=== PATIENT | female | born 1945 | race Caucasian/White ===

== ENCOUNTER 2024-09-25 16:25 | Inpatient (IN) | payer MEDICARE, SELFPAY ==
[2024-09-25] VITALS (10 sets, daily range): BP systolic 87–112; BP diastolic 36–65; PULSE 82–97; RESP 16–18; TEMP 37.3–37.5; O2SAT 83–95; BMI 38.9
--- NOTE | 2024-09-25 | ECG_ITS ---
Test Reason : FALL Blood Pressure : */* mmHG Vent. Rate : 83 BPM Atrial Rate : 83 BPM P-R Int : 126 ms QRS Dur : 78 ms QT Int : 390 ms P-R-T Axes : 40 -11 23 degrees QTcB Int : 458 ms Normal sinus rhythm Normal ECG No previous ECGs available Referred By: Generic ED Physician Electronically Signed By: WILLEM RICARDO MD
--- NOTE | ~2024-09-25 | XR_ITS ---
CLINICAL HISTORY: hypotension 1 view chest x-ray. Comparison: None Findings: Nonspecific density lateral aspect right mid lung. Question pleural or parenchymal in origin. Follow-up chest CT may be of value. Left lung clear. Heart size enlarged. No acute bony abnormalities. Impression: Nonspecific lateral right density as above Chest CT may be of value This document has been electronically signed by: Rigo Burnett MD on 09/25/2024 20:34:10
--- NOTE | ~2024-09-25 | CT_ITS ---
CLINICAL HISTORY: Fall CT head without contrast Comparison: None Findings: No intracranial mass, midline shift, hydrocephalus, or acute hemorrhage. Mild chronic ischemic white matter disease without volume loss. Nonspecific dural calcifications left lateral temporal lobe. No acute process in sinuses or mastoids. No acute bony abnormality. Impression: No acute intracranial process This document has been electronically signed by: Rigo Burnett MD on 09/25/2024 22:11:23
--- NOTE | ~2024-09-25 | XR_ITS ---
EXAMINATION: XR CHEST CLINICAL INFORMATION: SOB COMPARISON: CTPA 09/26/2024. X-ray chest 09/25/2024. TECHNIQUE: AP portable view of the chest was obtained. FINDINGS: There is cardiac enlargement. Mediastinal and hilar contours appear normal. The aorta is calcified but normal in contour. There is retrocardiac opacity suspicious for pneumonia. There is linear opacity in the right base, likely atelectasis. Lungs otherwise clear. Grossly no significant effusion or pneumothorax. A pleural-based opacity in the right lateral thorax is consistent with a pleural lipoma as seen on CT. Arthritic changes present in the spine and shoulder joints. Old rib fractures are noted particularly on the left. No discrete soft tissue abnormalities. XR/XR chest 1V IMPRESSION: 1. Left base pneumonia suspected. 2. Linear atelectasis right base. 3. Cardiomegaly. 4. Pleural opacity in the lateral right thorax consistent with pleural lipoma as seen on recent CT. Electronically signed by: Jimmy Márquez MD 09/28/2024 08:48 AM MEGHNA
--- NOTE | ~2024-09-25 | CT_ITS ---
CLINICAL HISTORY: sob ?PE CT angiography chest with contrast. With MIP MPR Postprocessing. Comparison: Chest x-ray from 09/25/2024 Findings: No central pulmonary embolism. Moderate cardiomegaly with multi chamber enlargement of the heart. Calcified and noncalcified plaque including the tortuous aorta and its branches. Small mediastinal lymph nodes are nonspecific and may be reactive. 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 Trace small bilateral pleural effusions. No pneumothorax. Mild scarring and emphysematous changes. Combination of atelectasis and consolidation are nonspecific and may be infectious/inflammatory with index consolidation measuring 2.5 cm in the left lower lobe. Small left diaphragm defect appears old/chronic with adipose. Also mild eventration of the right hemidiaphragm suggested. Likely mild steatotic change of the imaged liver. Mild distention of the partially imaged gallbladder. Subcutaneous edema is noted. Bilateral rib deformities appear old chronic with remodeling callus formation including comminuted left lateral rib fractures. 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 Mild vertebral height losses appear old chronic including T12. Multiple Schmorl's nodes and bridging osteophytes noted. IMPRESSION: 1. No central pulmonary embolism. 2. Pulmonary opacities including consolidation in the left lower lobe. Differential considerations include pneumonitis/pneumonia. Recommend attention on follow-up to ensure resolution. This document has been electronically signed by: Yazan Caballero MD on 09/26/2024 01:14:08
[2024-09-25 17:30] LABS: MANUAL DIFF FLAG NO
--- NOTE | 2024-09-25 17:30 | PC.NURSE ---
pt biba from home s/p unwitnessed fall from her walker. pt reports she was ambulating to get a cup of coffee when she suddenly felt dizzy and lightheaded prior to fall. +loc. ?headstrike. -thinners. pt found to be laying on the ground for approximately 1 hr prior to arrival. during EMS transport, pt noted to be hypotensive. no interventions completed during transport. upon ED arrival - a&ox4. vss and up to date aside from slightly hypotensive. BP seems to have improved. pt on 3L via NC (baseline). pt currently c/o left sided rib discomfort d/t previous fall from multiple weeks ago. 20gIV in the left AC via EMS. labs obtained/sent to lab. ekg performed. orthostatic vs performed and negative. no sob/wob noted. respirations even/unlabored. plan of care ongoing. call horton placed within reach.
[2024-09-25 17:42] LABS: Basophils Percent Auto 0.3 % (0-2); Eosinophils Percent Auto 0.3 % (0-4); Hemoglobin 14.9 g/dl (12.0-16.0); Imm Gran Abs Auto 0.09 X10*3/uL (0.00-0.03); Imm Gran Pct Auto 0.8 % (0.0-0.4); Lymphocytes Absolute Auto 1.1 X10*3/uL (1.2-4.9); Mean Corpuscular HGB Conc 29.8 g/dl (31.0-35.0); Mean Corpuscular Volume 90.7 fL (80.0-98.0); Mean Platelet Volume 9.8 fL (9.4-12.3); Monocytes Percent Auto 8.5 % (2-11); Neutrophils Absolute Auto 9.5 x10*3/uL (2.0-8.3); Neutrophils Percent Auto 81.1 % (45-73); Platelet Count 252 X10*3/uL (160-400); Red Blood Count 5.51 X10*6/uL (4.20-5.50); Red Cell Distribution Width 13.6 % (11.0-16.0); White Blood Count 11.7 X10*3/uL (4.8-10.8)
--- NOTE | 2024-09-25 17:52 | ED.GENADULT ---
HPI - General Adult General Chief complaint: Fall Stated complaint: FALL, BP 70/40, - THINNERS Time Seen by Provider: 09/25/24 17:49 Source: patient Mode of arrival: EMS Limitations: no limitations History of Present Illness ED Provider: HPI narrative: Patient's history of hypertension and depression comes here as fell lightheaded and very weak and slumped down without hitting her head just prior to arrival. On arrival patient's blood pressure was 70/40. Patient's for last 2 days not eat much as she does not feel hungry no fever no chills no vomiting no diarrhea Related Data Allergies Allergy/AdvReac Type Severity Reaction Status Date / Time No Known Allergies Allergy Verified 09/25/24 17:05 Review of Systems Review of Systems: Yes all other systems are reviewed and are negative [facility] Social History Social History Smoked in Last 30 Days: No Use of substances other than those prescribed or required for medical reasons: No Advance Directives: No Advance Directives Information Provided: Yes Do you have a plan to hurt others: No Plan Physical Exam ED Vital Signs: Vital Signs - 24 hr 09/25/24 17:04 09/25/24 17:33 09/25/24 17:34 Temperature 99.5 F Pulse Rate 90 84 97 Respiratory Rate 18 Blood Pressure 97/36 L 89/41 L 87/51 L Pulse Oximetry 93 Oxygen Delivery Method Nasal Cannula Oxygen Flow Rate 09/25/24 17:36 09/25/24 18:16 09/25/24 18:25 Temperature 99.2 F Pulse Rate 96 82 83 Respiratory Rate 16 16 Blood Pressure 87/47 L 98/49 L 106/43 L Pulse Oximetry 93 93 Oxygen Delivery Method Nasal Cannula Nasal Cannula Oxygen Flow Rate 3 09/25/24 19:19 09/25/24 23:25 09/25/24 23:35 Temperature Pulse Rate 89 Respiratory Rate 16 Blood Pressure 97/49 L Pulse Oximetry 95 83 L 95 Oxygen Delivery Method Nasal Cannula Room Air Nasal Cannula Oxygen Flow Rate 3 4 09/26/24 00:45 Temperature 97.7 F Pulse Rate 102 H Respiratory Rate 19 Blood Pressure 145/67 H Pulse Oximetry 95 Oxygen Delivery Method Nasal Cannula Oxygen Flow Rate 4 BMI result Body Mass Index 38.9 Appearance: Alert. Oriented X3. No acute distress. Eyes: PERRLA, No Nystagmus ENT: Pharynx normal. Oral Mucosa moist Neck: Normal inspection. Neck supple. CVS: Normal heart rate and rhythm. Pulses normal. Respiratory: No respiratory distress. Equal air entry bilateral, no wheezing/rales/rhonchi Abdomen: Soft and nontender. Bowel sounds are present, no mass palpable, no CVA tenderness Skin: Skin warm and dry. Normal skin color. Normal skin turgor. Extremities: No lower extremity edema. No calf tenderness Neuro: Oriented X 3. No motor deficit. No sensory deficit.No cerebellar signs , cranial nerves II-XII intact Medications Administered Discontinued Medications Generic Name Dose Route Start Last Admin Trade Name Freq PRN Reason Stop Dose Admin Sodium Chloride 1,000 mls @ 999 mls/hr 09/25/24 17:52 09/25/24 20:31 Ns IV 09/25/24 18:52 Infused .Q1H1M ONE Infusion Sodium Chloride 1,000 mls @ 999 mls/hr 09/25/24 19:39 09/25/24 21:55 Ns IV 09/25/24 20:39 Infused .Q1H1M ONE Infusion Iohexol 65 ml 09/26/24 00:46 09/26/24 00:47 Iohexol 350 Mg/Ml 100 Ml Infus..Btl IV 09/26/24 00:47 65 ml ONCE ONE Administration Medical Decision Making Medical Decision Making [facility] Narrative: Patient has increased lethargy and weakness with poor oral intake etiology not very clear workup so far is negative awaiting for the urine test received IV fluids chest CT order for opacity in the chest Xray patient's head CT is negative Chest CT showed left lower lobe infiltrate no PE, patient's pulse ox dropped to 83% at room air while patient's sleep patient does have history of smoking but never been diagnose with COPD never used any inhaler in the past does have cough for few days but mostly mucoid phlegm no fever no chills will admit patient for pneumonia likely atypical with hypoxia Differential Diagnosis Differential Diagnoses: The differential diagnosis associated with the presentation includes Metabolic encephalopathy/infectious process/pneumonia/pulmonary embolism/chronic lung disease Admission/Observation Consideration of admission/observation: Escalation of care including admission/observation considered Consult Healthcare Provider Management of the patient was discussed with: Hospitalist Lab Data [facility] Lab Attestation statement: I reviewed the patient's lab results. 09/25/24 17:22 09/25/24 17:24 Labs: Lab Results 09/25/24 09/25/24 09/25/24 Range/Units 17:22 17:24 20:30 WBC 11.7 H (4.8-10.8) X10*3/uL RBC 5.51 H (4.20-5.50) X10*6/uL Hgb 14.9 (12.0-16.0) g/dl Hct 50.0 H (37.0-47.0) % MCV 90.7 (80.0-98.0) fL MCH 27.0 (27.0-33.0) pg MCHC 29.8 L (31.0-35.0) g/dl RDW 13.6 (11.0-16.0) % Plt Count 252 (160-400) X10*3/uL MPV 9.8 (9.4-12.3) fL Immature Gran % (Auto) 0.8 H (0.0-0.4) % Neut % (Auto) 81.1 H (45-73) % Lymph % (Auto) 9.0 L (20-40) % [place] % (Auto) 8.5 (2-11) % Eos % (Auto) 0.3 (0-4) % Baso % (Auto) 0.3 (0-2) % Lymph # (Auto) 1.1 L (1.2-4.9) X10*3/uL [place] # (Auto) 1.0 (0.1-1.2) X10*3/uL Eos # (Auto) 0.0 (0.0-0.4) X10*3/uL Baso # (Auto) 0.0 (0.0-0.2) X10*3/uL Abs Immat Gran (auto) 0.09 H (0.00-0.03) X10*3/uL Absolute Neuts (auto) 9.5 H (2.0-8.3) x10*3/uL Absolute Nucleated RBC 0.000 (0.0-0.012) X10*3/uL Nucleated RBC % (auto) 0.0 (0.0-0.2) /100WBC VBG pH (7.32-7.43) VBG pCO2 mmHg VBG pO2 mmHg VBG HCO3 (22-26) mmol/L VBG O2 Saturation % VBG Base Excess mmol/L Sodium 142 (135-145) mmol/L Potassium 4.7 (3.3-5.1) mmol/L Chloride 99 (96-108) mmol/L Carbon Dioxide 30 H (22-29) mmol/L Anion Gap 18 (12-20) BUN 29 H (9-16) mg/dL Creatinine 1.30 (0.5-1.4) mg/dL Estim Creat Clear Calc 37.4 Estimated GFR 39 Random Glucose 125 H (60-115) mg/dL Lactic Acid 1.4 (0.5-2.0) mmol/L Calcium 8.7 (8.4-10.2) mg/dL Magnesium 2.2 (1.6-2.6) mg/dL Total Bilirubin 0.4 (0.0-1.0) mg/dL Direct Bilirubin 0.2 (0.0-0.5) mg/dL AST 31 (5-31) U/L ALT 21 (0-31) U/L Alkaline Phosphatase 150 H (39-117) U/L Troponin I High Sens 11.6 (<3.5-17.0) ng/L Total Protein 7.6 (6.5-8.0) g/dL Albumin 3.8 (3.5-5.0) g/dL TSH 2.61 (0.32-4.0) uIU/mL Influenza Type A (PCR) NEGATIVE (Negative) Influenza Type B (PCR) NEGATIVE (Negative) RSV RNA Qual (PCR) NEGATIVE (Negative) SARS-CoV-2 RNA (RT-PCR) NEGATIVE (Negative) 09/26/24 Range/Units 23:36 WBC (4.8-10.8) X10*3/uL RBC (4.20-5.50) X10*6/uL Hgb (12.0-16.0) g/dl Hct (37.0-47.0) % MCV (80.0-98.0) fL MCH (27.0-33.0) pg MCHC (31.0-35.0) g/dl RDW (11.0-16.0) % Plt Count (160-400) X10*3/uL MPV (9.4-12.3) fL Immature Gran % (Auto) (0.0-0.4) % Neut % (Auto) (45-73) % Lymph % (Auto) (20-40) % [place] % (Auto) (2-11) % Eos % (Auto) (0-4) % Baso % (Auto) (0-2) % Lymph # (Auto) (1.2-4.9) X10*3/uL [place] # (Auto) (0.1-1.2) X10*3/uL Eos # (Auto) (0.0-0.4) X10*3/uL Baso # (Auto) (0.0-0.2) X10*3/uL Abs Immat Gran (auto) (0.00-0.03) X10*3/uL Absolute Neuts (auto) (2.0-8.3) x10*3/uL Absolute Nucleated RBC (0.0-0.012) X10*3/uL Nucleated RBC % (auto) (0.0-0.2) /100WBC VBG pH 7.43 (7.32-7.43) VBG pCO2 33 mmHg VBG pO2 79 mmHg VBG HCO3 22 (22-26) mmol/L VBG O2 Saturation 96.0 % VBG Base Excess -1.0 mmol/L Sodium (135-145) mmol/L Potassium (3.3-5.1) mmol/L Chloride (96-108) mmol/L Carbon Dioxide (22-29) mmol/L Anion Gap (12-20) BUN (9-16) mg/dL Creatinine (0.5-1.4) mg/dL Estim Creat Clear Calc Estimated GFR Random Glucose (60-115) mg/dL Lactic Acid (0.5-2.0) mmol/L Calcium (8.4-10.2) mg/dL Magnesium (1.6-2.6) mg/dL Total Bilirubin (0.0-1.0) mg/dL Direct Bilirubin (0.0-0.5) mg/dL AST (5-31) U/L ALT (0-31) U/L Alkaline Phosphatase (39-117) U/L Troponin I High Sens (<3.5-17.0) ng/L Total Protein (6.5-8.0) g/dL Albumin (3.5-5.0) g/dL TSH (0.32-4.0) uIU/mL Influenza Type A (PCR) (Negative) Influenza Type B (PCR) (Negative) RSV RNA Qual (PCR) (Negative) SARS-CoV-2 RNA (RT-PCR) (Negative) Independent Interpretation I performed an independent interpretation of an: EKG Interpretation: Normal sinus rhythm heart rate 83 beats per minute normal interval normal axis no acute ST-T changes Radiology Impression Discussion of test interpretation with radiology: I have reviewed the radiologist's reading. Radiologist Impression: [address] [address] [address] Scan Report Signed Patient: Ping Lyman MR#: [id number] : 1945 Acct:[id number] Age/Sex: 79 / F ADM Date: 09/25/24 Loc: .ED Attending Dr: Ordering Physician: Antony Mckenzie MD Date of Service: 09/26/24 Procedure(s): CT angio chest PE protocol Accession Number(s): [id number] cc: Anurag Schmid MD; Antony Mckenzie MD~ Report Number: [id number]: Total DLP = 512.00 mGy-cm CLINICAL HISTORY: sob ?PE CT angiography chest with contrast. With MIP MPR Postprocessing. Comparison: Chest x-ray from 09/25/2024 Findings: No central pulmonary embolism. Moderate cardiomegaly with multi chamber enlargement of the heart. Calcified and noncalcified plaque including the tortuous aorta and its branches. Small mediastinal lymph nodes are nonspecific and may be reactive. 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 Trace small bilateral pleural effusions. No pneumothorax. Mild scarring and emphysematous changes. Combination of atelectasis and consolidation are nonspecific and may be infectious/inflammatory with index consolidation measuring 2.5 cm in the left lower lobe. Small left diaphragm defect appears old/chronic with adipose. Also mild eventration of the right hemidiaphragm suggested. Likely mild steatotic change of the imaged liver. Mild distention of the partially imaged gallbladder. Subcutaneous edema is noted. Bilateral rib deformities appear old chronic with remodeling callus formation including comminuted left lateral rib fractures. 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 Mild vertebral height losses appear old chronic including T12. Multiple Schmorl's nodes and bridging osteophytes noted. IMPRESSION: 1. No central pulmonary embolism. 2. Pulmonary opacities including consolidation in the left lower lobe. Differential considerations include pneumonitis/pneumonia. Recommend attention on follow-up to ensure resolution. This document has been electronically signed by: Yazan Caballero MD on 09/26/2024 01:14:08 Discharge Plan Discharge Clinical Impression: Acute hypoxemic respiratory failure, Weakness, Pneumonia Patient Disposition: Admitted As Inpatient Print Language: French
[2024-09-25 17:58] LABS: Alanine Aminotransferase 21 U/L (0-31); Albumin Level 3.8 g/dL (3.5-5.0); Alkaline Phosphatase 150 U/L (39-117); Anion Gap 18 (12-20); Aspartate Amino Transferase 31 U/L (5-31); Bilirubin Direct 0.2 mg/dL (0.0-0.5); Bilirubin Total 0.4 mg/dL (0.0-1.0); Blood Urea Nitrogen 29 mg/dL (9-16); Calcium 8.7 mg/dL (8.4-10.2); Carbon Dioxide 30 mmol/L (22-29); Chloride 99 mmol/L (96-108); Creatinine Clr Calc Pharmacy 37.4; Estimated Glomerular Filt Rate 39; Glucose Random 125 mg/dL (60-115); Magnesium 2.2 mg/dL (1.6-2.6); Potassium 4.7 mmol/L (3.3-5.1); Sodium 142 mmol/L (135-145); Total Protein 7.6 g/dL (6.5-8.0)
[2024-09-25 18:00] LABS: Troponin-I High Sensitivity 11.6 ng/L (<3.5-17.0)
[2024-09-25] MEDS: 0.9 % Sodium Chloride 1,000 ML 999 ML IV ×2 (18:01→20:32)
--- NOTE | 2024-09-25 18:03 | PC.NURSE ---
pt remains hypotensive. otherwise vss and up to date. nsr on the teletypesetter monitor. provider notified/aware. MD bedside to assess. IVF administered per provider order. pt remains on 3L via NC at this time. no sob/wob noted. respirations even/unlabored. plan of care ongoing. call horton placed within reach.
[2024-09-25 18:16] LABS: Influenza A PCR NEGATIVE (Negative); Influenza B PCR NEGATIVE (Negative); Resp Syncy Virus RNA Qual PCR NEGATIVE (Negative); SARS COV2 PCR INHOUSE NEGATIVE (Negative)
[2024-09-25 20:52] LABS: Lactic Acid 1.4 mmol/L (0.5-2.0)
[2024-09-25 23:48] LABS: Thyroid Stimulating Hormone 2.61 uIU/mL (0.32-4.0)
[2024-09-26] VITALS (8 sets, daily range): BP systolic 117–162; BP diastolic 41–67; PULSE 82–128; RESP 11–20; TEMP 36.5–37.2; O2SAT 92–95
[2024-09-26] MEDS: iohexoL 350 MG/ML 100 ML INFUS..BTL 65 ML IV (00:47)
[2024-09-26 01:01] LABS: VBG pCO2 33 mmHg; VBG pH 7.43 (7.32-7.43)
[2024-09-26 01:02] LABS: VBG pO2 79 mmHg
[2024-09-26 01:03] LABS: VBG HCO3 22 mmol/L (22-26)
[2024-09-26 01:06] LABS: Venous Blood Gas Refer to POC result
--- NOTE | 2024-09-26 01:34 | PC.NURSE ---
Patient is a difficult stick, multiple attempts made to draw blood for second set of blood cultures with no success, Dr. Tirado informed. Per Dr. Tirado, OK not to draw a second set of blood cultures.
[2024-09-26] MEDS: cefTRIAXone sodium 1 GM VIAL IVPUSH ×2 (01:44→21:54)
[2024-09-26] MEDS: Doxycycline Hyclate 100 MG in 0.9 % Sodium Chloride 250 ML 166.67 MG IV (01:48)
[2024-09-26] MEDS: Enoxaparin Sodium 40 MG/0.4 ML SYRINGE SUBCUT (05:29)
--- NOTE | 2024-09-26 05:51 | MHC.EDTECH ---
patient cleaned and repositioned into position of comfort. patient given warm blanket and head of bed lowered per patient request. all needs met at this time
--- NOTE | 2024-09-26 06:12 | P.HPHOSP_ITS ---
History of Present Illness Date of Service: 09/26/24 Attending physician on admission: Ivana Tirado Chief Complaint: weakness, fall Patient is an 79-year-old female with a past medical history significant for hypertension and depression, who presented to the ED due to lightheadedness and weakness hit followed by a fall. She reports that she slumped onto the ground, did not hit her head or lose consciousness. No seizure-like activity including urinary incontinence. She reports a productive cough recently with white sputum. No fever, chills, nausea or vomiting. No recent sick contacts. He denies headache, sore throat, runny nose, congestion, abdominal pain or urinary symptoms including frequency, urgency or dysuria. She has had poor p.o. intake over the past 2 days due to her weakness and lightheadedness. Review of Systems 2 Constitutional: Constitutional: Denies body ache(s), Denies chills, Reports fatigue, Denies fever(s) and Denies headache(s) Eyes: Eyes: Denies change in vision ENT: Denies headache(s), Denies nasal congestion, Denies nasal discharge and Denies sore throat Cardiovascular: Cardiovascular: Denies chest pain, Reports syncope, Denies rapid heart rate, Reports lightheadedness, Denies dyspnea and Denies dyspnea on exertion Respiratory: Respiratory: Reports cough, Denies dyspnea, Denies dyspnea on exertion and Denies wheezing Gastrointestinal: Gastrointestinal: Denies constipation, Denies diarrhea, Denies nausea and Denies vomiting Genitourinary: Genitourinary: Denies dysuria, Denies urinary incontinence and Denies urinary urgency Musculoskeletal: Musculoskeletal: Denies myalgias Integumentary/Breasts: Skin/Breast: Denies rash Neurologic: Denies confusion, Reports syncope, Denies headache(s) and Denies seizure-like activity Psychiatric: Psychiatric: Denies confusion Endocrine: Endocrine: Reports fatigue Hematologic/Lymphatic: Hematologic/Lymphatic: Denies easy bleeding and Denies easy bruising Allergic/Immunologic: Allergic/Immunologic: Denies wheezing [facility] Medical History (Updated 09/26/24 @ 06:22 by Blossom Arias PA-C) Obesity (BMI 35.0-39.9 without comorbidity) Depression HTN (hypertension) Functional capacity: independent ambulation Social History Patient Tobacco Use Status: Former Tobacco user Smoked in Last 30 Days: No Use of substances other than those prescribed or required for medical reasons: No Advance Directives: No Advance Directives Information Provided: Yes Do you have a plan to hurt others: No Plan Narrative: no smoking, etoh, or drug use Meds Allergies Allergy/AdvReac Type Severity Reaction Status Date / Time No Known Allergies Allergy Verified 09/25/24 17:05 Active Medications: Current Medications Acetaminophen (Acetaminophen 325 Mg Tablet) 650 mg PO Q6H PRN PRN Reason: Pain, Mild 1-3,fever,headache Calcium Carbonate (Calcium Carbonate 750 Mg Tab.Chew) 750 mg PO Q4H PRN PRN Reason: Heartburn Ceftriaxone Sodium (Ceftriaxone Sodium 1 Gm Vial) 1 gm IVPUSH Q24H MAYRA Enoxaparin Sodium (Enoxaparin Sodium 40 Mg/0.4 Ml Syringe) 40 mg SUBCUT Q24H [facility] Last Admin: 09/26/24 05:29 Dose: 40 mg Azithromycin 500 mg/ Sodium (Chloride) 250 mls @ 125 mls/hr IV Q24H MAYRA Magnesium Hydroxide (Milk Of Magnesia 30 Ml Oral.Susp) 30 ml PO DAILY PRN PRN Reason: Constipation Melatonin (Melatonin 3 Mg Tablet) 6 mg PO BEDTIME PRN PRN Reason: Insomnia Ondansetron HCl (Ondansetron Hcl 4 Mg/2 Ml Vial) 4 mg IVPUSH Q8H PRN PRN Reason: Nausea and Vomiting Sodium Chloride (0.9 % Sodium Chloride Flush 3 Ml Syringe) 3 ml IVFLUSH QSHIFT [facility] Physical Exam 2 Vital Signs and Narrative: Vital Signs: Last Vital Signs Temp 97.7 F 09/26/24 00:45 Pulse 82 09/26/24 03:28 Resp 11 L 09/26/24 03:28 BP 132/59 L 09/26/24 03:28 Pulse Ox 94 09/26/24 03:28 O2 Del Method Nasal Cannula 09/26/24 03:28 O2 Flow Rate 3 09/26/24 03:28 Oxygen Flow Rate 3 09/25/24 17:04 BMI result Body Mass Index 38.9 General: AOx3, no acute distress Resp: crackles LLL, no wheezing CVS: S1, S2, RRR GI: +BS, NT, no distention Skin: Warm, dry Neuro: Cranial nerves II-XII grossly intact bilaterally. Motor grossly intact bilaterally Extremities: No LE edema Psych: Appropriate affect Const: General: No confusion Orientation/consciousness: No confusion Neuro: General: No confusion Results Labs 09/25/24 17:22 09/26/24 05:12 Labs: Laboratory Results - last 24 hr 09/25/24 09/25/24 09/25/24 17:22 17:24 20:30 MCV 90.7 MCH 27.0 MCHC 29.8 L RDW 13.6 Plt Count 252 MPV 9.8 Immature Gran % (Auto) 0.8 H Neut % (Auto) 81.1 H Lymph % (Auto) 9.0 L [place] % (Auto) 8.5 Eos % (Auto) 0.3 Baso % (Auto) 0.3 Lymph # (Auto) 1.1 L [place] # (Auto) 1.0 Eos # (Auto) 0.0 Baso # (Auto) 0.0 Abs Immat Gran (auto) 0.09 H Absolute Neuts (auto) 9.5 H Absolute Nucleated RBC 0.000 Nucleated RBC % (auto) 0.0 VBG pH VBG pCO2 VBG pO2 VBG HCO3 VBG O2 Saturation VBG Base Excess Anion Gap 18 Estim Creat Clear Calc 37.4 Estimated GFR 39 Random Glucose 125 H Lactic Acid 1.4 Calcium 8.7 Magnesium 2.2 Total Bilirubin 0.4 Direct Bilirubin 0.2 AST 31 ALT 21 Alkaline Phosphatase 150 H Troponin I High Sens 11.6 Total Protein 7.6 Albumin 3.8 TSH 2.61 Influenza Type A (PCR) NEGATIVE Influenza Type B (PCR) NEGATIVE RSV RNA Qual (PCR) NEGATIVE SARS-CoV-2 RNA (RT-PCR) NEGATIVE 09/26/24 23:36 MCV MCH MCHC RDW Plt Count MPV Immature Gran % (Auto) Neut % (Auto) Lymph % (Auto) [place] % (Auto) Eos % (Auto) Baso % (Auto) Lymph # (Auto) [place] # (Auto) Eos # (Auto) Baso # (Auto) Abs Immat Gran (auto) Absolute Neuts (auto) Absolute Nucleated RBC Nucleated RBC % (auto) VBG pH 7.43 VBG pCO2 33 VBG pO2 79 VBG HCO3 22 VBG O2 Saturation 96.0 VBG Base Excess -1.0 Anion Gap Estim Creat Clear Calc Estimated GFR Random Glucose Lactic Acid Calcium Magnesium Total Bilirubin Direct Bilirubin AST ALT Alkaline Phosphatase Troponin I High Sens Total Protein Albumin TSH Influenza Type A (PCR) Influenza Type B (PCR) RSV RNA Qual (PCR) SARS-CoV-2 RNA (RT-PCR) Assessment and Plan (1) Acute hypoxemic respiratory failure: Status: Acute (2) Pneumonia: Status: Acute (3) Orthostatic syncope: Status: Acute (4) Obesity (BMI 35.0-39.9 without comorbidity): Status: Chronic Plan Patient is an 79-year-old female with a past medical history significant for hypertension and depression, who presented to the ED due to lightheadedness and weakness hit followed by a fall. Patient found to be hypoxic with pneumonia. Head CT negative, no seizure-like activity, no loss of consciousness or head strike. Likely orthostatic syncope secondary to poor p.o. intake. Acute hypoxic respiratory failure secondary to pneumonia - WBC 11.7, lactic acid normal, blood cultures x2 pending, no sepsis - chest CT with left lower lobe pneumonia - flu/RSV/COVID negative - IV fluids: 2L in ED - started on doxycycline and ceftriaxone - monitor CBC and BMP Orthostatic syncope secondary to poor p.o. intake - EKG with NSR - head CT negative - BP normalized with IV fluids - continue to monitor CBC and BMP obesity - BMI 39.0 - weight loss encouraged Full code VTE prophy: lovenox Patient with acute hypoxic respiratory failure secondary to pneumonia treated by an episode orthostatic, requiring admission for at least 2 midnights stay for IV antibiotics and monitoring. Quality Stroke Does the patient have a stroke diagnosis?: No VTE Prior VTE?: No VTE Risk Level:: Medical - moderate - high VTE Device Contraindication: Treatment Not Indicated VTE Drug Contraindication: N/A - Med Ordered
[2024-09-26 06:13] LABS: Anion Gap 16 (12-20); Blood Urea Nitrogen 32 mg/dL (9-16); Calcium 8.5 mg/dL (8.4-10.2); Carbon Dioxide 25 mmol/L (22-29); Chloride 105 mmol/L (96-108); Creatinine Clr Calc Pharmacy 43.4; Estimated Glomerular Filt Rate 47; Glucose Random 90 mg/dL (60-115); Potassium 4.5 mmol/L (3.3-5.1); Sodium 141 mmol/L (135-145)
--- NOTE | 2024-09-26 07:41 | PM.EVENT ---
Event Note Date of Service: 09/26/24 Event Note: 79-year-old female with a past medical history significant for hypertension and depression, who presented to the ED due to lightheadedness and weakness followed by a fall. Patient found to be hypoxic with pneumonia. Head CT negative, no seizure-like activity, no loss of consciousness or head strike. Likely orthostatic syncope secondary to poor p.o. intake. Resting comfortably no acute issues since admission Acute hypoxic respiratory failure secondary to pneumonia - WBC 11.7, lactic acid normal, blood cultures x2 pending, no sepsis - chest CT with left lower lobe pneumonia - flu/RSV/COVID negative - status post 2 L of IV fluid in ED - continue IV doxycycline and ceftriaxone - monitor CBC and BMP Orthostatic hypotension near syncope secondary to poor p.o. intake - EKG with NSR, hematocrit 50, BUN 32 - head CT negative - BP normalized with IV fluids, - continue to monitor CBC and BMP -hold antihypertensives losartan, and clonidine 0.2 mg t.i.d. monitor BP and gradually resume home medications as tolerated obesity - BMI 39.0, recommend low-calorie diet Hyperlipidemia hold CTA and Zocor Mood disorder resume Zoloft 100 mg daily. Full code VTE prophy: lovenox Patient with acute hypoxic respiratory failure secondary to pneumonia treated by an episode orthostatic, requiring admission for at least 2 midnights stay for IV antibiotics and monitoring. Time Spent With Patient Time: Total time managing care of this patient today ____ minutes.
--- NOTE | 2024-09-26 10:42 | PHA.MEDREC ---
Pharmacy Consult ? Medication Reconciliation Pharmacy has completed the medication reconciliation, spoke to patient at bedside who confirmed medications. Pt stated she is not taking trazodone 100mg at bedtime, also used list form [employer] [facility] to double check with claims.
[2024-09-26] MEDS: 0.9 % Sodium Chloride Flush 3 ML SYRINGE IVFLUSH ×3 (11:05→22:00)
--- NOTE | 2024-09-26 15:56 | MHC.EDTECH ---
had the patient stand to do orthos. pt was very unsteady on her feet and sat back down immediately. pt also peed as soon as she stood up. pt also changed and pad changed underneath as well.
[2024-09-26] MEDS: Gabapentin 300 MG CAPSULE PO (16:20)
[2024-09-26] MEDS: Acetaminophen 325 MG TABLET 650 MG PO ×2 (16:23→22:17)
[2024-09-26] MEDS: Azithromycin 500 MG in 0.9 % Sodium Chloride 250 ML 125 MG IV (21:54)
[2024-09-26] MEDS: Melatonin 3 MG TABLET 6 MG PO (22:15)
[2024-09-26] MEDS: ondansetron HCL 4 MG/2 ML VIAL IVPUSH (23:25)
[2024-09-27 03:15] VITALS: BP 152/68; PULSE 100; RESP 16; TEMP 36.9; O2SAT 94
[2024-09-27] MEDS: Enoxaparin Sodium 40 MG/0.4 ML SYRINGE SUBCUT (06:27)
[2024-09-27 07:02] LABS: Hematocrit 46.5 % (37.0-47.0); Hemoglobin 13.8 g/dl (12.0-16.0); Mean Corpuscular HGB Conc 29.7 g/dl (31.0-35.0); Mean Corpuscular Hemoglobin 27.3 pg (27.0-33.0); Mean Corpuscular Volume 91.9 fL (80.0-98.0); Mean Platelet Volume 10.1 fL (9.4-12.3); Platelet Count 229 X10*3/uL (160-400); Red Blood Count 5.06 X10*6/uL (4.20-5.50); Red Cell Distribution Width 13.8 % (11.0-16.0); White Blood Count 6.9 X10*3/uL (4.8-10.8)
[2024-09-27 08:00] VITALS: BP 157/81; PULSE 101; RESP 17; TEMP 36.7; O2SAT 94
[2024-09-27] MEDS: Gabapentin 300 MG CAPSULE PO ×2 (08:18→16:19)
[2024-09-27] MEDS: Flu Vacc TS2024-25(6mos up)/PF 0.5 ML SYRINGE IM (08:18)
[2024-09-27] MEDS: Sertraline HCL 100 MG TABLET PO (08:18)
[2024-09-27] MEDS: 0.9 % Sodium Chloride Flush 3 ML SYRINGE IVFLUSH (08:20)
[2024-09-27 08:31] LABS: MANUAL DIFF FLAG NO
[2024-09-27 08:39] LABS: Basophils Percent Auto 0.6 % (0-2); Eosinophils Absolute Auto 0.2 X10*3/uL (0.0-0.4); Eosinophils Percent Auto 3.2 % (0-4); Hematocrit 45.1 % (37.0-47.0); Hemoglobin 13.4 g/dl (12.0-16.0); Imm Gran Abs Auto 0.03 X10*3/uL (0.00-0.03); Imm Gran Pct Auto 0.4 % (0.0-0.4); Lymphocytes Absolute Auto 1.7 X10*3/uL (1.2-4.9); Lymphocytes Percent Auto 23.9 % (20-40); Mean Corpuscular HGB Conc 29.7 g/dl (31.0-35.0); Mean Corpuscular Hemoglobin 27.1 pg (27.0-33.0); Mean Corpuscular Volume 91.1 fL (80.0-98.0); Mean Platelet Volume 9.4 fL (9.4-12.3); Monocytes Absolute Auto 0.7 X10*3/uL (0.1-1.2); Monocytes Percent Auto 10.1 % (2-11); Neutrophils Absolute Auto 4.4 x10*3/uL (2.0-8.3); Neutrophils Percent Auto 61.8 % (45-73); Platelet Count 219 X10*3/uL (160-400); Red Blood Count 4.95 X10*6/uL (4.20-5.50); Red Cell Distribution Width 13.7 % (11.0-16.0); White Blood Count 7.2 X10*3/uL (4.8-10.8)
[2024-09-27 09:06] LABS: Alanine Aminotransferase 24 U/L (0-31); Albumin Level 3.4 g/dL (3.5-5.0); Alkaline Phosphatase 136 U/L (39-117); Anion Gap 7 (12-20); Aspartate Amino Transferase 28 U/L (5-31); Bilirubin Total 0.2 mg/dL (0.0-1.0); Blood Urea Nitrogen 26 mg/dL (9-16); Carbon Dioxide 34 mmol/L (22-29); Chloride 105 mmol/L (96-108); Creatinine Clr Calc Pharmacy 64.9; Estimated Glomerular Filt Rate > 60; Glucose Random 104 mg/dL (60-115); Potassium 4.1 mmol/L (3.3-5.1); Sodium 142 mmol/L (135-145); Total Protein 6.8 g/dL (6.5-8.0)
[2024-09-27 11:46] LABS: Appearance Urine Turbid; Color Urine Yellow; Glucose Urine UA Negative (Negative); Leukocyte Esterase Urine Negative (Negative); Nitrite Urine Negative (Negative); PH 5.5 (5.0-9.0); Urine Blood Negative (Negative); Urine Ketones Negative (Negative); Urine Protein Trace mg/dL (Neg-Trace)
[2024-09-27 12:14] LABS: Bacteria Urine None Seen (None Seen); Hyaline Casts Urine 0-2 /LPF (0-2); RBC Urine 0-2 /HPF (0-2); Squamous Epithelial Cell Urine 0-2 /HPF (0-2); WBC Urine 0-5 /HPF (0-5)
[2024-09-27] MEDS: Acetaminophen 325 MG TABLET 650 MG PO ×3 (14:06→21:46)
[2024-09-27] MEDS: Lactated Ringers 1,000 ML 100 ML IVCONT (14:07)
--- NOTE | 2024-09-27 14:14 | HO.PM.IMPN ---
Subjective Subjective Date of Service: 09/27/24 Interval History: No acute issues overnight as discussed with nursing staff. Sats acceptable at 2 liters/minute Review of Systems Denies chest pain Admits to shortness of breath with movement Denies nausea vomiting diarrhea Denies fever chills Physical Exam Vital Signs: Vital Signs: Last Vital Signs Temp 98.0 F 09/27/24 08:00 Pulse 101 H 09/27/24 08:00 Resp 17 09/27/24 08:00 BP 157/81 H 09/27/24 08:00 Pulse Ox 94 09/27/24 08:00 O2 Del Method Nasal Cannula 09/27/24 08:00 O2 Flow Rate 2 09/27/24 08:00 Oxygen Flow Rate 3 09/25/24 17:04 BMI result Body Mass Index 38.9 Const: Other: Awake alert no acute distress Resp: Other: Clear to auscultation bilaterally no rales rhonchi or wheezes Cardio: Other: No S4; positive S1-S2; no S3 murmurs rubs or gallops GI: Other: Soft nontender nondistended normoactive bowel sounds Extrem: Other: No edema bilaterally Objective Data Active Medications Acetaminophen (Acetaminophen 325 Mg Tablet) 650 mg PO Q6H PRN PRN Reason: Pain, Mild 1-3,fever,headache Last Admin: 09/27/24 14:06 Dose: 650 mg Documented By: JESUS Calcium Carbonate (Calcium Carbonate 750 Mg Tab.Chew) 750 mg PO Q4H PRN PRN Reason: Heartburn Ceftriaxone Sodium (Ceftriaxone Sodium 1 Gm Vial) 1 gm IVPUSH Q24H [facility] Last Admin: 09/26/24 21:54 Dose: 1 gm Documented By: BETH Enoxaparin Sodium (Enoxaparin Sodium 40 Mg/0.4 Ml Syringe) 40 mg SUBCUT Q24H [facility] Last Admin: 09/27/24 06:27 Dose: 40 mg Documented By: BETH Gabapentin (Gabapentin 300 Mg Capsule) 300 mg PO BID@0900,1700 [facility] Last Admin: 09/27/24 08:18 Dose: 300 mg Documented By: JESUS Azithromycin 500 mg/ Sodium (Chloride) 250 mls @ 125 mls/hr IV Q24H [facility] Last Infusion: 09/27/24 00:14 Dose: Infused Documented By: BETH Lactated Ringer's (Lr) 1,000 mls @ 100 mls/hr IVCONT .Q10H [facility] Last Admin: 09/27/24 14:07 Dose: 100 mls/hr Documented By: JESUS Magnesium Hydroxide (Milk Of Magnesia 30 Ml Oral.Susp) 30 ml PO DAILY PRN PRN Reason: Constipation Melatonin (Melatonin 3 Mg Tablet) 6 mg PO BEDTIME PRN PRN Reason: Insomnia Last Admin: 09/26/24 22:15 Dose: 6 mg Documented By: BETH Ondansetron HCl (Ondansetron Hcl 4 Mg/2 Ml Vial) 4 mg IVPUSH Q8H PRN PRN Reason: Nausea and Vomiting Last Admin: 09/26/24 23:25 Dose: 4 mg Documented By: BETH Sertraline HCl (Sertraline Hcl 100 Mg Tablet) 100 mg PO DAILY [facility] Last Admin: 09/27/24 08:18 Dose: 100 mg Documented By: JESUS Sodium Chloride (0.9 % Sodium Chloride Flush 3 Ml Syringe) 3 ml IVFLUSH QSHIFT [facility] Last Admin: 09/27/24 08:20 Dose: 3 ml Documented By: JESUS Labs 09/27/24 08:10 09/27/24 08:10 Labs: Laboratory Results - last 24 hr 09/27/24 09/27/24 09/27/24 05:52 08:10 11:24 MCV 91.9 91.1 MCH 27.3 27.1 MCHC 29.7 L 29.7 L RDW 13.8 13.7 Plt Count 229 219 MPV 10.1 9.4 Immature Gran % (Auto) 0.4 Neut % (Auto) 61.8 Lymph % (Auto) 23.9 [place] % (Auto) 10.1 Eos % (Auto) 3.2 Baso % (Auto) 0.6 Lymph # (Auto) 1.7 [place] # (Auto) 0.7 Eos # (Auto) 0.2 Baso # (Auto) 0.0 Abs Immat Gran (auto) 0.03 Absolute Neuts (auto) 4.4 Absolute Nucleated RBC 0.000 0.000 Nucleated RBC % (auto) 0.0 0.0 Anion Gap 7 L Estim Creat Clear Calc 64.9 Estimated GFR > 60 Random Glucose 104 Calcium 9.0 Total Bilirubin 0.2 AST 28 ALT 24 Alkaline Phosphatase 136 H Total Protein 6.8 Albumin 3.4 L Urine Color Yellow Urine Appearance Turbid Urine pH 5.5 Ur Specific [place] 1.020 Urine Protein Trace Urine Glucose (UA) Negative Urine Ketones Negative Urine Blood Negative Urine Nitrite Negative Ur Leukocyte Esterase Negative Urine RBC 0-2 Urine WBC 0-5 Ur Squamous Epith Cells 0-2 Urine Bacteria None Seen Hyaline Casts 0-2 Microbiology Microbiology Results: Microbiology 09/25/24 20:10 Blood Culture - Final Blood - Venous 09/25/24 20:30 Blood Culture - Preliminary Blood - Venous No growth after 24 hours. Assessment and Plan (1) Pneumonia: Status: Acute (2) Acute hypoxemic respiratory failure: Status: Acute Plan Patient is an 79-year-old female with a past medical history significant for hypertension and depression, who presented to the ED due to lightheadedness and weakness hit followed by a fall. Patient found to be hypoxic with pneumonia. Head CT negative, no seizure-like activity, no loss of consciousness or head strike. Likely orthostatic syncope secondary to poor p.o. intake. 1.Acute hypoxic respiratory failure secondary to pneumonia - flu/RSV/COVID negative - IV fluids: 2L in ED - doxycycline/ceftriaxone (2) 2.Orthostatic syncope secondary to poor p.o. intake - responded well to volume repletion -follow clinically Full code lovenox Patient with acute hypoxic respiratory failure secondary to pneumonia treated by an episode orthostatic, requiring ongoing hospitalization for volume repletion IV antibiotics to treat pneumonia Quality Stroke Does the patient have a stroke diagnosis?: No VTE Prior VTE?: No VTE Risk Level:: Medical - moderate - high VTE Device Contraindication: Treatment Not Indicated VTE Drug Contraindication: N/A - Med Ordered
[2024-09-27] MEDS: ondansetron HCL 4 MG/2 ML VIAL IVPUSH (14:26)
[2024-09-27 15:16] VITALS: BP 138/61; PULSE 103; RESP 18; TEMP 36.7; O2SAT 94
--- NOTE | 2024-09-27 15:33 | MHC.CM.PN ---
IMM 09/27/24 S/P fall PNA. She lives with her S.O. . She requires assistance with all functional mobility. He assists with ADLs homemaking and cooking. Her dtr rashida is her HCP. A copy has been requested. The patient's dtr provided most of the information obtained for CM assessment. Patient was recently discharged from [facility] and transferred to [facility]. She did not gain strength @ [facility]. She was sent out of the STR in a WC. She discharged to home with home care services ordered. Roselia HUNTER scheduled an appointment for SOC. The patient fell prior to [facility] SOC. She was sent to [facility] via [place]. Patient is admitted with DX PNA. DME 3LO2 via [facility]. Tub bench grab bars in BR. STR preferences obtained and referrals have been sent. Roselia has been sent a referral to resume services after STR. DP STR via BLS. After STR Roseila will provide home services.
[2024-09-27] MEDS: Benzonatate 100 MG CAPSULE 200 MG PO ×2 (16:25→21:46)
[2024-09-27 19:28] VITALS: BP 165/74; PULSE 106; RESP 18; TEMP 36.4; O2SAT 94
[2024-09-27] MEDS: cefTRIAXone sodium 1 GM VIAL IVPUSH (20:31)
[2024-09-27] MEDS: Azithromycin 500 MG in 0.9 % Sodium Chloride 250 ML 125 MG IV (21:05)
[2024-09-28] VITALS (9 sets, daily range): BP systolic 149–183; BP diastolic 69–83; PULSE 80–112; RESP 16–20; TEMP 36.1–37.5; O2SAT 88–94
--- NOTE | 2024-09-28 | ECG_ITS ---
Test Reason : SOB Blood Pressure : */* mmHG Vent. Rate : 103 BPM Atrial Rate : 103 BPM P-R Int : 120 ms QRS Dur : 78 ms QT Int : 344 ms P-R-T Axes : 52 -16 49 degrees QTcB Int : 450 ms Sinus tachycardia Otherwise normal ECG When compared with ECG of 25-Sep-2024 17:29, No significant change was found Referred By: Cirilo Dumont Electronically Signed By: WILLEM RICARDO MD
[2024-09-28] MEDS: Lactated Ringers 1,000 ML 100 ML IVCONT (03:52)
[2024-09-28] MEDS: Enoxaparin Sodium 40 MG/0.4 ML SYRINGE SUBCUT (05:10)
--- NOTE | 2024-09-28 07:00 | CA_ITS ---
Transthoracic Echocardiogram Patient (Last, First, Middle): Ping Lyman, Gender: Female Date of : 1945 Age: 79 Procedure Date: 09/28/2024 Procedure Type: Transthoracic Echocardiogram Location: S3E Height: 157.48 cm Weight: 96.16 kg BSA: 1.96 m2 Heart Rate: bpm BP: 167 / 71 mmHg Juvenile Justice Officer: JORGE Referring MD: Cirilo Dumont DO Awning Maker: Shawn Rangel MD Symptoms: SOB Study Quality: Technically Difficult, contrast ECG Rhythm: Sinus tachycardia Conclusions: - 1. Technically limited study despite use of contrast agent 2. LV ejection fraction appears to be preserved with LVEF of 55 60% with impaired relaxation filling pattern 3. Limited evaluation of cardiac valves with normal cardiac valvular Dopplers Findings Procedure Information Contrast agent, definity, is being given per protocol without apparent complications. The study quality is limited by the patients inability to tolerate the test and an uncooperative patient. Left Ventricle The left ventricle was not well visualized. Normal left ventricular cavity size. The left ventricular systolic function is normal. The visually estimated ejection fraction is between 55-60%. Spectral Doppler is indicative of an impaired relaxation filling pattern. Right Ventricle The right ventricle was not well visualized. Atria The left atrium was not well visualized. Interatrial shunt cannot be excluded. The right atrium was not well visualized. Aortic Valve The aortic valve was not well visualized. There is no aortic valve stenosis. There is no aortic valve regurgitation. Mitral Valve The mitral valve was not well visualized. There is no mitral valve regurgitation. There is no mitral valve stenosis. Pulmonic Valve The pulmonic valve was not well visualized. Tricuspid Valve The tricuspid valve was not well visualized. Tricuspid regurgitation envelope is inadequate for calculation of right ventricular systolic pressure. Normal right atrial pressure. Great Vessels The aorta was not well visualized. The pulmonary artery was not well visualized. Venous The inferior vena cava was not well visualized. Pericardium/Pleural The pericardium was not well visualized. Prior Study Comparison No prior study available for comparison. Measurements 2D Linear Measurements IVSd: 1.07 0.6-0.9/0.6-1.0 cm LVIDd: 4.02 3.9-5.3/4.2-5.9 cm LVIDd Index: 2.05 2.4-3.2/2.2-3.1 cm/m2 LVIDs: 2.80 2.0-3.6 cm LVPWd: 1.10 0.7-1.1 cm LA Diam: 3.00 2.7-3.8/3.0-4.0 cm LAIDs Index: 1.53 1.5-2.3 cm/m2 LV Mass: 179.10 67-162/88-224 g LV Mass Index: 91.38 43-95/49-115 g/m2 LVOT Diam: 2.00 3.0+(-)1.3 cm Mitral Valve MV Pk E: 0.73 MV PK A: 0.99 MV Decel Time: 226.00 E/A: 0.70 E'Lateral: 8.49 E'Medial: 5.87 E/E' Med: 12.50 E/E' Lat: 8.60 PHT: 66.00 MVA PHT: 3.33 Decel [place]: 3.23 Aortic Valve AoV Pk Ck: 1.68 AoV Mn Ck: 1.18 AoV VTI: 0.32 AoV Pk Grad: 11.00 Aov Mn Grad: 6.00 DIPAK Cont.VTI: 2.83 LVOT LVOT Pk Ck: 1.49 LVOT Mn Ck: 1.00 LVOT VTI: 0.29 LVOT Pk Grad: 9.00 LVOT Mn Grad: 5.00 LVOT Diam: 2.00 LVOT Area: 3.14 Diastolic Function MV Pk E: 0.73 MV Pk A: 0.99 E/A: 0.70 E'Medial: 5.87 E/E' Med: 12.50 E' Laterial: 8.49 E/E' Lat: 8.60 Right Ventricle TAPSE (mm): 25.70 TVS' Ck: 18.30 Tricuspid Valve RA Press: 8.00 Great Vessels Aorta Sinus of Valsalva: 3.33 2.0-3.5 cm Ao Asc: 3.60 2.1-3.4 cm Updated in Other Vendor System with Status of Final Shawn Rangel MD electronically signed on 09/28/2024 12:33:44 PM with status of Final
[2024-09-28] MEDS: Sertraline HCL 100 MG TABLET PO (07:22)
[2024-09-28] MEDS: 0.9 % Sodium Chloride Flush 3 ML SYRINGE IVFLUSH ×3 (07:22→20:14)
[2024-09-28] MEDS: Gabapentin 300 MG CAPSULE PO ×2 (07:22→17:45)
--- NOTE | 2024-09-28 07:46 | PC.NURSE ---
Addendum entered by Kandace Cristina RN 09/28/24 07:51: Dr. Dumont aware assesing patient Original Note: HIGH RIGGER reported sat 74% on 2 l,updraft was administerd by respiratory therapist ,pt placed on 10 l via oxi mask,sat 92 % at present,patient denies SOB
--- NOTE | 2024-09-28 09:33 | PC.NURSE ---
Patient complaining of not getting enough air,repositioned,oxygen on at 10 L via oxi mask,sat 94%,Dr. quiroga notified ,awaiting new orders
[2024-09-28] MEDS: methylPREDNISolone Sod Succ 125 MG/2 ML VIAL IVPUSH (10:24)
--- NOTE | 2024-09-28 11:21 | MHC.CM.PN ---
A Bed offer from [facility] has been accepted. Request to initiate the insurance authorization process has been made. A new HCP has been documented and scanned into the EMR. Charissa was unable to locate the old HCP.
[2024-09-28] MEDS: Albuterol/Iprat 2.5/0.5MG 3 ML AMPUL.NEB INHALE (11:25)
--- NOTE | 2024-09-28 13:02 | P.PNIM_ITS ---
Subjective Subjective Date of Service: 09/28/24 Interval History: Feels more short of breath today with an increased O2 requirement. Portable chest x-ray done which demonstrates initial finding of left lower lobe infiltrate without signs of failure. Review of Systems Denies chest pain Admits to shortness of breath with movement Denies nausea vomiting diarrhea Denies fever chills Physical Exam 2 Vital Signs: Vital Signs: Last Vital Signs Temp 99.5 F 09/28/24 08:00 Pulse 80 09/28/24 11:29 Resp 18 09/28/24 11:29 BP 153/80 H 09/28/24 08:00 Pulse Ox 93 09/28/24 12:51 O2 Del Method Oxymask 09/28/24 12:51 O2 Flow Rate 10 09/28/24 12:51 Oxygen Flow Rate 3 09/25/24 17:04 BMI result Body Mass Index 38.9 Const: Other: Awake alert no acute distress Resp: Other: Crackles left lower lobe with minor rhonchis bilaterally lobes Cardio: Other: No S4; positive S1-S2; no S3 murmurs rubs or gallops GI: Other: Soft nontender nondistended normoactive bowel sounds Extrem: Other: No edema bilaterally Objective Data Active Medications Acetaminophen (Acetaminophen 325 Mg Tablet) 650 mg PO Q6H PRN PRN Reason: Pain, Mild 1-3,fever,headache Last Admin: 09/27/24 21:46 Dose: 650 mg Documented By: RIVAS Albuterol/Ipratropium (Albuterol/Iprat 2.5/0.5mg 3 Ml Ampul.Neb) 3 ml INHALE RQ4H WHILE AWAKE PRN PRN Reason: Wheezing Last Admin: 09/28/24 11:25 Dose: 3 ml Documented By: DASH Benzonatate (Benzonatate 100 Mg Capsule) 200 mg PO TID PRN PRN Reason: Cough Last Admin: 09/27/24 21:46 Dose: 200 mg Documented By: RIVAS Calcium Carbonate (Calcium Carbonate 750 Mg Tab.Chew) 750 mg PO Q4H PRN PRN Reason: Heartburn Ceftriaxone Sodium (Ceftriaxone Sodium 1 Gm Vial) 1 gm IVPUSH Q24H [facility] Last Admin: 09/27/24 20:31 Dose: 1 gm Documented By: RIVAS Enoxaparin Sodium (Enoxaparin Sodium 40 Mg/0.4 Ml Syringe) 40 mg SUBCUT Q24H [facility] Last Admin: 09/28/24 05:10 Dose: 40 mg Documented By: RIVAS Gabapentin (Gabapentin 300 Mg Capsule) 300 mg PO BID@0900,1700 [facility] Last Admin: 09/28/24 07:22 Dose: 300 mg Documented By: MARLON Azithromycin 500 mg/ Sodium (Chloride) 250 mls @ 125 mls/hr IV Q24H [facility] Last Infusion: 09/27/24 23:05 Dose: Infused Documented By: RIVAS Magnesium Hydroxide (Milk Of Magnesia 30 Ml Oral.Susp) 30 ml PO DAILY PRN PRN Reason: Constipation Melatonin (Melatonin 3 Mg Tablet) 6 mg PO BEDTIME PRN PRN Reason: Insomnia Last Admin: 09/26/24 22:15 Dose: 6 mg Documented By: BETH Methylprednisolone Sodium Succinate (Methylprednisolone Sod Succ 125 Mg/2 Ml Vial) 60 mg IVPUSH Q6H [facility] Ondansetron HCl (Ondansetron Hcl 4 Mg/2 Ml Vial) 4 mg IVPUSH Q8H PRN PRN Reason: Nausea and Vomiting Last Admin: 09/27/24 14:26 Dose: 4 mg Documented By: JESUS Sertraline HCl (Sertraline Hcl 100 Mg Tablet) 100 mg PO DAILY [facility] Last Admin: 09/28/24 07:22 Dose: 100 mg Documented By: MARLON Sodium Chloride (0.9 % Sodium Chloride Flush 3 Ml Syringe) 3 ml IVFLUSH QSHIFT [facility] Last Admin: 09/28/24 07:22 Dose: 3 ml Documented By: MARLON Labs 09/27/24 08:10 09/27/24 08:10 Microbiology Microbiology Results: Microbiology 09/25/24 20:30 Blood Culture - Preliminary Blood - Venous No growth after 48 hours. 09/25/24 20:10 Blood Culture - Final Blood - Venous Assessment and Plan (1) Acute hypoxemic respiratory failure: Status: Acute (2) Pneumonia: Status: Acute Plan Patient is an 79-year-old female with a past medical history significant for hypertension and depression, who presented to the ED due to lightheadedness and weakness hit followed by a fall. Patient found to be hypoxic with pneumonia. Head CT negative, no seizure-like activity, no loss of consciousness or head strike. Likely orthostatic syncope secondary to poor p.o. intake. 1.Acute hypoxic respiratory failure secondary to pneumonia -IV fluids DC. Adequate oral intake -doxycycline/ceftriaxone (3) -at pulse dose methylprednisolone 2.Orthostatic syncope secondary to poor p.o. intake - responded well to volume repletion -follow clinically Full code ogx Patient with acute hypoxic respiratory failure secondary to pneumonia treated by an episode orthostatic, requiring ongoing hospitalization for volume repletion IV antibiotics to treat pneumonia Quality Stroke Does the patient have a stroke diagnosis?: No VTE Prior VTE?: No VTE Risk Level:: Medical - moderate - high VTE Device Contraindication: Treatment Not Indicated VTE Drug Contraindication: N/A - Med Ordered
--- NOTE | 2024-09-28 16:11 | PC.NURSE ---
elevated BP 177/81 pulse 99,Dr. Dumont notified
[2024-09-28] MEDS: methylPREDNISolone Sod Succ 125 MG/2 ML VIAL 60 MG IVPUSH ×2 (17:45→23:16)
[2024-09-28] MEDS: cefTRIAXone sodium 1 GM VIAL IVPUSH (20:09)
[2024-09-28] MEDS: Azithromycin 500 MG in 0.9 % Sodium Chloride 250 ML 125 MG IV (20:41)
[2024-09-28] MEDS: Melatonin 3 MG TABLET 6 MG PO (23:27)
[2024-09-29 01:55] VITALS: BP 159/96; PULSE 104; RESP 18; TEMP 36.8; O2SAT 95
[2024-09-29] MEDS: methylPREDNISolone Sod Succ 125 MG/2 ML VIAL 60 MG IVPUSH ×3 (05:10→17:12)
[2024-09-29] MEDS: Enoxaparin Sodium 40 MG/0.4 ML SYRINGE SUBCUT (05:10)
[2024-09-29 06:03] LABS: MANUAL DIFF FLAG NO
[2024-09-29 06:11] LABS: Basophils Percent Auto 0.3 % (0-2); Hematocrit 44.5 % (37.0-47.0); Hemoglobin 13.1 g/dl (12.0-16.0); Imm Gran Abs Auto 0.05 X10*3/uL (0.00-0.03); Imm Gran Pct Auto 0.8 % (0.0-0.4); Lymphocytes Absolute Auto 0.6 X10*3/uL (1.2-4.9); Lymphocytes Percent Auto 10.2 % (20-40); Mean Corpuscular HGB Conc 29.4 g/dl (31.0-35.0); Mean Corpuscular Hemoglobin 26.8 pg (27.0-33.0); Mean Platelet Volume 9.9 fL (9.4-12.3); Monocytes Absolute Auto 0.2 X10*3/uL (0.1-1.2); Neutrophils Percent Auto 84.7 % (45-73); Platelet Count 225 X10*3/uL (160-400); Red Blood Count 4.89 X10*6/uL (4.20-5.50)
[2024-09-29 06:23] LABS: Alanine Aminotransferase 17 U/L (0-31); Albumin Level 3.5 g/dL (3.5-5.0); Alkaline Phosphatase 132 U/L (39-117); Anion Gap 10 (12-20); Aspartate Amino Transferase 19 U/L (5-31); Bilirubin Total 0.3 mg/dL (0.0-1.0); Blood Urea Nitrogen 15 mg/dL (9-16); Calcium 8.6 mg/dL (8.4-10.2); Carbon Dioxide 35 mmol/L (22-29); Chloride 103 mmol/L (96-108); Creatinine Clr Calc Pharmacy 78.5; Estimated Glomerular Filt Rate > 60; Glucose Fasting 144 mg/dL (60-99); Potassium 4.4 mmol/L (3.3-5.1); Sodium 144 mmol/L (135-145); Total Protein 7.1 g/dL (6.5-8.0)
[2024-09-29 08:25] VITALS: BP 147/82; PULSE 103; RESP 19; TEMP 36.7; O2SAT 90
[2024-09-29] MEDS: Gabapentin 300 MG CAPSULE PO ×2 (08:53→17:12)
[2024-09-29] MEDS: amLODIPine Besylate 10 MG TABLET PO (08:53)
[2024-09-29] MEDS: Sertraline HCL 100 MG TABLET PO (08:53)
[2024-09-29] MEDS: 0.9 % Sodium Chloride Flush 3 ML SYRINGE IVFLUSH ×2 (08:55→17:18)
[2024-09-29] MEDS: ondansetron HCL 4 MG/2 ML VIAL IVPUSH (09:05)
[2024-09-29 11:15] VITALS: O2SAT 91
[2024-09-29] MEDS: Benzonatate 100 MG CAPSULE 200 MG PO ×2 (12:24→21:12)
--- NOTE | 2024-09-29 14:15 | P.PNIM_ITS ---
Subjective Subjective Date of Service: 09/29/24 Interval History: No acute issues overnight. Improvement noted with steroids Review of Systems Denies chest pain Admits to shortness of breath with movement Denies nausea vomiting diarrhea Denies fever chills Physical Exam 2 Vital Signs: Vital Signs: Last Vital Signs Temp 98.1 F 09/29/24 08:25 Pulse 103 H 09/29/24 08:25 Resp 19 09/29/24 08:25 BP 147/82 H 09/29/24 08:25 Pulse Ox 90 L 09/29/24 08:25 O2 Del Method Nasal Cannula 09/29/24 08:25 O2 Flow Rate 4 09/29/24 08:25 Oxygen Flow Rate 3 09/25/24 17:04 BMI result Body Mass Index 38.9 Const: Other: Awake alert no acute distress Resp: Other: Crackles left lower lobe with minor rhonchis bilaterally lobes Cardio: Other: No S4; positive S1-S2; no S3 murmurs rubs or gallops GI: Other: Soft nontender nondistended normoactive bowel sounds Extrem: Other: No edema bilaterally Objective Data Active Medications Acetaminophen (Acetaminophen 325 Mg Tablet) 650 mg PO Q6H PRN PRN Reason: Pain, Mild 1-3,fever,headache Last Admin: 09/27/24 21:46 Dose: 650 mg Documented By: RIVAS Albuterol/Ipratropium (Albuterol/Iprat 2.5/0.5mg 3 Ml Ampul.Neb) 3 ml INHALE RQ4H WHILE AWAKE PRN PRN Reason: Wheezing Last Admin: 09/28/24 11:25 Dose: 3 ml Documented By: DASH Amlodipine Besylate (Amlodipine Besylate 10 Mg Tablet) 10 mg PO DAILY [facility]; Protocol Last Admin: 09/29/24 08:53 Dose: 10 mg Documented By: JESUS Benzonatate (Benzonatate 100 Mg Capsule) 200 mg PO TID PRN PRN Reason: Cough Last Admin: 09/29/24 12:24 Dose: 200 mg Documented By: JESUS Calcium Carbonate (Calcium Carbonate 750 Mg Tab.Chew) 750 mg PO Q4H PRN PRN Reason: Heartburn Ceftriaxone Sodium (Ceftriaxone Sodium 1 Gm Vial) 1 gm IVPUSH Q24H [facility] Last Admin: 09/28/24 20:09 Dose: 1 gm Documented By: RIVAS Enoxaparin Sodium (Enoxaparin Sodium 40 Mg/0.4 Ml Syringe) 40 mg SUBCUT Q24H [facility] Last Admin: 09/29/24 05:10 Dose: 40 mg Documented By: RIVAS Gabapentin (Gabapentin 300 Mg Capsule) 300 mg PO BID@0900,1700 [facility] Last Admin: 09/29/24 08:53 Dose: 300 mg Documented By: JESUS Azithromycin 500 mg/ Sodium (Chloride) 250 mls @ 125 mls/hr IV Q24H [facility] Last Infusion: 09/28/24 22:41 Dose: Infused Documented By: RIVAS Magnesium Hydroxide (Milk Of Magnesia 30 Ml Oral.Susp) 30 ml PO DAILY PRN PRN Reason: Constipation Melatonin (Melatonin 3 Mg Tablet) 6 mg PO BEDTIME PRN PRN Reason: Insomnia Last Admin: 09/28/24 23:27 Dose: 6 mg Documented By: RIVAS Methylprednisolone Sodium Succinate (Methylprednisolone Sod Succ 125 Mg/2 Ml Vial) 60 mg IVPUSH Q6H [facility] Last Admin: 09/29/24 11:33 Dose: 60 mg Documented By: JESUS Ondansetron HCl (Ondansetron Hcl 4 Mg/2 Ml Vial) 4 mg IVPUSH Q8H PRN PRN Reason: Nausea and Vomiting Last Admin: 09/29/24 09:05 Dose: 4 mg Documented By: JESUS Sertraline HCl (Sertraline Hcl 100 Mg Tablet) 100 mg PO DAILY [facility] Last Admin: 09/29/24 08:53 Dose: 100 mg Documented By: JESUS Sodium Chloride (0.9 % Sodium Chloride Flush 3 Ml Syringe) 3 ml IVFLUSH QSHIFT [facility] Last Admin: 09/29/24 08:55 Dose: 3 ml Documented By: JESUS Labs 09/29/24 05:09 09/29/24 05:09 Labs: Laboratory Results - last 24 hr 09/29/24 05:09 MCV 91.0 MCH 26.8 L MCHC 29.4 L RDW 13.0 Plt Count 225 MPV 9.9 Immature Gran % (Auto) 0.8 H Neut % (Auto) 84.7 H Lymph % (Auto) 10.2 L [place] % (Auto) 4.0 Eos % (Auto) 0.0 Baso % (Auto) 0.3 Lymph # (Auto) 0.6 L [place] # (Auto) 0.2 Eos # (Auto) 0.0 Baso # (Auto) 0.0 Abs Immat Gran (auto) 0.05 H Absolute Neuts (auto) 5.0 Absolute Nucleated RBC 0.000 Nucleated RBC % (auto) 0.0 Anion Gap 10 L Estim Creat Clear Calc 78.5 Estimated GFR > 60 Fasting Glucose 144 H Calcium 8.6 Total Bilirubin 0.3 AST 19 ALT 17 Alkaline Phosphatase 132 H Total Protein 7.1 Albumin 3.5 Assessment and Plan (1) Pneumonia: Status: Acute (2) HTN (hypertension): Status: Acute Plan Patient is an 79-year-old female with a past medical history significant for hypertension and depression, who presented to the ED due to lightheadedness and weakness hit followed by a fall. Patient found to be hypoxic with pneumonia. Head CT negative, no seizure-like activity, no loss of consciousness or head strike. Likely orthostatic syncope secondary to poor p.o. intake. 1.Acute hypoxic respiratory failure secondary to pneumonia -doxycycline/ceftriaxone (4) -pulse dose methylprednisolone -titrate O2 as tolerated 2.Orthostatic syncope secondary to poor p.o. intake - responded well to volume repletion -follow clinically Full code lovenox Patient with acute hypoxic respiratory failure secondary to pneumonia treated by an episode orthostatic, requiring ongoing hospitalization for volume repletion IV antibiotics to treat pneumonia Quality Stroke Does the patient have a stroke diagnosis?: No VTE Prior VTE?: No VTE Risk Level:: Medical - moderate - high VTE Device Contraindication: Treatment Not Indicated VTE Drug Contraindication: N/A - Med Ordered
--- NOTE | 2024-09-29 14:42 | MHC.CM.PN ---
Patient DX PNA 3L home O2 baseline. She has been weaned from 10L to 4 L. SHe is OOB to chair today with 2 max assist. She will need a PT eval to qualify for STR. 1st choice is [facility]. DP to [facility] via BLS.
[2024-09-29 15:06] VITALS: BP 127/60; PULSE 107; RESP 17; TEMP 36.6; O2SAT 90
[2024-09-29] MEDS: Albuterol/Iprat 2.5/0.5MG 3 ML AMPUL.NEB INHALE (16:22)
[2024-09-29] MEDS: Acetaminophen 325 MG TABLET 650 MG PO (17:12)
[2024-09-29 19:44] VITALS: BP 157/70; PULSE 102; RESP 18; TEMP 36.8; O2SAT 92
[2024-09-29] MEDS: Melatonin 3 MG TABLET 6 MG PO (21:12)
[2024-09-29] MEDS: cefTRIAXone sodium 1 GM VIAL IVPUSH (21:12)
[2024-09-29] MEDS: Azithromycin 500 MG in 0.9 % Sodium Chloride 250 ML 125 MG IV (21:18)
[2024-09-30] MEDS: methylPREDNISolone Sod Succ 125 MG/2 ML VIAL 60 MG IVPUSH ×5 (00:27→23:37)
[2024-09-30] MEDS: Acetaminophen 325 MG TABLET 650 MG PO ×2 (00:27→15:15)
[2024-09-30] MEDS: 0.9 % Sodium Chloride Flush 3 ML SYRINGE IVFLUSH ×4 (00:27→23:41)
[2024-09-30 03:08] VITALS: BP 142/82; PULSE 94; RESP 18; TEMP 36.6; O2SAT 93
[2024-09-30] MEDS: Enoxaparin Sodium 40 MG/0.4 ML SYRINGE SUBCUT (05:53)
[2024-09-30 08:00] VITALS: BP 150/85; PULSE 102; RESP 20; TEMP 36.5; O2SAT 92
[2024-09-30] MEDS: amLODIPine Besylate 10 MG TABLET PO (08:10)
[2024-09-30] MEDS: Gabapentin 300 MG CAPSULE PO ×2 (08:10→17:37)
[2024-09-30] MEDS: Sertraline HCL 100 MG TABLET PO (08:11)
[2024-09-30] MEDS: Benzonatate 100 MG CAPSULE 200 MG PO ×2 (08:11→21:25)
--- NOTE | 2024-09-30 11:10 | PC.NURSE ---
Pt reporting itchiness, flushes, no pain with flushing, pain with ABX, DR. Duffy made aware, Meds given per MAR
--- NOTE | 2024-09-30 11:50 | P.PNIM_ITS ---
Subjective Subjective Date of Service: 09/30/24 Interval History: Slowly improving. Continuing to attempt to wean O2 Review of Systems Denies chest pain Admits to shortness of breath with movement Denies nausea vomiting diarrhea Denies fever chills Physical Exam 2 Vital Signs: Vital Signs: Last Vital Signs Temp 97.7 F 09/30/24 08:00 Pulse 102 H 09/30/24 08:00 Resp 20 09/30/24 08:00 BP 150/85 H 09/30/24 08:00 Pulse Ox 92 09/30/24 08:00 O2 Del Method Nasal Cannula 09/30/24 08:00 O2 Flow Rate 5 09/30/24 08:00 Oxygen Flow Rate 3 09/25/24 17:04 BMI result Body Mass Index 38.9 Const: Other: Awake alert no acute distress Resp: Other: Crackles left lower lobe with minor rhonchis bilaterally lobes Cardio: Other: No S4; positive S1-S2; no S3 murmurs rubs or gallops GI: Other: Soft nontender nondistended normoactive bowel sounds Extrem: Other: No edema bilaterally Objective Data Active Medications Acetaminophen (Acetaminophen 325 Mg Tablet) 650 mg PO Q6H PRN PRN Reason: Pain, Mild 1-3,fever,headache Last Admin: 09/30/24 00:27 Dose: 650 mg Documented By: AHMET Albuterol/Ipratropium (Albuterol/Iprat 2.5/0.5mg 3 Ml Ampul.Neb) 3 ml INHALE RQ4H WHILE AWAKE PRN PRN Reason: Wheezing Last Admin: 09/29/24 16:22 Dose: 3 ml Documented By: ISHA Amlodipine Besylate (Amlodipine Besylate 10 Mg Tablet) 10 mg PO DAILY [facility]; Protocol Last Admin: 09/30/24 08:10 Dose: 10 mg Documented By: TONIE Benzonatate (Benzonatate 100 Mg Capsule) 200 mg PO TID PRN PRN Reason: Cough Last Admin: 09/30/24 08:11 Dose: 200 mg Documented By: TONIE Calcium Carbonate (Calcium Carbonate 750 Mg Tab.Chew) 750 mg PO Q4H PRN PRN Reason: Heartburn Ceftriaxone Sodium (Ceftriaxone Sodium 1 Gm Vial) 1 gm IVPUSH Q24H [facility] Last Admin: 09/29/24 21:12 Dose: 1 gm Documented By: AHMET Enoxaparin Sodium (Enoxaparin Sodium 40 Mg/0.4 Ml Syringe) 40 mg SUBCUT Q24H [facility] Last Admin: 09/30/24 05:53 Dose: 40 mg Documented By: AHMET Gabapentin (Gabapentin 300 Mg Capsule) 300 mg PO BID@0900,1700 [facility] Last Admin: 09/30/24 08:10 Dose: 300 mg Documented By: TONIE Azithromycin 500 mg/ Sodium (Chloride) 250 mls @ 125 mls/hr IV Q24H [facility] Last Infusion: 09/29/24 23:18 Dose: Infused Documented By: AHMET Magnesium Hydroxide (Milk Of Magnesia 30 Ml Oral.Susp) 30 ml PO DAILY PRN PRN Reason: Constipation Melatonin (Melatonin 3 Mg Tablet) 6 mg PO BEDTIME PRN PRN Reason: Insomnia Last Admin: 09/29/24 21:12 Dose: 6 mg Documented By: AHMET Methylprednisolone Sodium Succinate (Methylprednisolone Sod Succ 125 Mg/2 Ml Vial) 60 mg IVPUSH Q6H [facility] Last Admin: 09/30/24 05:55 Dose: 60 mg Documented By: AHMET Ondansetron HCl (Ondansetron Hcl 4 Mg/2 Ml Vial) 4 mg IVPUSH Q8H PRN PRN Reason: Nausea and Vomiting Last Admin: 09/29/24 09:05 Dose: 4 mg Documented By: JESUS Sertraline HCl (Sertraline Hcl 100 Mg Tablet) 100 mg PO DAILY [facility] Last Admin: 09/30/24 08:11 Dose: 100 mg Documented By: TONIE Sodium Chloride (0.9 % Sodium Chloride Flush 3 Ml Syringe) 3 ml IVFLUSH QSHIFT [facility] Last Admin: 09/30/24 08:13 Dose: 3 ml Documented By: TONIE Trazodone HCl (Trazodone Hcl 25 Mg Halftab) 12.5 mg PO BEDTIME PRN PRN Reason: Insomnia Labs 09/29/24 05:09 09/29/24 05:09 Assessment and Plan (1) Acute hypoxemic respiratory failure: Status: Acute (2) Pneumonia: Status: Acute Plan Patient is an 79-year-old female with a past medical history significant for hypertension and depression, who presented to the ED due to lightheadedness and weakness hit followed by a fall. Patient found to be hypoxic with pneumonia. Head CT negative, no seizure-like activity, no loss of consciousness or head strike. Likely orthostatic syncope secondary to poor p.o. intake. 1.Acute hypoxic respiratory failure secondary to pneumonia -doxycycline/ceftriaxone (5) -pulse dose methylprednisolone -titrate O2 as tolerated 2.Orthostatic syncope secondary to poor p.o. intake - responded well to volume repletion -follow clinically Full code lovenox PT consult Patient with acute hypoxic respiratory failure secondary to pneumonia treated by an episode orthostatic, requiring ongoing hospitalization for volume repletion IV antibiotics to treat pneumonia Quality Stroke Does the patient have a stroke diagnosis?: No VTE Prior VTE?: No VTE Risk Level:: Medical - moderate - high VTE Device Contraindication: Treatment Not Indicated VTE Drug Contraindication: N/A - Med Ordered
[2024-09-30] MEDS: guaiFEN/Codeine SF 200/20/10ML 10 ML LIQUID PO ×2 (14:05→21:25)
[2024-09-30 15:10] VITALS: BP 147/67; PULSE 92; RESP 18; TEMP 36.7; O2SAT 93
[2024-09-30 17:43] VITALS: O2SAT 92
[2024-09-30 19:12] VITALS: BP 147/80; PULSE 97; RESP 16; TEMP 36.6; O2SAT 95
[2024-09-30] MEDS: cefTRIAXone sodium 1 GM VIAL IVPUSH (21:26)
[2024-09-30] MEDS: Azithromycin 500 MG in 0.9 % Sodium Chloride 250 ML 125 MG IV (21:36)
[2024-09-30] MEDS: Melatonin 3 MG TABLET 6 MG PO (22:39)
[2024-09-30] MEDS: diphenhydrAMINE HCL 25 MG CAPSULE PO (23:37)
[2024-10-01 03:31] VITALS: BP 133/86; PULSE 91; RESP 16; TEMP 36.7; O2SAT 93
[2024-10-01] MEDS: Enoxaparin Sodium 40 MG/0.4 ML SYRINGE SUBCUT (05:46)
[2024-10-01] MEDS: methylPREDNISolone Sod Succ 125 MG/2 ML VIAL 60 MG IVPUSH ×3 (05:46→17:02)
[2024-10-01 07:28] VITALS: BP 174/79; PULSE 96; RESP 20; TEMP 36.2; O2SAT 95
[2024-10-01] MEDS: Gabapentin 300 MG CAPSULE PO ×2 (08:04→17:02)
[2024-10-01] MEDS: 0.9 % Sodium Chloride Flush 3 ML SYRINGE IVFLUSH ×3 (08:04→21:25)
[2024-10-01] MEDS: Sertraline HCL 100 MG TABLET PO (08:04)
[2024-10-01] MEDS: amLODIPine Besylate 10 MG TABLET PO (08:04)
[2024-10-01] MEDS: Benzonatate 100 MG CAPSULE 200 MG PO ×2 (11:18→21:24)
[2024-10-01 11:28] VITALS: O2SAT 93; O2SAT 95
--- NOTE | 2024-10-01 13:12 | P.PNIM_ITS ---
Subjective Subjective Date of Service: 10/01/24 Interval History: Slowly improving. Tolerant of therapies. No acute issues overnight Review of Systems Denies chest pain Admits to shortness of breath with movement Denies nausea vomiting diarrhea Denies fever chills Physical Exam 2 Vital Signs: Vital Signs: Last Vital Signs Temp 97.2 F 10/01/24 07:28 Pulse 96 10/01/24 07:28 Resp 20 10/01/24 07:28 BP 174/79 H 10/01/24 07:28 Pulse Ox 93 10/01/24 11:28 O2 Del Method Nasal Cannula 10/01/24 11:28 O2 Flow Rate 2 10/01/24 11:28 Oxygen Flow Rate 3 09/25/24 17:04 BMI result Body Mass Index 38.9 Const: Other: Awake alert no acute distress Resp: Other: Crackles left lower lobe with minor rhonchis bilaterally lobes Cardio: Other: No S4; positive S1-S2; no S3 murmurs rubs or gallops GI: Other: Soft nontender nondistended normoactive bowel sounds Extrem: Other: No edema bilaterally Objective Data Active Medications Acetaminophen (Acetaminophen 325 Mg Tablet) 650 mg PO Q6H PRN PRN Reason: Pain, Mild 1-3,fever,headache Last Admin: 09/30/24 15:15 Dose: 650 mg Documented By: TONIE Albuterol/Ipratropium (Albuterol/Iprat 2.5/0.5mg 3 Ml Ampul.Neb) 3 ml INHALE RQ4H WHILE AWAKE PRN PRN Reason: Wheezing Last Admin: 09/29/24 16:22 Dose: 3 ml Documented By: ISHA Amlodipine Besylate (Amlodipine Besylate 10 Mg Tablet) 10 mg PO DAILY [facility]; Protocol Last Admin: 10/01/24 08:04 Dose: 10 mg Documented By: TONIE Benzonatate (Benzonatate 100 Mg Capsule) 200 mg PO TID PRN PRN Reason: Cough Last Admin: 10/01/24 11:18 Dose: 200 mg Documented By: TONIE Calcium Carbonate (Calcium Carbonate 750 Mg Tab.Chew) 750 mg PO Q4H PRN PRN Reason: Heartburn Ceftriaxone Sodium (Ceftriaxone Sodium 1 Gm Vial) 1 gm IVPUSH Q24H [facility] Last Admin: 09/30/24 21:26 Dose: 1 gm Documented By: VINCENT Enoxaparin Sodium (Enoxaparin Sodium 40 Mg/0.4 Ml Syringe) 40 mg SUBCUT Q24H [facility] Last Admin: 10/01/24 05:46 Dose: 40 mg Documented By: VINCENT Gabapentin (Gabapentin 300 Mg Capsule) 300 mg PO BID@0900,1700 [facility] Last Admin: 10/01/24 08:04 Dose: 300 mg Documented By: TONIE Guaifenesin/Codeine Phosphate (Guaifen/Codeine Sf 200/20/10ml 10 Ml Liquid) 10 ml PO Q4H PRN PRN Reason: Cough Last Admin: 09/30/24 21:25 Dose: 10 ml Documented By: VINCENT Azithromycin 500 mg/ Sodium (Chloride) 250 mls @ 125 mls/hr IV Q24H [facility] Last Infusion: 10/01/24 00:00 Dose: Infused Documented By: VINCENT Magnesium Hydroxide (Milk Of Magnesia 30 Ml Oral.Susp) 30 ml PO DAILY PRN PRN Reason: Constipation Melatonin (Melatonin 3 Mg Tablet) 6 mg PO BEDTIME PRN PRN Reason: Insomnia Last Admin: 09/30/24 22:39 Dose: 6 mg Documented By: VINCENT Methylprednisolone Sodium Succinate (Methylprednisolone Sod Succ 125 Mg/2 Ml Vial) 60 mg IVPUSH Q6H [facility] Last Admin: 10/01/24 11:17 Dose: 60 mg Documented By: TONIE Ondansetron HCl (Ondansetron Hcl 4 Mg/2 Ml Vial) 4 mg IVPUSH Q8H PRN PRN Reason: Nausea and Vomiting Last Admin: 09/29/24 09:05 Dose: 4 mg Documented By: JESUS Sertraline HCl (Sertraline Hcl 100 Mg Tablet) 100 mg PO DAILY [facility] Last Admin: 10/01/24 08:04 Dose: 100 mg Documented By: TONIE Sodium Chloride (0.9 % Sodium Chloride Flush 3 Ml Syringe) 3 ml IVFLUSH QSHIFT [facility] Last Admin: 10/01/24 08:04 Dose: 3 ml Documented By: TONIE Trazodone HCl (Trazodone Hcl 25 Mg Halftab) 12.5 mg PO BEDTIME PRN PRN Reason: Insomnia Labs 09/29/24 05:09 09/29/24 05:09 Microbiology Microbiology Results: Microbiology 09/25/24 20:30 Blood Culture - Final Blood - Venous No growth after 5 days. Assessment and Plan (1) Acute hypoxemic respiratory failure: Status: Acute (2) Pneumonia: Status: Acute Plan Patient is an 79-year-old female with a past medical history significant for hypertension and depression, who presented to the ED due to lightheadedness and weakness hit followed by a fall. Patient found to be hypoxic with pneumonia. Head CT negative, no seizure-like activity, no loss of consciousness or head strike. Likely orthostatic syncope secondary to poor p.o. intake. 1.Acute hypoxic respiratory failure secondary to pneumonia -doxycycline/ceftriaxone (5) -pulse dose methylprednisolone -titrate O2 as tolerated 2.Orthostatic syncope secondary to poor p.o. intake - responded well to volume repletion -follow clinically Full code lovenox PT consult Patient with acute hypoxic respiratory failure secondary to pneumonia treated by an episode orthostatic, requiring ongoing hospitalization for volume repletion IV antibiotics to treat pneumonia Quality Stroke Does the patient have a stroke diagnosis?: No VTE Prior VTE?: No VTE Risk Level:: Medical - moderate - high VTE Device Contraindication: Treatment Not Indicated VTE Drug Contraindication: N/A - Med Ordered
[2024-10-01 15:19] VITALS: BP 172/79; PULSE 98; RESP 20; TEMP 36.9; O2SAT 91
[2024-10-01] MEDS: guaiFEN/Codeine SF 200/20/10ML 10 ML LIQUID PO (17:18)
[2024-10-01 17:20] VITALS: BP 148/74; O2SAT 92
[2024-10-01 20:00] VITALS: BP 179/73; PULSE 101; RESP 20; TEMP 36.6; O2SAT 90
[2024-10-01] MEDS: Azithromycin 500 MG in 0.9 % Sodium Chloride 250 ML 125 MG IV (21:25)
[2024-10-01] MEDS: cefTRIAXone sodium 1 GM VIAL IVPUSH (21:25)
[2024-10-01] MEDS: Melatonin 3 MG TABLET 6 MG PO (21:25)
[2024-10-01] MEDS: Acetaminophen 325 MG TABLET 650 MG PO (22:46)
[2024-10-02] VITALS (8 sets, daily range): BP systolic 150–187; BP diastolic 72–88; PULSE 88–101; RESP 16–22; TEMP 36.3–36.9; O2SAT 91–94
[2024-10-02] MEDS: methylPREDNISolone Sod Succ 125 MG/2 ML VIAL 60 MG IVPUSH ×2 (00:33→06:08)
[2024-10-02] MEDS: Enoxaparin Sodium 40 MG/0.4 ML SYRINGE SUBCUT (06:08)
[2024-10-02] MEDS: amLODIPine Besylate 10 MG TABLET PO (08:40)
[2024-10-02] MEDS: Gabapentin 300 MG CAPSULE PO ×2 (08:40→16:38)
[2024-10-02] MEDS: Sertraline HCL 100 MG TABLET PO (08:40)
[2024-10-02] MEDS: 0.9 % Sodium Chloride Flush 3 ML SYRINGE IVFLUSH ×3 (08:41→23:04)
[2024-10-02] MEDS: predniSONE 10 MG TABLET 50 MG PO (10:49)
[2024-10-02] MEDS: cefuroxime axetiL 500 MG TABLET PO ×2 (10:49→21:52)
--- NOTE | 2024-10-02 13:11 | HO.PM.IMPN ---
Subjective Subjective Date of Service: 10/02/24 Interval History: Continues to improve... No acute issues overnight Review of Systems Denies chest pain Admits to shortness of breath with movement Denies nausea vomiting diarrhea Denies fever chills Physical Exam Vital Signs: Vital Signs: Last Vital Signs Temp 98.3 F 10/02/24 11:30 Pulse 94 10/02/24 11:30 Resp 22 H 10/02/24 11:30 BP 160/80 H 10/02/24 11:43 Pulse Ox 93 10/02/24 11:30 O2 Del Method Nasal Cannula 10/02/24 11:30 O2 Flow Rate 2 10/02/24 11:30 Oxygen Flow Rate 3 09/25/24 17:04 BMI result Body Mass Index 38.9 Const: Other: Awake alert no acute distress Resp: Other: Crackles left lower lobe with minor rhonchis bilaterally lobes Cardio: Other: No S4; positive S1-S2; no S3 murmurs rubs or gallops GI: Other: Soft nontender nondistended normoactive bowel sounds Extrem: Other: No edema bilaterally Objective Data Active Medications Acetaminophen (Acetaminophen 325 Mg Tablet) 650 mg PO Q6H PRN PRN Reason: Pain, Mild 1-3,fever,headache Last Admin: 10/01/24 22:46 Dose: 650 mg Documented By: BETH Albuterol/Ipratropium (Albuterol/Iprat 2.5/0.5mg 3 Ml Ampul.Neb) 3 ml INHALE RQ4H WHILE AWAKE PRN PRN Reason: Wheezing Last Admin: 09/29/24 16:22 Dose: 3 ml Documented By: ISHA Amlodipine Besylate (Amlodipine Besylate 10 Mg Tablet) 10 mg PO DAILY [facility]; Protocol Last Admin: 10/02/24 08:40 Dose: 10 mg Documented By: TATIANNA Benzonatate (Benzonatate 100 Mg Capsule) 200 mg PO TID PRN PRN Reason: Cough Last Admin: 10/01/24 21:24 Dose: 200 mg Documented By: BETH Calcium Carbonate (Calcium Carbonate 750 Mg Tab.Chew) 750 mg PO Q4H PRN PRN Reason: Heartburn Cefuroxime Axetil (Cefuroxime Axetil 500 Mg Tablet) 500 mg PO Q12H [facility] Last Admin: 10/02/24 10:49 Dose: 500 mg Documented By: TATIANNA Enoxaparin Sodium (Enoxaparin Sodium 40 Mg/0.4 Ml Syringe) 40 mg SUBCUT Q24H [facility] Last Admin: 10/02/24 06:08 Dose: 40 mg Documented By: BETH Gabapentin (Gabapentin 300 Mg Capsule) 300 mg PO BID@0900,1700 [facility] Last Admin: 10/02/24 08:40 Dose: 300 mg Documented By: TATIANNA Guaifenesin/Codeine Phosphate (Guaifen/Codeine Sf 200/20/10ml 10 Ml Liquid) 10 ml PO Q4H PRN PRN Reason: Cough Last Admin: 10/01/24 17:18 Dose: 10 ml Documented By: TONIE Magnesium Hydroxide (Milk Of Magnesia 30 Ml Oral.Susp) 30 ml PO DAILY PRN PRN Reason: Constipation Melatonin (Melatonin 3 Mg Tablet) 6 mg PO BEDTIME PRN PRN Reason: Insomnia Last Admin: 10/01/24 21:25 Dose: 6 mg Documented By: BETH Ondansetron HCl (Ondansetron Hcl 4 Mg/2 Ml Vial) 4 mg IVPUSH Q8H PRN PRN Reason: Nausea and Vomiting Last Admin: 09/29/24 09:05 Dose: 4 mg Documented By: JESUS Prednisone (Prednisone 10 Mg Tablet) 50 mg PO DAILY [facility] Last Admin: 10/02/24 10:49 Dose: 50 mg Documented By: TATIANNA Sertraline HCl (Sertraline Hcl 100 Mg Tablet) 100 mg PO DAILY [facility] Last Admin: 10/02/24 08:40 Dose: 100 mg Documented By: TATIANNA Sodium Chloride (0.9 % Sodium Chloride Flush 3 Ml Syringe) 3 ml IVFLUSH QSHIFT [facility] Last Admin: 10/02/24 08:41 Dose: 3 ml Documented By: TATIANNA Trazodone HCl (Trazodone Hcl 25 Mg Halftab) 12.5 mg PO BEDTIME PRN PRN Reason: Insomnia Labs 09/29/24 05:09 09/29/24 05:09 Assessment and Plan (1) Pneumonia: Status: Acute Plan Patient is an 79-year-old female with a past medical history significant for hypertension and depression, who presented to the ED due to lightheadedness and weakness hit followed by a fall. Patient found to be hypoxic with pneumonia. Head CT negative, no seizure-like activity, no loss of consciousness or head strike. Likely orthostatic syncope secondary to poor p.o. intake. 1.Acute hypoxic respiratory failure secondary to pneumonia -doxycycline/ceftriaxone (6) -pulse dose methylprednisolone.... Switch to oral taper upon discharge -titrate O2 as tolerated 2.Orthostatic syncope secondary to poor p.o. intake - responded well to volume repletion -follow clinically Full code lovenox PT consult Patient with acute hypoxic respiratory failure secondary to pneumonia treated by an episode orthostatic, requiring ongoing hospitalization for volume repletion IV antibiotics to treat pneumonia Quality Stroke Does the patient have a stroke diagnosis?: No VTE Prior VTE?: No VTE Risk Level:: Medical - moderate - high VTE Device Contraindication: Treatment Not Indicated VTE Drug Contraindication: N/A - Med Ordered
--- NOTE | 2024-10-02 13:18 | MHC.CM.PN ---
Per MD rounds patient is ready for discharge. A clinical update and PT eval have been sent via [facility]. [facility]. Patient will DC to [facility] via BLS once insurance authorization has been received by the SNF.
--- NOTE | 2024-10-02 16:55 | HO.WOUND ---
Wound Consult: Initial 79yr old?female admitted to [facility] on 09/26/24 - See progress notes and H&P for detailed history.? Wound consult placed for Buttock and bilateral heels.? Patient agreeable to assessment and photo documentation.? Patient denies pain or tenderness to the buttock area. Sacrum and buttock Etiology: ??Intact tissue noted - ecchymosis pigmentaiton changes noted but remains intact and blanchable no concner for Pressuer injury at this time. Goals of Treatment: ? REcommend barreir cream and off load pressure q2 hr turns Bilateral heels - redness noted - remains intact and blanchable - off load on pillows. Recommend preventative foams to be applied patient refused - applied skin prep to protect from friction. Right Hip - appears to be excoriation mcpherson - patient reports she was scratching previously but itching has since resolved. Tissue is intact red and blanchable - recommend keeping covered with foam dressing at this time but no further topical interventions are needed at this time. Recommendations: 1. Turn and Reposition every 2 hours and as needed for patient comfort.? Use pillows or wedges to support off loading positions. 2. Off Load all bony prominences with use of pillows and heel boots if needed.? Apply Preventative foams where needed. ? 3. Monitor for incontinence and moisture control, use barrier creams when needed for prevention and treatment. 4. Provide adequate and supplemental nutrition.? 5. Order low air loss mattress. 6. When applicable maintain blood glucose levels per Providers order. 7. Bilateral Heels - Off Load Pressure with pillows. Apply skin prep to protect from friction. 8. Buttock - Off load pressure with Q2hr turns and use of pillows. Apply barrier cream twice daily and PRN. Re-consult wound care Nurse for wound deterioration or wound changes.
[2024-10-02] MEDS: Acetaminophen 325 MG TABLET 650 MG PO (23:03)
[2024-10-02] MEDS: guaiFEN/Codeine SF 200/20/10ML 10 ML LIQUID PO (23:03)
[2024-10-03 04:00] VITALS: BP 145/68; PULSE 87; RESP 20; TEMP 36.4; O2SAT 92
[2024-10-03] MEDS: Enoxaparin Sodium 40 MG/0.4 ML SYRINGE SUBCUT (05:30)
--- NOTE | 2024-10-03 07:16 | PC.NURSE ---
BP elevated overnight SBP 170's. Pt denied pain and was asymptomatic. Per vitals trend review, consistent with recent BPs. Covering Dr. Paz was notified. No new orders advised. SBP since 140's this morning. No acute complaints offered by patient. Handoff report given to oncoming RN.
[2024-10-03 07:23] VITALS: BP 157/74; PULSE 90; RESP 12; TEMP 36.3; O2SAT 93
[2024-10-03 07:58] LABS: MANUAL DIFF FLAG NO
[2024-10-03 08:13] LABS: Basophils Percent Auto 0.3 % (0-2); Eosinophils Absolute Auto 0.1 X10*3/uL (0.0-0.4); Eosinophils Percent Auto 0.6 % (0-4); Hemoglobin 14.3 g/dl (12.0-16.0); Imm Gran Abs Auto 0.11 X10*3/uL (0.00-0.03); Imm Gran Pct Auto 1.3 % (0.0-0.4); Lymphocytes Percent Auto 23.2 % (20-40); Mean Corpuscular HGB Conc 29.8 g/dl (31.0-35.0); Mean Corpuscular Hemoglobin 26.8 pg (27.0-33.0); Mean Corpuscular Volume 90.1 fL (80.0-98.0); Mean Platelet Volume 9.3 fL (9.4-12.3); Monocytes Percent Auto 11.3 % (2-11); Neutrophils Absolute Auto 5.5 x10*3/uL (2.0-8.3); Neutrophils Percent Auto 63.3 % (45-73); Platelet Count 271 X10*3/uL (160-400); Red Blood Count 5.33 X10*6/uL (4.20-5.50); Red Cell Distribution Width 13.2 % (11.0-16.0); White Blood Count 8.7 X10*3/uL (4.8-10.8)
[2024-10-03 08:34] LABS: Alanine Aminotransferase 27 U/L (0-31); Albumin Level 3.4 g/dL (3.5-5.0); Alkaline Phosphatase 116 U/L (39-117); Anion Gap 9 (12-20); Aspartate Amino Transferase 25 U/L (5-31); Bilirubin Total 0.2 mg/dL (0.0-1.0); Blood Urea Nitrogen 26 mg/dL (9-16); Calcium 8.2 mg/dL (8.4-10.2); Carbon Dioxide 37 mmol/L (22-29); Chloride 99 mmol/L (96-108); Creatinine Clr Calc Pharmacy 82.5; Estimated Glomerular Filt Rate > 60; Glucose Fasting 80 mg/dL (60-99); Sodium 141 mmol/L (135-145); Total Protein 6.5 g/dL (6.5-8.0)
[2024-10-03] MEDS: cefuroxime axetiL 500 MG TABLET PO (09:25)
[2024-10-03] MEDS: predniSONE 10 MG TABLET 50 MG PO (09:25)
[2024-10-03] MEDS: Gabapentin 300 MG CAPSULE PO (09:26)
[2024-10-03] MEDS: Sertraline HCL 100 MG TABLET PO (09:26)
[2024-10-03] MEDS: amLODIPine Besylate 10 MG TABLET PO (09:26)
[2024-10-03] MEDS: 0.9 % Sodium Chloride Flush 3 ML SYRINGE IVFLUSH (09:27)
--- NOTE | 2024-10-03 10:39 | P.DS_ITS ---
DS: Providers Provider Date of Service: 10/03/24 Date of admission: 09/26/24 04:51 Date of discharge: 10/03/24 Primary care physician: Anurag Schmid MD Consults: 10/01/24 02:09 Consult to Wound Care Routine Reason for consultation: redness to coccyx & Heels DS: Diagnosis Discharge Diagnosis (1) Pneumonia: Status: Acute DS: Summary Hospital Course Hospital Course: 79-year-old female with a past medical history significant for hypertension and depression, who presented to the ED due to lightheadedness and weakness hit followed by a fall. She reports that she slumped onto the ground, did not hit her head or lose consciousness. No seizure-like activity including urinary incontinence. She reports a productive cough recently with white sputum. No fever, chills, nausea or vomiting. No recent sick contacts. He denies headache, sore throat, runny nose, congestion, abdominal pain or urinary symptoms including frequency, urgency or dysuria. She has had poor p.o. intake over the past 2 days due to her weakness and lightheadedness. Hospital Course Patient admitted to general medical floor and started on ceftriaxone and azithromycin. Chest x-ray ultimately demonstrates a left lower lobe infiltrate. Patient was slow to progress however completed a course of antibiotic therapy without issue. She was seen by Physical therapy and thought to be a good candidate for rehab. She will be discharged on a prednisone taper and her oxygen can be tapered at the facility as clinically indicated. At this point she is medically acceptable for discharge Time Attestation Discharge Coordination Time (in mins): 35 Quality: Safe Use of Opioids Does Pt have an Active Cancer Diagnosis on the Problem List?: No Quality: Stroke Does the patient have a stroke diagnosis?: No Physical Exam Vital Signs: Vital Signs: Last Vital Signs Temp 97.4 F 10/03/24 07:23 Pulse 90 10/03/24 07:23 Resp 12 10/03/24 07:23 BP 157/74 H 10/03/24 07:23 Pulse Ox 93 10/03/24 07:23 O2 Del Method Nasal Cannula 10/03/24 07:23 O2 Flow Rate 2 10/03/24 07:23 Oxygen Flow Rate 3 09/25/24 17:04 BMI result Body Mass Index 38.9 Const: Other: Awake alert no acute distress Resp: Other: Crackles left lower lobe with minor rhonchis bilaterally lobes Cardio: Other: No S4; positive S1-S2; no S3 murmurs rubs or gallops GI: Other: Soft nontender nondistended normoactive bowel sounds Extrem: Other: No edema bilaterally DS: Data Data Completed and Pending Labs on day of discharge: Laboratory Results - last 24 hr 10/03/24 06:16 WBC 8.7 RBC 5.33 Hgb 14.3 Hct 48.0 H MCV 90.1 MCH 26.8 L MCHC 29.8 L RDW 13.2 Plt Count 271 MPV 9.3 L Immature Gran % (Auto) 1.3 H Neut % (Auto) 63.3 Lymph % (Auto) 23.2 [place] % (Auto) 11.3 H Eos % (Auto) 0.6 Baso % (Auto) 0.3 Lymph # (Auto) 2.0 [place] # (Auto) 1.0 Eos # (Auto) 0.1 Baso # (Auto) 0.0 Abs Immat Gran (auto) 0.11 H Absolute Neuts (auto) 5.5 Absolute Nucleated RBC 0.000 Nucleated RBC % (auto) 0.0 Sodium 141 Potassium 4.0 Chloride 99 Carbon Dioxide 37 H Anion Gap 9 L BUN 26 H Creatinine 0.59 Estim Creat Clear Calc 82.5 Estimated GFR > 60 Fasting Glucose 80 Calcium 8.2 L Total Bilirubin 0.2 AST 25 ALT 27 Alkaline Phosphatase 116 Total Protein 6.5 Albumin 3.4 L Discharge Plan Discharge Anticipated Discharge Date/Time: 10/03/24 15:41 Patient Disposition: Xfer SNF Discharge Diagnosis: Left lower lobe pneumonia Referrals: [facility] [Outside] - 1 Week Anurag Schmid MD [Primary Care Provider] - 1 Week Discharge Medications: New ipratropium-albuterol 0.5 mg-3 mg(2.5 mg base)/3 mL Solution For Nebulization 3 ml inhalation RQ4H WHILE AWAKE PRN (Reason: Wheezing) Qty: 270 0RF amlodipine 10 mg Tablet 10 mg PO DAILY Qty: 30 0RF Protocol: Hold for SBP< HOLD for SBP < : 90 prednisone 10 mg tablet See Rx Instructions .Route .COMPLEX Qty: 45 0RF Rx Instructions: 10 mg orally; 5 tabs p.o. daily x3 days; 4 tabs p.o. daily x3 days; 3 tabs daily x3 days; 2 tabs daily x3 days; 1 tab daily x3 days Continued losartan 25 mg tablet 25 mg PO DAILY naproxen 500 mg tablet 500 mg PO BIDWM PRN (Reason: Pain) ezetimibe 10 mg tablet 10 mg PO DAILY alendronate 70 mg tablet 70 mg PO MO sertraline 100 mg tablet 100 mg PO DAILY simvastatin 10 mg tablet 10 mg PO BEDTIME clonidine HCl 0.2 mg tablet 0.2 mg PO TID gabapentin 300 mg capsule 300 mg PO BID@0900,1700 mirabegron [Myrbetriq] 25 mg tablet extended release 24 hr 25 mg PO DAILY multivitamin Tablet 1 tab PO DAILY Discharge Orders: Discharge Order (Routine); Ordered 10/03/24 Ordered By: Kelly Luz Diet: Advance to usual diet Activity on Discharge: As tolerated Stand Alone Forms: Patient Portal Discharge page Print Language: Slovenian Care Plan Goals: Medicines as outlined on transfer sheet. Health Concerns: Complete prednisone taper as ordered Plan of Treatment: As per receiving facility Assessment: See discharge summary Discharge Date/Time: 10/03/24 17:49
--- NOTE | 2024-10-03 10:50 | P.PNIM_ITS ---
Subjective Subjective Date of Service: 10/03/24 Interval History: No acute issues overnight. Awaiting rehab placement Review of Systems Denies chest pain Admits to shortness of breath with movement Denies nausea vomiting diarrhea Denies fever chills Physical Exam 2 Vital Signs: Vital Signs: Last Vital Signs Temp 97.4 F 10/03/24 07:23 Pulse 90 10/03/24 07:23 Resp 12 10/03/24 07:23 BP 157/74 H 10/03/24 07:23 Pulse Ox 93 10/03/24 07:23 O2 Del Method Nasal Cannula 10/03/24 07:23 O2 Flow Rate 2 10/03/24 07:23 Oxygen Flow Rate 3 09/25/24 17:04 BMI result Body Mass Index 38.9 Const: Other: Awake alert no acute distress Resp: Other: Crackles left lower lobe with minor rhonchis bilaterally lobes Cardio: Other: No S4; positive S1-S2; no S3 murmurs rubs or gallops GI: Other: Soft nontender nondistended normoactive bowel sounds Extrem: Other: No edema bilaterally Objective Data Active Medications Acetaminophen (Acetaminophen 325 Mg Tablet) 650 mg PO Q6H PRN PRN Reason: Pain, Mild 1-3,fever,headache Last Admin: 10/02/24 23:03 Dose: 650 mg Documented By: MARIO Albuterol/Ipratropium (Albuterol/Iprat 2.5/0.5mg 3 Ml Ampul.Neb) 3 ml INHALE RQ4H WHILE AWAKE PRN PRN Reason: Wheezing Last Admin: 09/29/24 16:22 Dose: 3 ml Documented By: ISHA Amlodipine Besylate (Amlodipine Besylate 10 Mg Tablet) 10 mg PO DAILY [facility]; Protocol Last Admin: 10/03/24 09:26 Dose: 10 mg Documented By: BRENDA Benzonatate (Benzonatate 100 Mg Capsule) 200 mg PO TID PRN PRN Reason: Cough Last Admin: 10/01/24 21:24 Dose: 200 mg Documented By: BETH Calcium Carbonate (Calcium Carbonate 750 Mg Tab.Chew) 750 mg PO Q4H PRN PRN Reason: Heartburn Cefuroxime Axetil (Cefuroxime Axetil 500 Mg Tablet) 500 mg PO Q12H [facility] Last Admin: 10/03/24 09:25 Dose: 500 mg Documented By: BRENDA Enoxaparin Sodium (Enoxaparin Sodium 40 Mg/0.4 Ml Syringe) 40 mg SUBCUT Q24H [facility] Last Admin: 10/03/24 05:30 Dose: 40 mg Documented By: MARIO Gabapentin (Gabapentin 300 Mg Capsule) 300 mg PO BID@0900,1700 [facility] Last Admin: 10/03/24 09:26 Dose: 300 mg Documented By: BRENDA Guaifenesin/Codeine Phosphate (Guaifen/Codeine Sf 200/20/10ml 10 Ml Liquid) 10 ml PO Q4H PRN PRN Reason: Cough Last Admin: 10/02/24 23:03 Dose: 10 ml Documented By: MARIO Magnesium Hydroxide (Milk Of Magnesia 30 Ml Oral.Susp) 30 ml PO DAILY PRN PRN Reason: Constipation Melatonin (Melatonin 3 Mg Tablet) 6 mg PO BEDTIME PRN PRN Reason: Insomnia Last Admin: 10/01/24 21:25 Dose: 6 mg Documented By: BETH Ondansetron HCl (Ondansetron Hcl 4 Mg/2 Ml Vial) 4 mg IVPUSH Q8H PRN PRN Reason: Nausea and Vomiting Last Admin: 09/29/24 09:05 Dose: 4 mg Documented By: JESUS Prednisone (Prednisone 10 Mg Tablet) 50 mg PO DAILY [facility] Last Admin: 10/03/24 09:25 Dose: 50 mg Documented By: BRENDA Sertraline HCl (Sertraline Hcl 100 Mg Tablet) 100 mg PO DAILY [facility] Last Admin: 10/03/24 09:26 Dose: 100 mg Documented By: BRENDA Sodium Chloride (0.9 % Sodium Chloride Flush 3 Ml Syringe) 3 ml IVFLUSH QSHIFT [facility] Last Admin: 10/03/24 09:27 Dose: 3 ml Documented By: BRENDA Trazodone HCl (Trazodone Hcl 25 Mg Halftab) 12.5 mg PO BEDTIME PRN PRN Reason: Insomnia Labs 10/03/24 06:16 10/03/24 06:16 Labs: Laboratory Results - last 24 hr 10/03/24 06:16 MCV 90.1 MCH 26.8 L MCHC 29.8 L RDW 13.2 Plt Count 271 MPV 9.3 L Immature Gran % (Auto) 1.3 H Neut % (Auto) 63.3 Lymph % (Auto) 23.2 Barren % (Auto) 11.3 H Eos % (Auto) 0.6 Baso % (Auto) 0.3 Lymph # (Auto) 2.0 [place] # (Auto) 1.0 Eos # (Auto) 0.1 Baso # (Auto) 0.0 Abs Immat Gran (auto) 0.11 H Absolute Neuts (auto) 5.5 Absolute Nucleated RBC 0.000 Nucleated RBC % (auto) 0.0 Anion Gap 9 L Estim Creat Clear Calc 82.5 Estimated GFR > 60 Fasting Glucose 80 Calcium 8.2 L Total Bilirubin 0.2 AST 25 ALT 27 Alkaline Phosphatase 116 Total Protein 6.5 Albumin 3.4 L Assessment and Plan (1) Pneumonia: Status: Acute Plan Patient is an 79-year-old female with a past medical history significant for hypertension and depression, who presented to the ED due to lightheadedness and weakness hit followed by a fall. Patient found to be hypoxic with pneumonia. Head CT negative, no seizure-like activity, no loss of consciousness or head strike. Likely orthostatic syncope secondary to poor p.o. intake. 1.Acute hypoxic respiratory failure secondary to pneumonia -doxycycline/ceftriaxone (7) -pulse dose methylprednisolone.... Switch to oral taper upon discharge -titrate O2 as tolerated 2.Orthostatic syncope secondary to poor p.o. intake - responded well to volume repletion -follow clinically Full code lovenox PT consult Patient with acute hypoxic respiratory failure secondary to pneumonia treated by an episode orthostatic, requiring ongoing hospitalization for volume repletion IV antibiotics to treat pneumonia Quality Stroke Does the patient have a stroke diagnosis?: No VTE Prior VTE?: No VTE Risk Level:: Medical - moderate - high VTE Device Contraindication: Treatment Not Indicated VTE Drug Contraindication: N/A - Med Ordered
[2024-10-03 12:00] VITALS: BP 156/70; PULSE 87; RESP 18; TEMP 36.9; O2SAT 90
[2024-10-03 15:49] VITALS: BP 170/79; PULSE 93; RESP 18; TEMP 36.2; O2SAT 92
--- NOTE | 2024-10-03 16:14 | MHC.CM.PN ---
IMM 10/03/24 [facility] has received insurance authorization for STR. 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 Patient and her dtr have been notified that transfer to [facility] is today @ 5pm.
== END 2024-10-03 17:49 | disposition skilled nursing facility (03) | DRG 193 ==
LOC: HO.ED 09-26 01:31 → HO.EDOVER 09-26 04:56 → HO.S3 09-26 15:48
PROVIDERS: Admitting Provider Student in an Organized Health Care Education/Training Program; Emergency Provider Internal Medicine; PCP Internal Medicine; Visit Provider Hospitalist
DX: J18.9 Pneumonia, unspecified organism (principal); J96.01 Acute respiratory failure with hypoxia; I95.1 Orthostatic hypotension; E66.9 Obesity, unspecified; E78.5 Hyperlipidemia, unspecified; Z68.39 Body mass index [BMI] 39.0-39.9, adult; Z71.3 Dietary counseling and surveillance; Z20.822 Contact with and (suspected) exposure to COVID-19; Z87.891 Personal history of nicotine dependence; Z79.899 Other long term (current) drug therapy
CPT/HCPCS: 0241U; 36415; 70450; 71045; 71275; 80048; 80053; 81001; 82248; 82803; 83605; 83735; 84443; 84484; 85025; 85027; 87040; 90656; 93005; 93306; 97162; 99285; J0456; J0696; J1650; J2405; J2919; J7120; Q9957; Q9967

== ENCOUNTER → 2024-09-25 17:29 | Outpatient (BNV) | payer OTHER, SELFPAY | PROVIDERS: Admitting Provider Student in an Organized Health Care Education/Training Program; Emergency Provider Internal Medicine; PCP Internal Medicine; Visit Provider Internal Medicine Cardiovascular Disease | DX: R42 Dizziness and giddiness (principal) | CPT/HCPCS: 93010 ==

== ENCOUNTER → 2024-09-25 19:40 | Outpatient (BNV) | payer OTHER, SELFPAY | PROVIDERS: Emergency Provider Internal Medicine; PCP Internal Medicine; Visit Provider Radiology Diagnostic Radiology | DX: R42 Dizziness and giddiness (principal) | CPT/HCPCS: 70450; 71045 ==

== ENCOUNTER 2024-09-26 04:51 | Outpatient (BNV) | payer MEDICARE, SELFPAY | END 2024-09-28 08:09 | PROVIDERS: Admitting Provider Student in an Organized Health Care Education/Training Program; Emergency Provider Internal Medicine; PCP Internal Medicine; Visit Provider Internal Medicine Cardiovascular Disease | DX: I51.89 Other ill-defined heart diseases (principal); R06.02 Shortness of breath; R00.0 Tachycardia, unspecified | CPT/HCPCS: 93010; 93306 ==

== ENCOUNTER → 2024-09-26 04:51 | Outpatient (BNV) | payer OTHER, SELFPAY | PROVIDERS: Admitting Provider Student in an Organized Health Care Education/Training Program; Emergency Provider Internal Medicine; PCP Internal Medicine; Visit Provider Physician Assistant | DX: J18.9 Pneumonia, unspecified organism (principal) | CPT/HCPCS: 99223; 99233; 99499 ==

== ENCOUNTER → 2024-09-26 | Outpatient (BNV) | payer OTHER, SELFPAY | PROVIDERS: Emergency Provider Internal Medicine; PCP Internal Medicine; Visit Provider Radiology Neuroradiology | DX: R06.02 Shortness of breath (principal) | CPT/HCPCS: 71275 ==

== ENCOUNTER 2024-10-15 11:18 | Inpatient (IN) | payer MEDICARE, SELFPAY ==
[2024-10-15] VITALS (46 sets, daily range): BP systolic 52–216; BP diastolic 13–114; PULSE 62–110; RESP 18–26; TEMP 34.7–38.3; O2SAT 80–100; BMI 37.5
--- NOTE | ~2024-10-15 | XR_ITS ---
EXAMINATION: XR CHEST CLINICAL INFORMATION: worsening hypoxia COMPARISON: October 24, 2024. TECHNIQUE: Frontal view of the chest was obtained. FINDINGS: Masslike opacity in the periphery of the right hemithorax. Pulmonary reticular pattern. Blunting of the left costophrenic angle. Cardiomediastinal silhouette margins are indistinct. Calcified plaque aortic arch. Multilevel thoracic spondylosis. Osteopenia versus osteoporosis. Degenerative changes in the shoulders.. XR/XR chest 1V IMPRESSION: Consider mild interstitial lung edema and left-sided pleural effusion, small to moderate volume. Masslike opacity peripheral right hemithorax which correlates to a fat density and the CT chest dated October 29, 2024. Electronically signed by: Ar Wilhelm MD 11/08/2024 02:40 PM [facility]
--- NOTE | ~2024-10-15 | XR_ITS ---
CLINICAL HISTORY: central line placement Chest Radiograph Comparison: CR - XR CHEST 1V - 10/15/24 13:32 EST CR - XR CHEST 1V - 10/15/24 13:24 EST CR - XR CHEST 1V - 10/15/24 12:02 EST Findings: Endotracheal tube terminates in the right mainstem bronchus. Enteric tube terminates just beyond the gastroesophageal junction. Right central venous catheter with the tip terminating at the cavoatrial junction No cardiomegaly. Normal mediastinal contours. No pneumothorax. Peripheral right mid lung zone pleural based opacity. Linear opacity in the left mid lung zone. No pleural effusion. Normal upper abdomen. No acute fracture. Impression: Properly positioned right central venous catheter. Endotracheal tube terminating in the right mainstem bronchus, unchanged. Pull back by 2.0 cm. This finding has already been communicated. Enteric tube terminating just beyond the gastroesophageal junction, unchanged. Distal repositioning 8.0 cm is recommended. This finding has already been communicated. This document has been electronically signed by: Kim Mcmillan MD on 10/15/2024 15:15:04
--- NOTE | ~2024-10-15 | XR_ITS ---
CLINICAL HISTORY: NG tube position Chest Radiograph Comparison: CR - XR CHEST 1V - 10/15/24 14:06 EST CR - XR CHEST 1V - 10/15/24 13:24 EST CR - XR CHEST 1V - 10/15/24 12:02 EST Findings: The endotracheal tube terminates at the right mainstem bronchus. The enteric tube terminates just beyond the gastroesophageal junction. No cardiomegaly. Normal mediastinal contours. No pneumothorax. Right mid lung zone pleural-based opacity. Linear opacity in the left mid lung zone could be atelectasis or pneumonia. Retrocardiac opacity could be pneumonia or a Bochdalek hernia. No pleural effusion. Normal upper abdomen. No acute fracture. Impression: Endotracheal tube terminating at the right mainstem bronchus. Pull back by 2.0 cm. Enteric tube terminating just beyond the gastroesophageal junction. Distal repositioning by 8.0 cm is recommended. This document has been electronically signed by: Kim Mcmillan MD on 10/15/2024 14:32:04
--- NOTE | ~2024-10-15 | CT_ITS ---
CLINICAL HISTORY: nodular PNA L lung CT chest without contrast Comparison: CT/SR - CT ANGIO CHEST PE PROTOCOL - 09/26/24 00:32 EST Findings: Cardiomegaly without significant pericardial effusion. Coronary artery calcifications. 9 mm right thyroid nodule. Prominent mediastinal nodes. Dense left lower lobe consolidation. New mucoid impaction in the left lower lobe bronchi. Ill-defined diffuse bilateral tree-in-bud nodular consolidations. Tree-in-bud nodularity appears new from prior. Bilateral atelectasis. No significant pleural effusion or pneumothorax. Similar right lateral extrapleural fatty herniation. Colonic diverticulosis. Thoracic diffuse idiopathic skeletal hyperostosis. Redemonstrated multilevel thoracic compression deformities. Chronic appearing left-sided rib fractures. IMPRESSION: Persistent probable left lower lobe pneumonia with mucoid impaction and new superimposed presumed aspiration. This document has been electronically signed by: Finesse Cheema MD on 10/19/2024 20:34:02
--- NOTE | ~2024-10-15 | CT_ITS ---
EXAMINATION: CT ANGIOGRAM CHEST CLINICAL INFORMATION: Hypoxia, high flow O2. COMPARISON: CT chest 10/19/2024. TECHNIQUE: Multiple axial images were obtained through the chest after the administration of 65 mL of Omnipaque 350 intravenous contrast. Extensive vascular post-processing including two-dimensional and three-dimensional reformatted images were created and reviewed on an independent workstation. This CT examination was performed using dose optimization techniques as appropriate, variously including the following: *Automated exposure control *Adjustment of mA and/or kV according to patient size (this includes techniques or standardized protocols for targeted exams where dose is matched to indication/reason for exam; i.e. extremities or head) *Use of iterative reconstruction technique FINDINGS: LUNGS: Evaluation of the lower lungs is limited from respiratory motion artifact. Stable right diaphragmatic elevation. Mild discoid atelectasis in the right base and right middle lobe. Diffuse small airway thickening again noted with mild associated bronchiectasis. Foci of endobronchial mucous plugging are improved in the left lower lobe lower lobe persists. There is persistent mental linear opacity in the left base, with associated mild groundglass attenuation, suggesting persistent pneumonia. This appears significantly improved from the prior chest CT. No persistent foci of tree-in-bud nodularity. Right base pneumonic abnormalities appear significantly improved as well. PLEURA: There is no pleural effusion. 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 There is no pneumothorax. MEDIASTINUM: No lymphadenopathy or mass. Mildly enlarged right thyroid lobe again noted, with 9 mm nodule. Central airways are patent. The esophagus is normal. Normal GE junction. VASCULAR: There is no evidence of pulmonary embolism. The main pulmonary artery is normal in size. There is no evidence of acute aortic syndrome. There is mild aortic tortuosity and mild to moderate atheromatous calcification. There is no aneurysm. Heart size is mildly enlarged. No pericardial effusion. AXILLA/CHEST WALL: No lymphadenopathy. UPPER ABDOMEN: Unremarkable. OSSEOUS STRUCTURES: Numerous chronic appearing left lateral rib fractures again noted. No suspicious lytic or blastic bone lesion. Mild wedging of T2, T3, T4, and T12, unchanged. Degenerative changes throughout the spine, stable. Findings suggesting DISH. CT/CT angio chest PE protocol IMPRESSION: 1. No evidence of or embolism or acute aortic syndrome. Normal caliber main pulmonary artery. 2. Mild cardiac enlargement. 3. Improving but persistent segmental opacities in the left base, reflecting improving pneumonia. 4. There is resolved right base pneumonic abnormality. 5. Similar diffuse small airway thickening and bronchiectasis. Foci of endobronchial mucous plugging have significantly improved in the left lower lobe. 6. There are no pleural effusions or pneumothoraces. 7. Additional stable ancillary findings as discussed. Electronically signed by: Jimmy Márquez MD 10/25/2024 12:31 PM [facility]
--- NOTE | ~2024-10-15 | CT_ITS ---
CLINICAL HISTORY: hypoxia CTA chest with 3-D postprocessing Comparison: CT/HI/SR - CT ANGIO CHEST PE PROTOCOL - 10/25/24 12:01 EST CR - XR CHEST 1V - 10/24/24 11:[address]/SR - CT CHEST WO IV CON - 10/19/24 19:12 EST Findings: Study quality is adequate for the diagnosis of pulmonary embolism. No pulmonary embolism. Heart size within normal limits. RV/LV ratio is normal. Moderate calcified coronary artery disease. No aortic dissection or aneurysm. Mild calcified atherosclerotic disease in the chest. Moderate calcified atherosclerotic disease in the upper abdomen. Mediastinal and hilar lymph nodes measure up to 9 mm in short axis. Increase in consolidation in the left lower lobe. New mild amount of bilateral ground-glass opacity and patchy consolidation in each lobe, most prominent in the left upper lobe, likely infectious/ inflammatory, favored developing multifocal pneumonia. Subsegmental atelectasis versus linear scarring in the left lower lobe. Mild bronchial wall thickening with a mild amount of secretions in the airways. No pneumothorax or pleural effusion. Right pleural base lipoma, stable No acute osseous or soft tissue abnormality. Left sided rib fractures, also seen on the prior studies, subacute to chronic. No acute pathology in the imaged portion of the upper abdomen. Impression: No pulmonary embolism. Increase in consolidation in the left lower lobe likely indicates worsening pneumonia. New mild amount of bilateral ground-glass opacity and patchy consolidation in the other lobes likely infectious/inflammatory, favor multifocal pneumonia. Follow up to resolution. This document has been electronically signed by: Kim Mcmillan MD on 10/29/2024 20:07:29
--- NOTE | ~2024-10-15 | XR_ITS ---
CLINICAL HISTORY: hypoxia 1 view chest x-ray Comparison: CR/SR - XR CHEST 1V - 11/08/24 14:17 EST Findings: Increasing left-sided pleural-parenchymal opacities. Improved aeration in the right lower lobe. Stable pleural-based masslike opacity in the lateral right hemithorax, known pleural-based lipoma. No pneumothorax. Cardiomediastinal silhouette is accentuated by portable technique and suboptimal inspiratory effort. Thoracolumbar spondylosis. IMPRESSION: 1. Hypoventilation. 2. [id number] left pleural effusion is increased since prior. 3. Multifocal pulmonary opacities in the left lung are increased. This document has been electronically signed by: Meli Llanes DO on 11/11/2024 13:51:51
--- NOTE | ~2024-10-15 | XR_ITS ---
CLINICAL HISTORY: cough Chest Radiographs, 2 views Comparison: CR/SR - XR CHEST 1V - 09/28/24 08:[address]/SR - CT ANGIO CHEST PE PROTOCOL - 09/26/24 00:32 EST Findings: No cardiomegaly. Normal mediastinal contours. No pneumothorax. Unchanged opacity in the right mid lung zone corresponding to focal pleural fat seen on the CT. Small peripheral opacity in the left mid zone with a nodular appearance, new. Retrocardiac opacity. No pleural effusion. Normal upper abdomen. No acute fracture. Impression: Left-sided pneumonia could be considered. This document has been electronically signed by: Kim Mcmillan MD on 10/15/2024 13:02:42
--- NOTE | ~2024-10-15 | XR_ITS ---
CLINICAL HISTORY: et tube placement Chest Radiograph Comparison: CR - XR CHEST 1V - 10/15/24 14:06 EST CR - XR CHEST 1V - 10/15/24 13:32 EST CR - XR CHEST 1V - 10/15/24 12:02 EST Findings: The endotracheal tube terminates of the right mainstem bronchus. No cardiomegaly. Normal mediastinal contours. No pneumothorax. Unchanged pleural-based right mid lung zone opacity. Opacity in the left mid lung zone seen on the prior study is not as well seen on this exam. Question left Bochdalek hernia. No pleural effusion. Normal upper abdomen. No acute fracture. Impression: Endotracheal tube terminating at the right mainstem bronchus. Later images are available at time of interpretation and the position of the endotracheal tube is similar. Pull back by 2.0 cm. This document has been electronically signed by: Kim Mcmillan MD on 10/15/2024 14:29:43
--- NOTE | ~2024-10-15 | XR_ITS ---
CLINICAL HISTORY: Hypoxia Chest Radiograph Comparison: CT/SR - CT CHEST WO IV CON - 10/19/24 19:12 EST CR - XR CHEST 1V - 10/15/24 14:06 EST CR - XR CHEST 1V - 10/15/24 13:32 EST CR - XR CHEST 1V - 10/15/24 13:24 EST CR - XR CHEST 1V - 10/15/24 12:02 EST CR/SR - XR CHEST 1V - 09/28/24 08:19 EST Findings: No cardiomegaly. Normal mediastinal contours. No pneumothorax. Unchanged right mid lung zone pleural-based opacity corresponding to subpleural fat seen on CT. Left lower lung zone opacity seen on the recent CT and new since 10/15/24. There also linear opacities in the left mid to lower lung zones which are likely atelectasis. No pleural effusion. Normal upper abdomen. No acute fracture. Impression: Left lower lung zone opacity is likely pneumonia. This document has been electronically signed by: Kim Mcmillan MD on 10/24/2024 13:04:32
--- NOTE | 2024-10-15 11:27 | ECG_ITS ---
Test Reason : DIFFBREATHING Blood Pressure : */* mmHG Vent. Rate : 102 BPM Atrial Rate : 102 BPM P-R Int : 114 ms QRS Dur : 76 ms QT Int : 346 ms P-R-T Axes : 49 -7 51 degrees QTcB Int : 450 ms Sinus tachycardia Nonspecific ST abnormality Abnormal ECG When compared with ECG of 28-Sep-2024 08:09, No significant change was found Referred By: Tank Mauro Electronically Signed By: WILLEM RICARDO MD
--- NOTE | 2024-10-15 11:31 | ED.SOB ---
HPI - SOB/Dyspnea General Chief Complaint: Dyspnea Stated Complaint: DIFF BREATHING Time Seen by Provider: 10/15/24 11:22 Source: EMS Mode of arrival: EMS Limitations: no limitations History of Present Illness HPI Narrative: This is 79 years old female with a history of COPD O2 dependent on 2 L at baseline she was sent by the rehab because respiratory distress she was found to be hypoxic she was placed by the specialist icu on high-flow oxygen she was given IV Solu-Medrol 125 and 2 nebulizer treatment on route. MD elicited complaint: shortness of breath and cough Pertinent past history: COPD Onset (ago): hour(s) (6) Timing: constant Severity: moderate Exacerbating factors: nothing Relieving factors: oxygen Known history of: COPD Associated symptoms: denies other symptoms Related Data Home oxygen amount: 2 liters Home Medications ?Medication ?Instructions ?Recorded ?Confirmed alendronate 70 mg tablet 70 mg PO MO@0900 09/26/24 10/15/24 clonidine HCl 0.2 mg tablet 0.2 mg PO TID 09/26/24 10/15/24 ezetimibe 10 mg tablet 10 mg PO DAILY 09/26/24 10/15/24 gabapentin 300 mg capsule 300 mg PO BID@0900,1700 09/26/24 10/15/24 losartan 25 mg tablet 25 mg PO DAILY 09/26/24 10/15/24 mirabegron 25 mg tablet,extended 25 mg PO DAILY 09/26/24 10/15/24 release 24 hr (Myrbetriq) multivitamin 1 tab PO DAILY 09/26/24 10/15/24 naproxen 500 mg tablet 500 mg PO BIDWM PRN Pain 09/26/24 10/15/24 sertraline 100 mg tablet 100 mg PO DAILY 09/26/24 10/15/24 simvastatin 10 mg tablet 10 mg PO BEDTIME 09/26/24 10/15/24 Previous Rx's ?Medication ?Instructions ?Recorded amlodipine 10 mg tablet 10 mg PO DAILY #30 tabs 10/03/24 ipratropium 0.5 mg-albuterol 3 mg 3 ml inhalation RQ4H WHILE AWAKE 10/03/24 (2.5 mg base)/3 mL nebulization PRN Wheezing #270 mL soln prednisone 10 mg tablet See Rx Instructions .Route 10/03/24 .COMPLEX #45 tabs Allergies Allergy/AdvReac Type Severity Reaction Status Date / Time No Known Allergies Allergy Verified 10/15/24 11:38 Review of Systems Constitutional: Constitutional: Reports no additional constitutional complaints Cardiovascular: Cardiovascular: Reports no additional cardiovascular complaints Gastrointestinal: Gastrointestinal: Reports no additional gastrointestinal complaints [facility] Past Medical History [facility] Narrative: COPD O2 dependent Medical History Obesity (BMI 35.0-39.9 without comorbidity) Depression HTN (hypertension) Social History Social History Household Members: Significant Other Housing: Apartment Do you presently have visiting nurse or other home services: No Patient Tobacco Use Status: Former Tobacco user service: No Physical Exam Vital Signs: Vital Signs: Last Vital Signs Temp 98.8 F 10/15/24 15:00 Pulse 80 10/15/24 15:12 Resp 26 H 10/15/24 15:00 BP 144/60 H 10/15/24 15:12 Pulse Ox 90 L 10/15/24 15:00 O2 Del Method Mechanical Ventil ation 10/15/24 15:00 O2 Flow Rate 40 10/15/24 14:06 FiO2 40 10/15/24 15:15 Oxygen Flow Rate 4 10/15/24 11:33 BMI result Body Mass Index 37.5 On examination she is in respiratory distress hypoxic Const: General: alert Nutritional Appearance: average body habitus Orientation/consciousness: patient oriented x3 HEENT: Head: Yes normal to inspection and Yes No palpable skull fracture present Face and sinus: Yes normal facial exam Mouth: Normal oral and palatal mucosa present Neck: Neck: Yes normal visual inspection Resp: Effort & Inspection: Actively coughing and respiratory distress Auscultation: rhonchi and wheezes Cardio: Jugular venous distension: no JVD Rate: regular rate Rhythm: regular rhythm GI: Inspection: Yes normal to inspection Palpation (GI): Soft to palpation, not firm and nontender Skin: General skin exam: no rashes or lesions noted, elasticity normal and turgor normal Neuro: General: patient oriented x3 Course Reevaluation(s) Reevaluation #1: Patient deteriorate we tried to do BiPAP but she became more lethargic repeated gas showed worsening of hypercapnic respiratory failure decision to intubate patient was successfully intubated with a 7.5 ET tube Time: 13:34 Reevaluation #2: Central line inserted,got IV AB/ IV fluids 30CC KG /ideal body weight became hypotensive after intubation,required iv levophed.on reexam RRR lungs decrease breath sounds,capillary refill decreased. Time: 14:31 Reevaluation #3: Radiology called did the ET tube needs to be pulled back 2 cm and feeding tube and is to be pushed forward, this finding were communicated by MAGICIAN HELPER to the [employer] Time: 15:33 Medications Administered Generic Name Dose Route Start Last Admin Trade Name Freq PRN Reason Stop Dose Admin Chlorhexidine Gluconate 15 ml 10/15/24 13:45 10/15/24 15:24 Chlorhexidine Gluc Oral Rinse 15 Ml Mouthwash BUCCAL 15 ml Q8H MAYRA Administration Heparin Sodium (Porcine) 5,000 unit 10/15/24 13:45 10/15/24 15:24 Heparin Sodium,Porcine 5,000 Unit/Ml Vial SUBCUT 5,000 unit Q8H MAYRA Administration Fentanyl 1,000 mcg in 100 mls @ 0 mls/hr 10/15/24 13:30 10/15/24 15:09 Sublimaze/Ns IVCONT 200 mcg/hr .Q0M MAYRA 20 mls/hr Titration Protocol Per Protocol Propofol 1,000 mg in 100 mls @ 0 mls/hr 10/15/24 13:45 10/15/24 15:12 Diprivan IVCONT 30 mcg/kg/min .Q0M MAYRA 16.72 mls/hr Administration Protocol Per Protocol Norepinephrine Bitartrate 8 mg in 250 mls @ 0 mls/hr 10/15/24 13:45 10/15/24 14:21 Levophed IVCONT 0 mcg/kg/min .Q0M MAYRA 0 mls/hr Titration Protocol Per Protocol Discontinued Medications Generic Name Dose Route Start Last Admin Trade Name Freq PRN Reason Stop Dose Admin Albuterol Sulfate 5 mg/ 0 mg 10/15/24 11:33 10/15/24 11:40 Albuterol/Ipratropium 3 ml INHALE 10/15/24 11:34 1 each ONCE ONE Administration Fentanyl 200 mcg 10/15/24 13:21 10/15/24 13:30 Fentanyl Citrate/Pf 100 Mcg/2 Ml Vial IVPUSH 10/15/24 13:22 200 mcg ONCE ONE Administration Protocol Piperacillin Sod/Tazobactam 100 mls @ 200 mls/hr 10/15/24 11:39 10/15/24 12:30 Sod 4.5 gm/ Sodium Chloride IV 10/15/24 12:08 Infused ONCE ONE Infusion Acetaminophen 1,000 mg in 100 mls @ 400 mls/hr 10/15/24 11:40 10/15/24 12:15 Ofirmev IV 10/15/24 11:54 Infused ONCE ONE Infusion Sodium Chloride 1,503 mls @ 1,503 mls/hr 10/15/24 12:25 10/15/24 13:55 Ns IV 10/15/24 13:24 Infused .Q1H STA Infusion Vancomycin HCl 2,000 mg in 500 mls @ 250 mls/hr 10/15/24 13:15 10/15/24 13:16 Vancomycin/Ns IV 10/15/24 15:14 250 mls/hr ONCE ONE Administration Rocuronium [place] 50 mg 10/15/24 14:38 10/15/24 13:47 Rocuronium [place] 50 Mg/5 Ml Vial IVPUSH 10/15/24 14:39 50 mg ONCE ONE Administration Medical Decision Making Medical Decision Making [facility] Narrative: Patient presented in respiratory distress upon the [place] [facility] we will continue neb treatment we will do a chest x-ray labs 14:30 after intubation the patient became a hypotensive she was started on Levophed central line was inserted, IV fluid administer IV antibiotic administer clinical picture is consistent with COPD exacerbation with possible pneumonia Differential Diagnosis Differential Diagnoses: The differential diagnosis associated with the presentation includes COPD exacerbation/viral bronchitis/pneumothorax/CHF Admission/Observation Consideration of admission/observation: Escalation of care including admission/observation considered Consult Healthcare Provider Management of the patient was discussed with: 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 10/15/24 11:57 10/15/24 11:57 Labs: Lab Results 10/15/24 10/15/24 10/15/24 Range/Units 11:50 11:57 12:03 WBC 7.8 (4.8-10.8) X10*3/uL RBC 5.45 (4.20-5.50) X10*6/uL Hgb 14.6 (12.0-16.0) g/dl Hct 51.1 H (37.0-47.0) % MCV 93.8 (80.0-98.0) fL MCH 26.8 L (27.0-33.0) pg MCHC 28.6 L (31.0-35.0) g/dl RDW 13.8 (11.0-16.0) % Plt Count 185 D (160-400) X10*3/uL MPV 9.4 (9.4-12.3) fL Immature Gran % (Auto) 0.5 H (0.0-0.4) % Neut % (Auto) 79.4 H (45-73) % Lymph % (Auto) 13.4 L (20-40) % [place] % (Auto) 6.3 (2-11) % Eos % (Auto) 0.1 (0-4) % Baso % (Auto) 0.3 (0-2) % Lymph # (Auto) 1.1 L (1.2-4.9) X10*3/uL [place] # (Auto) 0.5 (0.1-1.2) X10*3/uL Eos # (Auto) 0.0 (0.0-0.4) X10*3/uL Baso # (Auto) 0.0 (0.0-0.2) X10*3/uL Abs Immat Gran (auto) 0.04 H (0.00-0.03) X10*3/uL Absolute Neuts (auto) 6.2 (2.0-8.3) x10*3/uL Absolute Nucleated RBC 0.000 (0.0-0.012) X10*3/uL Nucleated RBC % (auto) 0.0 (0.0-0.2) /100WBC PT 13.6 H (10.9-12.4) SEC INR 1.2 H (0.9-1.1) O2 Saturation % ABG pH at Pt Temp (7.35-7.45) ABG pCO2 at Pt Temp (32-45) mmHg ABG pO2 at Pt Temp (83-108) mmHg ABG HCO3 (22-26) mmol/L ABG Base Excess (Actual) mmol/L VBG pH 7.32 (7.32-7.43) VBG pCO2 77 mmHg VBG pO2 53 mmHg VBG HCO3 40 H (22-26) mmol/L VBG O2 Saturation 79.0 % VBG Base Excess 10.2 mmol/L Sodium 143 (135-145) mmol/L Potassium 4.8 (3.3-5.1) mmol/L Chloride 100 (96-108) mmol/L Carbon Dioxide 31 H (22-29) mmol/L Anion Gap 17 (12-20) BUN 24 H (9-16) mg/dL Creatinine 0.77 (0.5-1.4) mg/dL Estim Creat Clear Calc 61.8 Estimated GFR > 60 POC Glucose 168 H (60-115) mg/dL Random Glucose 160 H (60-115) mg/dL Lactic Acid 1.1 (0.5-2.0) mmol/L Calcium 8.7 D (8.4-10.2) mg/dL Total Bilirubin 0.2 (0.0-1.0) mg/dL AST 31 (5-31) U/L ALT 25 (0-31) U/L Alkaline Phosphatase 116 (39-117) U/L Troponin I High Sens 24.4 H D (<3.5-17.0) ng/L B-Natriuretic Peptide 133 H (<100) pg/mL Total Protein 7.0 (6.5-8.0) g/dL Albumin 3.6 (3.5-5.0) g/dL Influenza Type A (PCR) (Negative) Influenza Type B (PCR) (Negative) RSV RNA Qual (PCR) (Negative) SARS-CoV-2 RNA (RT-PCR) (Negative) 10/15/24 10/15/24 Range/Units 12:33 13:04 WBC (4.8-10.8) X10*3/uL RBC (4.20-5.50) X10*6/uL Hgb (12.0-16.0) g/dl Hct (37.0-47.0) % MCV (80.0-98.0) fL MCH (27.0-33.0) pg MCHC (31.0-35.0) g/dl RDW (11.0-16.0) % Plt Count (160-400) X10*3/uL MPV (9.4-12.3) fL Immature Gran % (Auto) (0.0-0.4) % Neut % (Auto) (45-73) % Lymph % (Auto) (20-40) % [place] % (Auto) (2-11) % Eos % (Auto) (0-4) % Baso % (Auto) (0-2) % Lymph # (Auto) (1.2-4.9) X10*3/uL [place] # (Auto) (0.1-1.2) X10*3/uL Eos # (Auto) (0.0-0.4) X10*3/uL Baso # (Auto) (0.0-0.2) X10*3/uL Abs Immat Gran (auto) (0.00-0.03) X10*3/uL Absolute Neuts (auto) (2.0-8.3) x10*3/uL Absolute Nucleated RBC (0.0-0.012) X10*3/uL Nucleated RBC % (auto) (0.0-0.2) /100WBC PT (10.9-12.4) SEC INR (0.9-1.1) O2 Saturation 88.0 % ABG pH at Pt Temp 7.18 L* (7.35-7.45) ABG pCO2 at Pt Temp 96 H* (32-45) mmHg ABG pO2 at Pt Temp 67 L (83-108) mmHg ABG HCO3 36 H (22-26) mmol/L ABG Base Excess (Actual) 4.0 mmol/L VBG pH (7.32-7.43) VBG pCO2 mmHg VBG pO2 mmHg VBG HCO3 (22-26) mmol/L VBG O2 Saturation % VBG Base Excess mmol/L Sodium (135-145) mmol/L Potassium (3.3-5.1) mmol/L Chloride (96-108) mmol/L Carbon Dioxide (22-29) mmol/L Anion Gap (12-20) BUN (9-16) mg/dL Creatinine (0.5-1.4) mg/dL Estim Creat Clear Calc Estimated GFR POC Glucose (60-115) mg/dL Random Glucose (60-115) mg/dL Lactic Acid (0.5-2.0) mmol/L Calcium (8.4-10.2) mg/dL Total Bilirubin (0.0-1.0) mg/dL AST (5-31) U/L ALT (0-31) U/L Alkaline Phosphatase (39-117) U/L Troponin I High Sens (<3.5-17.0) ng/L B-Natriuretic Peptide (<100) pg/mL Total Protein (6.5-8.0) g/dL Albumin (3.5-5.0) g/dL Influenza Type A (PCR) NEGATIVE (Negative) Influenza Type B (PCR) NEGATIVE (Negative) RSV RNA Qual (PCR) NEGATIVE (Negative) SARS-CoV-2 RNA (RT-PCR) NEGATIVE (Negative) Independent Interpretation I performed an independent interpretation of an: EKG and Plain X-Ray Interpretation: Normal sinus rhythm rate [address]-T changes EKG was reviewed interpreted by me no acute ischemic Radiology Impression Discussion of test interpretation with radiology: I have reviewed the radiologist's reading. Independent Historian Clinical information obtained from an independent historian. History obtained from or confirmed by: EMS and Other ([place] [facility] paper) External Record Review External record reviewed: Inpatient record Chronic Conditions Patient?s care impacted by: Other (COPD) Procedures Central Line Placement Right IJ: Time Out Performed: Yes Patient Placed on Monitor/Pulse Ox: Yes MD Prep: mask, gown and gloves Central Line Prep: Chlorhexidine scrub Ultrasound Used for Placement: Yes Central Line Lumen Inserted: triple Post Procedure: sutured in place Post Procedure X-Ray: tip of catheter in good position Patient Tolerated Procedure: well Complications: none Intubation Intubation Type:: Emergency Endotracheal Intubation Intubation Date:: 10/15/24 Intubation Time:: 13:34 Time out performed: Yes sedative: Ketamine Mg Given: 100 paralytic: Succinylcholine Mg Given: 100 Assist Device Used: fiber optic device ET Tube Size: 7.5 ET Tube Uncuffed: No Tube Placement Confirmation: visualized tube passing through cords, equal breath sounds bilaterally, no breath sounds over epigastrium and confirmation by capnometry Patient Tolerated Procedure: no complications Intubation Complications: none Critical Care Time Critical Care Time Critical Care Time: Yes Total Critical Care Time: 90 Attestation: Taking care of the patient, multiple re-examined, speaking with the ICU attending Discharge Plan Discharge Clinical Impression: Respiratory failure with hypoxia and hypercapnia Qualifiers: Chronicity: acute Qualified Code(s): J96.01 - Acute respiratory failure with hypoxia Patient Disposition: Admitted As Inpatient Discharge Date/Time: 10/15/24 14:47
[2024-10-15] MEDS: Albuterol Sulfate 5 MG, Albuterol/Iprat 2.5/0.5MG 3 ML 3 ML INHALE (11:40)
--- NOTE | 2024-10-15 11:45 | PC.NURSE ---
pt is very sleepy, will wake up to multiple times to name being called, respirations slightly labored, ls wheezing in the bases and diminished, sating poorly in the 6l via nasal cannual, pt will be put on bipap setting are 15/5epap/40%
[2024-10-15] MEDS: Piperacillin Sodium/Tazobactam 4.5 GM in 0.9 % Sodium Chloride 100 ML IV (11:58)
[2024-10-15] MEDS: Acetaminophen 1,000 MG/100 ML PIGGYBACK 400 MG IV (11:58)
[2024-10-15 12:04] LABS: MANUAL DIFF FLAG NO
[2024-10-15 12:06] LABS: Glucose, Whole Blood 168 mg/dL (60-115)
[2024-10-15 12:07] LABS: Venous Blood Gas Refer to POC result
[2024-10-15 12:08] LABS: Basophils Percent Auto 0.3 % (0-2); Eosinophils Percent Auto 0.1 % (0-4); Hematocrit 51.1 % (37.0-47.0); Hemoglobin 14.6 g/dl (12.0-16.0); Imm Gran Abs Auto 0.04 X10*3/uL (0.00-0.03); Imm Gran Pct Auto 0.5 % (0.0-0.4); Lymphocytes Absolute Auto 1.1 X10*3/uL (1.2-4.9); Lymphocytes Percent Auto 13.4 % (20-40); Mean Corpuscular HGB Conc 28.6 g/dl (31.0-35.0); Mean Corpuscular Hemoglobin 26.8 pg (27.0-33.0); Mean Corpuscular Volume 93.8 fL (80.0-98.0); Mean Platelet Volume 9.4 fL (9.4-12.3); Monocytes Absolute Auto 0.5 X10*3/uL (0.1-1.2); Monocytes Percent Auto 6.3 % (2-11); Neutrophils Absolute Auto 6.2 x10*3/uL (2.0-8.3); Neutrophils Percent Auto 79.4 % (45-73); Platelet Count 185 X10*3/uL (160-400); Red Blood Count 5.45 X10*6/uL (4.20-5.50); Red Cell Distribution Width 13.8 % (11.0-16.0); White Blood Count 7.8 X10*3/uL (4.8-10.8)
[2024-10-15 12:08] LABS: VBG Base Excess 10.2 mmol/L; VBG HCO3 40 mmol/L (22-26); VBG pCO2 77 mmHg; VBG pH 7.32 (7.32-7.43); VBG pO2 53 mmHg
[2024-10-15 12:14] LABS: INTERNATIONAL NORM RATIO 1.2 (0.9-1.1); Prothrombin Time 13.6 SEC (10.9-12.4)
[2024-10-15 12:19] LABS: Lactic Acid 1.1 mmol/L (0.5-2.0)
[2024-10-15 12:24] LABS: B Type Natriuretic Peptide 133 pg/mL (<100)
[2024-10-15 12:26] LABS: Troponin-I High Sensitivity 24.4 ng/L (<3.5-17.0)
[2024-10-15 12:29] LABS: Alanine Aminotransferase 25 U/L (0-31); Albumin Level 3.6 g/dL (3.5-5.0); Alkaline Phosphatase 116 U/L (39-117); Anion Gap 17 (12-20); Aspartate Amino Transferase 31 U/L (5-31); Bilirubin Total 0.2 mg/dL (0.0-1.0); Blood Urea Nitrogen 24 mg/dL (9-16); Calcium 8.7 mg/dL (8.4-10.2); Carbon Dioxide 31 mmol/L (22-29); Chloride 100 mmol/L (96-108); Creatinine Clr Calc Pharmacy 61.8; Estimated Glomerular Filt Rate > 60; Glucose Random 160 mg/dL (60-115); Potassium 4.8 mmol/L (3.3-5.1); Sodium 143 mmol/L (135-145)
--- NOTE | 2024-10-15 12:57 | PC.NURSE ---
pt is saturating well on the bipap, currently at 60% of oxygen and vbgs are good, plan to put on high flow
[2024-10-15 13:08] LABS: ABG HCO3 36 mmol/L (22-26); ABG pCO2 96 mmHg (32-45); ABG pH 7.18 (7.35-7.45); ABG pO2 67 mmHg (83-108)
[2024-10-15] MEDS: vancomycin/NS 2,000 MG/500 ML PLAST..BAG 250 MG IV (13:16)
--- NOTE | 2024-10-15 13:17 | PC.NURSE ---
blood gasses came back, and terrible, plan to intubate
--- NOTE | 2024-10-15 13:17 | PC.NURSE ---
100 mg of ketamine and 100 of succinlycholine given hr 87, 119/45 bp and 95% after bagged 7.5 et tube and 24 at the teeth, positive color change
[2024-10-15 13:27] LABS: Influenza A PCR NEGATIVE (Negative); Influenza B PCR NEGATIVE (Negative); Resp Syncy Virus RNA Qual PCR NEGATIVE (Negative); SARS COV2 PCR INHOUSE NEGATIVE (Negative)
[2024-10-15] MEDS: fentaNYL citrate/PF 100 MCG/2 ML VIAL 200 MCG IVPUSH (13:30)
[2024-10-15] MEDS: fentaNYL citrate/NS 1,000 MCG/100 ML PLAST..BAG 2.5 MCG IVCONT (13:34)
[2024-10-15] MEDS: Norepinephrine Bitartrate/D5W 8 MG/250 ML PLAST..BAG 8.71 MG IVCONT (13:45)
[2024-10-15] MEDS: Rocuronium Bromide 50 MG/5 ML VIAL IVPUSH (13:47)
--- NOTE | 2024-10-15 13:47 | P.HPCC_ITS ---
History of Present Illness Date of Service: 10/15/24 Chief Complaint: Dyspnea, hypercapnia 79-year-old lady with underlying history of COPD supplemental oxygen 2 L dependent, hypotension, hyperlipidemia, obesity sent from rehab secondary to acute hypoxia, on ER evaluation patient with acute hypoxic hypercapnic respiratory failure refractory to BiPAP support requiring intubation and ventilatory support. Admitted to the intensive care unit. Review of Systems 2 Review of Systems: No unobtainable due to endotracheal tube or Unobtainable due to mental condition PMFSH Past Medical History Medical History Obesity (BMI 35.0-39.9 without comorbidity) Depression HTN (hypertension) Social History Social History Household Members: Significant Other Housing: Apartment Do you presently have visiting nurse or other home services: No Patient Tobacco Use Status: Former Tobacco user Smoked in Last 30 Days: No Use of substances other than those prescribed or required for medical reasons: No Advance Directives: No Advance Directives Information Provided: Yes Do you have a plan to hurt others: No Plan service: No Meds Allergies Allergy/AdvReac Type Severity Reaction Status Date / Time No Known Allergies Allergy Verified 10/15/24 11:38 Active Medications: Current Medications Chlorhexidine Gluconate (Chlorhexidine Gluc Oral Rinse 15 Ml Mouthwash) 15 ml BUCCAL Q8H [facility] Famotidine (Famotidine/Pf 20 Mg/2 Ml Vial) 20 mg IVPUSH DAILY [facility] Heparin Sodium (Porcine) (Heparin Sodium,Porcine 5,000 Unit/Ml Vial) 5,000 unit SUBCUT Q8H [facility] Vancomycin HCl (Vancomycin/Ns) 2,000 mg in 500 mls @ 250 mls/hr IV ONCE ONE Stop: 10/15/24 15:14 Last Admin: 10/15/24 13:16 Dose: 250 mls/hr Fentanyl (Sublimaze/Ns) 1,000 mcg in 100 mls @ 0 mls/hr IVCONT .Q0M [facility]; Protocol Last Admin: 10/15/24 13:34 Dose: 25 mcg/hr, 2.5 mls/hr Propofol (Diprivan) 1,000 mg in 100 mls @ 0 mls/hr IVCONT .Q0M [facility]; Protocol Norepinephrine Bitartrate (Levophed) 8 mg in 250 mls @ 0 mls/hr IVCONT .Q0M [facility]; Protocol Naloxone HCl (Naloxone Hcl 0.4 Mg/Ml Vial) 0.2 mg IVPUSH Q2M PRN PRN Reason: Excessive sedation or RR < 8 Home Medications ?Medication ?Instructions ?Recorded ?Confirmed ?Last Taken ?Type alendronate 70 mg tablet 70 mg PO MO 09/26/24 09/26/24 09/25/24 History clonidine HCl 0.2 mg tablet 0.2 mg PO TID 09/26/24 09/26/24 09/25/24 History ezetimibe 10 mg tablet 10 mg PO DAILY 09/26/24 09/26/24 09/25/24 History gabapentin 300 mg capsule 300 mg PO BID@0900,1700 09/26/24 09/26/24 09/25/24 History losartan 25 mg tablet 25 mg PO DAILY 09/26/24 09/26/24 09/25/24 History mirabegron 25 mg tablet,extended 25 mg PO DAILY 09/26/24 09/26/24 09/25/24 History release 24 hr (Myrbetriq) multivitamin 1 tab PO DAILY 09/26/24 09/26/24 09/25/24 History naproxen 500 mg tablet 500 mg PO BIDWM PRN Pain 09/26/24 09/26/24 09/25/24 History sertraline 100 mg tablet 100 mg PO DAILY 09/26/24 09/26/24 09/25/24 History simvastatin 10 mg tablet 10 mg PO BEDTIME 09/26/24 09/26/24 09/25/24 History Physical Exam 2 Vital Signs: Vital Signs: Last Vital Signs Temp 100.1 F 10/15/24 12:49 Pulse 84 10/15/24 13:34 Resp 20 10/15/24 13:17 BP 56/13 L 10/15/24 13:34 Pulse Ox 100 10/15/24 13:17 O2 Del Method Mechanical Ventil ation 10/15/24 13:17 O2 Flow Rate 60 10/15/24 13:17 FiO2 90 10/15/24 13:04 Oxygen Flow Rate 4 10/15/24 11:33 BMI result Body Mass Index 37.5 Const: General: no acute distress and other (Sedated on ventilatory support) Nutritional Appearance: obese Eyes: Sclerae: sclerae normal EOM: EOMs intact bilaterally Neck: Neck: Yes no lymphadenopathy, Yes trachea midline and Yes supple Resp: Auscultation: clear to auscultation bilaterally Cardio: Rate: regular rate Rhythm: regular rhythm Heart sounds: no gallops, no murmurs and no rubs GI: Palpation (GI): Soft to palpation and Other GI palpation findings present ( Nontender) Auscultation: normal bowel sounds Extrem: General: No clubbing, No cyanosis and Yes edema (Trace bilateral) Results Labs 10/15/24 11:57 10/15/24 11:57 Labs: Laboratory Results - last 24 hr 10/15/24 10/15/24 10/15/24 11:50 11:57 12:03 MCV 93.8 MCH 26.8 L MCHC 28.6 L RDW 13.8 Plt Count 185 D MPV 9.4 Immature Gran % (Auto) 0.5 H Neut % (Auto) 79.4 H Lymph % (Auto) 13.4 L [place] % (Auto) 6.3 Eos % (Auto) 0.1 Baso % (Auto) 0.3 Lymph # (Auto) 1.1 L [place] # (Auto) 0.5 Eos # (Auto) 0.0 Baso # (Auto) 0.0 Abs Immat Gran (auto) 0.04 H Absolute Neuts (auto) 6.2 Absolute Nucleated RBC 0.000 Nucleated RBC % (auto) 0.0 PT 13.6 H INR 1.2 H O2 Saturation ABG pH at Pt Temp ABG pCO2 at Pt Temp ABG pO2 at Pt Temp ABG HCO3 ABG Base Excess (Actual) VBG pH 7.32 VBG pCO2 77 VBG pO2 53 VBG HCO3 40 H VBG O2 Saturation 79.0 VBG Base Excess 10.2 Anion Gap 17 Estim Creat Clear Calc 61.8 Estimated GFR > 60 POC Glucose 168 H Random Glucose 160 H Lactic Acid 1.1 Calcium 8.7 D Total Bilirubin 0.2 AST 31 ALT 25 Alkaline Phosphatase 116 Troponin I High Sens 24.4 H D B-Natriuretic Peptide 133 H Total Protein 7.0 Albumin 3.6 Influenza Type A (PCR) Influenza Type B (PCR) RSV RNA Qual (PCR) SARS-CoV-2 RNA (RT-PCR) 10/15/24 10/15/24 12:33 13:04 MCV MCH MCHC RDW Plt Count MPV Immature Gran % (Auto) Neut % (Auto) Lymph % (Auto) [place] % (Auto) Eos % (Auto) Baso % (Auto) Lymph # (Auto) [place] # (Auto) Eos # (Auto) Baso # (Auto) Abs Immat Gran (auto) Absolute Neuts (auto) Absolute Nucleated RBC Nucleated RBC % (auto) PT INR O2 Saturation 88.0 ABG pH at Pt Temp 7.18 L* ABG pCO2 at Pt Temp 96 H* ABG pO2 at Pt Temp 67 L ABG HCO3 36 H ABG Base Excess (Actual) 4.0 VBG pH VBG pCO2 VBG pO2 VBG HCO3 VBG O2 Saturation VBG Base Excess Anion Gap Estim Creat Clear Calc Estimated GFR POC Glucose Random Glucose Lactic Acid Calcium Total Bilirubin AST ALT Alkaline Phosphatase Troponin I High Sens B-Natriuretic Peptide Total Protein Albumin Influenza Type A (PCR) NEGATIVE Influenza Type B (PCR) NEGATIVE RSV RNA Qual (PCR) NEGATIVE SARS-CoV-2 RNA (RT-PCR) NEGATIVE Assessment and Plan (1) Respiratory failure with hypoxia and hypercapnia: Qualifiers: Chronicity: acute Qualified Code(s): J96.01 - Acute respiratory failure with hypoxia; J96.02 - Acute respiratory failure with hypercapnia Status: Acute (2) COPD (chronic obstructive pulmonary disease): Status: Acute Plan Assessment: 79-year-old lady admitted with acute hypoxic and hypercapnic respiratory failure refractory to BiPAP support requiring intubation and ventilatory support. Plan: Neuro: No acute issues. Cardiac: No acute issues. Underlying history of hypertension. 2D echo is pending. Pulmonary: Acute hypoxic and hypercapnic respiratory failure requiring ventilatory support, continue to titrate off as tolerated. Underlying COPD supplemental oxygen 2 L dependent. Renal: No acute issues. Endo: No acute issues. GI: No acute issues. ID: Cultures are pending, empiric antibiotic coverage. Heme/Onc: No acute issues. Psych: No acute issues. Miscellaneous: No acute issues. Prophylaxis: Heparin, famotidine Diet: NPO Critical care time spent: 60 minutes
--- NOTE | 2024-10-15 13:47 | PC.NURSE ---
50mg or rocurrpnium given pt fighting the vent, dropped her saturations to 35%, had to bag the pateint, levo 0.05 started at 1345
--- NOTE | 2024-10-15 14:03 | PC.NURSE ---
verbal order by dr giordano to jump on the levo and not follow to protocol because of the sever low bp levo currently runing at 0.2mcg/kg/min
--- NOTE | 2024-10-15 14:19 | PHA.PROG ---
Admission Date/Time: October 15, 2024 13:38 Indication: OTHER Weight in k.9 kg Adjusted body weight in Kg: [place] body weight in Kg: Obesity Dosing Indication % IBW: Serum Creatinine - Last 168 Hours 10/15/24 11:57 Creatinine 0.77 Estimated CrCl and GFR - Last 168 Hours 10/15/24 11:57 Estim Creat Clear Calc 61.8 Estimated GFR > 60 Vancomycin Loading Dose: 2000 MG Current Vancomycin Dosing Regimen: 1000 MG Q12H Vancomycin Monitoring using AUC goal of 400 - 600 range with trough as surrogate marker: GRU=639 TROUGH=19.2 Date and Time for next Vancomycin Level to be drawn: 10/16/24 @2100 Pharmacist Comments on Vancomycin Plan: Even though indication is other , patient is in ICU so wants to be aggressive with dosing at the beginning, shooting for the higher end of the therapeutic range. May adjust/decrease dose after 3 doses. Vancomycin dosing will take advantage of [employer] as a clinical decision support tool that uses Bayesian modeling to calculate individual patient's pharmacokinetic parameters and forecast the patient's drug concentration time course with the target goal AUC 24 range of 400 - 600 mg/L/hr.
--- NOTE | 2024-10-15 14:26 | PC.NURSE ---
bedside report given to lavern upton from icu
--- NOTE | 2024-10-15 14:41 | PHA.MEDREC ---
Pharmacy Consult ? Medication Reconciliation Pharmacy has completed the medication reconciliation. Pt intubated. Called daughter and left message. Utilized discharge packet from 10/03/24 to confirm meds.
[2024-10-15] MEDS: propofoL 1,000 MG/100 ML VIAL 16.72 MG IVCONT (15:12)
[2024-10-15] MEDS: Heparin Sodium,Porcine 5,000 UNIT/ML VIAL 5000 UNIT SUBCUT ×2 (15:24→21:23)
[2024-10-15] MEDS: Chlorhexidine Gluc Oral Rinse 15 ML MOUTHWASH BUCCAL ×2 (15:24→21:22)
[2024-10-15 20:04] LABS: VBG Base Excess 7.5 mmol/L; VBG HCO3 28 mmol/L (22-26); VBG pCO2 30 mmHg; VBG pH 7.58 (7.32-7.43); VBG pO2 148 mmHg
[2024-10-15 20:04] LABS: Venous Blood Gas Refer to POC result
[2024-10-15] MEDS: cefEPime HCl 1 GM in 0.9 % Sodium Chloride 50 ML IV (21:19)
[2024-10-15] MEDS: propofoL 1,000 MG/100 ML VIAL 11.15 MG IVCONT (21:26)
[2024-10-15] MEDS: Albuterol/Iprat 2.5/0.5MG 3 ML AMPUL.NEB INHALE (22:42)
[2024-10-15] MEDS: fentaNYL citrate/NS 1,000 MCG/100 ML PLAST..BAG 7.5 MCG IVCONT (23:41)
[2024-10-15] MEDS: vancomycin HCL 1,000 MG in 0.9 % Sodium Chloride 250 ML 270 MG IV (23:47)
[2024-10-16] VITALS (31 sets, daily range): BP systolic 91–174; BP diastolic 43–90; PULSE 54–113; RESP 14–22; TEMP 34.7–37.7; O2SAT 88–94; BMI 37.5
[2024-10-16 00:14] LABS: Venous Blood Gas Refer to POC result
[2024-10-16 00:19] LABS: VBG HCO3 28 mmol/L (22-26); VBG pCO2 39 mmHg; VBG pH 7.47 (7.32-7.43); VBG pO2 50 mmHg
[2024-10-16] MEDS: propofoL 1,000 MG/100 ML VIAL 16.72 MG IVCONT (05:22)
[2024-10-16] MEDS: Heparin Sodium,Porcine 5,000 UNIT/ML VIAL 5000 UNIT SUBCUT (05:34)
[2024-10-16] MEDS: Chlorhexidine Gluc Oral Rinse 15 ML MOUTHWASH BUCCAL (05:34)
[2024-10-16 05:45] LABS: VBG Base Excess 10.3 mmol/L; VBG HCO3 32 mmol/L (22-26); VBG pCO2 36 mmHg; VBG pH 7.56 (7.32-7.43); VBG pO2 47 mmHg
[2024-10-16 05:47] LABS: MANUAL DIFF FLAG NO
[2024-10-16 05:48] LABS: Basophils Percent Auto 0.1 % (0-2); Hematocrit 39.8 % (37.0-47.0); Hemoglobin 12.1 g/dl (12.0-16.0); Imm Gran Abs Auto 0.04 X10*3/uL (0.00-0.03); Imm Gran Pct Auto 0.5 % (0.0-0.4); Lymphocytes Absolute Auto 0.8 X10*3/uL (1.2-4.9); Lymphocytes Percent Auto 10.9 % (20-40); Mean Corpuscular HGB Conc 30.4 g/dl (31.0-35.0); Mean Corpuscular Hemoglobin 26.8 pg (27.0-33.0); Mean Corpuscular Volume 88.2 fL (80.0-98.0); Mean Platelet Volume 9.3 fL (9.4-12.3); Monocytes Absolute Auto 0.8 X10*3/uL (0.1-1.2); Monocytes Percent Auto 10.8 % (2-11); Neutrophils Absolute Auto 5.8 x10*3/uL (2.0-8.3); Neutrophils Percent Auto 77.7 % (45-73); Platelet Count 171 X10*3/uL (160-400); Red Blood Count 4.51 X10*6/uL (4.20-5.50); Red Cell Distribution Width 14.1 % (11.0-16.0); White Blood Count 7.5 X10*3/uL (4.8-10.8)
[2024-10-16 06:18] LABS: Albumin Level 2.8 g/dL (3.5-5.0); Anion Gap 14 (12-20); Blood Urea Nitrogen 25 mg/dL (9-16); Calcium 7.7 mg/dL (8.4-10.2); Carbon Dioxide 27 mmol/L (22-29); Chloride 106 mmol/L (96-108); Estimated Glomerular Filt Rate > 60; Glucose Random 122 mg/dL (60-115); Magnesium 1.7 mg/dL (1.6-2.6); Phosphorus 2.1 mg/dL (2.7-4.5); Potassium 3.9 mmol/L (3.3-5.1); Sodium 143 mmol/L (135-145)
[2024-10-16 06:45] LABS: Venous Blood Gas Refer to POC result
[2024-10-16] MEDS: Potassium Phosphate/NS 15 MMOL/250 ML PLAST..BAG 62.5 MMOL IV (08:31)
[2024-10-16] MEDS: 0.9 % Sodium Chloride Flush 3 ML SYRINGE IVFLUSH ×2 (08:31→16:25)
[2024-10-16] MEDS: Albumin Human 25 % 50 ML 100 ML IV ×2 (08:31→09:30)
[2024-10-16] MEDS: Famotidine/PF 20 MG/2 ML VIAL IVPUSH (08:31)
[2024-10-16] MEDS: cefEPime HCl 1 GM in 0.9 % Sodium Chloride 50 ML IV ×2 (08:31→21:42)
--- NOTE | 2024-10-16 09:57 | PC.RT ---
Weaning parameters taken on PS/CPAP. NIF -26, VC 470.
--- NOTE | 2024-10-16 10:20 | PC.RT ---
Pt control extubated by RT at 1015. Pt tolerated PS/CPAP well prior to extubation and weaning parameters were assessed. MD order verified pre extubation. Pt had positive cuff leak and was following commands. No stridor or respiratory distress noted post extubation. Pt on 6L NC, will titrate as tolerated.
--- NOTE | 2024-10-16 11:32 | MHC.CLN ---
PT MAY REQUIRE TF FOR NUTRITION SUPPORT R/T PROLONGED NPO STATUS PT IS INTUBATED AND SEDATED CURRENTLY NPO DISCUSSED AT ROUNDS WITH MD IF TF NEEDED; RECOMMEND PROMOTE AT MAX GOAL RATE 45ML/HR WITH 240ML FREE WATER FLUSHES Q 6 HRS TO PROVIDE 1080KCALS (1521KCALS WITH SEDATION; 24KCALS/KG), 68G PROTEIN (1.0G/KG), 1866ML TOTAL WATER FROM FORMULA AND FLUSHES (29ML/KG) MONITOR TOLERANCE AND LYTES SEE ALSO FULL CLINICAL NUTRITION ASSESSMENT
[2024-10-16] MEDS: vancomycin HCL 1,000 MG in 0.9 % Sodium Chloride 250 ML 270 MG IV (12:59)
--- NOTE | 2024-10-16 13:49 | PC.NURSE ---
Assumed care of patient 0700 0900 PSV trial started per MD. Patient eyes open, lifting head, CARDOSO, following commands on Propofol @30 09:30 PSV adjusted to 8/5 40% for SaO2 86-66% Patient maintaining volumes, Per MD ready for extubation. Tracks voices, answers yes/no questions, lifts head, follows commands. Propofol and Fentanyl gtt off 10:15 patient extubated to 6L [place] 13:45 lazaro catheter removed, no criteria met for catheter need. Purewick in place. Pt due to void 19:45 14:00 TLC central line removed to right IJ. 2 PIVs to right arm in place. Pt requires 10L [place] while sleeping and low fowlers after TLC removal
--- NOTE | 2024-10-16 14:00 | MHC.CM.PN ---
Information obtained from EMR, pt's dtr/HCP Charissa and discussion w/RN: [facility] admission: prior to STR, pt was at home w/intermittent VNA and family support. Pt is likely to be weak and deconditioned from this hospitalization and will need continued STR. Re-referred to [place] : FLAQUITA to follow: IMM in chart, HCP on file and verified.
[2024-10-16 14:22] LABS: MRSA Nasal PCR NEGATIVE (Negative); SA Nasal PCR NEGATIVE (Negative)
--- NOTE | 2024-10-16 14:47 | PM.CCPN ---
Subjective Subjective Date of Service: 10/16/24 Critical Care Time (minutes): 35 Comment: On ventilator support this morning, placed on pressor support trials which she did well so the patient is extubated. Physical Exam Vital Signs: Vital Signs: Last Vital Signs Temp 99.9 F 10/16/24 13:00 Pulse 97 10/16/24 14:00 Resp 20 10/16/24 14:00 BP 161/59 H 10/16/24 14:00 Pulse Ox 91 L 10/16/24 14:00 O2 Del Method Nasal Cannula 10/16/24 14:00 O2 Flow Rate 6 10/16/24 14:00 FiO2 40 10/16/24 13:00 Oxygen Flow Rate 4 10/15/24 11:33 BMI result Body Mass Index 37.5 General: Not in acute distress, ill appearing and tired appearing Nutritional Appearance: well nourished and overweight Eyes: appearance normal, both eyes and all related structures; Alignment and Position: alignment normal and position normal Neck: No lymphadenopathy, no thyromegaly Resp: bilateral air entry equal, occasional wheezes heard bilaterally Cardio: Regular rate, regular rhythm; Heart sounds: S1 normal heart sound present and S2 normal heart sound present GI: soft, nontender, no guarding, no hepatosplenomegaly : bladder normal to inspection, bladder normal to palpation, no renal angle tenderness Skin: no rashes or lesions noted and elasticity normal Neuro: oriented to person, oriented to place, oriented to time and moves all extremities Objective Data Labs 10/16/24 05:32 10/16/24 05:32 Labs: Laboratory Results - last 24 hr 10/15/24 10/16/24 10/16/24 19:58 00:12 05:32 WBC 7.5 RBC 4.51 Hgb 12.1 Hct 39.8 D MCV 88.2 D MCH 26.8 L MCHC 30.4 L RDW 14.1 Plt Count 171 MPV 9.3 L Immature Gran % (Auto) 0.5 H Neut % (Auto) 77.7 H Lymph % (Auto) 10.9 L [place] % (Auto) 10.8 Eos % (Auto) 0.0 Baso % (Auto) 0.1 Lymph # (Auto) 0.8 L [place] # (Auto) 0.8 Eos # (Auto) 0.0 Baso # (Auto) 0.0 Abs Immat Gran (auto) 0.04 H Absolute Neuts (auto) 5.8 Absolute Nucleated RBC 0.000 Nucleated RBC % (auto) 0.0 VBG pH 7.58 H 7.47 H VBG pCO2 30 39 VBG pO2 148 50 VBG HCO3 28 H 28 H VBG O2 Saturation 99.0 83.0 VBG Base Excess 7.5 5.0 Sodium 143 Potassium 3.9 Chloride 106 Carbon Dioxide 27 Anion Gap 14 BUN 25 H Creatinine 0.70 Estim Creat Clear Calc 68.0 Estimated GFR > 60 Random Glucose 122 H Calcium 7.7 L D Phosphorus 2.1 L Magnesium 1.7 Albumin 2.8 L Nasal Screen MRSA (PCR) Nasal S. aureus Screen Nasal MRSA/S.aureus Interp 10/16/24 10/16/24 05:40 12:40 WBC RBC Hgb Hct MCV MCH MCHC RDW Plt Count MPV Immature Gran % (Auto) Neut % (Auto) Lymph % (Auto) [place] % (Auto) Eos % (Auto) Baso % (Auto) Lymph # (Auto) [place] # (Auto) Eos # (Auto) Baso # (Auto) Abs Immat Gran (auto) Absolute Neuts (auto) Absolute Nucleated RBC Nucleated RBC % (auto) VBG pH 7.56 H VBG pCO2 36 VBG pO2 47 VBG HCO3 32 H VBG O2 Saturation 80.0 VBG Base Excess 10.3 Sodium Potassium Chloride Carbon Dioxide Anion Gap BUN Creatinine Estim Creat Clear Calc Estimated GFR Random Glucose Calcium Phosphorus Magnesium Albumin Nasal Screen MRSA (PCR) NEGATIVE Nasal S. aureus Screen NEGATIVE Nasal MRSA/S.aureus Interp SEE NOTE Microbiology Microbiology Results: Microbiology 10/15/24 11:57 Blood - Venous Blood Culture - Preliminary No growth after 24 hours. 10/15/24 11:54 Blood - Venous Blood Culture - Preliminary No growth after 24 hours. Progress Note: A&P Assessment and plan (1) Respiratory failure with hypoxia and hypercapnia: Status: Acute (2) COPD (chronic obstructive pulmonary disease): Status: Acute (3) Depression: Status: Acute (4) Weakness: Status: Acute Plan Neuro: Acute encephalopathy possibly due to metabolic encephalopathy On propofol for sedation, and fentanyl for analgesia, both has been tapered off this morning for weaning from ventilator. Cardiac: Shock: Possibly secondary to positive pressure ventilation She was on Levophed to support this morning, tapered off after extubation Respiratory: Acute on chronic hypercapnic respiratory failure due to COPD exacerbation Place the patient on pressor support trials this morning which she did well, weaning to her parameters looked okay. Patient is extubated to nasal cannula oxygen which she is tolerating okay. We will closely monitor her respiratory status. Continue duo nebs, oral prednisone 40 mg started today for total of 5 days GI: Oral feeds after bedside swallow Renal: We will closely monitor I's and O's Avoid nephrotoxic medications Heme: Chronic anemia, closely monitor H&H, transfuse for hemoglobin less than 7 grams/deciliter Endocrine: Blood sugars under control Sliding scale insulin as needed Infectious disease: Pancultures negative On cefepime and vancomycin for antibiotic coverage We will get MRSA nares if negative we will discontinue vancomycin Musculoskeletal: Decubitus ulcer prevention protocol Lines: Right IJ TLC we will take it off today Prophylaxis: Lovenox, pantoprazole Critical care time spent is about 40 minutes on ventilator management, changing ventilator settings, weaning from ventilator, postextubation care, vasopressor management, close hemodynamic monitoring, titrating patient's sedative drips for weaning from ventilator Quality Stroke Does the patient have a stroke diagnosis?: No VTE Prior VTE?: No VTE Risk Level:: Medical - moderate - high VTE Device Contraindication: Treatment Not Indicated VTE Drug Contraindication: N/A - Med Ordered
[2024-10-16] MEDS: predniSONE 20 MG TABLET 40 MG PO (15:06)
[2024-10-16] MEDS: Gabapentin 300 MG CAPSULE PO (16:24)
[2024-10-16] MEDS: Sertraline HCL 100 MG TABLET PO (16:25)
[2024-10-16] MEDS: Losartan Potassium 25 MG TABLET PO (16:25)
[2024-10-16] MEDS: amLODIPine Besylate 10 MG TABLET PO (16:25)
[2024-10-16] MEDS: Enoxaparin Sodium 40 MG/0.4 ML SYRINGE SUBCUT (16:25)
[2024-10-16] MEDS: Atorvastatin Calcium 10 MG TABLET PO (21:44)
[2024-10-16 21:45] LABS: Vancomycin Random 20.2 mcg/mL (15-20)
[2024-10-17] VITALS (10 sets, daily range): BP systolic 118–158; BP diastolic 63–72; PULSE 75–107; RESP 16–22; TEMP 35.8–36.7; O2SAT 88–94
[2024-10-17] MEDS: 0.9 % Sodium Chloride Flush 3 ML SYRINGE IVFLUSH ×4 (00:48→20:21)
[2024-10-17 06:57] LABS: Creatinine Clr Calc Pharmacy 80.7; Estimated Glomerular Filt Rate > 60
[2024-10-17] MEDS: Famotidine/PF 20 MG/2 ML VIAL IVPUSH (08:51)
[2024-10-17] MEDS: Losartan Potassium 25 MG TABLET PO (08:52)
[2024-10-17] MEDS: Sertraline HCL 100 MG TABLET PO (08:52)
[2024-10-17] MEDS: predniSONE 20 MG TABLET 40 MG PO (08:52)
[2024-10-17] MEDS: amLODIPine Besylate 10 MG TABLET PO (08:52)
[2024-10-17] MEDS: Gabapentin 300 MG CAPSULE PO ×2 (08:52→16:46)
[2024-10-17] MEDS: cefEPime HCl 1 GM in 0.9 % Sodium Chloride 50 ML IV ×2 (08:56→20:14)
[2024-10-17] MEDS: Albuterol/Iprat 2.5/0.5MG 3 ML AMPUL.NEB INHALE ×3 (11:16→18:55)
[2024-10-17] MEDS: guaiFENesin LA 600 MG TAB.ER.12H PO ×2 (11:33→20:14)
[2024-10-17] MEDS: methylPREDNISolone Sod Succ 40 MG/ML VIAL IVPUSH ×2 (11:33→19:04)
--- NOTE | 2024-10-17 14:32 | MHC.CLN ---
F/U PT EXTUBATED YESTERDAY AND TRANSFERRED TO MEDIAL FLOOR DIET ADVANCED TO REGULAR 75% X 1 MEAL NOTED REDNESS TO BUTTOCKS RD TO FOLLOW WEEKLY CONTINUE TO MONITOR PO INTAKE
[2024-10-17] MEDS: Enoxaparin Sodium 40 MG/0.4 ML SYRINGE SUBCUT (15:45)
--- NOTE | 2024-10-17 16:12 | P.PNIM_ITS ---
Subjective Subjective Date of Service: 10/17/24 Interval History: Being followed for acute COPD exacerbation Complaining of persistent shortness of breath, cough, noted to have significant hypoxia this a.m. place on 12 L of oxygen. No fevers, no chills, tolerating diet. Review of Systems All other system reviewed and are negative Physical Exam 2 Vital Signs: Vital Signs: Last Vital Signs Temp 98.0 F 10/17/24 11:19 Pulse 102 H 10/17/24 15:24 Resp 20 10/17/24 15:24 BP 158/72 H 10/17/24 11:19 Pulse Ox 90 L 10/17/24 11:19 O2 Del Method Nasal Cannula 10/17/24 11:19 O2 Flow Rate 7 10/17/24 07:29 FiO2 40 10/16/24 13:00 Oxygen Flow Rate 4 10/15/24 11:33 BMI result Body Mass Index 37.5 Const: Other: General awake alert x3 Neck supple no JVD. CVS regular rate rhythm, Respiratory lungs diminished breath, diminished, sounds bilateral expiratory wheeze ,no respiratory distress. Gastrointestinal abdomen soft, non tender, bowel sounds audible, no guarding , no rigidity. Extremities no edema. Neuro non focal Skin no rash Psych appropriate affect Objective Data Active Medications Albuterol/Ipratropium (Albuterol/Iprat 2.5/0.5mg 3 Ml Ampul.Neb) 3 ml INHALE RQ4H WHILE AWAKE PRN PRN Reason: Shortness of Breath/Wheezing Last Admin: 10/15/24 22:42 Dose: 3 ml Documented By: RIRI Albuterol/Ipratropium (Albuterol/Iprat 2.5/0.5mg 3 Ml Ampul.Neb) 3 ml INHALE RQ4H WHILE AWAKE [facility] Last Admin: 10/17/24 15:16 Dose: 3 ml Documented By: KIMMY Amlodipine Besylate (Amlodipine Besylate 10 Mg Tablet) 10 mg PO DAILY [facility]; Protocol Last Admin: 10/17/24 08:52 Dose: 10 mg Documented By: RADHA Atorvastatin Calcium (Atorvastatin Calcium 10 Mg Tablet) 10 mg PO BEDTIME [facility] Last Admin: 10/16/24 21:44 Dose: 10 mg Documented By: IRA Enoxaparin Sodium (Enoxaparin Sodium 40 Mg/0.4 Ml Syringe) 40 mg SUBCUT Q24H [facility] Last Admin: 10/17/24 15:45 Dose: 40 mg Documented By: BRAEDEN Famotidine (Famotidine/Pf 20 Mg/2 Ml Vial) 20 mg IVPUSH DAILY [facility] Last Admin: 10/17/24 08:51 Dose: 20 mg Documented By: RADHA Gabapentin (Gabapentin 300 Mg Capsule) 300 mg PO BID@0900,1700 [facility] Last Admin: 10/17/24 08:52 Dose: 300 mg Documented By: RADHA Guaifenesin (Guaifenesin La 600 Mg Tab.Er.12h) 600 mg PO BID [facility] Last Admin: 10/17/24 11:33 Dose: 600 mg Documented By: RADHA Cefepime HCl 1 gm/ Sodium (Chloride) 50 mls @ 100 mls/hr IV Q12H [facility] Last Infusion: 10/17/24 10:13 Dose: Infused Documented By: RADHA Losartan Potassium (Losartan Potassium 25 Mg Tablet) 25 mg PO DAILY [facility]; Protocol Last Admin: 10/17/24 08:52 Dose: 25 mg Documented By: RADHA Methylprednisolone Sodium Succinate (Methylprednisolone Sod Succ 40 Mg/Ml Vial) 40 mg IVPUSH Q8H [facility] Last Admin: 10/17/24 11:33 Dose: 40 mg Documented By: RADHA Sertraline HCl (Sertraline Hcl 100 Mg Tablet) 100 mg PO DAILY [facility] Last Admin: 10/17/24 08:52 Dose: 100 mg Documented By: RADHA Sodium Chloride (0.9 % Sodium Chloride Flush 3 Ml Syringe) 3 ml IVFLUSH QSHIFT [facility] Last Admin: 10/17/24 15:46 Dose: 3 ml Documented By: BRAEDEN Labs 10/16/24 05:32 10/17/24 06:07 Labs: Laboratory Results - last 24 hr 10/16/24 10/17/24 21:00 06:07 Hold Purple Top SEE NOTE Estim Creat Clear Calc 80.7 Estimated GFR > 60 Random Vancomycin 20.2 H Microbiology Microbiology Results: Microbiology 10/15/24 11:57 Blood Culture - Preliminary Blood - Venous No growth after 48 hours. 10/15/24 11:54 Blood Culture - Preliminary Blood - Venous No growth after 48 hours. Assessment and Plan (1) COPD (chronic obstructive pulmonary disease): Status: Acute (2) Respiratory failure with hypoxia and hypercapnia: Status: Acute Plan 79-year-old female patient with past medical history of COPD on 2 L of supplemental oxygen, history of hyperlipidemia, obesity admitted to ICU for acute hypoxia and hypercapnic respiratory failure refractory to BiPAP support therefore required intubation subsequently extubated and transferred to medical floor on 10/16 Acute hypoxic and hypercarbic respiratory failure secondary to COPD exacerbation Continued to have hypoxia and expiratory wheeze - flu/RSV/COVID negative - will place on IV steroids 40 mg q.8 hours add IV azithromycin, continue IV cefepime - place on scheduled DuoNeb q.4 hours and as needed monitor CBC and BMP obesity class 2 - BMI 37.0, recommend low-calorie diet Hyperlipidemia continue statin Mood disorder continue Zoloft 100 mg daily. Full code VTE prophy: lovenox Patient with acute hypoxic and hypercarbic respiratory failure require continue oxygen support and antibiotics that can not be provided in less acute setting. Quality Stroke Does the patient have a stroke diagnosis?: No VTE Prior VTE?: No VTE Risk Level:: Medical - moderate - high VTE Device Contraindication: Treatment Not Indicated VTE Drug Contraindication: N/A - Med Ordered
[2024-10-17] MEDS: Azithromycin 500 MG in 0.9 % Sodium Chloride 250 ML 125 MG IV (16:46)
[2024-10-17] MEDS: Atorvastatin Calcium 10 MG TABLET PO (20:14)
[2024-10-18] VITALS (13 sets, daily range): BP systolic 129–165; BP diastolic 65–96; PULSE 83–97; RESP 18–24; TEMP 36.2–36.9; O2SAT 88–97
[2024-10-18] MEDS: methylPREDNISolone Sod Succ 40 MG/ML VIAL IVPUSH ×3 (04:13→18:09)
[2024-10-18 06:55] LABS: Estimated Glomerular Filt Rate > 60
[2024-10-18] MEDS: amLODIPine Besylate 10 MG TABLET PO (07:27)
[2024-10-18] MEDS: Famotidine/PF 20 MG/2 ML VIAL IVPUSH (07:28)
[2024-10-18] MEDS: guaiFENesin LA 600 MG TAB.ER.12H PO ×2 (07:28→20:30)
[2024-10-18] MEDS: Gabapentin 300 MG CAPSULE PO ×2 (07:28→16:24)
[2024-10-18] MEDS: cefEPime HCl 1 GM in 0.9 % Sodium Chloride 50 ML IV ×2 (07:28→20:31)
[2024-10-18] MEDS: Sertraline HCL 100 MG TABLET PO (07:28)
[2024-10-18] MEDS: Losartan Potassium 25 MG TABLET PO (07:28)
[2024-10-18] MEDS: 0.9 % Sodium Chloride Flush 3 ML SYRINGE IVFLUSH ×3 (07:30→20:31)
[2024-10-18] MEDS: Albuterol/Iprat 2.5/0.5MG 3 ML AMPUL.NEB INHALE ×4 (07:39→19:47)
--- NOTE | 2024-10-18 10:29 | MHC.CM.PN ---
Per ROUNDS discussion, Patient is not yet medically cleared for dc (2 IV ABT & IV Solu Medrol); Patient may benefit from a PT Eval to assist with disposition. CM will follow.
--- NOTE | 2024-10-18 12:31 | P.CDIM_ITS ---
PROVIDER RESPONSE TEXT: To clarify, the appropriate diagnosis supported by the clinical indicators: Shock: cardiogenic QUERY TEXT: PHYSICIAN'S DOCUMENTATION REQUEST Date of Query: 10/18/2024 08:48 AM EST Patient Name: Ping Lyman Admit Date: 10/15/2024 Dear Satinder Jane MD, A review of the medical record indicates additional documentation may be needed. Please review below and update the documentation accordingly. Clinical Indicators: ICU progress note dated 10/16 within the written Plan: Cardiac: Shock: possibly secondary to positive pressure ventilation. She as on Levophed to support this morning, tapered off after extubation. Acute on chronic hypercapnic respiratory failure due to COPD exacerbation. Place the patient on pressor support trials this morning. BP 144/60 O2 dependent Based on the above, possible specifics to the documented Shock within the medical record: if known Shock cardiogenic, distributive, hypovolemic etc. Other (explain) Clinically unable to determine (explain) Thank you, Pennie May, CCS, CDIS Use of terms such as suspected, likely, concern for, or probable (associated with a specific diagnosi s that is being evaluated, monitored, or treated as if it exists) are acceptable and can be coded in the inpatient se tting, when documented at the time of discharge. Please use your independent medical judgment in providing your response. THIS QUERY IS PART OF THE PERMANENT MEDICAL RECORD
--- NOTE | 2024-10-18 13:46 | MHC.SLORD ---
Speech Language Pathology Order Status: RN consulted, pt on regular diet with thin liquids, RD following pt as well. No concerns with pt PO tolerance. Pt sleeping when [employer] SUPER[employer]OR arrived, too tired to wake for evaluation. [employer] to assess swallow when pt more awake.
--- NOTE | 2024-10-18 15:17 | HO.PM.IMPN ---
Subjective Subjective Date of Service: 10/18/24 Interval History: Being followed for acute hypoxic/hypercarbic respiratory failure not on home oxygen Tolerating BiPAP unable to sleep due to interruptions Complaining of persistent cough and shortness of breath, no fevers no chills On 4-6 L of oxygen Review of Systems All other system reviewed and negative Physical Exam Vital Signs: Vital Signs: Last Vital Signs Temp 98.5 F 10/18/24 15:12 Pulse 91 10/18/24 15:12 Resp 19 10/18/24 15:12 BP 129/83 10/18/24 15:12 Pulse Ox 91 L 10/18/24 15:12 O2 Del Method Nasal Cannula 10/18/24 15:12 O2 Flow Rate 5 10/18/24 15:12 FiO2 40 10/16/24 13:00 Oxygen Flow Rate 4 10/15/24 11:33 BMI result Body Mass Index 37.5 Const: Other: General awake alert x3 Neck supple no JVD. CVS regular rate rhythm, Respiratory lungs diminished , bilateral expiratory wheeze ,rhonchi ,no respiratory distress. Gastrointestinal abdomen soft, non tender, bowel sounds audible, no guarding , no rigidity. Extremities no edema. Neuro non focal Skin no rash Psych appropriate affect Objective Data Active Medications Albuterol/Ipratropium (Albuterol/Iprat 2.5/0.5mg 3 Ml Ampul.Neb) 3 ml INHALE RQ4H WHILE AWAKE PRN PRN Reason: Shortness of Breath/Wheezing Last Admin: 10/15/24 22:42 Dose: 3 ml Documented By: RIRI Albuterol/Ipratropium (Albuterol/Iprat 2.5/0.5mg 3 Ml Ampul.Neb) 3 ml INHALE RQ4H WHILE AWAKE [facility] Last Admin: 10/18/24 11:25 Dose: 3 ml Documented By: DON Amlodipine Besylate (Amlodipine Besylate 10 Mg Tablet) 10 mg PO DAILY [facility]; Protocol Last Admin: 10/18/24 07:27 Dose: 10 mg Documented By: ZENAIDA Atorvastatin Calcium (Atorvastatin Calcium 10 Mg Tablet) 10 mg PO BEDTIME [facility] Last Admin: 10/17/24 20:14 Dose: 10 mg Documented By: NATY Enoxaparin Sodium (Enoxaparin Sodium 40 Mg/0.4 Ml Syringe) 40 mg SUBCUT Q24H [facility] Last Admin: 10/17/24 15:45 Dose: 40 mg Documented By: BRAEDEN Gabapentin (Gabapentin 300 Mg Capsule) 300 mg PO BID@0900,1700 [facility] Last Admin: 10/18/24 07:28 Dose: 300 mg Documented By: ZENAIDA Guaifenesin (Guaifenesin [place] 600 Mg Tab.Er.12h) 600 mg PO BID [facility] Last Admin: 10/18/24 07:28 Dose: 600 mg Documented By: ZENAIDA Cefepime HCl 1 gm/ Sodium (Chloride) 50 mls @ 100 mls/hr IV Q12H [facility] Last Infusion: 10/18/24 08:14 Dose: Infused Documented By: ZENAIDA Azithromycin 500 mg/ Sodium (Chloride) 250 mls @ 125 mls/hr IV Q24H [facility] Last Infusion: 10/17/24 18:47 Dose: Infused Documented By: BRAEDEN Losartan Potassium (Losartan Potassium 25 Mg Tablet) 25 mg PO DAILY [facility]; Protocol Last Admin: 10/18/24 07:28 Dose: 25 mg Documented By: ZENAIDA Methylprednisolone Sodium Succinate (Methylprednisolone Sod Succ 40 Mg/Ml Vial) 40 mg IVPUSH Q8H [facility] Last Admin: 10/18/24 10:32 Dose: 40 mg Documented By: ZENAIDA Omeprazole (Omeprazole 20 Mg Capsule.Dr) 20 mg PO DAILY@0630 [facility] Sertraline HCl (Sertraline Hcl 100 Mg Tablet) 100 mg PO DAILY [facility] Last Admin: 10/18/24 07:28 Dose: 100 mg Documented By: ZENAIDA Sodium Chloride (0.9 % Sodium Chloride Flush 3 Ml Syringe) 3 ml IVFLUSH QSHIFT [facility] Last Admin: 10/18/24 07:30 Dose: 3 ml Documented By: ZENAIDA Labs 10/16/24 05:32 10/18/24 06:28 Labs: Laboratory Results - last 24 hr 10/18/24 06:28 Hold Purple Top SEE NOTE Estim Creat Clear Calc 82.0 Estimated GFR > 60 Microbiology Microbiology Results: Microbiology 10/15/24 11:57 Blood Culture - Preliminary Blood - Venous No growth after 48 hours. 10/15/24 11:54 Blood Culture - Preliminary Blood - Venous No growth after 48 hours. Assessment and Plan (1) COPD (chronic obstructive pulmonary disease): Status: Acute (2) Respiratory failure with hypoxia and hypercapnia: Status: Acute Plan 79-year-old female patient with past medical history of COPD on 2 L of supplemental oxygen, history of hyperlipidemia, obesity admitted to ICU for acute hypoxia and hypercapnic respiratory failure refractory to BiPAP support therefore required intubation subsequently extubated and transferred to medical floor on 10/16 Acute hypoxic and hypercarbic respiratory failure secondary to COPD exacerbation/left lower lobe pneumonia -slowly improving - persistent hypoxia and expiratory wheeze, not on home oxygen - flu/RSV/COVID negative - chest x-ray retrocardiac opacity small peripheral opacity in left mid zone with nodular appearance, left-sided pneumonia could be considered. - IV steroids 40 mg q.8 hours started 10/17, IV azithromycin started on 10/17, IV cefepime started 10/15 - on scheduled DuoNeb q.4 hours and as needed - BiPAP at night and daytime with naps obesity class 2 - BMI 37.0, recommend low-calorie diet. Hyperlipidemia continue statin Mood disorder continue Zoloft 100 mg daily. Full code VTE prophy: lovenox Patient with acute hypoxic and hypercarbic respiratory failure, continue oxygen support and antibiotics that can not be provided in less acute setting. Quality Stroke Does the patient have a stroke diagnosis?: No VTE Prior VTE?: No VTE Risk Level:: Medical - moderate - high VTE Device Contraindication: Treatment Not Indicated VTE Drug Contraindication: N/A - Med Ordered
[2024-10-18] MEDS: Enoxaparin Sodium 40 MG/0.4 ML SYRINGE SUBCUT (16:24)
[2024-10-18] MEDS: Azithromycin 500 MG in 0.9 % Sodium Chloride 250 ML 125 MG IV (16:25)
[2024-10-18 17:49] LABS: Anion Gap 13 (12-20); Blood Urea Nitrogen 18 mg/dL (9-16); Calcium 9.1 mg/dL (8.4-10.2); Carbon Dioxide 37 mmol/L (22-29); Chloride 98 mmol/L (96-108); Estimated Glomerular Filt Rate > 60; Glucose Random 145 mg/dL (60-115); Potassium 4.4 mmol/L (3.3-5.1); Sodium 144 mmol/L (135-145)
[2024-10-18] MEDS: Acetaminophen 325 MG TABLET 650 MG PO (18:10)
[2024-10-18] MEDS: cloNIDine HCL 0.2 MG TABLET PO (20:30)
[2024-10-18] MEDS: Atorvastatin Calcium 10 MG TABLET PO (20:30)
[2024-10-19] VITALS (10 sets, daily range): BP systolic 88–172; BP diastolic 52–80; PULSE 68–92; RESP 16–20; TEMP 36.1–37; O2SAT 89–94
[2024-10-19] MEDS: methylPREDNISolone Sod Succ 40 MG/ML VIAL IVPUSH ×3 (02:13→17:36)
[2024-10-19] MEDS: Omeprazole 20 MG CAPSULE.DR PO (06:19)
[2024-10-19] MEDS: ondansetron HCL 4 MG/2 ML VIAL IVPUSH (06:39)
[2024-10-19 08:37] LABS: Venous Blood Gas Refer to POC result
[2024-10-19 08:39] LABS: VBG Base Excess 18.7 mmol/L; VBG HCO3 49 mmol/L (22-26); VBG pCO2 84 mmHg; VBG pH 7.37 (7.32-7.43); VBG pO2 71 mmHg
[2024-10-19 08:44] LABS: Hemoglobin 13.1 g/dl (12.0-16.0); Mean Corpuscular HGB Conc 30.5 g/dl (31.0-35.0); Mean Corpuscular Hemoglobin 27.1 pg (27.0-33.0); Mean Corpuscular Volume 88.8 fL (80.0-98.0); Mean Platelet Volume 9.2 fL (9.4-12.3); Platelet Count 143 X10*3/uL (160-400); Red Blood Count 4.84 X10*6/uL (4.20-5.50); Red Cell Distribution Width 13.4 % (11.0-16.0); White Blood Count 8.2 X10*3/uL (4.8-10.8)
[2024-10-19 08:55] LABS: Anion Gap 12 (12-20); Blood Urea Nitrogen 24 mg/dL (9-16); Calcium 8.8 mg/dL (8.4-10.2); Carbon Dioxide 38 mmol/L (22-29); Chloride 98 mmol/L (96-108); Creatinine Clr Calc Pharmacy 74.4; Estimated Glomerular Filt Rate > 60; Glucose Random 142 mg/dL (60-115); Potassium 4.3 mmol/L (3.3-5.1); Sodium 144 mmol/L (135-145)
[2024-10-19 09:11] LABS: Procalcitonin 0.04 ng/mL
[2024-10-19] MEDS: amLODIPine Besylate 10 MG TABLET PO (09:46)
[2024-10-19] MEDS: Losartan Potassium 25 MG TABLET PO (09:46)
[2024-10-19] MEDS: Sertraline HCL 100 MG TABLET PO (09:46)
[2024-10-19] MEDS: Gabapentin 300 MG CAPSULE PO ×2 (09:46→16:42)
[2024-10-19] MEDS: cloNIDine HCL 0.2 MG TABLET PO ×3 (09:46→22:43)
[2024-10-19] MEDS: cefEPime HCl 1 GM in 0.9 % Sodium Chloride 50 ML IV ×2 (09:47→22:43)
[2024-10-19] MEDS: 0.9 % Sodium Chloride Flush 3 ML SYRINGE IVFLUSH ×3 (09:47→22:50)
[2024-10-19] MEDS: guaiFENesin LA 600 MG TAB.ER.12H PO ×2 (09:47→22:43)
--- NOTE | 2024-10-19 12:32 | MHC.SL.SWA ---
Speech Pathologist Impression: Risk of Aspiration Due to: Medically Fragile Hx of Recent Extubation Dysphasia Diet Status: Liquid Consistency and Strategies for Safe Swallow: Liquid Intake Recommendation: Thin Liquid Intake Strategies: Small Sips Solid Food Consistency: Dietary Recommendations: Grnd/Mech Altered (NDD2) Additional Modifications to Solid Foods: Due to O2 status, patient will require frequent breaks during meal if de-satting. Close management of 02/respiration will be needed. Diet texture recommended due to current absence of dentures, poor management of chopped consistency, respiratory fatigue. SAUSAGE STRINGER will re-assess if dentures are recovered. Oral Medication Intake: Whole with Liquid Please contact the pharmacy regarding appropriate crushable or liquid drug formulations that are available whenever modified delivery is recommended. Compensatory Strategies and Precautions to be Taken for Safe Swallow: Sitting Upright (90 deg) Liquids from Cup Liquids from Straw Small Bites and Sips Alternate Liquids/Solids Supervision While Eating and Drinking for Safe Swallow: Total Supervision (1:1) Foods to Avoid: Tough, difficulty to chew solids, dry, crunchy textures. Swallowing Recommended Treatments: Compens. Strategy Educat. Recommendation for Speech: Inpatient Speech Therapy Speech Therapy through Rehab Facility Comment: Patient presents with an oral phase dysphagia secondary to absent dentition/dentures, generalized weakness and difficulty sustaining adequate 02 during exertion of meal. Recommend DOWNGRADE diet to Ground/Mechanical (NDD2) continue with thin liquids, pills whole with liquid. Patient will need to take frequent respiratory breaks during meal, and requires close supervision due to respiratory status. Patient may be able to have upgraded diet if dentures are present, however they are currently misplaced according to patient. SAUSAGE STRINGER will continue to follow, re-assess for upgrade if needed. MD/RD notified by secure text, RN in person. Frequency/Duration: Date Range for Service Req: Timeline to reassess: Smoke Eater Clinican/Clinical Fellow: No Supervisory Statement: I have reviewed and agree with the student/clinical fellow's documentation: N/A Speech Language Pathologist: Elinor Cunningham M.A., CCC-[employer]US[employer]ER
[2024-10-19] MEDS: Albuterol/Iprat 2.5/0.5MG 3 ML AMPUL.NEB INHALE (15:25)
[2024-10-19] MEDS: Enoxaparin Sodium 40 MG/0.4 ML SYRINGE SUBCUT (16:26)
[2024-10-19] MEDS: Azithromycin 500 MG in 0.9 % Sodium Chloride 250 ML 125 MG IV (16:27)
--- NOTE | 2024-10-19 17:12 | P.PNIM_ITS ---
Subjective Subjective Date of Service: 10/19/24 Interval History: cough/dyspnea improved; no chest pain Physical Exam 2 Vital Signs: Vital Signs: Last Vital Signs Temp 98.5 F 10/19/24 15:40 Pulse 92 10/19/24 15:40 Resp 20 10/19/24 15:40 BP 126/58 L 10/19/24 16:26 Pulse Ox 92 10/19/24 15:40 O2 Del Method Oxymask 10/19/24 15:40 O2 Flow Rate 9 10/19/24 15:40 FiO2 40 10/16/24 13:00 Oxygen Flow Rate 4 10/15/24 11:33 BMI result Body Mass Index 37.5 Gen: in no acute distress HEENT: sclera anicteric, moist mucus membranes Neck: supple Lungs: diminished Heart: regular rate and rhythm, no murmurs Abd: soft, non-tender, non-distended Ext: no edema Skin: warm/well-perfused Neuro: alert and oriented x3, no focal findings Psych: appropriate affect Objective Data Active Medications Acetaminophen (Acetaminophen 325 Mg Tablet) 650 mg PO Q6H PRN PRN Reason: Pain, Mild (Pain Scale 1-3) Last Admin: 10/18/24 18:10 Dose: 650 mg Documented By: ZENAIDA Albuterol/Ipratropium (Albuterol/Iprat 2.5/0.5mg 3 Ml Ampul.Neb) 3 ml INHALE RQ4H WHILE AWAKE PRN PRN Reason: Shortness of Breath/Wheezing Last Admin: 10/15/24 22:42 Dose: 3 ml Documented By: RIRI Albuterol/Ipratropium (Albuterol/Iprat 2.5/0.5mg 3 Ml Ampul.Neb) 3 ml INHALE RQ4H WHILE AWAKE [facility] Last Admin: 10/19/24 15:25 Dose: 3 ml Documented By: LENNIE Amlodipine Besylate (Amlodipine Besylate 10 Mg Tablet) 10 mg PO DAILY [facility]; Protocol Last Admin: 10/19/24 09:46 Dose: 10 mg Documented By: ZENAIDA Atorvastatin Calcium (Atorvastatin Calcium 10 Mg Tablet) 10 mg PO BEDTIME [facility] Last Admin: 10/18/24 20:30 Dose: 10 mg Documented By: DAVID Clonidine HCl (Clonidine Hcl 0.2 Mg Tablet) 0.2 mg PO TID [facility]; Protocol Last Admin: 10/19/24 16:26 Dose: 0.2 mg Documented By: ZENAIDA Enoxaparin Sodium (Enoxaparin Sodium 40 Mg/0.4 Ml Syringe) 40 mg SUBCUT Q24H [facility] Last Admin: 10/19/24 16:26 Dose: 40 mg Documented By: ZENAIDA Gabapentin (Gabapentin 300 Mg Capsule) 300 mg PO BID@0900,1700 [facility] Last Admin: 10/19/24 16:42 Dose: 300 mg Documented By: ZENAIDA Guaifenesin (Guaifenesin La 600 Mg Tab.Er.12h) 600 mg PO BID [facility] Last Admin: 10/19/24 09:47 Dose: 600 mg Documented By: ZENAIDA Cefepime HCl 1 gm/ Sodium (Chloride) 50 mls @ 100 mls/hr IV Q12H [facility] Last Infusion: 10/19/24 10:41 Dose: Infused Documented By: ZENAIDA Azithromycin 500 mg/ Sodium (Chloride) 250 mls @ 125 mls/hr IV Q24H [facility] Last Admin: 10/19/24 16:27 Dose: 125 mls/hr Documented By: ZENAIDA Losartan Potassium (Losartan Potassium 25 Mg Tablet) 25 mg PO DAILY [facility]; Protocol Last Admin: 10/19/24 09:46 Dose: 25 mg Documented By: ZENAIDA Methylprednisolone Sodium Succinate (Methylprednisolone Sod Succ 40 Mg/Ml Vial) 40 mg IVPUSH Q8H [facility] Last Admin: 10/19/24 09:46 Dose: 40 mg Documented By: ZENAIDA Omeprazole (Omeprazole 20 Mg Capsule.) 20 mg PO DAILY@0630 [facility] Last Admin: 10/19/24 06:19 Dose: 20 mg Documented By: DAVID Ondansetron HCl (Ondansetron Hcl 4 Mg/2 Ml Vial) 4 mg IVPUSH Q6H PRN PRN Reason: Nausea and Vomiting Last Admin: 10/19/24 06:39 Dose: 4 mg Documented By: DAVID Sertraline HCl (Sertraline Hcl 100 Mg Tablet) 100 mg PO DAILY [facility] Last Admin: 10/19/24 09:46 Dose: 100 mg Documented By: ZENAIDA Sodium Chloride (0.9 % Sodium Chloride Flush 3 Ml Syringe) 3 ml IVFLUSH QSHIFT [facility] Last Admin: 10/19/24 16:42 Dose: 3 ml Documented By: ZENAIDA Labs 10/19/24 08:23 10/19/24 08:23 Labs: Laboratory Results - last 24 hr 10/18/24 10/19/24 10/19/24 17:11 08:23 08:28 MCV 88.8 MCH 27.1 MCHC 30.5 L RDW 13.4 Plt Count 143 L MPV 9.2 L Absolute Nucleated RBC 0.000 Nucleated RBC % (auto) 0.0 VBG pH 7.37 VBG pCO2 84 VBG pO2 71 VBG HCO3 49 H VBG O2 Saturation 94.0 VBG Base Excess 18.7 Anion Gap 13 12 Estim Creat Clear Calc 78.0 74.4 Estimated GFR > 60 > 60 Random Glucose 145 H 142 H Calcium 9.1 D 8.8 Magnesium 2.0 Procalcitonin 0.04 Assessment and Plan (1) COPD (chronic obstructive pulmonary disease): Status: Acute (2) Respiratory failure with hypoxia and hypercapnia: Status: Acute Plan d5 for 79yo F with COPD on 2L O2, HLD, obesity who was at STR at [facility] and was admitted to the ICU for acute hypoxia/hypercapnea refractory to BiPAP support, intubated then extubated the next day and stepped [facility] 10[facility]16 acute/chronic hypoxic/hypercarbic resp failure due to COPD exac/LLL PNA - slowly improving - flu/RSV/COVID-negative - on cefepime 10/15- plus azithro 10/17- for retrocardiac pneumonia; will obtain CT give nodular appearance - decrease methylprednisolone from 40 mg q8h to 40 mg q12h - BiPAP at night and with naps HLD - statin HTN - losartan, amlodipine, clonidine mood disorder - sertraline dispo - eventual STR In my clinical judgment, the patient requires continued inpatient hospitalization for the following reasons: hypoxia/hypercarbia, IV ABX Total time managing care of this patient today: 45 minutes. Quality Stroke Does the patient have a stroke diagnosis?: No VTE Prior VTE?: No VTE Risk Level:: Medical - moderate - high VTE Device Contraindication: Treatment Not Indicated VTE Drug Contraindication: N/A - Med Ordered
[2024-10-19] MEDS: Atorvastatin Calcium 10 MG TABLET PO (22:43)
--- NOTE | 2024-10-19 23:54 | PM.EVENT ---
Event Note Date of Service: 10/19/24 Event Note: Nurse reported hypotension with blood pressure 88/52. Noted CT with persistent left lower lobe pneumonia with presumed superimposed aspiration. Will order IV crystalloid bolus. Patient is on cefepime. Obtaining lactic acid and blood cultures. Discontinue antihypertensives Time Spent With Patient Time: Total time managing care of this patient today ____ minutes.
[2024-10-20] VITALS (12 sets, daily range): BP systolic 129–157; BP diastolic 58–72; PULSE 61–86; RESP 16–20; TEMP 36.2–37.3; O2SAT 89–98
[2024-10-20] MEDS: LACTATED RINGERS 2787 ML IV (00:49)
[2024-10-20 01:21] LABS: Lactic Acid 1.2 mmol/L (0.5-2.0)
[2024-10-20] MEDS: methylPREDNISolone Sod Succ 40 MG/ML VIAL IVPUSH ×2 (05:02→16:10)
[2024-10-20] MEDS: Omeprazole 20 MG CAPSULE.DR PO (05:02)
[2024-10-20] MEDS: Albuterol/Iprat 2.5/0.5MG 3 ML AMPUL.NEB INHALE ×3 (07:34→18:49)
[2024-10-20] MEDS: Gabapentin 300 MG CAPSULE PO ×2 (08:21→16:10)
[2024-10-20] MEDS: cefEPime HCl 1 GM in 0.9 % Sodium Chloride 50 ML IV ×2 (08:21→20:40)
[2024-10-20] MEDS: cloNIDine HCL 0.1 MG TABLET PO ×3 (08:21→20:40)
[2024-10-20] MEDS: guaiFENesin LA 600 MG TAB.ER.12H PO ×2 (08:21→20:40)
[2024-10-20] MEDS: Sertraline HCL 100 MG TABLET PO (08:21)
[2024-10-20] MEDS: 0.9 % Sodium Chloride Flush 3 ML SYRINGE IVFLUSH ×2 (08:22→16:10)
[2024-10-20 08:31] LABS: MANUAL DIFF FLAG NO
[2024-10-20 08:33] LABS: Basophils Percent Auto 0.4 % (0-2); Hematocrit 43.5 % (37.0-47.0); Hemoglobin 12.9 g/dl (12.0-16.0); Imm Gran Abs Auto 0.09 X10*3/uL (0.00-0.03); Imm Gran Pct Auto 1.2 % (0.0-0.4); Lymphocytes Percent Auto 13.4 % (20-40); Mean Corpuscular HGB Conc 29.7 g/dl (31.0-35.0); Mean Corpuscular Hemoglobin 27.1 pg (27.0-33.0); Mean Corpuscular Volume 91.4 fL (80.0-98.0); Mean Platelet Volume 9.8 fL (9.4-12.3); Monocytes Absolute Auto 0.4 X10*3/uL (0.1-1.2); Monocytes Percent Auto 4.9 % (2-11); Neutrophils Absolute Auto 5.9 x10*3/uL (2.0-8.3); Neutrophils Percent Auto 80.1 % (45-73); Platelet Count 128 X10*3/uL (160-400); Red Blood Count 4.76 X10*6/uL (4.20-5.50); Red Cell Distribution Width 13.5 % (11.0-16.0); White Blood Count 7.4 X10*3/uL (4.8-10.8)
[2024-10-20 08:33] LABS: Venous Blood Gas Refer to POC result
[2024-10-20 08:34] LABS: VBG Base Excess 14.8 mmol/L; VBG HCO3 43 mmol/L (22-26); VBG pCO2 75 mmHg; VBG pH 7.37 (7.32-7.43); VBG pO2 51 mmHg
[2024-10-20 08:44] LABS: Anion Gap 12 (12-20); Blood Urea Nitrogen 29 mg/dL (9-16); Calcium 8.6 mg/dL (8.4-10.2); Carbon Dioxide 34 mmol/L (22-29); Chloride 100 mmol/L (96-108); Creatinine Clr Calc Pharmacy 73.2; Estimated Glomerular Filt Rate > 60; Glucose Random 117 mg/dL (60-115); Potassium 5.1 mmol/L (3.3-5.1); Sodium 141 mmol/L (135-145)
--- NOTE | 2024-10-20 09:45 | MHC.SL.SWA ---
Speech Pathologist Impression: Risk of Aspiration Due to: Medically Fragile Hx of Recent Extubation Dysphasia Diet Status: Recommend continue on Ground Mechanical (NDD2) with Thin Liquids, pills whole with liquid. Patient will continue to need supervision at meals, assure that patient has nasal cannula, give rest breaks on 02 mask as well to maintain adequate oxidation. Liquid Consistency and Strategies for Safe Swallow: Liquid Intake Recommendation: Thin Liquid Intake Strategies: Small Sips Solid Food Consistency: Dietary Recommendations: Grnd/Mech Altered (NDD2) Additional Modifications to Solid Foods: Due to O2 status, patient will require frequent breaks during meal if de-satting. Close management of 02/respiration will be needed. Diet texture recommended due to current absence of dentures, poor management of chopped consistency, respiratory fatigue. EMERGENCY VETERINARY TECHNICIAN will re-assess if dentures are recovered. Oral Medication Intake: Whole with Liquid Please contact the pharmacy regarding appropriate crushable or liquid drug formulations that are available whenever modified delivery is recommended. Compensatory Strategies and Precautions to be Taken for Safe Swallow: Sitting Upright (90 deg) Liquids from Cup Liquids from Straw Small Bites and Sips Alternate Liquids/Solids Supervision While Eating and Drinking for Safe Swallow: Total Supervision (1:1) Foods to Avoid: Hard, difficult to chew solids, dry, crunchy textures. Swallowing Recommended Treatments: Compens. Strategy Educat. Recommendation for Speech: Inpatient Speech Therapy Speech Therapy through Rehab Facility Comment:Patient seen this morning at breakfast, in a pleasant mood and seated well in her bed. Patient had started meal, eaten a few bites of eggs, but was not pleased with them. RN entered room concerned about 02 levels as patient had de-satted to 60s. Recommended patient have cannula during meals always, and take O2 breaks with mask, which was all arranged by RN. Patient then took bites of prepared oatmeal, alternating with sips of coffee, and took breaks with 02 mask X 4 during meal. Patient noted to manage texture of mixed oatmeal and bananas well, expressed enjoyment of cereal prepared this way. Patient also noted to produce timely swallow on sips of coffee from cup and sips of milk from straw. Patient did have dentures this morning, however they were being cleaned (and appeared in poor condition) and c/o needing adhesive, so they were not present in her mouth. At end of meal, EMERGENCY VETERINARY TECHNICIAN checked in with nurse on 02 sats, which with strategies she was maintaining in low 90s. Recommend continue on Ground Mechanical (NDD2) with Thin Liquids, pills whole with liquid. Patient will continue to need supervision at meals, assure that patient has nasal cannula, give rest breaks on 02 mask as well to maintain adequate oxidation. Frequency/Duration: Date Range for Service Req: Timeline to reassess: Aerial Erector Clinican/Clinical Fellow: No Supervisory Statement: I have reviewed and agree with the student/clinical fellow's documentation: N/A Speech Language Pathologist: Elinor Cunningham M.A., CCC-EMERGENCY VETERINARY TECHNICIAN
--- NOTE | 2024-10-20 10:27 | MHC.CM.PN ---
Per ROUNDS discussion, Patient is not yet medically cleared for dc (monitoring BP); PT is recommending STR [facility] [employer] [facility] for anticipated dc over the weekend). CM will follow.
--- NOTE | 2024-10-20 11:42 | HO.PM.IMPN ---
Subjective Subjective Date of Service: 10/20/24 Interval History: overnight was briefly hypotensive to 88/52 but now 147/68 after fluids given and amlodipine/losartan held breathing improving; no wheezing or dyspnea Review of Systems Review of Systems: Yes all other systems are reviewed and are negative Physical Exam Vital Signs: Vital Signs: Last Vital Signs Temp 97.4 F 10/20/24 07:59 Pulse 84 10/20/24 07:59 Resp 18 10/20/24 07:59 BP 147/68 H 10/20/24 07:59 Pulse Ox 92 10/20/24 07:59 O2 Del Method Oxymask 10/20/24 07:59 O2 Flow Rate 5 10/20/24 07:59 FiO2 40 10/16/24 13:00 Oxygen Flow Rate 4 10/15/24 11:33 BMI result Body Mass Index 37.5 Gen: in no acute distress HEENT: sclera anicteric, moist mucus membranes Neck: supple Lungs: diminished Heart: regular rate and rhythm, no murmurs Abd: soft, non-tender, non-distended Ext: no edema Skin: warm/well-perfused Neuro: alert and oriented x3, no focal findings Psych: appropriate affect Objective Data Active Medications Acetaminophen (Acetaminophen 325 Mg Tablet) 650 mg PO Q6H PRN PRN Reason: Pain, Mild (Pain Scale 1-3) Last Admin: 10/18/24 18:10 Dose: 650 mg Documented By: ZENAIDA Albuterol/Ipratropium (Albuterol/Iprat 2.5/0.5mg 3 Ml Ampul.Neb) 3 ml INHALE RQ4H WHILE AWAKE PRN PRN Reason: Shortness of Breath/Wheezing Last Admin: 10/15/24 22:42 Dose: 3 ml Documented By: RIRI Albuterol/Ipratropium (Albuterol/Iprat 2.5/0.5mg 3 Ml Ampul.Neb) 3 ml INHALE RQ4H WHILE AWAKE [facility] Last Admin: 10/20/24 07:34 Dose: 3 ml Documented By: KIMMY Atorvastatin Calcium (Atorvastatin Calcium 10 Mg Tablet) 10 mg PO BEDTIME [facility] Last Admin: 10/19/24 22:43 Dose: 10 mg Documented By: DAVID Clonidine HCl (Clonidine Hcl 0.1 Mg Tablet) 0.1 mg PO TID [facility]; Protocol Last Admin: 10/20/24 08:21 Dose: 0.1 mg Documented By: MICAH Enoxaparin Sodium (Enoxaparin Sodium 40 Mg/0.4 Ml Syringe) 40 mg SUBCUT Q24H [facility] Last Admin: 10/19/24 16:26 Dose: 40 mg Documented By: ZENAIDA Gabapentin (Gabapentin 300 Mg Capsule) 300 mg PO BID@0900,1700 [facility] Last Admin: 10/20/24 08:21 Dose: 300 mg Documented By: MICAH Guaifenesin (Guaifenesin La 600 Mg Tab.Er.12h) 600 mg PO BID [facility] Last Admin: 10/20/24 08:21 Dose: 600 mg Documented By: MICAH Cefepime HCl 1 gm/ Sodium (Chloride) 50 mls @ 100 mls/hr IV Q12H [facility] Last Infusion: 10/20/24 08:57 Dose: Infused Documented By: MICAH Azithromycin 500 mg/ Sodium (Chloride) 250 mls @ 125 mls/hr IV Q24H [facility] Last Infusion: 10/19/24 19:04 Dose: Infused Documented By: ZENAIDA Methylprednisolone Sodium Succinate (Methylprednisolone Sod Succ 40 Mg/Ml Vial) 40 mg IVPUSH Q12H [facility] Stop: 10/20/24 20:00 Last Admin: 10/20/24 05:02 Dose: 40 mg Documented By: DAVID Omeprazole (Omeprazole 20 Mg Capsule.Dr) 20 mg PO DAILY@0630 [facility] Last Admin: 10/20/24 05:02 Dose: 20 mg Documented By: DAVID Ondansetron HCl (Ondansetron Hcl 4 Mg/2 Ml Vial) 4 mg IVPUSH Q6H PRN PRN Reason: Nausea and Vomiting Last Admin: 10/19/24 06:39 Dose: 4 mg Documented By: DAVID Prednisone (Prednisone 20 Mg Tablet) 40 mg PO DAILY [facility] Sertraline HCl (Sertraline Hcl 100 Mg Tablet) 100 mg PO DAILY [facility] Last Admin: 10/20/24 08:21 Dose: 100 mg Documented By: MICAH Sodium Chloride (0.9 % Sodium Chloride Flush 3 Ml Syringe) 3 ml IVFLUSH QSHIFT [facility] Last Admin: 10/20/24 08:22 Dose: 3 ml Documented By: MICAH Labs 10/20/24 08:25 10/20/24 08:25 Labs: Laboratory Results - last 24 hr 10/20/24 10/20/24 10/20/24 00:32 08:25 08:28 MCV 91.4 MCH 27.1 MCHC 29.7 L RDW 13.5 Plt Count 128 L MPV 9.8 Immature Gran % (Auto) 1.2 H Neut % (Auto) 80.1 H Lymph % (Auto) 13.4 L Chambers % (Auto) 4.9 Eos % (Auto) 0.0 Baso % (Auto) 0.4 Lymph # (Auto) 1.0 L Chambers # (Auto) 0.4 Eos # (Auto) 0.0 Baso # (Auto) 0.0 Abs Immat Gran (auto) 0.09 H Absolute Neuts (auto) 5.9 Absolute Nucleated RBC 0.000 Nucleated RBC % (auto) 0.0 VBG pH 7.37 VBG pCO2 75 VBG pO2 51 VBG HCO3 43 H VBG O2 Saturation 84.0 VBG Base Excess 14.8 Anion Gap 12 Estim Creat Clear Calc 73.2 Estimated GFR > 60 Random Glucose 117 H Lactic Acid 1.2 Calcium 8.6 Assessment and Plan (1) COPD (chronic obstructive pulmonary disease): Status: Acute (2) Respiratory failure with hypoxia and hypercapnia: Status: Acute Plan d6 for 79yo F with COPD on 2L O2, HLD, obesity who was at STR at [facility] and was admitted to the ICU for acute hypoxia/hypercapnea refractory to BiPAP support, intubated then extubated the next day and stepped down to [facility] 10/16 acute/chronic hypoxic/hypercarbic resp failure due to COPD exac/LLL PNA - slowly improving - flu/RSV/COVID-negative - on cefepime 10/15- plus azithro 10/17- for retrocardiac pneumonia; CT 10/19 showed: Persistent probable left lower lobe pneumonia with mucoid impaction and new superimposed presumed aspiration. - will obtain CNC MACHINIST 2ND SHIFT consultation - will request CPT + Aerobika - consult Pulmonology - change from methylprednisolone 40 mg q12h to prednisone taper 40 mg daily starting tomorrow - BiPAP at night and with naps HTN hx brief hypotension - BCx sent, lactate normal; fluid-responsive - hold losartan + amlodipine; give clonidine at half her home dose HLD - statin mood disorder - sertraline dispo - eventual STR In my clinical judgment, the patient requires continued inpatient hospitalization for the following reasons: hypoxia/hypercarbia, IV ABX Total time managing care of this patient today: 50 minutes. Quality Stroke Does the patient have a stroke diagnosis?: No VTE Prior VTE?: No VTE Risk Level:: Medical - moderate - high VTE Device Contraindication: Treatment Not Indicated VTE Drug Contraindication: N/A - Med Ordered
--- NOTE | 2024-10-20 11:55 | MHC.CM.PN ---
[facility] has [employer] auth for anticipated dc to STR/SNF on 10/22/2024.
[2024-10-20] MEDS: Enoxaparin Sodium 40 MG/0.4 ML SYRINGE SUBCUT (16:10)
[2024-10-20] MEDS: Azithromycin 500 MG in 0.9 % Sodium Chloride 250 ML 125 MG IV (16:10)
[2024-10-20] MEDS: Acetaminophen 325 MG TABLET 650 MG PO (20:39)
[2024-10-20] MEDS: Atorvastatin Calcium 10 MG TABLET PO (20:40)
--- NOTE | 2024-10-20 23:38 | PC.RT ---
Pt refused BIPAP
[2024-10-21] VITALS (10 sets, daily range): BP systolic 113–158; BP diastolic 52–75; PULSE 73–91; RESP 18–22; TEMP 36.2–36.8; O2SAT 89–93
[2024-10-21] MEDS: Omeprazole 20 MG CAPSULE.DR PO (06:21)
[2024-10-21 07:11] LABS: Venous Blood Gas Refer to POC result
[2024-10-21 07:12] LABS: VBG Base Excess 18.8 mmol/L; VBG HCO3 45 mmol/L (22-26); VBG pCO2 59 mmHg; VBG pH 7.49 (7.32-7.43); VBG pO2 110 mmHg
[2024-10-21] MEDS: Albuterol/Iprat 2.5/0.5MG 3 ML AMPUL.NEB INHALE ×3 (07:34→15:32)
[2024-10-21 07:47] LABS: Hematocrit 40.4 % (37.0-47.0); Hemoglobin 12.4 g/dl (12.0-16.0); Mean Corpuscular HGB Conc 30.7 g/dl (31.0-35.0); Mean Corpuscular Hemoglobin 27.7 pg (27.0-33.0); Mean Corpuscular Volume 90.2 fL (80.0-98.0); Mean Platelet Volume 9.7 fL (9.4-12.3); Platelet Count 143 X10*3/uL (160-400); Red Blood Count 4.48 X10*6/uL (4.20-5.50); Red Cell Distribution Width 13.2 % (11.0-16.0); White Blood Count 7.7 X10*3/uL (4.8-10.8)
[2024-10-21 08:10] LABS: Anion Gap 12 (12-20); Blood Urea Nitrogen 23 mg/dL (9-16); Calcium 8.5 mg/dL (8.4-10.2); Carbon Dioxide 37 mmol/L (22-29); Chloride 98 mmol/L (96-108); Creatinine Clr Calc Pharmacy 86.5; Estimated Glomerular Filt Rate > 60; Glucose Random 76 mg/dL (60-115); Sodium 143 mmol/L (135-145)
[2024-10-21 08:27] LABS: Procalcitonin 0.02 ng/mL
[2024-10-21] MEDS: guaiFENesin LA 600 MG TAB.ER.12H PO ×2 (08:41→21:28)
[2024-10-21] MEDS: Sertraline HCL 100 MG TABLET PO (08:41)
[2024-10-21] MEDS: predniSONE 20 MG TABLET 40 MG PO (08:41)
[2024-10-21] MEDS: Gabapentin 300 MG CAPSULE PO ×2 (08:41→16:24)
[2024-10-21] MEDS: cefEPime HCl 1 GM in 0.9 % Sodium Chloride 50 ML IV ×2 (08:41→21:32)
[2024-10-21] MEDS: cloNIDine HCL 0.1 MG TABLET PO ×3 (08:41→21:28)
[2024-10-21] MEDS: 0.9 % Sodium Chloride Flush 3 ML SYRINGE IVFLUSH ×2 (08:42→16:25)
--- NOTE | 2024-10-21 09:52 | HO.PM.IMPN ---
Subjective Subjective Date of Service: 10/21/24 Interval History: dyspnea improved no further hypotension Review of Systems Review of Systems: Yes all other systems are reviewed and are negative Physical Exam Vital Signs: Vital Signs: Last Vital Signs Temp 97.6 F 10/21/24 07:55 Pulse 74 10/21/24 07:55 Resp 22 H 10/21/24 07:55 BP 154/62 H 10/21/24 07:55 Pulse Ox 91 L 10/21/24 07:55 O2 Del Method Oxymask 10/21/24 07:55 O2 Flow Rate 5 10/21/24 07:55 FiO2 40 10/16/24 13:00 Oxygen Flow Rate 4 10/15/24 11:33 BMI result Body Mass Index 37.5 Gen: in no acute distress HEENT: sclera anicteric, moist mucus membranes Neck: supple Lungs: diminished Heart: regular rate and rhythm, no murmurs Abd: soft, non-tender, non-distended Ext: no edema Skin: warm/well-perfused Neuro: alert and oriented x3, no focal findings Psych: appropriate affect Objective Data Active Medications Acetaminophen (Acetaminophen 325 Mg Tablet) 650 mg PO Q6H PRN PRN Reason: Pain, Mild (Pain Scale 1-3) Last Admin: 10/20/24 20:39 Dose: 650 mg Documented By: BRIJESH Albuterol/Ipratropium (Albuterol/Iprat 2.5/0.5mg 3 Ml Ampul.Neb) 3 ml INHALE RQ4H WHILE AWAKE PRN PRN Reason: Shortness of Breath/Wheezing Last Admin: 10/15/24 22:42 Dose: 3 ml Documented By: RIRI Albuterol/Ipratropium (Albuterol/Iprat 2.5/0.5mg 3 Ml Ampul.Neb) 3 ml INHALE RQ4H WHILE AWAKE [facility] Last Admin: 10/21/24 07:34 Dose: 3 ml Documented By: ISHA Atorvastatin Calcium (Atorvastatin Calcium 10 Mg Tablet) 10 mg PO BEDTIME [facility] Last Admin: 10/20/24 20:40 Dose: 10 mg Documented By: BRIJESH Clonidine HCl (Clonidine Hcl 0.1 Mg Tablet) 0.1 mg PO TID [facility]; Protocol Last Admin: 10/21/24 08:41 Dose: 0.1 mg Documented By: JOSEPH Enoxaparin Sodium (Enoxaparin Sodium 40 Mg/0.4 Ml Syringe) 40 mg SUBCUT Q24H [facility] Last Admin: 10/20/24 16:10 Dose: 40 mg Documented By: JEANETH Gabapentin (Gabapentin 300 Mg Capsule) 300 mg PO BID@0900,1700 [facility] Last Admin: 10/21/24 08:41 Dose: 300 mg Documented By: JOSEPH Guaifenesin (Guaifenesin La 600 Mg Tab.Er.12h) 600 mg PO BID [facility] Last Admin: 10/21/24 08:41 Dose: 600 mg Documented By: JOSEPH Cefepime HCl 1 gm/ Sodium (Chloride) 50 mls @ 100 mls/hr IV Q12H [facility] Last Infusion: 10/21/24 09:20 Dose: Infused Documented By: JOSEPH Azithromycin 500 mg/ Sodium (Chloride) 250 mls @ 125 mls/hr IV Q24H [facility] Last Infusion: 10/20/24 19:32 Dose: Infused Documented By: JEANETH Omeprazole (Omeprazole 20 Mg Capsule.Dr) 20 mg PO DAILY@0630 [facility] Last Admin: 10/21/24 06:21 Dose: 20 mg Documented By: BRIJESH Ondansetron HCl (Ondansetron Hcl 4 Mg/2 Ml Vial) 4 mg IVPUSH Q6H PRN PRN Reason: Nausea and Vomiting Last Admin: 10/19/24 06:39 Dose: 4 mg Documented By: DAVID Prednisone (Prednisone 20 Mg Tablet) 40 mg PO DAILY [facility] Last Admin: 10/21/24 08:41 Dose: 40 mg Documented By: JOSEPH Sertraline HCl (Sertraline Hcl 100 Mg Tablet) 100 mg PO DAILY [facility] Last Admin: 10/21/24 08:41 Dose: 100 mg Documented By: JOSEPH Sodium Chloride (0.9 % Sodium Chloride Flush 3 Ml Syringe) 3 ml IVFLUSH QSHIFT [facility] Last Admin: 10/21/24 08:42 Dose: 3 ml Documented By: JOSEPH Labs 10/21/24 07:00 10/21/24 07:00 Labs: Laboratory Results - last 24 hr 10/21/24 10/21/24 07:00 07:03 MCV 90.2 MCH 27.7 MCHC 30.7 L RDW 13.2 Plt Count 143 L MPV 9.7 Absolute Nucleated RBC 0.000 Nucleated RBC % (auto) 0.0 VBG pH 7.49 H VBG pCO2 59 VBG pO2 110 VBG HCO3 45 H VBG O2 Saturation 99.0 VBG Base Excess 18.8 Anion Gap 12 Estim Creat Clear Calc 86.5 Estimated GFR > 60 Random Glucose 76 Calcium 8.5 Procalcitonin 0.02 Microbiology Microbiology Results: Microbiology 10/20/24 00:32 Blood Culture - Preliminary Blood - Venous No growth after 24 hours. 10/20/24 00:32 Blood Culture - Preliminary Blood - Venous No growth after 24 hours. 10/15/24 11:57 Blood Culture - Final Blood - Venous No growth after 5 days. 10/15/24 11:54 Blood Culture - Final Blood - Venous No growth after 5 days. Assessment and Plan (1) COPD (chronic obstructive pulmonary disease): Status: Acute (2) Respiratory failure with hypoxia and hypercapnia: Status: Acute Plan d7 for 79yo F with COPD on 2L O2, HLD, obesity who was at STR at [facility] and was admitted to the ICU for acute hypoxia/hypercapnea refractory to BiPAP support, intubated then extubated the next day and [facility]16 acute/chronic hypoxic/hypercarbic resp failure due to COPD exac/LLL PNA - slowly improving - flu/RSV/COVID negative - on cefepime 10/15- plus azithro 10/17- for retrocardiac pneumonia; CT 10/19 showed: Persistent probable left lower lobe pneumonia with mucoid impaction and new superimposed presumed aspiration. - PACKING CHECKER consulted, recommends NDD2 solids + thin liquids - ordered request CPT + Aerobika - Pulmonology consult pending - changed from methylprednisolone 40 mg q12h to prednisone taper 40 mg daily startinng today - BiPAP at night and with naps HTN hx brief hypotension overnight 10/19-10/20 - BCx sent, lactate normal; fluid-responsive - continue hold losartan + amlodipine; giving clonidine at half her home dose HLD - statin mood disorder - sertraline dispo - eventual STR In my clinical judgment, the patient requires continued inpatient hospitalization for the following reasons: hypoxia/hypercarbia, IV ABX Total time managing care of this patient today: 40 minutes. Quality Stroke Does the patient have a stroke diagnosis?: No VTE Prior VTE?: No VTE Risk Level:: Medical - moderate - high VTE Device Contraindication: Treatment Not Indicated VTE Drug Contraindication: N/A - Med Ordered
--- NOTE | 2024-10-21 10:00 | PM.DS ---
DS: Providers Provider Date of Service: 10/21/24 Date of admission: 10/15/24 13:38 Date of discharge: 10/21/24 Primary care physician: Unknown Physician Consults: 10/20/24 11:46 Consult to Pulmonology Routine Consulting Provider: [facility] Reason for consultation: mucoid impaction, PNA DS: Diagnosis Discharge Diagnosis (1) Acute on chronic respiratory failure with hypoxia and hypercapnia: Status: Acute (2) COPD exacerbation: Status: Acute (3) Pneumonia: Status: Resolved DS: Summary Hospital Course Hospital Course: From the history and physical by the admitting ampoule inspector, Watson Feliciano MD, 10/15/24: 79-year-old lady with underlying history of COPD supplemental oxygen 2 L dependent, hypotension, hyperlipidemia, obesity sent from rehab secondary to acute hypoxia, on ER evaluation patient with acute hypoxic hypercapnic respiratory failure refractory to BiPAP support requiring intubation and ventilatory support. Admitted to the intensive care unit. 79yo F with COPD on 2L O2, HLD, obesity who was at STR at [facility] and was admitted to the ICU for acute hypoxia/hypercapnea refractory to BiPAP support, intubated then extubated the next day and stepped down to IMC 10/16. Hospital course by problem: acute/chronic hypoxic/hypercarbic resp failure due to COPD exac/LLL PNA - slowly improving, currently on 5L via Oxymask - flu/RSV/COVID negative - on cefepime 10/15- plus azithro 10/17- for retrocardiac pneumonia; CT 10/19 showed: Persistent probable left lower lobe pneumonia with mucoid impaction and new superimposed presumed aspiration. 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, recommends NDD2 solids + thin liquids - ordered request CPT + Aerobika - Pulmonology consult pending - changed from methylprednisolone 40 mg q12h to prednisone taper 40 mg daily starting today - BiPAP at night and with naps HTN hx brief hypotension overnight 10/19-10/20 - BCx sent, lactate normal; fluid-responsive - continue hold losartan + amlodipine; giving clonidine at half her home dose Time Attestation Discharge Coordination Time (in mins): 45 Quality: Safe Use of Opioids Does Pt have an Active Cancer Diagnosis on the Problem List?: No Quality: Stroke Does the patient have a stroke diagnosis?: No Physical Exam Vital Signs: Vital Signs: Last Vital Signs Temp 97.6 F 10/21/24 07:55 Pulse 74 10/21/24 07:55 Resp 22 H 10/21/24 07:55 BP 154/62 H 10/21/24 07:55 Pulse Ox 91 L 10/21/24 07:55 O2 Del Method Oxymask 10/21/24 07:55 O2 Flow Rate 5 10/21/24 07:55 FiO2 40 10/16/24 13:00 Oxygen Flow Rate 4 10/15/24 11:33 BMI result Body Mass Index 37.5 Gen: in no acute distress HEENT: sclera anicteric, moist mucus membranes Neck: supple Lungs: diminished Heart: regular rate and rhythm, no murmurs Abd: soft, non-tender, non-distended Ext: no edema Skin: warm/well-perfused Neuro: alert and oriented x3, no focal findings Psych: appropriate affect DS: Data Data Completed and Pending Completed studies during hospitalization [Text1]: Laboratory Results WBC 7.7 X10*3/uL (4.8-10.8) 10/21/24 07:00 RBC 4.48 X10*6/uL (4.20-5.50) 10/21/24 07:00 Hgb 12.4 g/dl (12.0-16.0) 10/21/24 07:00 Hct 40.4 % (37.0-47.0) 10/21/24 07:00 MCV 90.2 fL (80.0-98.0) 10/21/24 07:00 MCH 27.7 pg (27.0-33.0) 10/21/24 07:00 MCHC 30.7 g/dl (31.0-35.0) L 10/21/24 07:00 RDW 13.2 % (11.0-16.0) 10/21/24 07:00 Plt Count 143 X10*3/uL (160-400) L 10/21/24 07:00 MPV 9.7 fL (9.4-12.3) 10/21/24 07:00 Immature Gran % (Auto) 1.2 % (0.0-0.4) H 10/20/24 08:25 Neut % (Auto) 80.1 % (45-73) H 10/20/24 08:25 Lymph % (Auto) 13.4 % (20-40) L 10/20/24 08:25 [place] % (Auto) 4.9 % (2-11) 10/20/24 08:25 Eos % (Auto) 0.0 % (0-4) 10/20/24 08:25 Baso % (Auto) 0.4 % (0-2) 10/20/24 08:25 Lymph # (Auto) 1.0 X10*3/uL (1.2-4.9) L 10/20/24 08:25 [place] # (Auto) 0.4 X10*3/uL (0.1-1.2) 10/20/24 08:25 Eos # (Auto) 0.0 X10*3/uL (0.0-0.4) 10/20/24 08:25 Baso # (Auto) 0.0 X10*3/uL (0.0-0.2) 10/20/24 08:25 Abs Immat Gran (auto) 0.09 X10*3/uL (0.00-0.03) H 10/20/24 08:25 Absolute Neuts (auto) 5.9 x10*3/uL (2.0-8.3) 10/20/24 08:25 Absolute Nucleated RBC 0.000 X10*3/uL (0.0-0.012) 10/21/24 07:00 Nucleated RBC % (auto) 0.0 /100WBC (0.0-0.2) 10/21/24 07:00 Hold Purple Top SEE NOTE 10/18/24 06:28 PT 13.6 SEC (10.9-12.4) H 10/15/24 11:57 INR 1.2 (0.9-1.1) H 10/15/24 11:57 O2 Saturation 88.0 % 10/15/24 13:04 ABG pH at Pt Temp 7.18 (7.35-7.45) L* 10/15/24 13:04 ABG pCO2 at Pt Temp 96 mmHg (32-45) H* 10/15/24 13:04 ABG pO2 at Pt Temp 67 mmHg (83-108) L 10/15/24 13:04 ABG HCO3 36 mmol/L (22-26) H 10/15/24 13:04 ABG Base Excess (Actual) 4.0 mmol/L 10/15/24 13:04 VBG pH 7.49 (7.32-7.43) H 10/21/24 07:03 VBG pCO2 59 mmHg 10/21/24 07:03 VBG pO2 110 mmHg 10/21/24 07:03 VBG HCO3 45 mmol/L (22-26) H 10/21/24 07:03 VBG O2 Saturation 99.0 % 10/21/24 07:03 VBG Base Excess 18.8 mmol/L 10/21/24 07:03 Sodium 143 mmol/L (135-145) 10/21/24 07:00 Potassium 4.0 mmol/L (3.3-5.1) D 10/21/24 07:00 Chloride 98 mmol/L (96-108) 10/21/24 07:00 Carbon Dioxide 37 mmol/L (22-29) H 10/21/24 07:00 Anion Gap 12 (12-20) 10/21/24 07:00 BUN 23 mg/dL (9-16) H 10/21/24 07:00 Creatinine 0.55 mg/dL (0.5-1.4) 10/21/24 07:00 Estim Creat Clear Calc 86.5 10/21/24 07:00 Estimated GFR > 60 10/21/24 07:00 POC Glucose 168 mg/dL (60-115) H 10/15/24 11:50 Random Glucose 76 mg/dL (60-115) 10/21/24 07:00 Lactic Acid 1.2 mmol/L (0.5-2.0) 10/20/24 00:32 Calcium 8.5 mg/dL (8.4-10.2) 10/21/24 07:00 Phosphorus 2.1 mg/dL (2.7-4.5) L 10/16/24 05:32 Magnesium 2.0 mg/dL (1.6-2.6) 10/18/24 17:11 Total Bilirubin 0.2 mg/dL (0.0-1.0) 10/15/24 11:57 AST 31 U/L (5-31) 10/15/24 11:57 ALT 25 U/L (0-31) 10/15/24 11:57 Alkaline Phosphatase 116 U/L (39-117) 10/15/24 11:57 Troponin I High Sens 24.4 ng/L (<3.5-17.0) H D 10/15/24 11:57 B-Natriuretic Peptide 133 pg/mL (<100) H 10/15/24 11:57 Total Protein 7.0 g/dL (6.5-8.0) 10/15/24 11:57 Albumin 2.8 g/dL (3.5-5.0) L 10/16/24 05:32 Procalcitonin 0.02 ng/mL 10/21/24 07:00 Nasal Screen MRSA (PCR) NEGATIVE (Negative) 10/16/24 12:40 Nasal S. aureus Screen NEGATIVE (Negative) 10/16/24 12:40 Nasal MRSA/S.aureus Interp SEE NOTE 10/16/24 12:40 Random Vancomycin 20.2 mcg/mL (15-20) H 10/16/24 21:00 Influenza Type A (PCR) NEGATIVE (Negative) 10/15/24 12:33 Influenza Type B (PCR) NEGATIVE (Negative) 10/15/24 12:33 RSV RNA Qual (PCR) NEGATIVE (Negative) 10/15/24 12:33 SARS-CoV-2 RNA (RT-PCR) NEGATIVE (Negative) 10/15/24 12:33 CT chest 10/19/24 Persistent probable left lower lobe pneumonia with mucoid impaction and new superimposed presumed aspiration. Discharge Plan Discharge Anticipated Discharge Date/Time: 10/21/24 09:59 Patient Disposition: [facility] Discharge Diagnosis: COPD exacerbation pneumonia acute/chronic hypoxia/hypercarbia Referrals: Aayush Bauman MD [Physician] - 2 Weeks Physician,Unknown J [Primary Care Provider] - 1 Week Discharge Medications: No Action losartan 25 mg tablet 25 mg PO DAILY naproxen 500 mg tablet 500 mg PO BIDWM PRN (Reason: Pain) ezetimibe 10 mg tablet 10 mg PO DAILY alendronate 70 mg tablet 70 mg PO MO@0900 sertraline 100 mg tablet 100 mg PO DAILY simvastatin 10 mg tablet 10 mg PO BEDTIME clonidine HCl 0.2 mg tablet 0.2 mg PO TID gabapentin 300 mg capsule 300 mg PO BID@0900,1700 mirabegron [Myrbetriq] 25 mg tablet extended release 24 hr 25 mg PO DAILY multivitamin Tablet 1 tab PO DAILY ipratropium-albuterol 0.5 mg-3 mg(2.5 mg base)/3 mL Solution For Nebulization 3 ml inhalation RQ4H WHILE AWAKE PRN (Reason: Wheezing) Qty: 270 0RF amlodipine 10 mg Tablet 10 mg PO DAILY Qty: 30 0RF Protocol: Hold for SBP< HOLD for SBP < : 90 prednisone 10 mg tablet See Rx Instructions .Route .COMPLEX Qty: 45 0RF Rx Instructions: 10 mg orally DAILY x3 days; END DATE: 10/18/24 Stand Alone Forms: Patient Portal Discharge page Print Language: Macedonian
--- NOTE | 2024-10-21 11:39 | P.CONPL_ITS ---
History of Present Illness History of Present Illness Consult date: 10/21/24 Chief complaint: Acute hypercapnic respiratory failure Narrative: This is an inpatient pulmonary consultation. The patient is a 79-year-old lady with underlying history of COPD supplemental oxygen 2 L dependent, hypotension, hyperlipidemia, obesity sent from rehab secondary to acute hypoxia. Apparently the patient the patient has been sick now for about a month. She had a visit in the ER back late September with falls weakness. She was hypotensive. She had a CTA at that point that demonstrated a left lower lobe pneumonia. Apparently she was admitted and discharged to rehab. The patient now returns back to the hospital with chest discomfort and worsening hypoxia. She is admitted to the ICU with acute hypoxic hypercapnic respiratory failure refractory to BiP support requiring intubation and ventilatory support. Admitted to the intensive care unit. The patient transferred back to the floor. Floor she had increased oxygen requirements. She had a repeat CT of the chest demonstrating interval worsening of the left lower lobe opacity with mucoid impaction. She is on an OxyMask. Having a hard time expectorating. I did provide her with an [place] and taught how to use it for her to be able to provide some chest physical therapy. Currently she is on broad-spectrum antibiotics. Review of Systems 2 Constitutional: Constitutional: Reports fatigue and Denies fever(s) ENT: Reports dysphagia Cardiovascular: Cardiovascular: Denies chest pain Respiratory: Respiratory: Reports chest congestion, Reports cough and Denies wheezing Gastrointestinal: Gastrointestinal: Reports dysphagia Musculoskeletal: Musculoskeletal: Reports abnormal gait and Reports muscle weakness Neurologic: Reports abnormal gait Endocrine: Endocrine: Reports fatigue Hematologic/Lymphatic: Hematologic/Lymphatic: Denies lymphadenopathy Allergic/Immunologic: Allergic/Immunologic: Denies wheezing [facility] Past Medical History Medical History Obesity (BMI 35.0-39.9 without comorbidity) Depression HTN (hypertension) Social History Social History Household Members: Unknown / Unable to assess Housing: Unknown / Unable to assess Do you presently have visiting nurse or other home services: No Patient Tobacco Use Status: Former Tobacco user service: No Meds Allergies Allergy/AdvReac Type Severity Reaction Status Date / Time No Known Allergies Allergy Verified 10/15/24 11:38 Active Medications: Current Medications Acetaminophen (Acetaminophen 325 Mg Tablet) 650 mg PO Q6H PRN PRN Reason: Pain, Mild (Pain Scale 1-3) Last Admin: 10/20/24 20:39 Dose: 650 mg Albuterol/Ipratropium (Albuterol/Iprat 2.5/0.5mg 3 Ml Ampul.Neb) 3 ml INHALE RQ4H WHILE AWAKE PRN PRN Reason: Shortness of Breath/Wheezing Last Admin: 10/15/24 22:42 Dose: 3 ml Albuterol/Ipratropium (Albuterol/Iprat 2.5/0.5mg 3 Ml Ampul.Neb) 3 ml INHALE RQ4H WHILE AWAKE [facility] Last Admin: 10/21/24 11:33 Dose: 3 ml Atorvastatin Calcium (Atorvastatin Calcium 10 Mg Tablet) 10 mg PO BEDTIME [facility] Last Admin: 10/20/24 20:40 Dose: 10 mg Clonidine HCl (Clonidine Hcl 0.1 Mg Tablet) 0.1 mg PO TID [facility]; Protocol Last Admin: 10/21/24 08:41 Dose: 0.1 mg Enoxaparin Sodium (Enoxaparin Sodium 40 Mg/0.4 Ml Syringe) 40 mg SUBCUT Q24H [facility] Last Admin: 10/20/24 16:10 Dose: 40 mg Gabapentin (Gabapentin 300 Mg Capsule) 300 mg PO BID@0900,1700 [facility] Last Admin: 10/21/24 08:41 Dose: 300 mg Guaifenesin (Guaifenesin La 600 Mg Tab.Er.12h) 600 mg PO BID [facility] Last Admin: 10/21/24 08:41 Dose: 600 mg Cefepime HCl 1 gm/ Sodium (Chloride) 50 mls @ 100 mls/hr IV Q12H [facility] Last Infusion: 10/21/24 09:20 Dose: Infused Azithromycin 500 mg/ Sodium (Chloride) 250 mls @ 125 mls/hr IV Q24H [facility] Last Infusion: 10/20/24 19:32 Dose: Infused Omeprazole (Omeprazole 20 Mg Capsule.Dr) 20 mg PO DAILY@0630 [facility] Last Admin: 10/21/24 06:21 Dose: 20 mg Ondansetron HCl (Ondansetron Hcl 4 Mg/2 Ml Vial) 4 mg IVPUSH Q6H PRN PRN Reason: Nausea and Vomiting Last Admin: 10/19/24 06:39 Dose: 4 mg Prednisone (Prednisone 20 Mg Tablet) 40 mg PO DAILY [facility] Last Admin: 10/21/24 08:41 Dose: 40 mg Sertraline HCl (Sertraline Hcl 100 Mg Tablet) 100 mg PO DAILY [facility] Last Admin: 10/21/24 08:41 Dose: 100 mg Sodium Chloride (0.9 % Sodium Chloride Flush 3 Ml Syringe) 3 ml IVFLUSH QSHIFT [facility] Last Admin: 10/21/24 08:42 Dose: 3 ml Home Medications ?Medication ?Instructions ?Recorded ?Confirmed ?Last Taken ?Type alendronate 70 mg tablet 70 mg PO MO@0900 09/26/24 10/15/24 09/25/24 History clonidine HCl 0.2 mg tablet 0.2 mg PO TID 09/26/24 10/15/24 09/25/24 History ezetimibe 10 mg tablet 10 mg PO DAILY 09/26/24 10/15/24 09/25/24 History gabapentin 300 mg capsule 300 mg PO BID@0900,1700 09/26/24 10/15/24 09/25/24 History losartan 25 mg tablet 25 mg PO DAILY 09/26/24 10/15/24 09/25/24 History mirabegron 25 mg tablet,extended 25 mg PO DAILY 09/26/24 10/15/24 09/25/24 History release 24 hr (Myrbetriq) multivitamin 1 tab PO DAILY 09/26/24 10/15/24 09/25/24 History naproxen 500 mg tablet 500 mg PO BIDWM PRN Pain 09/26/24 10/15/24 09/25/24 History sertraline 100 mg tablet 100 mg PO DAILY 09/26/24 10/15/24 09/25/24 History simvastatin 10 mg tablet 10 mg PO BEDTIME 09/26/24 10/15/24 09/25/24 History Physical Exam 2 Vital Signs: Vital Signs: Last Vital Signs Temp 97.7 F 10/21/24 11:32 Pulse 74 10/21/24 11:33 Resp 22 H 10/21/24 11:33 BP 158/75 H 10/21/24 11:32 Pulse Ox 89 L 10/21/24 11:32 O2 Del Method Oxymask 10/21/24 07:55 O2 Flow Rate 5 10/21/24 07:55 FiO2 40 10/16/24 13:00 Oxygen Flow Rate 4 10/15/24 11:33 BMI result Body Mass Index 37.5 Const: General: comfortable and tired appearing Neck: Neck: Yes supple Chest: Chest palpation & inspection: normal inspection of the chest Resp: Effort & Inspection: normal respiratory effort Auscultation: d iminished lung sounds Cardio: Heart sounds: S1 normal heart sound present and S2 normal heart sound present GI: Palpation (GI): Soft to palpation Skin: General skin exam: no rashes or lesions noted Extrem: General: No cyanosis Results Laboratory Findings 10/21/24 07:00 10/21/24 07:00 ABG, PT/INR, D-dimer: PT/INR, D-dimer PT 13.6 SEC (10.9-12.4) H 10/15/24 11:57 INR 1.2 (0.9-1.1) H 10/15/24 11:57 Abnormal lab findings: Abnormal Labs 10/15/24 10/15/24 10/15/24 11:50 11:57 12:03 Hct 51.1 H MCH 26.8 L MCHC 28.6 L Plt Count MPV Immature Gran % (Auto) 0.5 H Neut % (Auto) 79.4 H Lymph % (Auto) 13.4 L Lymph # (Auto) 1.1 L Abs Immat Gran (auto) 0.04 H PT 13.6 H INR 1.2 H ABG pH at Pt Temp ABG pCO2 at Pt Temp ABG pO2 at Pt Temp ABG HCO3 VBG pH VBG HCO3 40 H Carbon Dioxide 31 H BUN 24 H POC Glucose 168 H Random Glucose 160 H Calcium Phosphorus Troponin I High Sens 24.4 H D B-Natriuretic Peptide 133 H Albumin Random Vancomycin 10/15/24 10/15/24 10/16/24 13:04 19:58 00:12 Hct MCH MCHC Plt Count MPV Immature Gran % (Auto) Neut % (Auto) Lymph % (Auto) Lymph # (Auto) Abs Immat Gran (auto) PT INR ABG pH at Pt Temp 7.18 L* ABG pCO2 at Pt Temp 96 H* ABG pO2 at Pt Temp 67 L ABG HCO3 36 H VBG pH 7.58 H 7.47 H VBG HCO3 28 H 28 H Carbon Dioxide BUN POC Glucose Random Glucose Calcium Phosphorus Troponin I High Sens B-Natriuretic Peptide Albumin Random Vancomycin 10/16/24 10/16/24 10/16/24 05:32 05:40 21:00 Hct MCH 26.8 L MCHC 30.4 L Plt Count MPV 9.3 L Immature Gran % (Auto) 0.5 H Neut % (Auto) 77.7 H Lymph % (Auto) 10.9 L Lymph # (Auto) 0.8 L Abs Immat Gran (auto) 0.04 H PT INR ABG pH at Pt Temp ABG pCO2 at Pt Temp ABG pO2 at Pt Temp ABG HCO3 VBG pH 7.56 H VBG HCO3 32 H Carbon Dioxide BUN 25 H POC Glucose Random Glucose 122 H Calcium 7.7 L D Phosphorus 2.1 L Troponin I High Sens B-Natriuretic Peptide Albumin 2.8 L Random Vancomycin 20.2 H 10/18/24 10/19/24 10/19/24 17:11 08:23 08:28 Hct MCH MCHC 30.5 L Plt Count 143 L MPV 9.2 L Immature Gran % (Auto) Neut % (Auto) Lymph % (Auto) Lymph # (Auto) Abs Immat Gran (auto) PT INR ABG pH at Pt Temp ABG pCO2 at Pt Temp ABG pO2 at Pt Temp ABG HCO3 VBG pH VBG HCO3 49 H Carbon Dioxide 37 H 38 H BUN 18 H 24 H POC Glucose Random Glucose 145 H 142 H Calcium Phosphorus Troponin I High Sens B-Natriuretic Peptide Albumin Random Vancomycin 10/20/24 10/20/24 10/21/24 08:25 08:28 07:00 Hct MCH MCHC 29.7 L 30.7 L Plt Count 128 L 143 L MPV Immature Gran % (Auto) 1.2 H Neut % (Auto) 80.1 H Lymph % (Auto) 13.4 L Lymph # (Auto) 1.0 L Abs Immat Gran (auto) 0.09 H PT INR ABG pH at Pt Temp ABG pCO2 at Pt Temp ABG pO2 at Pt Temp ABG HCO3 VBG pH VBG HCO3 43 H Carbon Dioxide 34 H 37 H BUN 29 H 23 H POC Glucose Random Glucose 117 H Calcium Phosphorus Troponin I High Sens B-Natriuretic Peptide Albumin Random Vancomycin 10/21/24 07:03 Hct MCH MCHC Plt Count MPV Immature Gran % (Auto) Neut % (Auto) Lymph % (Auto) Lymph # (Auto) Abs Immat Gran (auto) PT INR ABG pH at Pt Temp ABG pCO2 at Pt Temp ABG pO2 at Pt Temp ABG HCO3 VBG pH 7.49 H VBG HCO3 45 H Carbon Dioxide BUN POC Glucose Random Glucose Calcium Phosphorus Troponin I High Sens B-Natriuretic Peptide Albumin Random Vancomycin Microbiology: Microbiology 10/20/24 00:32 Blood - Venous Blood Culture - Preliminary No growth after 24 hours. 10/20/24 00:32 Blood - Venous Blood Culture - Preliminary No growth after 24 hours. 10/15/24 11:57 Blood - Venous Blood Culture - Final No growth after 5 days. 10/15/24 11:54 Blood - Venous Blood Culture - Final No growth after 5 days. Assessment and Plan (1) COPD exacerbation: Status: Acute (2) Acute on chronic respiratory failure with hypoxia and hypercapnia: Status: Acute (3) Pneumonia: Qualifiers: Pneumonia type: due to unspecified organism Laterality: left Lung location: lower lobe of lung Qualified Code(s): J18.9 - Pneumonia, unspecified organism Status: Resolved Plan Continue broad-spectrum antibiotics Continue respiratory therapy continue oxygen to keep pox 90-94% Noctural BIPAP for chronic hypercarbic respiratory failure CPT with percussion valve. One was provided Sputum culture if able MRSA screen. If positive would treat for MRSA pneumonia If LLL process is persistent then would consider a bronchosocpy. However, with her respiratory failure she is high risk for any procedure OOB as tolerated with assistance Procedures Date of Service Date of Service: 10/21/24
[2024-10-21 14:00] LABS: MRSA Nasal PCR NEGATIVE (Negative); SA Nasal PCR NEGATIVE (Negative)
[2024-10-21] MEDS: Enoxaparin Sodium 40 MG/0.4 ML SYRINGE SUBCUT (16:24)
[2024-10-21] MEDS: Azithromycin 500 MG in 0.9 % Sodium Chloride 250 ML 125 MG IV (16:24)
[2024-10-21] MEDS: Acetaminophen 325 MG TABLET 650 MG PO (21:28)
[2024-10-21] MEDS: Atorvastatin Calcium 10 MG TABLET PO (21:28)
[2024-10-22] VITALS (20 sets, daily range): BP systolic 123–184; BP diastolic 58–71; PULSE 73–96; RESP 18–28; TEMP 36.3–37.4; O2SAT 80–96
[2024-10-22] MEDS: Omeprazole 20 MG CAPSULE.DR PO (05:10)
[2024-10-22 06:14] LABS: Venous Blood Gas Refer to POC result
[2024-10-22 06:15] LABS: VBG Base Excess 19.9 mmol/L; VBG HCO3 47 mmol/L (22-26); VBG pCO2 64 mmHg; VBG pH 7.47 (7.32-7.43); VBG pO2 75 mmHg
[2024-10-22 06:27] LABS: Anion Gap 9 (12-20); Blood Urea Nitrogen 18 mg/dL (9-16); Calcium 8.4 mg/dL (8.4-10.2); Carbon Dioxide 39 mmol/L (22-29); Chloride 99 mmol/L (96-108); Creatinine Clr Calc Pharmacy 91.5; Estimated Glomerular Filt Rate > 60; Glucose Random 87 mg/dL (60-115); Potassium 3.4 mmol/L (3.3-5.1); Sodium 144 mmol/L (135-145)
[2024-10-22] MEDS: amLODIPine Besylate 10 MG TABLET PO (08:18)
[2024-10-22] MEDS: cefEPime HCl 1 GM in 0.9 % Sodium Chloride 50 ML IV (08:18)
[2024-10-22] MEDS: guaiFENesin LA 600 MG TAB.ER.12H PO (08:18)
[2024-10-22] MEDS: Sertraline HCL 100 MG TABLET PO (08:18)
[2024-10-22] MEDS: Gabapentin 300 MG CAPSULE PO ×2 (08:19→16:07)
[2024-10-22] MEDS: predniSONE 20 MG TABLET 40 MG PO (08:19)
[2024-10-22] MEDS: cloNIDine HCL 0.1 MG TABLET PO ×3 (08:19→20:15)
[2024-10-22] MEDS: 0.9 % Sodium Chloride Flush 3 ML SYRINGE IVFLUSH ×3 (08:19→20:17)
--- NOTE | 2024-10-22 09:24 | PC.RT ---
RT called to bedside appox 0845 am for low SATs. RN increased pt O2 to 15L [place]. RT attempted pt on bipap however pt took it off after a few minutes and refused another attempt. RT placed pt on HFNC per MD verbal order. Approx 0920 am, at bedside w/ RT. Pt on HFNC. states she wants pt back on bipap. Pt last VBG shows a metabolic alkalosis. MD states her suspicion for aspiration. Pt is already receiving duonebs as tolerated and instructed through flutter valve w/ treatments. Pt has a dry non-productive cough. Pt on bipap currently per MD request.
[2024-10-22] MEDS: Albuterol/Iprat 2.5/0.5MG 3 ML AMPUL.NEB INHALE ×3 (11:17→19:52)
--- NOTE | 2024-10-22 11:46 | PC.RT ---
Pt emre bipap for less than an hour, placed back on HFNC. Titrating settings per O2 requirements to keep 88-92%. aware.
[2024-10-22] MEDS: methylPREDNISolone Sod Succ 40 MG/ML VIAL IVPUSH ×2 (12:04→20:15)
[2024-10-22] MEDS: Acetaminophen 325 MG TABLET 650 MG PO (12:04)
[2024-10-22] MEDS: Piperacillin Sodium/Tazobactam 4.5 GM in 0.9 % Sodium Chloride 100 ML IV ×2 (12:05→20:16)
[2024-10-22] MEDS: Enoxaparin Sodium 40 MG/0.4 ML SYRINGE SUBCUT (16:07)
[2024-10-22] MEDS: Azithromycin 500 MG in 0.9 % Sodium Chloride 250 ML 125 MG IV (16:07)
--- NOTE | 2024-10-22 16:08 | HO.PM.IMPN ---
Subjective Subjective Date of Service: 10/23/24 Interval History: Being followed for acute hypoxic and hypercarbic respiratory failure, was on 5 L of oxygen yesterday, today noted to be hypoxic with finger oximetry low 80s, therefore placed on high-flow oxygen, patient unable to tolerate BiPAP for last several nights . Denies fever, no chills, coughing but unable to bring up phlegm, Review of Systems All other system reviewed and negative Physical Exam Vital Signs: Vital Signs: Last Vital Signs Temp 98.7 F 10/22/24 15:59 Pulse 94 10/22/24 15:59 Resp 20 10/22/24 15:59 BP 149/71 H 10/22/24 15:59 Pulse Ox 87 L 10/22/24 15:59 O2 Del Method High Flow Nasal C annula 10/22/24 15:59 O2 Flow Rate 50 10/22/24 15:59 FiO2 55 10/22/24 15:59 Oxygen Flow Rate 4 10/15/24 11:33 BMI result Body Mass Index 37.5 Const: Other: Gen: No acute distress. HEENT: sclera anicteric, moist mucus membranes Neck: supple Lungs: Tachypneic, Bilateral basilar rhonchi. Heart: regular rate and rhythm, no murmurs Abd: soft, non-tender, non-distended, bowel sounds audible Ext: no edema Skin: warm/well-perfused Neuro: alert and oriented x3, no focal findings Psych: appropriate affect Objective Data Active Medications Acetaminophen (Acetaminophen 325 Mg Tablet) 650 mg PO Q6H PRN PRN Reason: Pain, Mild (Pain Scale 1-3) Last Admin: 10/22/24 12:04 Dose: 650 mg Documented By: JOSEPH Albuterol/Ipratropium (Albuterol/Iprat 2.5/0.5mg 3 Ml Ampul.Neb) 3 ml INHALE RQ4H WHILE AWAKE PRN PRN Reason: Shortness of Breath/Wheezing Last Admin: 10/15/24 22:42 Dose: 3 ml Documented By: RIRI Albuterol/Ipratropium (Albuterol/Iprat 2.5/0.5mg 3 Ml Ampul.Neb) 3 ml INHALE RQ4H WHILE AWAKE [facility] Last Admin: 10/22/24 15:13 Dose: 3 ml Documented By: ISHA Amlodipine Besylate (Amlodipine Besylate 10 Mg Tablet) 10 mg PO DAILY [facility]; Protocol Last Admin: 10/22/24 08:18 Dose: 10 mg Documented By: JOSEPH Atorvastatin Calcium (Atorvastatin Calcium 10 Mg Tablet) 10 mg PO BEDTIME [facility] Last Admin: 10/21/24 21:28 Dose: 10 mg Documented By: RONALD Clonidine HCl (Clonidine Hcl 0.1 Mg Tablet) 0.1 mg PO TID [facility]; Protocol Last Admin: 10/22/24 08:19 Dose: 0.1 mg Documented By: JOSEPH Enoxaparin Sodium (Enoxaparin Sodium 40 Mg/0.4 Ml Syringe) 40 mg SUBCUT Q24H [facility] Last Admin: 10/21/24 16:24 Dose: 40 mg Documented By: JOSEPH Gabapentin (Gabapentin 300 Mg Capsule) 300 mg PO BID@0900,1700 [facility] Last Admin: 10/22/24 08:19 Dose: 300 mg Documented By: JOSEPH Guaifenesin (Guaifenesin La 600 Mg Tab.Er.12h) 1,200 mg PO BID [facility] Azithromycin 500 mg/ Sodium (Chloride) 250 mls @ 125 mls/hr IV Q24H [facility] Last Infusion: 10/21/24 18:45 Dose: Infused Documented By: RONALD Piperacillin Sod/Tazobactam (Sod 4.5 gm/ Sodium Chloride) 100 mls @ 200 mls/hr IV Q6H [facility] Last Infusion: 10/22/24 13:16 Dose: Infused Documented By: JOSEPH Methylprednisolone Sodium Succinate (Methylprednisolone Sod Succ 40 Mg/Ml Vial) 40 mg IVPUSH Q8H [facility] Last Admin: 10/22/24 12:04 Dose: 40 mg Documented By: JOSEPH Omeprazole (Omeprazole 20 Mg Capsule.Dr) 20 mg PO DAILY@0630 [facility] Last Admin: 10/22/24 05:10 Dose: 20 mg Documented By: RONALD Ondansetron HCl (Ondansetron Hcl 4 Mg/2 Ml Vial) 4 mg IVPUSH Q6H PRN PRN Reason: Nausea and Vomiting Last Admin: 10/19/24 06:39 Dose: 4 mg Documented By: DAVID Sertraline HCl (Sertraline Hcl 100 Mg Tablet) 100 mg PO DAILY [facility] Last Admin: 10/22/24 08:18 Dose: 100 mg Documented By: JOSEPH Sodium Chloride (0.9 % Sodium Chloride Flush 3 Ml Syringe) 3 ml IVFLUSH QSHIFT [facility] Last Admin: 10/22/24 08:19 Dose: 3 ml Documented By: JOSEPH Labs 10/21/24 07:00 10/22/24 06:08 Labs: Laboratory Results - last 24 hr 10/22/24 10/22/24 06:08 06:09 Hold Purple Top SEE NOTE VBG pH 7.47 H VBG pCO2 64 VBG pO2 75 VBG HCO3 47 H VBG O2 Saturation 97.0 VBG Base Excess 19.9 Anion Gap 9 L Estim Creat Clear Calc 91.5 Estimated GFR > 60 Random Glucose 87 Calcium 8.4 Microbiology Microbiology Results: Microbiology 10/20/24 00:32 Blood Culture - Preliminary Blood - Venous No growth after 48 hours. 10/20/24 00:32 Blood Culture - Preliminary Blood - Venous No growth after 48 hours. Assessment and Plan (1) COPD exacerbation: Status: Acute (2) Acute on chronic respiratory failure with hypoxia and hypercapnia: Status: Acute (3) Respiratory failure with hypoxia and hypercapnia: Status: Acute Plan 79yo F with COPD on 2L O2, HLD, obesity who was at STR at [facility] and was admitted to the ICU for acute hypoxia/hypercapnea refractory to BiPAP support, intubated then extubated the next day and stepped down to [facility] 10/16 acute/chronic hypoxic/hypercarbic resp failure due to COPD exac/LLL PNA - noted to have significant hypoxia this morning placed back on high-flow oxygen 50 L/55% oxygenating 89% - flu/RSV/COVID negative - on cefepime 10/15- plus azithro 10/17- for retrocardiac pneumonia; CT 10/19 showed: Persistent probable left lower lobe pneumonia with mucoid impaction and new superimposed presumed aspiration. - LEATHER PRODUCTS SUPERVISOR consulted, recommends NDD2 solids + thin liquids - continue CPT + Aerobika - seen by pulmonology they recommend broad-spectrum antibiotics, nocturnal BiPAP, CPT with percussion valve, he recommend bronchoscopy if LLL process persist but deemed high risk for any procedure with respiratory failure - will change back to IV steroids 40 mg q.8 hours, DC IV cefepime and place on IV Zosyn , patient noncompliant with BiPAP, repeat VBG stable - case discussed with corporate sales trainer they recommend to continue high-flow oxygen and they feel she does not seem like needing BiPAP at this time HTN hx brief hypotension overnight 10/19-10/20 - BCx negative, lactate normal; fluid-responsive -now noted to have elevated blood pressure, continue clonidine at half of her home dose, resume amlodipine, continue hold losartan and follow BP HLD - statin mood disorder continue sertraline dispo - eventual STR In my clinical judgment, the patient requires continued inpatient hospitalization for the following reasons: hypoxia/hypercarbia, IV ABX Quality Stroke Does the patient have a stroke diagnosis?: No VTE Prior VTE?: No VTE Risk Level:: Medical - moderate - high VTE Device Contraindication: Treatment Not Indicated VTE Drug Contraindication: N/A - Med Ordered
[2024-10-22] MEDS: guaiFENesin LA 600 MG TAB.ER.12H 1200 MG PO (20:14)
[2024-10-22] MEDS: Atorvastatin Calcium 10 MG TABLET PO (20:15)
[2024-10-23] VITALS (14 sets, daily range): BP systolic 114–166; BP diastolic 55–96; PULSE 70–88; RESP 18–22; TEMP 36–36.7; O2SAT 89–94
[2024-10-23] MEDS: Piperacillin Sodium/Tazobactam 4.5 GM in 0.9 % Sodium Chloride 100 ML IV ×5 (00:46→23:40)
[2024-10-23] MEDS: methylPREDNISolone Sod Succ 40 MG/ML VIAL IVPUSH ×3 (05:14→20:45)
[2024-10-23] MEDS: Omeprazole 20 MG CAPSULE.DR PO (05:21)
[2024-10-23] MEDS: Albuterol/Iprat 2.5/0.5MG 3 ML AMPUL.NEB INHALE ×4 (07:23→19:33)
[2024-10-23] MEDS: Sertraline HCL 100 MG TABLET PO (09:33)
[2024-10-23] MEDS: guaiFENesin LA 600 MG TAB.ER.12H 1200 MG PO ×2 (09:33→20:20)
[2024-10-23] MEDS: Gabapentin 300 MG CAPSULE PO ×2 (09:33→17:23)
[2024-10-23] MEDS: 0.9 % Sodium Chloride Flush 3 ML SYRINGE IVFLUSH ×3 (09:33→20:21)
[2024-10-23] MEDS: amLODIPine Besylate 10 MG TABLET PO (09:34)
[2024-10-23] MEDS: cloNIDine HCL 0.1 MG TABLET PO ×3 (09:34→20:20)
--- NOTE | 2024-10-23 13:26 | HO.PM.IMPN ---
Subjective Subjective Date of Service: 10/23/24 Interval History: Resting comfortably , denies shortness of breath complaining of congested cough unable to bring up phlegm, tolerating high-flow oxygen currently 50% finger oximetry 90 -91 % Review of Systems No other acute events overnight. Physical Exam Vital Signs: Vital Signs: Last Vital Signs Temp 98.0 F 10/23/24 11:33 Pulse 78 10/23/24 11:33 Resp 22 H 10/23/24 11:33 BP 120/60 10/23/24 11:33 Pulse Ox 89 L 10/23/24 11:33 O2 Del Method High Flow Nasal C annula 10/23/24 11:33 O2 Flow Rate 35 10/23/24 11:33 FiO2 40 10/23/24 11:33 Oxygen Flow Rate 4 10/15/24 11:33 BMI result Body Mass Index 37.5 Const: Other: Gen: No acute distress. HEENT: sclera anicteric, moist mucus membranes Neck: supple Lungs: Tachypneic, Bilateral basilar rhonchi. Heart: regular rate and rhythm, no murmurs Abd: soft, non-tender, non-distended, bowel sounds audible Ext: no edema Skin: warm/well-perfused Neuro: alert and oriented x3, no focal findings Psych: appropriate affect Objective Data Active Medications Acetaminophen (Acetaminophen 325 Mg Tablet) 650 mg PO Q6H PRN PRN Reason: Pain, Mild (Pain Scale 1-3) Last Admin: 10/22/24 12:04 Dose: 650 mg Documented By: JOSEPH Albuterol/Ipratropium (Albuterol/Iprat 2.5/0.5mg 3 Ml Ampul.Neb) 3 ml INHALE RQ4H WHILE AWAKE PRN PRN Reason: Shortness of Breath/Wheezing Last Admin: 10/15/24 22:42 Dose: 3 ml Documented By: RIRI Albuterol/Ipratropium (Albuterol/Iprat 2.5/0.5mg 3 Ml Ampul.Neb) 3 ml INHALE RQ4H WHILE AWAKE [facility] Last Admin: 10/23/24 11:12 Dose: 3 ml Documented By: ISHA Amlodipine Besylate (Amlodipine Besylate 10 Mg Tablet) 10 mg PO DAILY [facility]; Protocol Last Admin: 10/23/24 09:34 Dose: 10 mg Documented By: JEANETH Atorvastatin Calcium (Atorvastatin Calcium 10 Mg Tablet) 10 mg PO BEDTIME [facility] Last Admin: 10/22/24 20:15 Dose: 10 mg Documented By: RONALD Clonidine HCl (Clonidine Hcl 0.1 Mg Tablet) 0.1 mg PO TID [facility]; Protocol Last Admin: 10/23/24 09:34 Dose: 0.1 mg Documented By: JEANETH Enoxaparin Sodium (Enoxaparin Sodium 40 Mg/0.4 Ml Syringe) 40 mg SUBCUT Q24H [facility] Last Admin: 10/22/24 16:07 Dose: 40 mg Documented By: JOSEPH Gabapentin (Gabapentin 300 Mg Capsule) 300 mg PO BID@0900,1700 [facility] Last Admin: 10/23/24 09:33 Dose: 300 mg Documented By: JEANETH Guaifenesin (Guaifenesin La 600 Mg Tab.Er.12h) 1,200 mg PO BID [facility] Last Admin: 10/23/24 09:33 Dose: 1,200 mg Documented By: JEANETH Piperacillin Sod/Tazobactam (Sod 4.5 gm/ Sodium Chloride) 100 mls @ 200 mls/hr IV Q6H [facility] Last Admin: 10/23/24 13:03 Dose: 200 mls/hr Documented By: JEANETH Methylprednisolone Sodium Succinate (Methylprednisolone Sod Succ 40 Mg/Ml Vial) 40 mg IVPUSH Q8H [facility] Last Admin: 10/23/24 13:03 Dose: 40 mg Documented By: JEANETH Omeprazole (Omeprazole 20 Mg Capsule.) 20 mg PO DAILY@0630 [facility] Last Admin: 10/23/24 05:21 Dose: 20 mg Documented By: RONALD Ondansetron HCl (Ondansetron Hcl 4 Mg/2 Ml Vial) 4 mg IVPUSH Q6H PRN PRN Reason: Nausea and Vomiting Last Admin: 10/19/24 06:39 Dose: 4 mg Documented By: DAVID Sertraline HCl (Sertraline Hcl 100 Mg Tablet) 100 mg PO DAILY [facility] Last Admin: 10/23/24 09:33 Dose: 100 mg Documented By: JEANETH Sodium Chloride (0.9 % Sodium Chloride Flush 3 Ml Syringe) 3 ml IVFLUSH QSHIFT [facility] Last Admin: 10/23/24 09:33 Dose: 3 ml Documented By: JEANETH Labs 10/21/24 07:00 10/22/24 06:08 Assessment and Plan (1) COPD exacerbation: Status: Acute (2) Acute on chronic respiratory failure with hypoxia and hypercapnia: Status: Acute (3) Respiratory failure with hypoxia and hypercapnia: Status: Acute Plan 79yo F with COPD on 2L O2, HLD, obesity who was at STR at [facility] and was admitted to the ICU for acute hypoxia/hypercapnea refractory to BiPAP support, intubated then extubated the next day and [facility] 10[facility]16 acute/chronic hypoxic/hypercarbic resp failure due to COPD exac/LLL PNA - remains hypoxic requiring high-flow oxygen 50 L/55% oxygenating 89% - flu/RSV/COVID negative - on cefepime 10/15- plus azithro 10/17-now on IV Zosyn started 10/22 for retrocardiac pneumonia; CT 10/19 showed: Persistent probable left lower lobe pneumonia with mucoid impaction and new superimposed presumed aspiration. - ENVIRONMENTAL ANALYST consulted, recommends NDD2 solids + thin liquids - continue CPT + Aerobika - seen by pulmonology they recommend broad-spectrum antibiotics, nocturnal BiPAP, CPT with percussion valve, he recommend bronchoscopy if LLL process persist but deemed high risk for any procedure with respiratory failure - continue IV steroids 40 mg q.8 hours, IV Zosyn , unable to tolerate BiPAP - follow clinical course gradually wean oxygen as tolerated, follow-up with pulmonology HTN hx brief hypotension overnight 10/19-10/20, BCx negative, lactate normal; fluid-responsive BP now stable on clonidine at half of her home dose, and amlodipine, continue hold losartan and follow BP HLD - statin mood disorder continue sertraline Class 3 obesity recommend low-calorie diet. dispo - eventual STR In my clinical judgment, the patient requires continued inpatient hospitalization for the following reasons: hypoxia/hypercarbia, IV ABX Quality Stroke Does the patient have a stroke diagnosis?: No VTE Prior VTE?: No VTE Risk Level:: Medical - moderate - high VTE Device Contraindication: Treatment Not Indicated VTE Drug Contraindication: N/A - Med Ordered
[2024-10-23] MEDS: Acetaminophen 325 MG TABLET 650 MG PO (15:20)
[2024-10-23] MEDS: Enoxaparin Sodium 40 MG/0.4 ML SYRINGE SUBCUT (15:21)
[2024-10-23] MEDS: Atorvastatin Calcium 10 MG TABLET PO (20:20)
[2024-10-24] VITALS (13 sets, daily range): BP systolic 128–159; BP diastolic 57–74; PULSE 76–104; RESP 18–20; TEMP 36.3–36.9; O2SAT 89–97
[2024-10-24] MEDS: methylPREDNISolone Sod Succ 40 MG/ML VIAL IVPUSH ×3 (04:37→20:13)
[2024-10-24] MEDS: Piperacillin Sodium/Tazobactam 4.5 GM in 0.9 % Sodium Chloride 100 ML IV ×3 (05:34→17:11)
[2024-10-24] MEDS: Albuterol/Iprat 2.5/0.5MG 3 ML AMPUL.NEB INHALE ×4 (09:03→19:44)
[2024-10-24] MEDS: Gabapentin 300 MG CAPSULE PO ×2 (10:30→17:11)
[2024-10-24] MEDS: 0.9 % Sodium Chloride Flush 3 ML SYRINGE IVFLUSH ×3 (10:30→20:20)
[2024-10-24] MEDS: cloNIDine HCL 0.1 MG TABLET PO ×3 (10:30→20:18)
[2024-10-24] MEDS: amLODIPine Besylate 10 MG TABLET PO (10:31)
[2024-10-24] MEDS: Sertraline HCL 100 MG TABLET PO (10:31)
[2024-10-24] MEDS: guaiFENesin LA 600 MG TAB.ER.12H 1200 MG PO ×2 (10:31→20:17)
--- NOTE | 2024-10-24 13:31 | MHC.SL.SWA ---
Speech Pathologist Impression: Risk of Aspiration Risk of Aspiration Due to: Medically Fragile Hx of Recent Extubation Dysphasia Diet Status: Recommend continue on Ground Mechanical (NDD2) with Thin Liquids, pills whole with liquid. Patient will continue to need supervision at meals, assure that patient has nasal cannula, give rest breaks on 02 mask as well to maintain adequate oxidation. Liquid Consistency and Strategies for Safe Swallow: Liquid Intake Recommendation: Thin Liquid Intake Strategies: Small Sips Solid Food Consistency: Dietary Recommendations: Grnd/Mech Altered (NDD2) Additional Modifications to Solid Foods: Due to O2 status, patient will require frequent breaks during meal if de-satting. Close management of 02/respiration will be needed. Diet texture recommended due to current absence of dentures, poor management of chopped consistency, respiratory fatigue. DETAIL DRAFTER will re-assess if dentures are recovered. Oral Medication Intake: Whole with Liquid Please contact the pharmacy regarding appropriate crushable or liquid drug formulations that are available whenever modified delivery is recommended. Compensatory Strategies and Precautions to be Taken for Safe Swallow: Sitting Upright (90 deg) Liquids from Cup Liquids from Straw Small Bites and Sips Alternate Liquids/Solids Supervision While Eating and Drinking for Safe Swallow: Total Supervision (1:1) Foods to Avoid: Hard, difficult to chew solids, dry, crunchy textures. Swallowing Recommended Treatments: Compens. Strategy Educat. Recommendation for Speech: Inpatient Speech Therapy Speech Therapy through Rehab Facility Comment: Patient presents with an oral phase dysphagia secondary to absent dentition/dentures, generalized weakness and difficulty sustaining adequate 02 during exertion of meal. Recommend DOWNGRADE diet to Ground/Mechanical (NDD2) continue with thin liquids, pills whole with liquid. Patient will need to take frequent respiratory breaks during meal, and requires close supervision due to respiratory status. Patient may be able to have upgraded diet if dentures are present, however they are currently misplaced according to patient. Frequency/Duration: Date Range for Service Req: Timeline to reassess: Supply Chain Engineer Clinican/Clinical Fellow: No Supervisory Statement: I have reviewed and agree with the student/clinical fellow's documentation: N/A Speech Language Pathologist: Mehnaz Espinoza M.A., CCC-DETAIL DRAFTER
--- NOTE | 2024-10-24 14:16 | MHC.CM.PN ---
EMR reviewed and per MD rounds, pt is not medically cleared for discharge due to management of hypoxia, with pt remaining on hi-flow at this time.
[2024-10-24] MEDS: Enoxaparin Sodium 40 MG/0.4 ML SYRINGE SUBCUT (14:26)
--- NOTE | 2024-10-24 14:33 | HO.PM.IMPN ---
Subjective Subjective Date of Service: 10/24/24 Interval History: No change in clinical status Remained hypoxic on high-flow oxygen, complaining of congested cough unable to bring up phlegm Denies chest pain, no palpitations, no fevers, no chills, no acute events overnight. Tolerating diet. Review of Systems All other system reviewed and are negative. Physical Exam Vital Signs: Vital Signs: Last Vital Signs Temp 97.8 F 10/24/24 11:09 Pulse 90 10/24/24 12:36 Resp 18 10/24/24 12:36 BP 128/70 10/24/24 11:09 Pulse Ox 92 10/24/24 11:09 O2 Del Method High Flow Nasal C annula 10/24/24 11:09 O2 Flow Rate 30 10/24/24 11:09 FiO2 50 10/24/24 11:09 Oxygen Flow Rate 4 10/15/24 11:33 BMI result Body Mass Index 37.5 Const: Other: Gen: No acute distress. HEENT: sclera anicteric, moist mucus membranes Neck: supple Lungs: Bilateral basilar rhonchi, no use of accessory muscles. Heart: regular rate and rhythm, no murmurs Abd: soft, non-tender, non-distended, bowel sounds audible Ext: no edema Skin: warm/well-perfused Neuro: alert and oriented x3, no focal findings Psych: appropriate affect Objective Data Active Medications Acetaminophen (Acetaminophen 325 Mg Tablet) 650 mg PO Q6H PRN PRN Reason: Pain, Mild (Pain Scale 1-3) Last Admin: 10/23/24 15:20 Dose: 650 mg Documented By: JEANETH Albuterol/Ipratropium (Albuterol/Iprat 2.5/0.5mg 3 Ml Ampul.Neb) 3 ml INHALE RQ4H WHILE AWAKE PRN PRN Reason: Shortness of Breath/Wheezing Last Admin: 10/15/24 22:42 Dose: 3 ml Documented By: RIRI Albuterol/Ipratropium (Albuterol/Iprat 2.5/0.5mg 3 Ml Ampul.Neb) 3 ml INHALE RQ4H WHILE AWAKE [facility] Last Admin: 10/24/24 12:36 Dose: 3 ml Documented By: LENNIE Amlodipine Besylate (Amlodipine Besylate 10 Mg Tablet) 10 mg PO DAILY [facility]; Protocol Last Admin: 10/24/24 10:31 Dose: 10 mg Documented By: HANDY Atorvastatin Calcium (Atorvastatin Calcium 10 Mg Tablet) 10 mg PO BEDTIME [facility] Last Admin: 10/23/24 20:20 Dose: 10 mg Documented By: CHRISTY Clonidine HCl (Clonidine Hcl 0.1 Mg Tablet) 0.1 mg PO TID [facility]; Protocol Last Admin: 10/24/24 14:26 Dose: 0.1 mg Documented By: HANDY Enoxaparin Sodium (Enoxaparin Sodium 40 Mg/0.4 Ml Syringe) 40 mg SUBCUT Q24H [facility] Last Admin: 10/24/24 14:26 Dose: 40 mg Documented By: HANDY Gabapentin (Gabapentin 300 Mg Capsule) 300 mg PO BID@0900,1700 [facility] Last Admin: 10/24/24 10:30 Dose: 300 mg Documented By: HANDY Guaifenesin (Guaifenesin La 600 Mg Tab.Er.12h) 1,200 mg PO BID [facility] Last Admin: 10/24/24 10:31 Dose: 1,200 mg Documented By: HANDY Piperacillin Sod/Tazobactam (Sod 4.5 gm/ Sodium Chloride) 100 mls @ 200 mls/hr IV Q6H [facility] Last Admin: 10/24/24 12:10 Dose: 200 mls/hr Documented By: HANDY Methylprednisolone Sodium Succinate (Methylprednisolone Sod Succ 40 Mg/Ml Vial) 40 mg IVPUSH Q8H [facility] Last Admin: 10/24/24 10:30 Dose: 40 mg Documented By: HANDY Omeprazole (Omeprazole 20 Mg Capsule.Dr) 20 mg PO DAILY@0630 [facility] Last Admin: 10/24/24 05:37 Dose: Not Given Documented By: CHRISTY Non-Admin Reason: Patient Refused Ondansetron HCl (Ondansetron Hcl 4 Mg/2 Ml Vial) 4 mg IVPUSH Q6H PRN PRN Reason: Nausea and Vomiting Last Admin: 10/19/24 06:39 Dose: 4 mg Documented By: DAVID Sertraline HCl (Sertraline Hcl 100 Mg Tablet) 100 mg PO DAILY [facility] Last Admin: 10/24/24 10:31 Dose: 100 mg Documented By: HANDY Sodium Chloride (0.9 % Sodium Chloride Flush 3 Ml Syringe) 3 ml IVFLUSH QSHIFT [facility] Last Admin: 10/24/24 14:26 Dose: 3 ml Documented By: HANDY Labs 10/21/24 07:00 10/22/24 06:08 Assessment and Plan (1) COPD exacerbation: Status: Acute (2) Acute on chronic respiratory failure with hypoxia and hypercapnia: Status: Acute (3) COPD (chronic obstructive pulmonary disease): Status: Acute Plan 79yo F with COPD on 2L O2, HLD, obesity who was at STR at [facility] and was admitted to the ICU for acute hypoxia/hypercapnea refractory to BiPAP support, intubated then extubated the next day and [facility]16 acute/chronic hypoxic/hypercarbic resp failure due to COPD exac/LLL PNA - remains hypoxic requiring high-flow oxygen 50 L/55% oxygenating 92% - flu/RSV/COVID negative - on cefepime 10/15- plus azithro 10/17 thru 10/22 -now on IV Zosyn started 10/22 for retrocardiac pneumonia; CT 10/19 showed: Persistent probable left lower lobe pneumonia with mucoid impaction and new superimposed presumed aspiration. - MANAGER BATTERY consulted, recommends NDD2 solids + thin liquids, tolerating diet no episodes of choking or coughing - continue CPT + Aerobika - continue IV steroids 40 mg q.8 hours, IV Zosyn , unable to tolerate BiPAP - follow clinical course gradually wean oxygen as tolerated - case discussed with pulmonology they recommend chest PT with cough assist and recommend repeat CTA chest at a.m. if no improvement next 24 hours HTN hx brief hypotension overnight 10/19-10/20, BCx negative, lactate normal; fluid-responsive BP now stable on clonidine at half of her home dose, and amlodipine, continue hold losartan and follow BP HLD - statin mood disorder continue sertraline Class 3 obesity recommend low-calorie diet. dispo - eventual STR In my clinical judgment, the patient requires continued inpatient hospitalization for the following reasons: hypoxia/hypercarbia, IV ABX Quality Stroke Does the patient have a stroke diagnosis?: No VTE Prior VTE?: No VTE Risk Level:: Medical - moderate - high VTE Device Contraindication: Treatment Not Indicated VTE Drug Contraindication: N/A - Med Ordered
--- NOTE | 2024-10-24 18:58 | PC.RT ---
pt has been refusing bipa therefore otder to be dc's per policy
[2024-10-24] MEDS: Acetaminophen 325 MG TABLET 650 MG PO (20:14)
[2024-10-24] MEDS: Atorvastatin Calcium 10 MG TABLET PO (20:14)
[2024-10-25] VITALS (12 sets, daily range): BP systolic 117–160; BP diastolic 60–78; PULSE 70–97; RESP 18–20; TEMP 36.1–37.1; O2SAT 90–100
[2024-10-25] MEDS: Piperacillin Sodium/Tazobactam 4.5 GM in 0.9 % Sodium Chloride 100 ML IV ×4 (00:09→16:25)
[2024-10-25] MEDS: methylPREDNISolone Sod Succ 40 MG/ML VIAL IVPUSH ×3 (04:48→21:51)
[2024-10-25] MEDS: Omeprazole 20 MG CAPSULE.DR PO (05:27)
[2024-10-25 07:03] LABS: Anion Gap 12 (12-20); Blood Urea Nitrogen 26 mg/dL (9-16); Calcium 8.6 mg/dL (8.4-10.2); Carbon Dioxide 33 mmol/L (22-29); Chloride 104 mmol/L (96-108); Creatinine Clr Calc Pharmacy 76.8; Estimated Glomerular Filt Rate > 60; Glucose Random 140 mg/dL (60-115); Potassium 3.8 mmol/L (3.3-5.1); Sodium 145 mmol/L (135-145)
[2024-10-25] MEDS: Albuterol/Iprat 2.5/0.5MG 3 ML AMPUL.NEB INHALE ×4 (07:39→18:37)
[2024-10-25] MEDS: amLODIPine Besylate 10 MG TABLET PO (08:23)
[2024-10-25] MEDS: Sertraline HCL 100 MG TABLET PO (08:23)
[2024-10-25] MEDS: Gabapentin 300 MG CAPSULE PO ×2 (08:23→16:25)
[2024-10-25] MEDS: cloNIDine HCL 0.1 MG TABLET PO (08:23)
[2024-10-25] MEDS: 0.9 % Sodium Chloride Flush 3 ML SYRINGE IVFLUSH ×3 (08:24→21:51)
[2024-10-25] MEDS: guaiFENesin LA 600 MG TAB.ER.12H 1200 MG PO ×2 (08:24→21:50)
--- NOTE | 2024-10-25 12:01 | MHC.CM.PN ---
Per ROUNDS discussion, Patient is not yet medically cleared for dc (high flow O2); STR is the goal and CM will continue to follow.
[2024-10-25] MEDS: iohexoL 350 MG/ML 100 ML INFUS..BTL IV (12:17)
[2024-10-25] MEDS: Acetaminophen 325 MG TABLET 650 MG PO ×2 (12:22→21:50)
--- NOTE | 2024-10-25 12:31 | MHC.SLORD ---
Speech Language Pathology Order Status: Pt out of room when ST on floor, ST to followup when pt returns.
--- NOTE | 2024-10-25 12:53 | HO.PM.IMPN ---
Subjective Subjective Date of Service: 10/25/24 Interval History: Being followed for acute hypoxic respiratory failure Offers no acute complaints, noted to have congested cough unable to bring up phlegm No fevers, no chills, no nausea, no vomiting. Being followed by speech therapy for concern of aspiration. Review of Systems All other system reviewed and are negative. Physical Exam Vital Signs: Vital Signs: Last Vital Signs Temp 97.2 F 10/25/24 11:43 Pulse 78 10/25/24 11:43 Resp 20 10/25/24 11:43 BP 147/65 H 10/25/24 11:43 Pulse Ox 100 10/25/24 11:43 O2 Del Method Blow By, High Yony w Nasal Cannula 10/25/24 11:43 O2 Flow Rate 10 10/25/24 11:43 FiO2 55 10/25/24 11:43 Oxygen Flow Rate 4 10/15/24 11:33 BMI result Body Mass Index 37.5 Const: Other: Gen: No acute distress. HEENT: sclera anicteric, moist mucus membranes Neck: supple Lungs: Bilateral basilar rhonchi L>Rt , no use of accessory muscles. Heart: regular rate and rhythm, no murmurs Abd: soft, non-tender, non-distended, bowel sounds audible Ext: no edema Skin: warm/well-perfused Neuro: alert and oriented x3, no focal findings Psych: appropriate affect Objective Data Active Medications Acetaminophen (Acetaminophen 325 Mg Tablet) 650 mg PO Q6H PRN PRN Reason: Pain, Mild (Pain Scale 1-3) Last Admin: 10/25/24 12:22 Dose: 650 mg Documented By: HANDY Albuterol/Ipratropium (Albuterol/Iprat 2.5/0.5mg 3 Ml Ampul.Neb) 3 ml INHALE RQ4H WHILE AWAKE PRN PRN Reason: Shortness of Breath/Wheezing Last Admin: 10/15/24 22:42 Dose: 3 ml Documented By: RIRI Albuterol/Ipratropium (Albuterol/Iprat 2.5/0.5mg 3 Ml Ampul.Neb) 3 ml INHALE RQ4H WHILE AWAKE MAYRA Last Admin: 10/25/24 11:11 Dose: 3 ml Documented By: CARTER Amlodipine Besylate (Amlodipine Besylate 10 Mg Tablet) 10 mg PO DAILY [facility]; Protocol Last Admin: 10/25/24 08:23 Dose: 10 mg Documented By: HANDY Atorvastatin Calcium (Atorvastatin Calcium 10 Mg Tablet) 10 mg PO BEDTIME [facility] Last Admin: 10/24/24 20:14 Dose: 10 mg Documented By: CHRISTY Clonidine HCl (Clonidine Hcl 0.1 Mg Tablet) 0.1 mg PO TID [facility]; Protocol Last Admin: 10/25/24 08:23 Dose: 0.1 mg Documented By: HANDY Enoxaparin Sodium (Enoxaparin Sodium 40 Mg/0.4 Ml Syringe) 40 mg SUBCUT Q24H [facility] Last Admin: 10/24/24 14:26 Dose: 40 mg Documented By: HANDY Gabapentin (Gabapentin 300 Mg Capsule) 300 mg PO BID@0900,1700 [facility] Last Admin: 10/25/24 08:23 Dose: 300 mg Documented By: HANDY Guaifenesin (Guaifenesin La 600 Mg Tab.Er.12h) 1,200 mg PO BID [facility] Last Admin: 10/25/24 08:24 Dose: 1,200 mg Documented By: HANDY Piperacillin Sod/Tazobactam (Sod 4.5 gm/ Sodium Chloride) 100 mls @ 200 mls/hr IV Q6H [facility] Last Admin: 10/25/24 12:23 Dose: 200 mls/hr Documented By: HANDY Methylprednisolone Sodium Succinate (Methylprednisolone Sod Succ 40 Mg/Ml Vial) 40 mg IVPUSH Q8H [facility] Last Admin: 10/25/24 12:23 Dose: 40 mg Documented By: HANDY Omeprazole (Omeprazole 20 Mg Capsule.Dr) 20 mg PO DAILY@0630 [facility] Last Admin: 10/25/24 05:27 Dose: 20 mg Documented By: CHRISTY Ondansetron HCl (Ondansetron Hcl 4 Mg/2 Ml Vial) 4 mg IVPUSH Q6H PRN PRN Reason: Nausea and Vomiting Last Admin: 10/19/24 06:39 Dose: 4 mg Documented By: DAVID Sertraline HCl (Sertraline Hcl 100 Mg Tablet) 100 mg PO DAILY [facility] Last Admin: 10/25/24 08:23 Dose: 100 mg Documented By: HANDY Sodium Chloride (0.9 % Sodium Chloride Flush 3 Ml Syringe) 3 ml IVFLUSH QSHIFT [facility]RA Last Admin: 10/25/24 08:24 Dose: 3 ml Documented By: HANDY Labs 10/21/24 07:00 10/25/24 06:31 Labs: Laboratory Results - last 24 hr 10/25/24 06:31 Hold Purple Top SEE NOTE Anion Gap 12 Estim Creat Clear Calc 76.8 Estimated GFR > 60 Random Glucose 140 H Calcium 8.6 Microbiology Microbiology Results: Microbiology 10/20/24 00:32 Blood Culture - Final Blood - Venous No growth after 5 days. 10/20/24 00:32 Blood Culture - Final Blood - Venous No growth after 5 days. Assessment and Plan (1) COPD exacerbation: Status: Acute (2) Acute on chronic respiratory failure with hypoxia and hypercapnia: Status: Acute (3) COPD (chronic obstructive pulmonary disease): Status: Acute (4) Respiratory failure with hypoxia and hypercapnia: Status: Acute Plan 79yo F with COPD on 2L O2, HLD, obesity who was at STR at [facility] and was admitted to the ICU for acute hypoxia/hypercapnea refractory to BiPAP support, intubated then extubated the next day and stepped down to [facility] 10/16 acute/chronic hypoxic/hypercarbic resp failure due to COPD exac/LLL PNA - remains hypoxic requiring high-flow oxygen 50 L/55% oxygenating 92% - flu/RSV/COVID negative. PCT 0.02 - on cefepime 10/15- plus azithro 10/17 thru 10/22 -now on IV Zosyn started 10/22 for retrocardiac pneumonia; CT 10/19 showed: Persistent probable left lower lobe pneumonia with mucoid impaction and new superimposed presumed aspiration. - FIRE CHIEF consulted, recommends NDD2 solids + thin liquids, tolerating diet , being followed by speech therapy closely - continue CPT + Aerobika - continue IV steroids 40 mg q.8 hours, IV Zosyn , unable to tolerate BiPAP - CTA chest showed no PE, improving left lower lobe pneumonia ,, diffuse small AV thickening and bronchiectasis, foci of and oblique keel mucus plugging significantly improved in left lower lobe case discussed with pulmonology they recommend chest PT with cough assist - follow clinical course gradually wean oxygen as tolerated/out of bed to chair HTN hx brief hypotension overnight 10/19-10/20, BCx negative, lactate normal; fluid-responsive Continue clonidine 0.2 mg t.i.d., and amlodipine, monitor BP, losartan on hold HLD - statin mood disorder continue sertraline Class 3 obesity recommend low-calorie diet. dispo - eventual STR In my clinical judgment, the patient requires continued inpatient hospitalization for the following reasons: hypoxia/hypercarbia, IV ABX Quality Stroke Does the patient have a stroke diagnosis?: No VTE Prior VTE?: No VTE Risk Level:: Medical - moderate - high VTE Device Contraindication: Treatment Not Indicated VTE Drug Contraindication: N/A - Med Ordered
[2024-10-25] MEDS: Enoxaparin Sodium 40 MG/0.4 ML SYRINGE SUBCUT (14:24)
[2024-10-25] MEDS: cloNIDine HCL 0.2 MG TABLET PO ×2 (14:24→21:51)
--- NOTE | 2024-10-25 14:30 | MHC.SL.SWA ---
Speech Pathologist Impression: Slight risk for aspiration d/t respiratory status, pt verbalized understanding of recc safety precautions, diet modifications and strategies to reduce risk for aspiration, CLIENT ENGAGEMENT MANAGER tx to continue addressing dysphagia mx. Risk of Aspiration Due to: Medically Fragile Hx of Recent Extubation Dysphasia Diet Status: Recommend continue on Ground Mechanical (NDD2) with Thin Liquids, pills whole with liquid. Patient will continue to need supervision at meals, assure that patient has nasal cannula, give rest breaks on 02 mask as well to maintain adequate oxidation. Liquid Consistency and Strategies for Safe Swallow: Liquid Intake Recommendation: Thin Liquid Intake Strategies: Small Sips Solid Food Consistency: Dietary Recommendations: Grnd/Mech Altered (NDD2) Additional Modifications to Solid Foods: Due to O2 status, patient will require frequent breaks during meal if de-satting. Close management of 02/respiration will be needed. Diet texture recommended due to current absence of dentures, poor management of chopped consistency, respiratory fatigue. CLIENT ENGAGEMENT MANAGER will re-assess if dentures are recovered. Oral Medication Intake: Whole with Liquid Please contact the pharmacy regarding appropriate crushable or liquid drug formulations that are available whenever modified delivery is recommended. Compensatory Strategies and Precautions to be Taken for Safe Swallow: Sitting Upright (90 deg) Liquids from Cup Liquids from Straw Small Bites and Sips Alternate Liquids/Solids Supervision While Eating and Drinking for Safe Swallow: Total Supervision (1:1) Foods to Avoid: Hard, difficult to chew solids, dry, crunchy textures. Swallowing Recommended Treatments: Compens. Strategy Educat. Recommendation for Speech: Inpatient Speech Therapy Speech Therapy through Rehab Facility Comment: Pt seen for dysphagia treatment, education provided to improve pt understanding of reason for CLIENT ENGAGEMENT MANAGER consultation, diet and safety recommendations, and strategies to reduce risk for aspiration. Pt verbalized understanding and agreed with recommendations, nodding to confirm she understands importance of slow pacing as a primary strategy d/t respiratory status, and expressing that she does not want to be in the hospital longer for a PNA. RNs consulted. Pt has supervision and cueing during PO. Coughing intermittently observed with PO and in absence of PO. CLIENT ENGAGEMENT MANAGER continues to follow, consider CLIENT ENGAGEMENT MANAGER tx upon d/c to address dysphagia management and pharyngeal strengthening. Frequency/Duration: Date Range for Service Req: Timeline to reassess: Manager Desktop Clinican/Clinical Fellow: No Supervisory Statement: I have reviewed and agree with the student/clinical fellow's documentation: N/A Speech Language Pathologist: Andreina Dowling M.S., [facility]CLIENT ENGAGEMENT MANAGER
[2024-10-25] MEDS: Atorvastatin Calcium 10 MG TABLET PO (21:51)
[2024-10-26] VITALS (16 sets, daily range): BP systolic 102–159; BP diastolic 56–73; PULSE 58–85; RESP 16–20; TEMP 36.1–36.8; O2SAT 88–95
[2024-10-26] MEDS: Piperacillin Sodium/Tazobactam 4.5 GM in 0.9 % Sodium Chloride 100 ML IV ×4 (00:38→19:04)
[2024-10-26] MEDS: methylPREDNISolone Sod Succ 40 MG/ML VIAL IVPUSH ×3 (05:49→21:08)
[2024-10-26] MEDS: Omeprazole 20 MG CAPSULE.DR PO (05:49)
[2024-10-26] MEDS: Losartan Potassium 25 MG TABLET PO (08:26)
[2024-10-26] MEDS: Sertraline HCL 100 MG TABLET PO (08:26)
[2024-10-26] MEDS: Gabapentin 300 MG CAPSULE PO ×2 (08:26→18:21)
[2024-10-26] MEDS: cloNIDine HCL 0.2 MG TABLET PO ×3 (08:27→21:09)
[2024-10-26] MEDS: amLODIPine Besylate 10 MG TABLET PO (08:27)
[2024-10-26] MEDS: guaiFENesin LA 600 MG TAB.ER.12H 1200 MG PO ×2 (08:28→21:09)
[2024-10-26] MEDS: Albuterol/Iprat 2.5/0.5MG 3 ML AMPUL.NEB INHALE ×4 (08:31→20:21)
--- NOTE | 2024-10-26 10:39 | HO.PM.IMPN ---
Subjective Subjective Date of Service: 10/26/24 Interval History: Feeling better, coughing up phlegm small amount, denies fever, no chills, no worsening shortness of breath Seen by speech therapy they continue to recommend ground mechanical altered with thin liquids, with frequent breaks during meals if desaturating. Review of Systems All other system reviewed and are negative. Physical Exam Vital Signs: Vital Signs: Last Vital Signs Temp 97.0 F 10/26/24 07:12 Pulse 75 10/26/24 09:27 Resp 20 10/26/24 09:27 BP 157/73 H 10/26/24 08:27 Pulse Ox 94 10/26/24 07:12 O2 Del Method High Flow Nasal C annula 10/26/24 07:12 O2 Flow Rate 45 10/26/24 07:12 FiO2 50 10/26/24 07:12 Oxygen Flow Rate 4 10/15/24 11:33 BMI result Body Mass Index 37.5 Const: Other: Gen: No acute distress. HEENT: sclera anicteric, moist mucus membranes Neck: supple Lungs: bibasilar rhonchi L>Rt , no use of accessory muscles. Heart: regular rate and rhythm, no murmurs Abd: soft, non-tender, non-distended, bowel sounds audible Ext: no edema Skin: warm/well-perfused Neuro: alert and oriented x3, no focal findings Psych: appropriate affect Objective Data Active Medications Acetaminophen (Acetaminophen 325 Mg Tablet) 650 mg PO Q6H PRN PRN Reason: Pain, Mild (Pain Scale 1-3) Last Admin: 10/25/24 21:50 Dose: 650 mg Documented By: GOPI Albuterol/Ipratropium (Albuterol/Iprat 2.5/0.5mg 3 Ml Ampul.Neb) 3 ml INHALE RQ4H WHILE AWAKE PRN PRN Reason: Shortness of Breath/Wheezing Last Admin: 10/15/24 22:42 Dose: 3 ml Documented By: RIRI Albuterol/Ipratropium (Albuterol/Iprat 2.5/0.5mg 3 Ml Ampul.Neb) 3 ml INHALE RQ4H WHILE AWAKE [facility] Last Admin: 10/26/24 08:31 Dose: 3 ml Documented By: KIMMY Amlodipine Besylate (Amlodipine Besylate 10 Mg Tablet) 10 mg PO DAILY [facility]; Protocol Last Admin: 10/26/24 08:27 Dose: 10 mg Documented By: DAYANA Atorvastatin Calcium (Atorvastatin Calcium 10 Mg Tablet) 10 mg PO BEDTIME [facility] Last Admin: 10/25/24 21:51 Dose: 10 mg Documented By: GOPI Clonidine HCl (Clonidine Hcl 0.2 Mg Tablet) 0.2 mg PO TID [facility]; Protocol Last Admin: 10/26/24 08:27 Dose: 0.2 mg Documented By: DAYANA Enoxaparin Sodium (Enoxaparin Sodium 40 Mg/0.4 Ml Syringe) 40 mg SUBCUT Q24H [facility] Last Admin: 10/25/24 14:24 Dose: 40 mg Documented By: HANDY Gabapentin (Gabapentin 300 Mg Capsule) 300 mg PO BID@0900,1700 [facility] Last Admin: 10/26/24 08:26 Dose: 300 mg Documented By: DAYANA Guaifenesin (Guaifenesin La 600 Mg Tab.Er.12h) 1,200 mg PO BID [facility] Last Admin: 10/26/24 08:28 Dose: 1,200 mg Documented By: DAYANA Piperacillin Sod/Tazobactam (Sod 4.5 gm/ Sodium Chloride) 100 mls @ 200 mls/hr IV Q6H [facility] Last Infusion: 10/26/24 07:31 Dose: Infused Documented By: DAYANA Losartan Potassium (Losartan Potassium 25 Mg Tablet) 25 mg PO DAILY [facility]; Protocol Last Admin: 10/26/24 08:26 Dose: 25 mg Documented By: DAYANA Methylprednisolone Sodium Succinate (Methylprednisolone Sod Succ 40 Mg/Ml Vial) 40 mg IVPUSH Q8H [facility] Last Admin: 10/26/24 05:49 Dose: 40 mg Documented By: GOPI Omeprazole (Omeprazole 20 Mg Capsule.Dr) 20 mg PO DAILY@0630 [facility] Last Admin: 10/26/24 05:49 Dose: 20 mg Documented By: GOPI Ondansetron HCl (Ondansetron Hcl 4 Mg/2 Ml Vial) 4 mg IVPUSH Q6H PRN PRN Reason: Nausea and Vomiting Last Admin: 10/19/24 06:39 Dose: 4 mg Documented By: DAVID Sertraline HCl (Sertraline Hcl 100 Mg Tablet) 100 mg PO DAILY [facility] Last Admin: 10/26/24 08:26 Dose: 100 mg Documented By: DAYANA Sodium Chloride (0.9 % Sodium Chloride Flush 3 Ml Syringe) 3 ml IVFLUSH QSHIFT [facility] Last Admin: 10/26/24 08:40 Dose: Not Given Documented By: DAYANA Non-Admin Reason: kvo Labs 10/21/24 07:00 10/25/24 06:31 Assessment and Plan (1) COPD exacerbation: Status: Acute (2) Acute on chronic respiratory failure with hypoxia and hypercapnia: Status: Acute (3) COPD (chronic obstructive pulmonary disease): Status: Acute (4) Respiratory failure with hypoxia and hypercapnia: Status: Acute (5) Depression: Status: Acute Plan 79yo F with COPD on 2L O2, HLD, obesity who was at STR at [facility] and was admitted to the ICU for acute hypoxia/hypercapnea refractory to BiPAP support, intubated then extubated the next day and [place] [facility] [place] acute/chronic hypoxic/hypercarbic resp failure due to COPD exac/LLL PNA - remains hypoxic but decreased requirement of high-flow, will wean oxygen as tolerated - flu/RSV/COVID negative. PCT 0.02, blood cultures x2 negative - on cefepime 10/15- plus azithro 10/17 thru 10/22 -now on IV Zosyn started 10/22 for retrocardiac pneumonia; CT 10/19 showed: Persistent probable left lower lobe pneumonia with mucoid impaction and new superimposed presumed aspiration. - VOICE TEACHER consulted, recommends NDD2 solids + thin liquids, tolerating diet , being followed by speech therapy closely - continue CPT + Aerobika - on IV steroids 40 mg q.8 hours, IV Zosyn D4 , unable to tolerate BiPAP - CTA chest 10/25 showed no PE, improving left lower lobe pneumonia ,, diffuse small AV thickening and bronchiectasis, foci of endobronchial mucus plugging significantly improved in left lower lobe case discussed with pulmonology they recommend chest PT with cough assist - follow clinical course gradually wean oxygen as tolerated/out of bed to chair HTN hx brief hypotension overnight 10/19-10/20, BCx negative, lactate normal; fluid-responsive Subsequently noted to have elevated blood pressures therefore resumed home dose of clonidine 0.2 mg t.i.d., amlodipine, and losartan 25 mg daily. HLD - statin mood disorder continue sertraline Class 3 obesity recommend low-calorie diet. dispo - eventual STR, patient was scheduled to be discharged to rehab facility on 10/22 but developed hypoxia and placed on high-flow oxygen, once off high-flow oxygen will be discharged to rehab. In my clinical judgment, the patient requires continued inpatient hospitalization for the following reasons: hypoxia/hypercarbia, IV ABX Quality Stroke Does the patient have a stroke diagnosis?: No VTE Prior VTE?: No VTE Risk Level:: Medical - moderate - high VTE Device Contraindication: Treatment Not Indicated VTE Drug Contraindication: N/A - Med Ordered
--- NOTE | 2024-10-26 14:23 | MHC.SL.SWA ---
Speech Pathologist Impression: Risk of Aspiration Due to: Medically Fragile Hx of Recent Extubation Dysphasia Diet Status: Recommend continue on Ground Mechanical (NDD2) with Thin Liquids, pills whole with liquid. Patient will continue to need supervision at meals, assure that patient has nasal cannula, give rest breaks on 02 mask as well to maintain adequate oxidation. Liquid Consistency and Strategies for Safe Swallow: Liquid Intake Recommendation: Thin Liquid Intake Strategies: Small Sips Solid Food Consistency: Dietary Recommendations: Grnd/Mech Altered (NDD2) Additional Modifications to Solid Foods: Due to O2 status, patient will require frequent breaks during meal if de-satting. Close management of 02/respiration will be needed. Diet texture recommended due to current absence of dentures, poor management of chopped consistency, respiratory fatigue. AIRCRAFT CHARTER DISPATCHER will re-assess if dentures are recovered. Oral Medication Intake: Whole with Liquid Please contact the pharmacy regarding appropriate crushable or liquid drug formulations that are available whenever modified delivery is recommended. Compensatory Strategies and Precautions to be Taken for Safe Swallow: Sitting Upright (90 deg) Liquids from Cup Liquids from Straw Small Bites and Sips Alternate Liquids/Solids Supervision While Eating and Drinking for Safe Swallow: Total Supervision (1:1) Foods to Avoid: Hard, difficult to chew solids, dry, crunchy textures. Swallowing Recommended Treatments: Compens. Strategy Educat. Recommendation for Speech: Inpatient Speech Therapy Speech Therapy through Rehab Facility Comment: Patient seen at lunch. Patient today was on HFNC. Patient had already started meal and was being supervised by ROOF PANEL HANGER when AIRCRAFT CHARTER DISPATCHER arrived, with CNAs then departing with the presence of the AIRCRAFT CHARTER DISPATCHER to supervise patient. Patient was cheerful and pleasant, though quite dissatisfied with the taste of the turkey on the tray today. She fed herself scoops of mashed potato and soft ground carrots, producing mostly a tongue pumping and/or mashing pattern for bolus management and timely swallow. However during meal, she was noted to intermittently cough, though not specifically on or related to swallow (coughing at times with food in mouth). On liquids, patient noted to take small, reasonable sips. Patient continues to present with risk of aspiration, vulnerable respiratory status, and continues to benefit from supervision at meals. Discontinue if O2 saturation drops, patient evidences sigsn of clinical aspiration (coughing, wet voice, increased upper airway noise). Continue on current diet of Ground/Mechanical (NDD2) with Thin Liquids, pills whole with liquid. Frequency/Duration: Date Range for Service Req: Timeline to reassess: 3D Artist Clinican/Clinical Fellow: No Supervisory Statement: I have reviewed and agree with the student/clinical fellow's documentation: N/A Speech Language Pathologist: Elinor Cunningham M.A., CCC-AIRCRAFT CHARTER DISPATCHER
[2024-10-26] MEDS: Enoxaparin Sodium 40 MG/0.4 ML SYRINGE SUBCUT (16:16)
[2024-10-26] MEDS: Atorvastatin Calcium 10 MG TABLET PO (21:09)
[2024-10-26] MEDS: Acetaminophen 325 MG TABLET 650 MG PO (21:17)
[2024-10-27] VITALS (12 sets, daily range): BP systolic 121–152; BP diastolic 58–71; PULSE 63–83; RESP 18–20; TEMP 36.2–36.8; O2SAT 88–96
[2024-10-27] MEDS: Piperacillin Sodium/Tazobactam 4.5 GM in 0.9 % Sodium Chloride 100 ML IV ×3 (01:37→11:45)
[2024-10-27] MEDS: 0.9 % Sodium Chloride Flush 3 ML SYRINGE IVFLUSH ×4 (01:37→21:19)
[2024-10-27] MEDS: methylPREDNISolone Sod Succ 40 MG/ML VIAL IVPUSH ×2 (04:13→11:45)
[2024-10-27] MEDS: Omeprazole 20 MG CAPSULE.DR PO (06:59)
[2024-10-27] MEDS: Albuterol/Iprat 2.5/0.5MG 3 ML AMPUL.NEB INHALE ×4 (07:42→20:45)
[2024-10-27] MEDS: guaiFENesin LA 600 MG TAB.ER.12H 1200 MG PO ×2 (09:55→21:19)
[2024-10-27] MEDS: Gabapentin 300 MG CAPSULE PO ×2 (09:55→15:39)
[2024-10-27] MEDS: Sertraline HCL 100 MG TABLET PO (09:55)
[2024-10-27] MEDS: Losartan Potassium 25 MG TABLET PO (09:55)
[2024-10-27] MEDS: amLODIPine Besylate 10 MG TABLET PO (09:55)
[2024-10-27] MEDS: Acetaminophen 325 MG TABLET 650 MG PO ×2 (09:56→21:19)
[2024-10-27] MEDS: cloNIDine HCL 0.2 MG TABLET PO ×3 (09:56→21:19)
--- NOTE | 2024-10-27 10:12 | MHC.SL.SWA ---
Speech Pathologist Impression: Risk of Aspiration, Oropharyngeal Dysphagia Risk of Aspiration Due to: Medically Fragile Hx of Recent Extubation Dysphasia Diet Status: Recommend continue on Ground Mechanical (NDD2) with Thin Liquids, pills whole with liquid. Patient will continue to need supervision at meals, assure that patient has nasal cannula, give rest breaks on 02 mask as well to maintain adequate oxidation. Liquid Consistency and Strategies for Safe Swallow: Liquid Intake Recommendation: Thin Liquid Intake Strategies: Small Sips Solid Food Consistency: Dietary Recommendations: Grnd/Mech Altered (NDD2) Additional Modifications to Solid Foods: Due to O2 status, patient will require frequent breaks during meal if de-satting. Close management of 02/respiration will be needed. Diet texture recommended due to current absence of dentures, poor management of chopped consistency, respiratory fatigue. SCRIPT READER will re-assess if dentures are recovered. Oral Medication Intake: Whole with Liquid Please contact the pharmacy regarding appropriate crushable or liquid drug formulations that are available whenever modified delivery is recommended. Compensatory Strategies and Precautions to be Taken for Safe Swallow: Sitting Upright (90 deg) Liquids from Cup Liquids from Straw Small Bites and Sips Alternate Liquids/Solids Rate of Ingestion Change Avoid Specific Foods Supervision While Eating and Drinking for Safe Swallow: Total Supervision (1:1) Foods to Avoid: Hard, difficult to chew solids, dry, crunchy textures. Swallowing Recommended Treatments: Compens. Strategy Educat. Recommendation for Speech: Inpatient Speech Therapy Speech Therapy through Rehab Facility President Ceo & Founder Clinican/Clinical Fellow: No Supervisory Statement: I have reviewed and agree with the student/clinical fellow's documentation: N/A Speech Language Pathologist: Mehnaz Espinoza M.A., CCC-SCRIPT READER
--- NOTE | 2024-10-27 10:45 | HO.PM.IMPN ---
Subjective Subjective Date of Service: 10/27/24 Interval History: Being followed for acute hypoxic and hypercarbic respiratory failure. Feeling better, denies shortness of breath has congested cough Of high-flow on 3.5-4 L of oxygen, finger oximetry 91-94 No constipation, Requesting to be discharged home as opposed to rehab, lives at home with boyfriend Review of Systems All other system reviewed and negative Physical Exam Vital Signs: Vital Signs: Last Vital Signs Temp 97.3 F 10/27/24 08:00 Pulse 67 10/27/24 08:00 Resp 20 10/27/24 08:00 BP 152/71 H 10/27/24 08:00 Pulse Ox 94 10/27/24 08:00 O2 Del Method Nasal Cannula 10/27/24 08:00 O2 Flow Rate 5 10/27/24 08:00 FiO2 35 10/26/24 15:34 Oxygen Flow Rate 4 10/15/24 11:33 BMI result Body Mass Index 37.5 Const: Other: Gen: No acute distress. HEENT: sclera anicteric, moist mucus membranes Neck: supple Lungs: bibasilar rhonchi L>Rt , no use of accessory muscles. Heart: regular rate and rhythm, no murmurs Abd: soft, non-tender, non-distended, bowel sounds audible Ext: no edema Skin: warm/well-perfused Neuro: alert and oriented x3, no focal findings Psych: appropriate affect Objective Data Active Medications Acetaminophen (Acetaminophen 325 Mg Tablet) 650 mg PO Q6H PRN PRN Reason: Pain, Mild (Pain Scale 1-3) Last Admin: 10/27/24 09:56 Dose: 650 mg Documented By: ESTEBAN Albuterol/Ipratropium (Albuterol/Iprat 2.5/0.5mg 3 Ml Ampul.Neb) 3 ml INHALE RQ4H WHILE AWAKE PRN PRN Reason: Shortness of Breath/Wheezing Last Admin: 10/15/24 22:42 Dose: 3 ml Documented By: RIRI Albuterol/Ipratropium (Albuterol/Iprat 2.5/0.5mg 3 Ml Ampul.Neb) 3 ml INHALE RQ4H WHILE AWAKE MAYRA Last Admin: 10/27/24 07:42 Dose: 3 ml Documented By: ISHA Amlodipine Besylate (Amlodipine Besylate 10 Mg Tablet) 10 mg PO DAILY [facility]; Protocol Last Admin: 10/27/24 09:55 Dose: 10 mg Documented By: ESTEBAN Atorvastatin Calcium (Atorvastatin Calcium 10 Mg Tablet) 10 mg PO BEDTIME [facility] Last Admin: 10/26/24 21:09 Dose: 10 mg Documented By: AHMET Clonidine HCl (Clonidine Hcl 0.2 Mg Tablet) 0.2 mg PO TID [facility]; Protocol Last Admin: 10/27/24 09:56 Dose: 0.2 mg Documented By: ESTEBAN Enoxaparin Sodium (Enoxaparin Sodium 40 Mg/0.4 Ml Syringe) 40 mg SUBCUT Q24H [facility] Last Admin: 10/26/24 16:16 Dose: 40 mg Documented By: DAYANA Gabapentin (Gabapentin 300 Mg Capsule) 300 mg PO BID@0900,1700 [facility] Last Admin: 10/27/24 09:55 Dose: 300 mg Documented By: ESTEBAN Guaifenesin (Guaifenesin La 600 Mg Tab.Er.12h) 1,200 mg PO BID [facility] Last Admin: 10/27/24 09:55 Dose: 1,200 mg Documented By: ESTEBAN Piperacillin Sod/Tazobactam (Sod 4.5 gm/ Sodium Chloride) 100 mls @ 200 mls/hr IV Q6H [facility] Last Infusion: 10/27/24 06:07 Dose: Infused Documented By: MYLENE Losartan Potassium (Losartan Potassium 25 Mg Tablet) 25 mg PO DAILY [facility]; Protocol Last Admin: 10/27/24 09:55 Dose: 25 mg Documented By: ESTEBAN Methylprednisolone Sodium Succinate (Methylprednisolone Sod Succ 40 Mg/Ml Vial) 40 mg IVPUSH Q8H [facility] Last Admin: 10/27/24 04:13 Dose: 40 mg Documented By: HITESH Omeprazole (Omeprazole 20 Mg Capsule.) 20 mg PO DAILY@0630 [facility] Last Admin: 10/27/24 06:59 Dose: 20 mg Documented By: MYLENE Ondansetron HCl (Ondansetron Hcl 4 Mg/2 Ml Vial) 4 mg IVPUSH Q6H PRN PRN Reason: Nausea and Vomiting Last Admin: 10/19/24 06:39 Dose: 4 mg Documented By: DAVID Sertraline HCl (Sertraline Hcl 100 Mg Tablet) 100 mg PO DAILY [facility] Last Admin: 10/27/24 09:55 Dose: 100 mg Documented By: ESTEBAN Sodium Chloride (0.9 % Sodium Chloride Flush 3 Ml Syringe) 3 ml IVFLUSH QSHIFT [facility] Last Admin: 10/27/24 09:56 Dose: 3 ml Documented By: ESTEBAN Labs 10/21/24 07:00 10/25/24 06:31 Assessment and Plan (1) COPD exacerbation: Status: Acute (2) Acute on chronic respiratory failure with hypoxia and hypercapnia: Status: Acute (3) COPD (chronic obstructive pulmonary disease): Status: Acute Plan 79yo F with COPD on 2L O2, HLD, obesity who was at [facility] at [facility] and was admitted to the ICU for acute hypoxia/hypercapnea refractory to BiPAP support, intubated then extubated the next day and stepped [place] [facility] [place] acute/chronic hypoxic/hypercarbic resp failure due to COPD exac/LLL PNA - of high-flow now on 4 L of oxygen by nasal cannula do - flu/RSV/COVID negative. PCT 0.02, blood cultures x2 negative - on cefepime 10/15- plus azithro 10/17 thru 10/22 -now on IV Zosyn started 10/22 for retrocardiac pneumonia; CT 10/19 showed: Persistent probable left lower lobe pneumonia with mucoid impaction and new superimposed presumed aspiration. - [employer] consulted, recommends NDD2 solids + thin liquids, tolerating diet , being followed by speech therapy closely - continue CPT + Aerobika - on IV steroids 40 mg q.8 hours, IV Zosyn D5 , unable to tolerate BiPAP, will transition to by mouth antibiotic and wean steroids - CTA chest 10/25 showed no PE, improving left lower lobe pneumonia ,, diffuse small AV thickening and bronchiectasis, foci of endobronchial mucus plugging significantly improved in left lower lobe case discussed with pulmonology they recommend chest PT with cough assist - follow clinical course , if remained stable will discharge tomorrow HTN hx brief hypotension overnight 10/19-10/20, BCx negative, lactate normal; fluid-responsive Subsequently noted to have elevated blood pressures therefore resumed home dose of clonidine 0.2 mg t.i.d., amlodipine, and losartan 25 mg daily. BP stable HLD - statin mood disorder continue sertraline Class 3 obesity recommend low-calorie diet. dispo - eventual STR, patient was scheduled to be discharged to rehab facility on 10/22 but developed hypoxia and placed on high-flow oxygen, will be discharged to rehab if remained stable in next 24 hours. In my clinical judgment, the patient requires continued inpatient hospitalization for the following reasons: hypoxia/hypercarbia, IV ABX Quality Stroke Does the patient have a stroke diagnosis?: No VTE Prior VTE?: No VTE Risk Level:: Medical - moderate - high VTE Device Contraindication: Treatment Not Indicated VTE Drug Contraindication: N/A - Med Ordered
[2024-10-27] MEDS: Amoxicillin/Potassium Clav 875 MG TABLET PO (12:34)
--- NOTE | 2024-10-27 15:24 | MHC.CM.PN ---
EMR reviewed and per MD rounds, pt is not medically cleared for discharge today, but anticipate pt will be ready for discharge tomorrow. Insurance auth initiated for her to go to [facility].
[2024-10-27] MEDS: Enoxaparin Sodium 40 MG/0.4 ML SYRINGE SUBCUT (15:38)
[2024-10-27] MEDS: Atorvastatin Calcium 10 MG TABLET PO (21:18)
[2024-10-28] VITALS (11 sets, daily range): BP systolic 96–147; BP diastolic 55–71; PULSE 62–86; RESP 18–20; TEMP 36.1–37.1; O2SAT 89–96
[2024-10-28] MEDS: methylPREDNISolone Sod Succ 40 MG/ML VIAL IVPUSH ×2 (01:10→11:48)
[2024-10-28] MEDS: Amoxicillin/Potassium Clav 875 MG TABLET PO ×2 (01:11→11:48)
[2024-10-28] MEDS: guaiFENesin LA 600 MG TAB.ER.12H 1200 MG PO ×2 (08:42→20:32)
[2024-10-28] MEDS: amLODIPine Besylate 10 MG TABLET PO (08:43)
[2024-10-28] MEDS: Gabapentin 300 MG CAPSULE PO ×2 (08:43→16:36)
[2024-10-28] MEDS: cloNIDine HCL 0.2 MG TABLET PO ×3 (08:43→20:33)
[2024-10-28] MEDS: Sertraline HCL 100 MG TABLET PO (08:43)
[2024-10-28] MEDS: Losartan Potassium 25 MG TABLET PO (08:43)
[2024-10-28] MEDS: 0.9 % Sodium Chloride Flush 3 ML SYRINGE IVFLUSH ×3 (08:43→20:33)
--- NOTE | 2024-10-28 11:05 | P.PNIM_ITS ---
Subjective Subjective Date of Service: 10/28/24 Interval History: Feeling better, persistent cough less congested, no fevers, no chills tolerating current diet oxygenation stable on 4 L. No acute events overnight Review of Systems All other system reviewed and are negative Physical Exam 2 Vital Signs: Vital Signs: Last Vital Signs Temp 97.9 F 10/28/24 10:53 Pulse 69 10/28/24 10:53 Resp 18 10/28/24 10:53 BP 116/57 L 10/28/24 10:53 Pulse Ox 96 10/28/24 10:53 O2 Del Method Nasal Cannula 10/28/24 10:53 O2 Flow Rate 4 10/28/24 10:53 FiO2 35 10/26/24 15:34 Oxygen Flow Rate 4 10/15/24 11:33 BMI result Body Mass Index 37.5 Const: Other: Gen: No acute distress. HEENT: sclera anicteric, moist mucus membranes Neck: supple Lungs: bibasilar rhonchi improving , no use of accessory muscles. Heart: regular rate and rhythm, no murmurs Abd: soft, non-tender, non-distended, bowel sounds audible Ext: no edema Skin: warm/well-perfused Neuro: alert and oriented x3, no focal findings Psych: appropriate affect Objective Data Active Medications Acetaminophen (Acetaminophen 325 Mg Tablet) 650 mg PO Q6H PRN PRN Reason: Pain, Mild (Pain Scale 1-3) Last Admin: 10/27/24 21:19 Dose: 650 mg Documented By: RADHA Albuterol/Ipratropium (Albuterol/Iprat 2.5/0.5mg 3 Ml Ampul.Neb) 3 ml INHALE RQ4H WHILE AWAKE PRN PRN Reason: Shortness of Breath/Wheezing Last Admin: 10/15/24 22:42 Dose: 3 ml Documented By: RIRI Albuterol/Ipratropium (Albuterol/Iprat 2.5/0.5mg 3 Ml Ampul.Neb) 3 ml INHALE RQ4H WHILE AWAKE [facility] Last Admin: 10/28/24 07:42 Dose: Not Given Documented By: LENNIE Non-Admin Reason: Patient Refused Amlodipine Besylate (Amlodipine Besylate 10 Mg Tablet) 10 mg PO DAILY [facility]; Protocol Last Admin: 10/28/24 08:43 Dose: 10 mg Documented By: JEANETH Amoxicillin/Clavulanate Potassium (Amoxicillin/Potassium Clav 875 Mg Tablet) 875 mg PO Q12H [facility] Last Admin: 10/28/24 01:11 Dose: 875 mg Documented By: RADHA Atorvastatin Calcium (Atorvastatin Calcium 10 Mg Tablet) 10 mg PO BEDTIME [facility] Last Admin: 10/27/24 21:18 Dose: 10 mg Documented By: RADHA Clonidine HCl (Clonidine Hcl 0.2 Mg Tablet) 0.2 mg PO TID [facility]; Protocol Last Admin: 10/28/24 08:43 Dose: 0.2 mg Documented By: JEANETH Enoxaparin Sodium (Enoxaparin Sodium 40 Mg/0.4 Ml Syringe) 40 mg SUBCUT Q24H [facility] Last Admin: 10/27/24 15:38 Dose: 40 mg Documented By: ESTEBAN Gabapentin (Gabapentin 300 Mg Capsule) 300 mg PO BID@0900,1700 [facility] Last Admin: 10/28/24 08:43 Dose: 300 mg Documented By: JEANETH Guaifenesin (Guaifenesin La 600 Mg Tab.Er.12h) 1,200 mg PO BID [facility] Last Admin: 10/28/24 08:42 Dose: 1,200 mg Documented By: JEANETH Losartan Potassium (Losartan Potassium 25 Mg Tablet) 25 mg PO DAILY [facility]; Protocol Last Admin: 10/28/24 08:43 Dose: 25 mg Documented By: JEANETH Methylprednisolone Sodium Succinate (Methylprednisolone Sod Succ 40 Mg/Ml Vial) 40 mg IVPUSH Q12H [facility] Last Admin: 10/28/24 01:10 Dose: 40 mg Documented By: RADHA Omeprazole (Omeprazole 20 Mg Capsule.Dr) 20 mg PO DAILY@0630 [facility] Last Admin: 10/28/24 06:08 Dose: Not Given Documented By: RADHA Non-Admin Reason: Patient Refused Ondansetron HCl (Ondansetron Hcl 4 Mg/2 Ml Vial) 4 mg IVPUSH Q6H PRN PRN Reason: Nausea and Vomiting Last Admin: 10/19/24 06:39 Dose: 4 mg Documented By: DAVID Sertraline HCl (Sertraline Hcl 100 Mg Tablet) 100 mg PO DAILY [facility] Last Admin: 10/28/24 08:43 Dose: 100 mg Documented By: JEANETH Sodium Chloride (0.9 % Sodium Chloride Flush 3 Ml Syringe) 3 ml IVFLUSH QSHIFT [facility] Last Admin: 10/28/24 08:43 Dose: 3 ml Documented By: JEANETH Labs 10/21/24 07:00 10/25/24 06:31 Assessment and Plan (1) COPD exacerbation: Status: Acute (2) Acute on chronic respiratory failure with hypoxia and hypercapnia: Status: Acute (3) COPD (chronic obstructive pulmonary disease): Status: Acute (4) Respiratory failure with hypoxia and hypercapnia: Status: Acute Plan 79yo F with COPD on 2L O2, HLD, obesity who was at [facility] at [facility] and was admitted to the ICU for acute hypoxia/hypercapnea refractory to BiPAP support, intubated then extubated the next day and stepped down to [facility] 10/16 acute/chronic hypoxic/hypercarbic resp failure due to COPD exac/LLL PNA - off high-flow now on 4 L of oxygen by nasal cannula - flu/RSV/COVID negative. PCT 0.02, blood cultures x2 negative - s/p cefepime 10/15- plus azithro 10/17 thru 10/22 -status post IV Zosyn started 10/22 thru 10/27 for retrocardiac pneumonia; CT 10/19 showed: Persistent probable left lower lobe pneumonia with mucoid impaction and new superimposed presumed aspiration. - [employer] consulted, recommends NDD2 solids + thin liquids, tolerating diet , being followed by speech therapy closely - continue CPT + Aerobika - unable to tolerate BiPAP, Continue by mouth Augmentin 875 mg b.i.d. started on 10/27 and iv steroids 40 mg q.12 hours, transition to by mouth steroids upon discharge - CTA chest 10/25 showed no PE, improving left lower lobe pneumonia ,, diffuse small AV thickening and bronchiectasis, foci of endobronchial mucus plugging significantly improved in left lower lobe case discussed with pulmonology they recommend chest PT with cough assist - follow clinical course HTN hx brief hypotension overnight 10/19-10/20, BCx negative, lactate normal; fluid- responsive Subsequently noted to have elevated blood pressures therefore resumed home dose of clonidine 0.2 mg t.i.d., amlodipine, and losartan 25 mg daily. BP stable HLD - statin mood disorder continue sertraline Class 3 obesity recommend low-calorie diet. dispo - eventual STR, patient was scheduled to be discharged to rehab facility on 10/22 but developed hypoxia and placed on high-flow oxygen, will be discharged to rehab, waiting for off In my clinical judgment, the patient requires continued inpatient hospitalization for the following reasons: hypoxia/hypercarbia, Quality Stroke Does the patient have a stroke diagnosis?: No VTE Prior VTE?: No VTE Risk Level:: Medical - moderate - high VTE Device Contraindication: Treatment Not Indicated VTE Drug Contraindication: N/A - Med Ordered
[2024-10-28] MEDS: Albuterol/Iprat 2.5/0.5MG 3 ML AMPUL.NEB INHALE ×3 (11:18→19:53)
[2024-10-28] MEDS: Enoxaparin Sodium 40 MG/0.4 ML SYRINGE SUBCUT (16:35)
[2024-10-28] MEDS: Acetaminophen 325 MG TABLET 650 MG PO (20:33)
[2024-10-28] MEDS: Atorvastatin Calcium 10 MG TABLET PO (20:33)
[2024-10-29] VITALS (12 sets, daily range): BP systolic 122–148; BP diastolic 58–73; PULSE 66–112; RESP 18–26; TEMP 36.4–37.2; O2SAT 88–97
[2024-10-29] MEDS: methylPREDNISolone Sod Succ 40 MG/ML VIAL IVPUSH ×2 (01:07→11:38)
[2024-10-29] MEDS: Amoxicillin/Potassium Clav 875 MG TABLET PO ×2 (01:07→11:38)
[2024-10-29] MEDS: Omeprazole 20 MG CAPSULE.DR PO (05:54)
[2024-10-29] MEDS: Albuterol/Iprat 2.5/0.5MG 3 ML AMPUL.NEB INHALE ×3 (07:39→19:45)
[2024-10-29] MEDS: cloNIDine HCL 0.2 MG TABLET PO ×2 (08:06→19:58)
[2024-10-29] MEDS: guaiFENesin LA 600 MG TAB.ER.12H 1200 MG PO ×2 (08:06→19:58)
[2024-10-29] MEDS: Gabapentin 300 MG CAPSULE PO ×2 (08:06→19:16)
[2024-10-29] MEDS: Losartan Potassium 25 MG TABLET PO (08:07)
[2024-10-29] MEDS: amLODIPine Besylate 10 MG TABLET PO (08:07)
[2024-10-29] MEDS: 0.9 % Sodium Chloride Flush 3 ML SYRINGE IVFLUSH ×3 (08:07→20:00)
[2024-10-29] MEDS: Sertraline HCL 100 MG TABLET PO (08:07)
--- NOTE | 2024-10-29 16:11 | HO.PM.IMPN ---
Subjective Subjective Date of Service: 10/30/24 Interval History: This morning, felt good, stable oxygenation no fevers no chills was on 4 L of oxygen Later in the afternoon question aspirated on chocolate oxygenation dropped place on maximum high-flow oxygenation remains in low 80s Patient denies chest pain, no palpitations, no worsening shortness of breath, cough productive of clear to yellow phlegm Review of Systems All other system reviewed and are negative. Physical Exam Vital Signs: Vital Signs: Last Vital Signs Temp 98.0 F 10/29/24 15:09 Pulse 86 10/29/24 15:19 Resp 20 10/29/24 15:19 BP 138/67 10/29/24 15:09 Pulse Ox 97 10/29/24 15:09 O2 Del Method High Flow Nasal C annula 10/29/24 15:09 O2 Flow Rate 60 10/29/24 15:09 FiO2 100 10/29/24 15:09 Oxygen Flow Rate 4 10/15/24 11:33 BMI result Body Mass Index 37.5 Const: Other: Gen: No acute distress. HEENT: sclera anicteric, moist mucus membranes Neck: supple Lungs: bibasilar rhonchi L>R , no use of accessory muscles. Heart: regular rate and rhythm, no murmurs Abd: soft, non-tender, non-distended, bowel sounds audible Ext: no edema Skin: warm/well-perfused Neuro: alert and oriented x3, no focal findings Psych: appropriate affect Objective Data Active Medications Acetaminophen (Acetaminophen 325 Mg Tablet) 650 mg PO Q6H PRN PRN Reason: Pain, Mild (Pain Scale 1-3) Last Admin: 10/28/24 20:33 Dose: 650 mg Documented By: RADHA Albuterol/Ipratropium (Albuterol/Iprat 2.5/0.5mg 3 Ml Ampul.Neb) 3 ml INHALE RQ4H WHILE AWAKE PRN PRN Reason: Shortness of Breath/Wheezing Last Admin: 10/15/24 22:42 Dose: 3 ml Documented By: RIRI Albuterol/Ipratropium (Albuterol/Iprat 2.5/0.5mg 3 Ml Ampul.Neb) 3 ml INHALE RQ4H WHILE AWAKE MAYRA Last Admin: 10/29/24 15:11 Dose: 3 ml Documented By: LENNIE Amlodipine Besylate (Amlodipine Besylate 10 Mg Tablet) 10 mg PO DAILY [facility]; Protocol Last Admin: 10/29/24 08:07 Dose: 10 mg Documented By: JEANETH Amoxicillin/Clavulanate Potassium (Amoxicillin/Potassium Clav 875 Mg Tablet) 875 mg PO Q12H [facility] Last Admin: 10/29/24 11:38 Dose: 875 mg Documented By: JEANETH Atorvastatin Calcium (Atorvastatin Calcium 10 Mg Tablet) 10 mg PO BEDTIME [facility] Last Admin: 10/28/24 20:33 Dose: 10 mg Documented By: RADHA Clonidine HCl (Clonidine Hcl 0.2 Mg Tablet) 0.2 mg PO TID [facility]; Protocol Last Admin: 10/29/24 08:06 Dose: 0.2 mg Documented By: JEANETH Enoxaparin Sodium (Enoxaparin Sodium 40 Mg/0.4 Ml Syringe) 40 mg SUBCUT Q24H [facility] Last Admin: 10/28/24 16:35 Dose: 40 mg Documented By: JEANETH Gabapentin (Gabapentin 300 Mg Capsule) 300 mg PO BID@0900,1700 [facility] Last Admin: 10/29/24 08:06 Dose: 300 mg Documented By: JEANETH Guaifenesin (Guaifenesin La 600 Mg Tab.Er.12h) 1,200 mg PO BID [facility] Last Admin: 10/29/24 08:06 Dose: 1,200 mg Documented By: JEANETH Losartan Potassium (Losartan Potassium 25 Mg Tablet) 25 mg PO DAILY [facility]; Protocol Last Admin: 10/29/24 08:07 Dose: 25 mg Documented By: JEANETH Methylprednisolone Sodium Succinate (Methylprednisolone Sod Succ 40 Mg/Ml Vial) 40 mg IVPUSH Q12H [facility] Last Admin: 10/29/24 11:38 Dose: 40 mg Documented By: JEANETH Omeprazole (Omeprazole 20 Mg Capsule.) 20 mg PO DAILY@0630 [facility] Last Admin: 10/29/24 05:54 Dose: 20 mg Documented By: RADHA Ondansetron HCl (Ondansetron Hcl 4 Mg/2 Ml Vial) 4 mg IVPUSH Q6H PRN PRN Reason: Nausea and Vomiting Last Admin: 10/19/24 06:39 Dose: 4 mg Documented By: DAVID Sertraline HCl (Sertraline Hcl 100 Mg Tablet) 100 mg PO DAILY [facility] Last Admin: 10/29/24 08:07 Dose: 100 mg Documented By: JEANETH Sodium Chloride (0.9 % Sodium Chloride Flush 3 Ml Syringe) 3 ml IVFLUSH QSHIFT [facility] Last Admin: 10/29/24 08:07 Dose: 3 ml Documented By: JEANETH Labs 10/21/24 07:00 10/25/24 06:31 Assessment and Plan (1) COPD exacerbation: Status: Acute (2) Acute on chronic respiratory failure with hypoxia and hypercapnia: Status: Acute (3) COPD (chronic obstructive pulmonary disease): Status: Acute (4) Multifocal pneumonia: Status: Acute Plan 79yo F with COPD on 2L O2, HLD, obesity who was at [facility] and was admitted to the ICU for acute hypoxia/hypercapnea refractory to BiPAP support, intubated then extubated the next day and stepped down to [facility] 10/16 acute/chronic hypoxic/hypercarbic resp failure due to COPD exac/LLL PNA - flu/RSV/COVID negative. PCT 0.02, blood cultures x2 negative - s/p cefepime 10/15- plus azithro 10/17 thru 10/22 -status post IV Zosyn started 10/22 thru 10/27 for retrocardiac pneumonia; CT 10/19 showed: Persistent probable left lower lobe pneumonia with mucoid impaction and new superimposed presumed aspiration. - [employer] consulted, recommends NDD2 solids + thin liquids, tolerating diet , being followed by speech therapy closely - CTA chest 10/25 showed no PE, improving left lower lobe pneumonia ,, diffuse small AV thickening and bronchiectasis, foci of endobronchial mucus plugging significantly improved in left lower lobe -patient was improving, on 4 L of oxygen finger oximetry in greater than 92% Seems like patient aspirated again today oxygenation dropped to 70s placed on high-flow oxygenation remained low 87 88% Repeat CTA chest 10/29 obtained that showed no PE but again showed multifocal pneumonia, increased consolidation left lower lobe indicating worsening pneumonia, new mild amount of bilateral ground-glass opacity and patchy consolidation in other lobes likely infectious/inflammatory Likely recurrent aspiration will discuss with speech therapy Will DC mouth Augmentin 875 mg b.i.d. started on 10/27 and start IV Zosyn - continue CPT + Aerobika - unable to tolerate BiPAP, - follow clinical course HTN hx brief hypotension overnight 10/19-10/20, BCx negative, lactate normal; fluid-responsive Subsequently noted to have elevated blood pressures therefore resumed home dose of clonidine 0.2 mg t.i.d., amlodipine, and losartan 25 mg daily. BP stable HLD - statin mood disorder continue sertraline Class 3 obesity recommend low-calorie diet. dispo - eventual STR, patient was scheduled to be discharged to rehab facility on 10/22 but developed hypoxia and placed on high-flow oxygen, In my clinical judgment, the patient requires continued inpatient hospitalization for the following reasons: hypoxia/hypercarbia, Quality Stroke Does the patient have a stroke diagnosis?: No VTE Prior VTE?: No VTE Risk Level:: Medical - moderate - high VTE Device Contraindication: Treatment Not Indicated VTE Drug Contraindication: N/A - Med Ordered
[2024-10-29] MEDS: Enoxaparin Sodium 40 MG/0.4 ML SYRINGE SUBCUT (18:10)
[2024-10-29] MEDS: iohexoL 350 MG/ML 100 ML INFUS..BTL IV (19:04)
[2024-10-29] MEDS: Atorvastatin Calcium 10 MG TABLET PO (19:58)
[2024-10-29] MEDS: Acetaminophen 325 MG TABLET 650 MG PO (21:46)
[2024-10-30] VITALS (12 sets, daily range): BP systolic 105–148; BP diastolic 51–86; PULSE 61–99; RESP 18–22; TEMP 36.2–37.1; O2SAT 87–100
[2024-10-30] MEDS: methylPREDNISolone Sod Succ 40 MG/ML VIAL IVPUSH ×2 (00:32→13:05)
[2024-10-30] MEDS: Amoxicillin/Potassium Clav 875 MG TABLET PO (00:32)
[2024-10-30] MEDS: Doxycycline Hyclate 100 MG in 0.9 % Sodium Chloride 250 ML 166.67 MG IV ×2 (00:37→13:05)
[2024-10-30] MEDS: Omeprazole 20 MG CAPSULE.DR PO (06:14)
[2024-10-30] MEDS: Albuterol/Iprat 2.5/0.5MG 3 ML AMPUL.NEB INHALE ×2 (07:50→11:16)
[2024-10-30] MEDS: Gabapentin 300 MG CAPSULE PO ×2 (08:21→16:46)
[2024-10-30] MEDS: guaiFENesin LA 600 MG TAB.ER.12H 1200 MG PO ×2 (08:21→20:12)
[2024-10-30] MEDS: Losartan Potassium 25 MG TABLET PO (08:22)
[2024-10-30] MEDS: cloNIDine HCL 0.2 MG TABLET PO ×3 (08:22→20:14)
[2024-10-30] MEDS: Sertraline HCL 100 MG TABLET PO (08:22)
[2024-10-30] MEDS: Piperacillin Sodium/Tazobactam 4.5 GM in 0.9 % Sodium Chloride 100 ML IV ×3 (08:22→20:12)
[2024-10-30] MEDS: amLODIPine Besylate 10 MG TABLET PO (08:22)
[2024-10-30] MEDS: 0.9 % Sodium Chloride Flush 3 ML SYRINGE IVFLUSH ×3 (08:22→20:13)
--- NOTE | 2024-10-30 12:48 | MHC.CM.PN ---
EMR reviewed and per MD rounds, pt is not medically cleared for discharge due to management of hypoxia, pt remains on hi-flow.
--- NOTE | 2024-10-30 13:47 | P.PNIM_ITS ---
Subjective Subjective Date of Service: 10/30/24 Interval History: Resting comfortably tolerating high-flow, discouraged about recurrent bouts of pneumonia. Denies fever, no chills, no worsening shortness of breath or cough Tolerating diet. Review of Systems All other system reviewed and are negative. Physical Exam 2 Vital Signs: Vital Signs: Last Vital Signs Temp 98.5 F 10/30/24 10:57 Pulse 74 10/30/24 11:16 Resp 18 10/30/24 11:16 BP 105/51 L 10/30/24 10:57 Pulse Ox 96 10/30/24 10:57 O2 Del Method High Flow Nasal C annula 10/30/24 10:57 O2 Flow Rate 40 10/30/24 10:57 FiO2 50 10/30/24 10:57 Oxygen Flow Rate 4 10/15/24 11:33 BMI result Body Mass Index 37.5 Const: Other: Gen: No acute distress. HEENT: sclera anicteric, moist mucus membranes Neck: supple Lungs: bibasilar rhonchi L>R , no use of accessory muscles. Heart: regular rate and rhythm, no murmurs Abd: soft, non-tender, non-distended, bowel sounds audible Ext: no edema Skin: warm/well-perfused Neuro: alert and oriented x3, no focal findings Psych: appropriate affect Objective Data Active Medications Acetaminophen (Acetaminophen 325 Mg Tablet) 650 mg PO Q6H PRN PRN Reason: Pain, Mild (Pain Scale 1-3) Last Admin: 10/29/24 21:46 Dose: 650 mg Documented By: IRA Albuterol/Ipratropium (Albuterol/Iprat 2.5/0.5mg 3 Ml Ampul.Neb) 3 ml INHALE RQ4H WHILE AWAKE PRN PRN Reason: Shortness of Breath/Wheezing Last Admin: 10/15/24 22:42 Dose: 3 ml Documented By: RIRI Amlodipine Besylate (Amlodipine Besylate 10 Mg Tablet) 10 mg PO DAILY [facility]; Protocol Last Admin: 10/30/24 08:22 Dose: 10 mg Documented By: CARLA Atorvastatin Calcium (Atorvastatin Calcium 10 Mg Tablet) 10 mg PO BEDTIME [facility] Last Admin: 10/29/24 19:58 Dose: 10 mg Documented By: IRA Clonidine HCl (Clonidine Hcl 0.2 Mg Tablet) 0.2 mg PO TID [facility]; Protocol Last Admin: 10/30/24 08:22 Dose: 0.2 mg Documented By: CARLA Enoxaparin Sodium (Enoxaparin Sodium 40 Mg/0.4 Ml Syringe) 40 mg SUBCUT Q24H [facility] Last Admin: 10/29/24 18:10 Dose: 40 mg Documented By: JEANETH Gabapentin (Gabapentin 300 Mg Capsule) 300 mg PO BID@0900,1700 [facility] Last Admin: 10/30/24 08:21 Dose: 300 mg Documented By: CARLA Guaifenesin (Guaifenesin La 600 Mg Tab.Er.12h) 1,200 mg PO BID [facility] Last Admin: 10/30/24 08:21 Dose: 1,200 mg Documented By: CARLA Doxycycline Hyclate 100 mg/ (Sodium Chloride) 250 mls @ 166.67 mls/hr IV Q12H [facility] Last Admin: 10/30/24 13:05 Dose: 166.67 mls/hr Documented By: CARLA Piperacillin Sod/Tazobactam (Sod 4.5 gm/ Sodium Chloride) 100 mls @ 200 mls/hr IV Q6H [facility] Last Infusion: 10/30/24 09:22 Dose: Infused Documented By: CARLA Losartan Potassium (Losartan Potassium 25 Mg Tablet) 25 mg PO DAILY [facility]; Protocol Last Admin: 10/30/24 08:22 Dose: 25 mg Documented By: CARLA Methylprednisolone Sodium Succinate (Methylprednisolone Sod Succ 40 Mg/Ml Vial) 40 mg IVPUSH Q12H [facility] Last Admin: 10/30/24 13:05 Dose: 40 mg Documented By: CARLA Omeprazole (Omeprazole 20 Mg Capsule.Dr) 20 mg PO DAILY@0630 [facility] Last Admin: 10/30/24 06:14 Dose: 20 mg Documented By: IRA Ondansetron HCl (Ondansetron Hcl 4 Mg/2 Ml Vial) 4 mg IVPUSH Q6H PRN PRN Reason: Nausea and Vomiting Last Admin: 10/19/24 06:39 Dose: 4 mg Documented By: DAVID Sertraline HCl (Sertraline Hcl 100 Mg Tablet) 100 mg PO DAILY [facility] Last Admin: 10/30/24 08:22 Dose: 100 mg Documented By: CARLA Sodium Chloride (0.9 % Sodium Chloride Flush 3 Ml Syringe) 3 ml IVFLUSH QSHIFT [facility] Last Admin: 10/30/24 08:22 Dose: 3 ml Documented By: CARLA Labs 10/21/24 07:00 10/25/24 06:31 Assessment and Plan (1) Multifocal pneumonia: Status: Acute (2) COPD exacerbation: Status: Acute (3) Acute on chronic respiratory failure with hypoxia and hypercapnia: Status: Acute Plan 79yo F with COPD on 2L O2, HLD, obesity who was at STR at [facility] and was admitted to the ICU for acute hypoxia/hypercapnea refractory to BiPAP support, intubated then extubated the next day and stepped down to [facility] 10/16 acute/chronic hypoxic/hypercarbic resp failure due to COPD exac/LLL PNA - flu/RSV/COVID negative. PCT 0.02, blood cultures x2 negative - s/p cefepime 10/15- plus azithro 10/17 thru 10/22 -status post IV Zosyn started 10/22 thru 10/27 for retrocardiac pneumonia; CT 10/19 showed: Persistent probable left lower lobe pneumonia with mucoid impaction and new superimposed presumed aspiration. - BLUEPRINT PROCESSOR consulted, recommends NDD2 solids + thin liquids, tolerating diet , being followed by speech therapy closely - CTA chest 10/25 showed no PE, improving left lower lobe pneumonia ,, diffuse small AV thickening and bronchiectasis, foci of endobronchial mucus plugging significantly improved in left lower lobe -patient was improving, on 4 L of oxygen finger oximetry in greater than 92% Seems like patient aspirated again 12/27 oxygenation dropped to 70s placed on high-flow oxygenation remained low 87 88% Repeat CTA chest 10/29 obtained that showed no PE but again showed multifocal pneumonia, increased consolidation left lower lobe indicating worsening pneumonia, new mild amount of bilateral ground-glass opacity and patchy consolidation in other lobes likely infectious/inflammatory Likely recurrent aspiration /being followed closely by speech therapy/will require close supervision during feeds Restarted back on IV Zosyn 10/29, IV steroids 40 q.12 hours - continue CPT + Aerobika - unable to tolerate BiPAP, - follow clinical course HTN hx brief hypotension overnight 10/19-10/20, BCx negative, lactate normal; fluid- responsive Subsequently noted to have elevated blood pressures therefore resumed home dose of clonidine 0.2 mg t.i.d., amlodipine, and losartan 25 mg daily. BP stable HLD - statin mood disorder continue sertraline Class 3 obesity recommend low-calorie diet. dispo - eventual STR, patient was scheduled to be discharged to rehab facility on 10/22 but developed hypoxia and placed on high-flow oxygen, was again scheduled to discharge on 10/30 but developed hypoxia on 10/29 In my clinical judgment, the patient requires continued inpatient hospitalization for the following reasons: hypoxia/hypercarbia, Quality Stroke Does the patient have a stroke diagnosis?: No VTE Prior VTE?: No VTE Risk Level:: Medical - moderate - high VTE Device Contraindication: Treatment Not Indicated VTE Drug Contraindication: N/A - Med Ordered
[2024-10-30] MEDS: Enoxaparin Sodium 40 MG/0.4 ML SYRINGE SUBCUT (14:50)
--- NOTE | 2024-10-30 14:53 | MHC.SL.SWA ---
Speech Pathologist Impression: Moderate dysphagia Risk of Aspiration Due to: Medically Fragile Hx of Recent Extubation Respiratory Status Dysphasia Diet Status: Recommend continue on Ground Mechanical (NDD2) with Thin Liquids, pills whole with liquid. Patient will continue to need supervision at meals, assure that patient has nasal cannula, give rest breaks on 02 mask as well to maintain adequate oxidation. Liquid Consistency and Strategies for Safe Swallow: Liquid Intake Recommendation: Thin Liquid Intake Strategies: Small Sips Solid Food Consistency: Dietary Recommendations: Grnd/Mech Altered (NDD2) Additional Modifications to Solid Foods: Due to O2 status, patient will require frequent breaks during meal if de-satting. Close management of 02/respiration will be needed. Diet texture recommended due to current absence of dentures, poor management of chopped consistency, respiratory fatigue. CRA OFFICER will re-assess if dentures are recovered. Oral Medication Intake: Whole with Puree Please contact the pharmacy regarding appropriate crushable or liquid drug formulations that are available whenever modified delivery is recommended. Compensatory Strategies and Precautions to be Taken for Safe Swallow: Sitting Upright (90 deg) Liquids from Cup Liquids from Straw Small Bites and Sips Alternate Liquids/Solids Rate of Ingestion Change Avoid Specific Foods Supervision While Eating and Drinking for Safe Swallow: Total Supervision (1:1) Foods to Avoid: Hard, difficult to chew solids, dry, crunchy textures. Swallowing Recommended Treatments: Compens. Strategy Educat. Recommendation for Speech: Inpatient Speech Therapy Speech Therapy through Rehab Facility Comment: Pt on Ground/Mechanical (NDD2) with thin liquids, pills whole with liquid. Pt takes frequent respiratory breaks during meal, and requires close supervision. CRA OFFICER will continue to follow, re-assess for upgrade if needed. Education provided to pt and pt today, both verbalize understanding of diet and safety recommendations to reduce pt risk for aspiration. Frequency/Duration: Date Range for Service Req: Timeline to reassess: Standards Engineer Clinican/Clinical Fellow: No Supervisory Statement: I have reviewed and agree with the student/clinical fellow's documentation: N/A Speech Language Pathologist: Andreina Dowling M.S., CCC-CRA OFFICER
[2024-10-30] MEDS: Atorvastatin Calcium 10 MG TABLET PO (20:11)
[2024-10-31] VITALS (9 sets, daily range): BP systolic 123–150; BP diastolic 54–78; PULSE 70–96; RESP 16–20; TEMP 36.2–37; O2SAT 88–99
[2024-10-31] MEDS: methylPREDNISolone Sod Succ 40 MG/ML VIAL IVPUSH ×2 (00:32→11:26)
[2024-10-31] MEDS: Doxycycline Hyclate 100 MG in 0.9 % Sodium Chloride 250 ML 166.67 MG IV ×2 (00:32→11:26)
[2024-10-31] MEDS: Piperacillin Sodium/Tazobactam 4.5 GM in 0.9 % Sodium Chloride 100 ML IV ×4 (02:15→19:52)
[2024-10-31] MEDS: Omeprazole 20 MG CAPSULE.DR PO (06:13)
[2024-10-31 07:34] LABS: Hematocrit 39.2 % (37.0-47.0); Mean Corpuscular HGB Conc 30.6 g/dl (31.0-35.0); Mean Corpuscular Hemoglobin 27.4 pg (27.0-33.0); Mean Corpuscular Volume 89.5 fL (80.0-98.0); Mean Platelet Volume 9.1 fL (9.4-12.3); Platelet Count 197 X10*3/uL (160-400); Red Blood Count 4.38 X10*6/uL (4.20-5.50); Red Cell Distribution Width 13.9 % (11.0-16.0)
[2024-10-31 07:47] LABS: Anion Gap 9 (12-20); Blood Urea Nitrogen 23 mg/dL (9-16); Calcium 8.3 mg/dL (8.4-10.2); Carbon Dioxide 35 mmol/L (22-29); Chloride 105 mmol/L (96-108); Creatinine Clr Calc Pharmacy 93.3; Estimated Glomerular Filt Rate > 60; Glucose Random 150 mg/dL (60-115); Potassium 3.7 mmol/L (3.3-5.1); Sodium 145 mmol/L (135-145)
[2024-10-31] MEDS: guaiFENesin LA 600 MG TAB.ER.12H 1200 MG PO ×2 (08:15→19:45)
[2024-10-31] MEDS: amLODIPine Besylate 10 MG TABLET PO (08:15)
[2024-10-31] MEDS: Gabapentin 300 MG CAPSULE PO ×2 (08:15→16:41)
[2024-10-31] MEDS: cloNIDine HCL 0.2 MG TABLET PO ×3 (08:15→19:45)
[2024-10-31] MEDS: Losartan Potassium 25 MG TABLET PO (08:15)
[2024-10-31] MEDS: Sertraline HCL 100 MG TABLET PO (08:15)
[2024-10-31] MEDS: 0.9 % Sodium Chloride Flush 3 ML SYRINGE IVFLUSH ×3 (08:16→22:36)
--- NOTE | 2024-10-31 11:07 | P.PNPL_ITS ---
Subjective Subjective Date of Service: 10/31/24 Interval history: Patient with intermittent aspiration episodes resulting in hypoxia. Now respiratory status and FiO2 requirements improved, titrated down to high-flow 30 L 40%. Objective Data Labs 10/31/24 07:09 10/31/24 07:09 Labs: Laboratory Results - last 24 hr 10/31/24 07:09 WBC 9.0 RBC 4.38 Hgb 12.0 Hct 39.2 MCV 89.5 MCH 27.4 MCHC 30.6 L RDW 13.9 Plt Count 197 D MPV 9.1 L Absolute Nucleated RBC 0.000 Nucleated RBC % (auto) 0.0 Sodium 145 Potassium 3.7 Chloride 105 Carbon Dioxide 35 H Anion Gap 9 L BUN 23 H Creatinine 0.51 Estim Creat Clear Calc 93.3 Estimated GFR > 60 Random Glucose 150 H Calcium 8.3 L Microbiology Microbiology Results: Microbiology 10/20/24 00:32 Blood - Venous Blood Culture - Final No growth after 5 days. 10/20/24 00:32 Blood - Venous Blood Culture - Final No growth after 5 days. 10/15/24 11:57 Blood - Venous Blood Culture - Final No growth after 5 days. 10/15/24 11:54 Blood - Venous Blood Culture - Final No growth after 5 days. Physical Exam 2 Vital Signs: Vital Signs: Last Vital Signs Temp 97.9 F 10/31/24 07:34 Pulse 85 10/31/24 07:34 Resp 18 10/31/24 08:06 BP 139/66 10/31/24 07:34 Pulse Ox 99 10/31/24 07:34 O2 Del Method High Flow Nasal C annula 10/31/24 07:34 O2 Flow Rate 50 10/31/24 07:34 FiO2 86 10/31/24 07:34 Oxygen Flow Rate 4 10/15/24 11:33 BMI result Body Mass Index 37.5 Const: General: no acute distress, alert and awake Nutritional Appearance: obese Eyes: Sclerae: sclerae normal EOM: EOMs intact bilaterally Neck: Neck: Yes no lymphadenopathy, Yes trachea midline and Yes supple Resp: Effort & Inspection: normal respiratory effort and no respiratory distress Auscultation: clear to auscultation bilaterally Cardio: Rate: regular rate Rhythm: regular rhythm Heart sounds: no gallops, no murmurs and no rubs GI: Palpation (GI): Soft to palpation and Other GI palpation findings present ( Nontender) Auscultation: normal bowel sounds Extrem: General: No clubbing, No cyanosis and Yes edema (Trace bilateral) Procedures Date of Service Date of Service: 10/31/24 Assessment and Plan Assessment and plan (1) Acute on chronic respiratory failure with hypoxia and hypercapnia: Status: Acute (2) COPD (chronic obstructive pulmonary disease): Status: Acute Plan Impression: 79-year-old lady with underlying 2 L supplemental oxygen dependent COPD hospitalized with dyspnea and acute on chronic hypoxia, now with slow improvement, however also with recurrent pulmonary aspiration episodes. Now titrated down to high-flow 30 L 40%. Recommendation: Continue to titrate off supplemental oxygen, at this time should be able to tolerate nasal cannula, which also should decrease the chance of pulmonary aspiration. Empiric coverage for pulmonary aspiration. Time Spent With Patient Time: Total time managing care of this patient today ____ minutes. Progress Note: Quality Stroke Does the patient have a stroke diagnosis?: No
--- NOTE | 2024-10-31 11:40 | MHC.SL.SWA ---
Speech Pathologist Impression: Risk of Aspiration, Oropharyngeal Dysphagia Risk of Aspiration Due to: Medically Fragile Hx of Recent Extubation Dysphasia Diet Status: No Change Liquid Consistency and Strategies for Safe Swallow: Liquid Intake Recommendation: Thin Liquid Intake Strategies: Small Sips No Straws Double Swallow Solid Food Consistency: Dietary Recommendations: Grnd/Mech Altered (NDD2) Additional Modifications to Solid Foods: Patient to be supervised during PO intake. FLIGHT HOSTESS discussed recommended diet and strategies: liquid wash between bites to clear pocketed material, small sips, avoid the use of straws, maintain upright positioning. Oral Medication Intake: Whole with Puree Please contact the pharmacy regarding appropriate crushable or liquid drug formulations that are available whenever modified delivery is recommended. Compensatory Strategies and Precautions to be Taken for Safe Swallow: Sitting Upright (90 deg) Double Swallow No Straw Liquids from Cup Liquids from Spoon Small Bites and Sips Alternate Liquids/Solids Rate of Ingestion Change Avoid Specific Foods Supervision While Eating and Drinking for Safe Swallow: Total Assistance (1:1) Foods to Avoid: Hard, dry, or sticky foods. Mixed consistencies. Swallowing Recommended Treatments: Compens. Strategy Educat. Recommendation for Speech: Inpatient Speech Therapy Speech Therapy through Rehab Facility Comment: Patient presents with an oral phase dysphagia secondary to absent dentition/dentures, generalized weakness and difficulty sustaining adequate 02 during exertion of meal. Recommend Ground/Mechanical (NDD2) diet with thin liquids, pills whole with liquid. Patient will need to take frequent respiratory breaks during meal, and requires close supervision due to respiratory status. Human Resources Generalist Clinican/Clinical Fellow: No Supervisory Statement: I have reviewed and agree with the student/clinical fellow's documentation: N/A Speech Language Pathologist: Mehnaz Espinoza M.A., CCC-FLIGHT HOSTESS
[2024-10-31] MEDS: Enoxaparin Sodium 40 MG/0.4 ML SYRINGE SUBCUT (14:43)
--- NOTE | 2024-10-31 14:52 | P.PNIM_ITS ---
Subjective Subjective Date of Service: 10/31/24 Interval History: Tolerating high-flow oxygen, being followed by speech therapy, they recommend to continue current diet with close supervision during meals. Denies fever, no chills, no worsening shortness of breath, or cough. Review of Systems All other system reviewed and are negative Physical Exam 2 Vital Signs: Vital Signs: Last Vital Signs Temp 98.6 F 10/31/24 11:53 Pulse 70 10/31/24 11:53 Resp 18 10/31/24 11:53 BP 141/60 H 10/31/24 11:53 Pulse Ox 92 10/31/24 11:53 O2 Del Method High Flow Nasal C annula 10/31/24 11:53 O2 Flow Rate 25 10/31/24 11:53 FiO2 40 10/31/24 11:53 Oxygen Flow Rate 4 10/15/24 11:33 BMI result Body Mass Index 37.5 Const: Other: Gen: No acute distress. HEENT: sclera anicteric, moist mucus membranes Neck: supple Lungs: bibasilar rhonchi L>R , no use of accessory muscles. Heart: regular rate and rhythm, no murmurs Abd: soft, non-tender, non-distended, bowel sounds audible Ext: no edema Skin: warm/well-perfused Neuro: alert and oriented x3, no focal findings Psych: appropriate affect Objective Data Active Medications Acetaminophen (Acetaminophen 325 Mg Tablet) 650 mg PO Q6H PRN PRN Reason: Pain, Mild (Pain Scale 1-3) Last Admin: 10/29/24 21:46 Dose: 650 mg Documented By: IRA Albuterol/Ipratropium (Albuterol/Iprat 2.5/0.5mg 3 Ml Ampul.Neb) 3 ml INHALE RQ4H WHILE AWAKE PRN PRN Reason: Shortness of Breath/Wheezing Last Admin: 10/15/24 22:42 Dose: 3 ml Documented By: RIRI Amlodipine Besylate (Amlodipine Besylate 10 Mg Tablet) 10 mg PO DAILY [facility]; Protocol Last Admin: 10/31/24 08:15 Dose: 10 mg Documented By: ANASTASIYA Atorvastatin Calcium (Atorvastatin Calcium 10 Mg Tablet) 10 mg PO BEDTIME [facility] Last Admin: 10/30/24 20:11 Dose: 10 mg Documented By: IRA Clonidine HCl (Clonidine Hcl 0.2 Mg Tablet) 0.2 mg PO TID [facility]; Protocol Last Admin: 10/31/24 14:41 Dose: 0.2 mg Documented By: ANASTASIYA Enoxaparin Sodium (Enoxaparin Sodium 40 Mg/0.4 Ml Syringe) 40 mg SUBCUT Q24H [facility] Last Admin: 10/31/24 14:43 Dose: 40 mg Documented By: ANASTASIYA Gabapentin (Gabapentin 300 Mg Capsule) 300 mg PO BID@0900,1700 [facility] Last Admin: 10/31/24 08:15 Dose: 300 mg Documented By: ANASTASIYA Guaifenesin (Guaifenesin La 600 Mg Tab.Er.12h) 1,200 mg PO BID [facility] Last Admin: 10/31/24 08:15 Dose: 1,200 mg Documented By: ANASTASIYA Doxycycline Hyclate 100 mg/ (Sodium Chloride) 250 mls @ 166.67 mls/hr IV Q12H [facility] Last Infusion: 10/31/24 13:54 Dose: Infused Documented By: ANASTASIYA Piperacillin Sod/Tazobactam (Sod 4.5 gm/ Sodium Chloride) 100 mls @ 200 mls/hr IV Q6H [facility] Last Admin: 10/31/24 14:42 Dose: 200 mls/hr Documented By: ANASTASIYA Losartan Potassium (Losartan Potassium 25 Mg Tablet) 25 mg PO DAILY [facility]; Protocol Last Admin: 10/31/24 08:15 Dose: 25 mg Documented By: ANASTASIYA Methylprednisolone Sodium Succinate (Methylprednisolone Sod Succ 40 Mg/Ml Vial) 40 mg IVPUSH Q12H [facility] Last Admin: 10/31/24 11:26 Dose: 40 mg Documented By: ANASTASIYA Omeprazole (Omeprazole 20 Mg Capsule.Dr) 20 mg PO DAILY@0630 [facility] Last Admin: 10/31/24 06:13 Dose: 20 mg Documented By: IRA Ondansetron HCl (Ondansetron Hcl 4 Mg/2 Ml Vial) 4 mg IVPUSH Q6H PRN PRN Reason: Nausea and Vomiting Last Admin: 10/19/24 06:39 Dose: 4 mg Documented By: DAVID Sertraline HCl (Sertraline Hcl 100 Mg Tablet) 100 mg PO DAILY [facility] Last Admin: 10/31/24 08:15 Dose: 100 mg Documented By: ANASTASIYA Sodium Chloride (0.9 % Sodium Chloride Flush 3 Ml Syringe) 3 ml IVFLUSH QSHIFT [facility] Last Admin: 10/31/24 08:16 Dose: 3 ml Documented By: ANASTASIYA Labs 10/31/24 07:09 10/31/24 07:09 Labs: Laboratory Results - last 24 hr 10/31/24 07:09 MCV 89.5 MCH 27.4 MCHC 30.6 L RDW 13.9 Plt Count 197 D MPV 9.1 L Absolute Nucleated RBC 0.000 Nucleated RBC % (auto) 0.0 Anion Gap 9 L Estim Creat Clear Calc 93.3 Estimated GFR > 60 Random Glucose 150 H Calcium 8.3 L Assessment and Plan (1) Multifocal pneumonia: Status: Acute (2) COPD exacerbation: Status: Acute (3) Acute on chronic respiratory failure with hypoxia and hypercapnia: Status: Acute Plan 79yo F with COPD on 2L O2, HLD, obesity who was at STR at [facility] and was admitted to the ICU for acute hypoxia/hypercapnea refractory to BiPAP support, intubated then extubated the next day and stepped down to [facility] 10/16 acute/chronic hypoxic/hypercarbic resp failure due to COPD exac/LLL PNA/recurrent episodes of aspiration - flu/RSV/COVID negative. PCT 0.02, blood cultures x2 negative - s/p cefepime 10/15- plus azithro 10/17 thru 10/22 -status post IV Zosyn started 10/22 thru 10/27 for retrocardiac pneumonia; CT 10/19 showed: Persistent probable left lower lobe pneumonia with mucoid impaction and new superimposed presumed aspiration. - CORPORATE QUALITY ASSURANCE MANAGER consulted, recommends NDD2 solids + thin liquids, tolerating diet , being followed by speech therapy closely - CTA chest 10/25 showed no PE, improving left lower lobe pneumonia ,, diffuse small AV thickening and bronchiectasis, foci of endobronchial mucus plugging significantly improved in left lower lobe -patient was improving, on 4 L of oxygen finger oximetry in greater than 92% Seems like aspirated again 12/27 oxygenation dropped to 70s placed on high-flow oxygenation remained low 87 88% therefore Repeat CTA chest 10/29 obtained that showed no PE but again showed multifocal pneumonia, increased consolidation left lower lobe indicating worsening pneumonia, new mild amount of bilateral ground-glass opacity and patchy consolidation in other lobes likely infectious/inflammatory Likely recurrent aspiration /being followed closely by speech therapy Restarted back on IV Zosyn 10/29, IV steroids 40 q.12 hours - continue CPT + Aerobika - unable to tolerate BiPAP, - seen by pulmonology they recommend to titrate of supplemental oxygen, and placed on nasal cannula which will decrease the chance of pulmonary aspiration continue antibiotic to cover for pulmonary aspiration HTN hx brief hypotension overnight 10/19-10/20, BCx negative, lactate normal; fluid- responsive Subsequently noted to have elevated blood pressures therefore resumed home dose of clonidine 0.2 mg t.i.d., amlodipine, and losartan 25 mg daily. BP stable HLD - statin mood disorder continue sertraline Class 3 obesity recommend low-calorie diet. dispo - eventual STR, patient was scheduled to be discharged to rehab facility on 10/22 but developed hypoxia and placed on high-flow oxygen, was again scheduled to discharge on 10/30 but developed hypoxia on 10/29 In my clinical judgment, the patient requires continued inpatient hospitalization for the following reasons: hypoxia/hypercarbia, Quality Stroke Does the patient have a stroke diagnosis?: No VTE Prior VTE?: No VTE Risk Level:: Medical - moderate - high VTE Device Contraindication: Treatment Not Indicated VTE Drug Contraindication: N/A - Med Ordered
--- NOTE | 2024-10-31 16:07 | PC.RT ---
Pt transitioned from 40% HFNC to 7 lpm ricketts. Kasi well, Nurse aware.
[2024-10-31] MEDS: Acetaminophen 325 MG TABLET 650 MG PO (16:40)
[2024-10-31] MEDS: Atorvastatin Calcium 10 MG TABLET PO (19:45)
[2024-10-31] MEDS: methylPREDNISolone Sod Succ 40 MG/ML VIAL 20 MG IVPUSH (19:45)
[2024-11-01] MEDS: Doxycycline Hyclate 100 MG in 0.9 % Sodium Chloride 250 ML 166.67 MG IV (00:22)
[2024-11-01] MEDS: Piperacillin Sodium/Tazobactam 4.5 GM in 0.9 % Sodium Chloride 100 ML IV ×4 (02:24→23:22)
[2024-11-01 03:46] VITALS: BP 161/75; PULSE 84; RESP 18; TEMP 36.1; O2SAT 95
[2024-11-01] MEDS: Omeprazole 20 MG CAPSULE.DR PO (05:27)
[2024-11-01 06:59] VITALS: BP 157/61; PULSE 84; RESP 18; TEMP 36.2; O2SAT 92
[2024-11-01] MEDS: amLODIPine Besylate 10 MG TABLET PO (09:02)
[2024-11-01] MEDS: guaiFENesin LA 600 MG TAB.ER.12H 1200 MG PO ×2 (09:02→20:30)
[2024-11-01] MEDS: Losartan Potassium 25 MG TABLET PO (09:02)
[2024-11-01] MEDS: methylPREDNISolone Sod Succ 40 MG/ML VIAL 20 MG IVPUSH ×2 (09:02→20:38)
[2024-11-01] MEDS: Gabapentin 300 MG CAPSULE PO ×2 (09:02→21:30)
[2024-11-01] MEDS: Sertraline HCL 100 MG TABLET PO (09:02)
[2024-11-01] MEDS: cloNIDine HCL 0.2 MG TABLET PO ×2 (09:02→20:30)
[2024-11-01] MEDS: 0.9 % Sodium Chloride Flush 3 ML SYRINGE IVFLUSH (09:03)
--- NOTE | 2024-11-01 10:38 | MHC.CM.PN ---
Per ROUNDS discussion, Patient is not yet medically cleared for dc (7LO2); PT is recommending STR and CM will continue to follow.
[2024-11-01 10:58] VITALS: BP 123/59; PULSE 66; RESP 16; TEMP 36.2; O2SAT 92
--- NOTE | 2024-11-01 11:06 | HO.PM.IMPN ---
Subjective Subjective Date of Service: 11/01/24 Interval History: feeling better currently on 8 L of oxygen by nasal cannula, persistent cough, unable to bring up phlegm, denies shortness of breath, tolerating diet, being monitored closely for aspiration. Review of Systems all other system reviewed and are negative. Physical Exam Vital Signs: Vital Signs: Last Vital Signs Temp 97.2 F 11/01/24 10:58 Pulse 66 11/01/24 10:58 Resp 16 11/01/24 10:58 BP 123/59 L 11/01/24 10:58 Pulse Ox 92 11/01/24 10:58 O2 Del Method High Flow Nasal C annula 11/01/24 10:58 O2 Flow Rate 7 11/01/24 10:58 FiO2 30 10/31/24 15:25 Oxygen Flow Rate 4 10/15/24 11:33 BMI result Body Mass Index 37.5 Const: Other: Gen: No acute distress. HEENT: sclera anicteric, moist mucus membranes Neck: supple Lungs: bibasilar rhonchi , no use of accessory muscles, talking in full sentences. Heart: regular rate and rhythm, no murmurs Abd: soft, non-tender, non-distended, bowel sounds audible Ext: no edema Skin: warm/well-perfused Neuro: alert and oriented x3, no focal findings Psych: appropriate affect Objective Data Active Medications Acetaminophen (Acetaminophen 325 Mg Tablet) 650 mg PO Q6H PRN PRN Reason: Pain, Mild (Pain Scale 1-3) Last Admin: 10/31/24 16:40 Dose: 650 mg Documented By: ANASTASIYA Albuterol/Ipratropium (Albuterol/Iprat 2.5/0.5mg 3 Ml Ampul.Neb) 3 ml INHALE RQ4H WHILE AWAKE PRN PRN Reason: Shortness of Breath/Wheezing Last Admin: 10/15/24 22:42 Dose: 3 ml Documented By: RIRI Amlodipine Besylate (Amlodipine Besylate 10 Mg Tablet) 10 mg PO DAILY [facility]; Protocol Last Admin: 11/01/24 09:02 Dose: 10 mg Documented By: YOLIE Atorvastatin Calcium (Atorvastatin Calcium 10 Mg Tablet) 10 mg PO BEDTIME [facility] Last Admin: 10/31/24 19:45 Dose: 10 mg Documented By: IRA Clonidine HCl (Clonidine Hcl 0.2 Mg Tablet) 0.2 mg PO TID [facility]; Protocol Last Admin: 11/01/24 09:02 Dose: 0.2 mg Documented By: OYLIE Enoxaparin Sodium (Enoxaparin Sodium 40 Mg/0.4 Ml Syringe) 40 mg SUBCUT Q24H [facility] Last Admin: 10/31/24 14:43 Dose: 40 mg Documented By: DONNELLPAJolanta Gabapentin (Gabapentin 300 Mg Capsule) 300 mg PO BID@0900,1700 [facility] Last Admin: 11/01/24 09:02 Dose: 300 mg Documented By: YOLIE Guaifenesin (Guaifenesin La 600 Mg Tab.Er.12h) 1,200 mg PO BID [facility] Last Admin: 11/01/24 09:02 Dose: 1,200 mg Documented By: YOLIE Doxycycline Hyclate 100 mg/ (Sodium Chloride) 250 mls @ 166.67 mls/hr IV Q12H [facility] Last Infusion: 11/01/24 01:52 Dose: Infused Documented By: IRA Piperacillin Sod/Tazobactam (Sod 4.5 gm/ Sodium Chloride) 100 mls @ 200 mls/hr IV Q6H [facility] Last Admin: 11/01/24 09:03 Dose: 200 mls/hr Documented By: YOLIE Losartan Potassium (Losartan Potassium 25 Mg Tablet) 25 mg PO DAILY [facility]; Protocol Last Admin: 11/01/24 09:02 Dose: 25 mg Documented By: YOLIE Methylprednisolone Sodium Succinate (Methylprednisolone Sod Succ 40 Mg/Ml Vial) 20 mg IVPUSH Q12H [facility] Last Admin: 11/01/24 09:02 Dose: 20 mg Documented By: YOLIE Omeprazole (Omeprazole 20 Mg Capsule.) 20 mg PO DAILY@0630 [facility] Last Admin: 11/01/24 05:27 Dose: 20 mg Documented By: IRA Ondansetron HCl (Ondansetron Hcl 4 Mg/2 Ml Vial) 4 mg IVPUSH Q6H PRN PRN Reason: Nausea and Vomiting Last Admin: 10/19/24 06:39 Dose: 4 mg Documented By: DAVID Sertraline HCl (Sertraline Hcl 100 Mg Tablet) 100 mg PO DAILY [facility] Last Admin: 11/01/24 09:02 Dose: 100 mg Documented By: YOILE Sodium Chloride (0.9 % Sodium Chloride Flush 3 Ml Syringe) 3 ml IVFLUSH QSHIFT [facility] Last Admin: 11/01/24 09:03 Dose: 3 ml Documented By: YOLIE Labs 10/31/24 07:09 10/31/24 07:09 Assessment and Plan (1) Multifocal pneumonia: Status: Acute (2) COPD exacerbation: Status: Acute Plan 79yo F with COPD on 2L O2, HLD, obesity who was at STR at [facility] and was admitted to the ICU for acute hypoxia/hypercapnea refractory to BiPAP support, intubated then extubated the next day and stepped down to C 10/16 acute/chronic hypoxic/hypercarbic resp failure due to COPD exac/LLL PNA/recurrent episodes of aspiration - flu/RSV/COVID negative. PCT 0.02, blood cultures x2 negative CT 10/19 showed: Persistent probable left lower lobe pneumonia with mucoid impaction and new superimposed presumed aspiration. - finished course of cefepime and azithromycin 10/15 - 10/22 , on 10/22 noted to have worsening hypoxia likely due to aspiration pneumonia treated with IV Zosyn 10/22 thru 10/27 for retrocardiac pneumonia; - TOOL PROCUREMENT COORDINATOR consulted, recommends NDD2 solids + thin liquids, tolerating diet - CTA chest 10/25 showed no PE, improving left lower lobe pneumonia ,, diffuse small AV thickening and bronchiectasis, foci of endobronchial mucus plugging significantly improved in left lower lobe -patient was improving, on 4 L of oxygen finger oximetry in greater than 92% Seems like aspirated again 12/27 oxygenation dropped to 70s placed on high-flow oxygenation remained low 87 88% therefore Repeat CTA chest 10/29 obtained that showed no PE but again showed multifocal pneumonia, increased consolidation left lower lobe indicating worsening pneumonia, new mild amount of bilateral ground-glass opacity and patchy consolidation in other lobes likely infectious/inflammatory Likely recurrent aspiration /being followed closely by speech therapy Restarted back on IV Zosyn 10/29, IV steroids 20 q.12 hours - continue CPT + Aerobika - unable to tolerate BiPAP, - continue to titrate supplemental oxygen. - daily out of bed to chair HTN hx stable BP continue clonidine 0.2 mg t.i.d., amlodipine, and losartan 25 mg daily. HLD - statin mood disorder continue sertraline Class 3 obesity recommend low-calorie diet. dispo - eventual STR, patient was scheduled to be discharged to rehab facility on 10/22 but developed hypoxia and placed on high-flow oxygen, was again scheduled to discharge on 10/30 but developed hypoxia on 10/29 In my clinical judgment, the patient requires continued inpatient hospitalization for the following reasons: hypoxia/hypercarbia, Quality Stroke Does the patient have a stroke diagnosis?: No VTE Prior VTE?: No VTE Risk Level:: Medical - moderate - high VTE Device Contraindication: Treatment Not Indicated VTE Drug Contraindication: N/A - Med Ordered
--- NOTE | 2024-11-01 12:44 | MHC.SLORD ---
Speech Language Pathology Order Status: Pt seen for dysphagia treatment but refused PO today with OUTPATIENT PHYSICAL THERAPIST. Pt endorsed having supervision during meals makes her feel uncomfortable, but agreed to the reason given her risk for aspiration. Pt noted she used to eat fast but now takes her time and goes slow. OUTPATIENT PHYSICAL THERAPIST continues to follow, no changes to diet recc. COST ACCOUNTING CLERK and RN providing excellent cueing and care in promoting pt compliance with OUTPATIENT PHYSICAL THERAPIST recommendations for safety/reducing risk for aspiration.
[2024-11-01 15:34] VITALS: BP 150/66; PULSE 77; RESP 18; TEMP 36.3; O2SAT 93
--- NOTE | 2024-11-01 18:12 | PC.NURSE ---
notified at 12:25 that physical therapy was working with patient when patient's knees buckled and needed to be lowered to the floor by physical therapist. Multiple staff members then assisted physical therapist to get patient into chair. vital signs remain stable. Patient hortensia lifted back to bed. No new orders at this time.
[2024-11-01] MEDS: Enoxaparin Sodium 40 MG/0.4 ML SYRINGE SUBCUT (18:22)
[2024-11-01 19:16] VITALS: BP 132/60; PULSE 85; RESP 16; TEMP 36.3; O2SAT 92
[2024-11-01] MEDS: Atorvastatin Calcium 10 MG TABLET PO (20:30)
[2024-11-01] MEDS: Doxycycline Monohydrate 100 MG CAPSULE PO (20:38)
[2024-11-01] MEDS: Acetaminophen 325 MG TABLET 650 MG PO (23:19)
[2024-11-01 23:20] VITALS: BP 151/67; PULSE 88; RESP 16; TEMP 36.3; O2SAT 92
[2024-11-02 04:00] VITALS: BP 173/78; PULSE 72; RESP 16; TEMP 36.1; O2SAT 95
[2024-11-02] MEDS: Piperacillin Sodium/Tazobactam 4.5 GM in 0.9 % Sodium Chloride 100 ML IV ×3 (06:05→20:02)
[2024-11-02] MEDS: Omeprazole 20 MG CAPSULE.DR PO (06:05)
[2024-11-02 07:00] VITALS: BP 151/70; PULSE 75; RESP 18; TEMP 36.3; O2SAT 95
[2024-11-02] MEDS: guaiFENesin LA 600 MG TAB.ER.12H 1200 MG PO ×2 (08:57→20:03)
[2024-11-02] MEDS: Doxycycline Monohydrate 100 MG CAPSULE PO ×2 (08:57→20:03)
[2024-11-02] MEDS: Losartan Potassium 25 MG TABLET PO (08:57)
[2024-11-02] MEDS: cloNIDine HCL 0.2 MG TABLET PO ×3 (08:57→20:03)
[2024-11-02] MEDS: Sertraline HCL 100 MG TABLET PO (08:57)
[2024-11-02] MEDS: amLODIPine Besylate 10 MG TABLET PO (08:57)
[2024-11-02] MEDS: Gabapentin 300 MG CAPSULE PO ×2 (08:57→15:16)
[2024-11-02 11:20] VITALS: BP 153/69; PULSE 74; RESP 20; TEMP 36.5; O2SAT 93
[2024-11-02 15:11] VITALS: BP 122/59; PULSE 76; RESP 18; TEMP 36.3; O2SAT 93
[2024-11-02] MEDS: Enoxaparin Sodium 40 MG/0.4 ML SYRINGE SUBCUT (15:16)
[2024-11-02] MEDS: 0.9 % Sodium Chloride Flush 3 ML SYRINGE IVFLUSH (15:17)
--- NOTE | 2024-11-02 16:23 | HO.PM.IMPN ---
Subjective Subjective Date of Service: 11/03/24 Interval History: Sitting comfortably eating food offers no acute complaints, have periods of desaturation with episodes of aspiration, requiring high-flow oxygen, now back on nasal cannula 8- 10 L. Denies worsening shortness of breath, persistent cough, no phlegm, denies chest congestion. Being followed closely by speech therapy. Review of Systems All other system reviewed and are negative Physical Exam Vital Signs: Vital Signs: Last Vital Signs Temp 97.3 F 11/02/24 15:11 Pulse 76 11/02/24 15:11 Resp 18 11/02/24 15:11 BP 122/59 L 11/02/24 15:11 Pulse Ox 93 11/02/24 15:11 O2 Del Method High Flow Nasal C annula 11/02/24 15:11 O2 Flow Rate 7 11/02/24 15:11 FiO2 30 10/31/24 15:25 Oxygen Flow Rate 4 10/15/24 11:33 BMI result Body Mass Index 37.5 Const: Other: Gen: No acute distress. HEENT: sclera anicteric, moist mucus membranes Neck: supple Lungs: bibasilar rhonchi , no use of accessory muscles, talking in full sentences. Heart: regular rate and rhythm, no murmurs Abd: soft, non-tender, non-distended, bowel sounds audible Ext: no edema Skin: warm/well-perfused Neuro: alert and oriented x3, no focal findings Psych: appropriate affect Objective Data Active Medications Acetaminophen (Acetaminophen 325 Mg Tablet) 650 mg PO Q6H PRN PRN Reason: Pain, Mild (Pain Scale 1-3) Last Admin: 11/01/24 23:19 Dose: 650 mg Documented By: CHRISTY Albuterol/Ipratropium (Albuterol/Iprat 2.5/0.5mg 3 Ml Ampul.Neb) 3 ml INHALE RQ4H WHILE AWAKE PRN PRN Reason: Shortness of Breath/Wheezing Last Admin: 10/15/24 22:42 Dose: 3 ml Documented By: RIRI Amlodipine Besylate (Amlodipine Besylate 10 Mg Tablet) 10 mg PO DAILY [facility]; Protocol Last Admin: 11/02/24 08:57 Dose: 10 mg Documented By: YOLIE Atorvastatin Calcium (Atorvastatin Calcium 10 Mg Tablet) 10 mg PO BEDTIME [facility] Last Admin: 11/01/24 20:30 Dose: 10 mg Documented By: CHRISTY Clonidine HCl (Clonidine Hcl 0.2 Mg Tablet) 0.2 mg PO TID [facility]; Protocol Last Admin: 11/02/24 15:16 Dose: 0.2 mg Documented By: YOLIE Doxycycline Monohydrate (Doxycycline Monohydrate 100 Mg Capsule) 100 mg PO Q12H [facility] Last Admin: 11/02/24 08:57 Dose: 100 mg Documented By: YOLIE Enoxaparin Sodium (Enoxaparin Sodium 40 Mg/0.4 Ml Syringe) 40 mg SUBCUT Q24H [facility] Last Admin: 11/02/24 15:16 Dose: 40 mg Documented By: YOLIE Gabapentin (Gabapentin 300 Mg Capsule) 300 mg PO BID@0900,1700 [facility] Last Admin: 11/02/24 15:16 Dose: 300 mg Documented By: YOLIE Guaifenesin (Guaifenesin La 600 Mg Tab.Er.12h) 1,200 mg PO BID [facility] Last Admin: 11/02/24 08:57 Dose: 1,200 mg Documented By: YOLIE Piperacillin Sod/Tazobactam (Sod 4.5 gm/ Sodium Chloride) 100 mls @ 200 mls/hr IV Q6H [facility] Last Admin: 11/02/24 15:17 Dose: 200 mls/hr Documented By: YOLIE Losartan Potassium (Losartan Potassium 25 Mg Tablet) 25 mg PO DAILY [facility]; Protocol Last Admin: 11/02/24 08:57 Dose: 25 mg Documented By: YOLIE Methylprednisolone Sodium Succinate (Methylprednisolone Sod Succ 40 Mg/Ml Vial) 20 mg IVPUSH Q12H [facility] Last Admin: 11/02/24 10:36 Dose: Not Given Documented By: YOLIE Non-Admin Reason: No Access Omeprazole (Omeprazole 20 Mg Capsule.) 20 mg PO DAILY@0630 [facility] Last Admin: 11/02/24 06:05 Dose: 20 mg Documented By: CHRISTY Ondansetron HCl (Ondansetron Hcl 4 Mg/2 Ml Vial) 4 mg IVPUSH Q6H PRN PRN Reason: Nausea and Vomiting Last Admin: 10/19/24 06:39 Dose: 4 mg Documented By: DAVID Sertraline HCl (Sertraline Hcl 100 Mg Tablet) 100 mg PO DAILY [facility] Last Admin: 11/02/24 08:57 Dose: 100 mg Documented By: YOLIE Sodium Chloride (0.9 % Sodium Chloride Flush 3 Ml Syringe) 3 ml IVFLUSH QSHIFT [facility] Last Admin: 11/02/24 15:17 Dose: 3 ml Documented By: YOLIE Labs 10/31/24 07:09 10/31/24 07:09 Assessment and Plan (1) Multifocal pneumonia: Status: Acute (2) COPD exacerbation: Status: Acute (3) Acute on chronic respiratory failure with hypoxia and hypercapnia: Status: Acute Plan 79yo F with COPD on 2L O2, HLD, obesity who was at [facility] and was admitted to the ICU for acute hypoxia/hypercapnea refractory to BiPAP support, intubated then extubated the next day and stepped down to [facility] 10/16 acute/chronic hypoxic/hypercarbic resp failure due to COPD exac/LLL PNA/recurrent episodes of aspiration - flu/RSV/COVID negative. PCT 0.02, blood cultures x2 negative CT 10/19 showed: Persistent probable left lower lobe pneumonia with mucoid impaction and new superimposed presumed aspiration. - finished course of cefepime and azithromycin 10/15 - 10/22 , on 10/22 noted to have worsening hypoxia likely due to aspiration pneumonia treated with IV Zosyn 10/22 thru 10/27 for retrocardiac pneumonia; - ASSISTANT OPERATIONS MANAGER consulted, recommends NDD2 solids + thin liquids, tolerating diet -CTA chest 10/25 showed no PE, improving left lower lobe pneumonia ,, diffuse small AV thickening and bronchiectasis, foci of endobronchial mucus plugging significantly improved in left lower lobe -patient was improving, on 4 L of oxygen finger oximetry > 92% likely aspirated again 12/27 oxygenation dropped to 70s placed on high-flow oxygenation remained low 87 88% therefore Repeat CTA chest 10/29 obtained that showed no PE but again showed multifocal pneumonia, increased consolidation left lower lobe indicating worsening pneumonia, new mild amount of bilateral ground-glass opacity and patchy consolidation in other lobes likely infectious/inflammatory Likely recurrent aspiration /being followed closely by speech therapy Restarted back on IV Zosyn 10/29, wean IV steroids to 20 q.12 hours Now weaned down to nasal cannula 8 L finger oximetry 90-91 will gradually wean oxygen to keep finger oximetry around 89% - continue CPT + Aerobika - unable to tolerate BiPAP, - continue to titrate supplemental oxygen. - daily out of bed to chair HTN continue clonidine 0.2 mg t.i.d., amlodipine, and losartan 25 mg daily. Noted to have few high blood pressure readings now stabilized follow BP HLD - statin mood disorder continue sertraline Class 3 obesity recommend low-calorie diet. dispo - eventual STR, patient was scheduled to be discharged to rehab facility on 10/22 but developed hypoxia and placed on high-flow oxygen, was again scheduled to discharge on 10/30 but developed hypoxia on 10/29 As per PT patient will require extensive rehab upon discharge, In my clinical judgment, the patient requires continued inpatient hospitalization for the following reasons: hypoxia/hypercarbia, Quality Stroke Does the patient have a stroke diagnosis?: No VTE Prior VTE?: No VTE Risk Level:: Medical - moderate - high VTE Device Contraindication: Treatment Not Indicated VTE Drug Contraindication: N/A - Med Ordered
--- NOTE | 2024-11-02 17:16 | MHC.SL.SWA ---
Speech Pathologist Impression: Risk of Aspiration Due to: Medically Fragile Hx of Recent Extubation Dysphasia Diet Status: Recommend continue on current diet of Ground/Mechanical (NDD2) with thin liquids, pills whole in puree. Liquid Consistency and Strategies for Safe Swallow: Liquid Intake Recommendation: Thin Liquid Intake Strategies: Small Sips No Straws Double Swallow Solid Food Consistency: Dietary Recommendations: Grnd/Mech Altered (NDD2) Additional Modifications to Solid Foods: Patient with 1-1 assistance/supervision during PO intake. LITERACY EDUCATION PROFESSOR discussed recommended diet and strategies: liquid wash between bites to clear pocketed material, small sips, avoid the use of straws, maintain upright positioning. Oral Medication Intake: Whole with Puree Please contact the pharmacy regarding appropriate crushable or liquid drug formulations that are available whenever modified delivery is recommended. Compensatory Strategies and Precautions to be Taken for Safe Swallow: Sitting Upright (90 deg) Double Swallow No Straw Liquids from Cup Liquids from Spoon Small Bites and Sips Alternate Liquids/Solids Rate of Ingestion Change Avoid Specific Foods Supervision While Eating and Drinking for Safe Swallow: Total Assistance (1:1) Foods to Avoid: Hard, dry, or sticky foods. Mixed consistencies. Swallowing Recommended Treatments: Compens. Strategy Educat. Recommendation for Speech: Inpatient Speech Therapy Speech Therapy through Rehab Facility Comment: Patient seen at breakfast this morning, with student feeding patient and SPEED READING TEACHER present in room. Patient now downgraded to cannula, maintaining good sat. Patient was pleasant and cheerful, has some complaints about the coffee and current diet, but always likes oatmeal which was the primary food this morning. Patient was observed eating remaining yogurt on tray, needed some reminders not to speak while eating/food in mouth. Patient stated again that she knows to take small bites, related that her pattern had been to eat quickly in the past, has learned that this is not healthy for her. Patient has been stable on this diet for prolonged period, is receiving 1-1 supervision at meals secondary to accessing inappropriate foods (brought from outside. Recommend continue on current diet of Ground/Mechanical (NDD2) with thin liquids, pills whole in puree. Frequency/Duration: Date Range for Service Req: Timeline to reassess: Stick Feeder Clinican/Clinical Fellow: No Supervisory Statement: I have reviewed and agree with the student/clinical fellow's documentation: N/A Speech Language Pathologist: Elinor Cunningham M.A., CCC-LITERACY EDUCATION PROFESSOR
[2024-11-02 20:00] VITALS: BP 123/58; PULSE 97; RESP 16; TEMP 36.3; O2SAT 91
[2024-11-02] MEDS: Atorvastatin Calcium 10 MG TABLET PO (20:03)
[2024-11-02] MEDS: methylPREDNISolone Sod Succ 40 MG/ML VIAL 20 MG IVPUSH (20:03)
[2024-11-02] MEDS: Acetaminophen 325 MG TABLET 650 MG PO (21:48)
[2024-11-03] VITALS (9 sets, daily range): BP systolic 130–163; BP diastolic 59–73; PULSE 70–94; RESP 16–20; TEMP 36.1–36.7; O2SAT 88–98
[2024-11-03] MEDS: Piperacillin Sodium/Tazobactam 4.5 GM in 0.9 % Sodium Chloride 100 ML IV ×2 (03:55→09:23)
[2024-11-03] MEDS: Omeprazole 20 MG CAPSULE.DR PO (06:14)
[2024-11-03] MEDS: Acetaminophen 325 MG TABLET 650 MG PO ×2 (09:23→22:15)
[2024-11-03] MEDS: Doxycycline Monohydrate 100 MG CAPSULE PO (09:23)
[2024-11-03] MEDS: guaiFENesin LA 600 MG TAB.ER.12H 1200 MG PO ×2 (09:24→22:14)
[2024-11-03] MEDS: cloNIDine HCL 0.2 MG TABLET PO ×3 (09:24→22:15)
[2024-11-03] MEDS: Sertraline HCL 100 MG TABLET PO (09:24)
[2024-11-03] MEDS: amLODIPine Besylate 10 MG TABLET PO (09:24)
[2024-11-03] MEDS: Losartan Potassium 25 MG TABLET PO (09:24)
[2024-11-03] MEDS: Gabapentin 300 MG CAPSULE PO ×2 (09:24→15:52)
[2024-11-03] MEDS: methylPREDNISolone Sod Succ 40 MG/ML VIAL 20 MG IVPUSH (09:24)
[2024-11-03] MEDS: 0.9 % Sodium Chloride Flush 3 ML SYRINGE IVFLUSH ×2 (09:25→15:53)
--- NOTE | 2024-11-03 10:36 | MHC.CM.PN ---
Per ROUNDS discussion, CM has asked [facility]. CM will follow.
--- NOTE | 2024-11-03 11:42 | MHC.SL.SWA ---
Speech Pathologist Impression: Risk of Aspiration Due to: Medically Fragile Hx of Recent Extubation Dysphasia Diet Status: Recommend continue on current diet of Ground/Mechanical (NDD2) with thin liquids, pills whole in puree at next level of care. Patient will need supervision at meals to assure patient is not accessing inappropriate foods and progressing with her meal. Liquid Consistency and Strategies for Safe Swallow: Liquid Intake Recommendation: Thin Liquid Intake Strategies: Small Sips No Straws Double Swallow Solid Food Consistency: Dietary Recommendations: Grnd/Mech Altered (NDD2) Additional Modifications to Solid Foods: Patient with 1-1 assistance/supervision during PO intake. CONTINUOUS PROCESS ROTARY DRUM TANNER discussed recommended diet and strategies: liquid wash between bites to clear pocketed material, small sips, avoid the use of straws, maintain upright positioning. Oral Medication Intake: Whole with Puree Please contact the pharmacy regarding appropriate crushable or liquid drug formulations that are available whenever modified delivery is recommended. Compensatory Strategies and Precautions to be Taken for Safe Swallow: Sitting Upright (90 deg) Double Swallow No Straw Liquids from Cup Liquids from Spoon Small Bites and Sips Alternate Liquids/Solids Rate of Ingestion Change Avoid Specific Foods Supervision While Eating and Drinking for Safe Swallow: Total Assistance (1:1) Foods to Avoid: Hard, dry, or sticky foods. Mixed consistencies. Swallowing Recommended Treatments: Compens. Strategy Educat. Recommendation for Speech: Inpatient Speech Therapy Speech Therapy through Rehab Facility Comment: Patient seen at breakfast this morning, was alone in room with Breakfast tray at bedside. Patient expressed interest in breakfast and CONTINUOUS PROCESS ROTARY DRUM TANNER assisted setting up tray and preparing food and Drink(adding sugars). Patient then fed self, taking small bites of oatmeal, propelling texture with tongue pumping, producing consistent swallow. Patient was encouraged to take liquid intermittently, notably reported I don't drink water when offered, did not like the coffee, and refused juice which was also offered by CONTINUOUS PROCESS ROTARY DRUM TANNER, so had limited liquid intake at this meal, otherwise tolerated well. MD reported to CONTINUOUS PROCESS ROTARY DRUM TANNER plan to DC patient later today, described patient as chronically aspirating but queried if there was any recommended change to her diet. Patient has been stable on diet of Ground Mechanical (NDD2) and thin liquids for prolonged period, any aspiration events have been associated with patient accessing inappropriate foods (e.g. initially placed on Regular Diet when transitioning out of ICU, has had family bring inappropriate foods (cookies, sweets, sandwiches). Patient should continue on current diet consistency at next level of care, will need supervision at meals to assure patient is not accessing inappropriate foods and progressing with her meal. Frequency/Duration: Date Range for Service Req: Timeline to reassess: Medication Care Manager Clinican/Clinical Fellow: No Supervisory Statement: I have reviewed and agree with the student/clinical fellow's documentation: N/A Speech Language Pathologist: Elinor Cunningham M.A., CCC-CONTINUOUS PROCESS ROTARY DRUM TANNER
--- NOTE | 2024-11-03 12:39 | MHC.CM.PN ---
CM met with Patient and her Daughter/HCP/Charissa to review the dc plan (returning to [facility], pending [employer] auth); CM will follow.
--- NOTE | 2024-11-03 15:46 | HO.PM.IMPN ---
Subjective Subjective Date of Service: 11/03/24 Interval History: Feeling significantly better finger oximetry 90 91% lower oxygen to 5 L, denies worsening shortness of breath, persistent mild cough significantly improved denies congestion, no fevers, no chills tolerating current diet with no recurrent episodes of aspiration Review of Systems All other system reviewed and are negative Physical Exam Vital Signs: Vital Signs: Last Vital Signs Temp 97.1 F 11/03/24 11:27 Pulse 70 11/03/24 11:49 Resp 20 11/03/24 11:27 BP 142/66 H 11/03/24 11:49 Pulse Ox 96 11/03/24 11:49 O2 Del Method Nasal Cannula 11/03/24 11:27 O2 Flow Rate 6 11/03/24 11:27 FiO2 30 10/31/24 15:25 Oxygen Flow Rate 4 10/15/24 11:33 BMI result Body Mass Index 37.5 Const: Other: Gen: No acute distress. HEENT: sclera anicteric, moist mucus membranes Neck: supple Lungs:fine bibasilar rhonchi , no use of accessory muscles, talking in full sentences. Heart: regular rate and rhythm, no murmurs Abd: soft, non-tender, non-distended, bowel sounds audible Ext: no edema Skin: warm/well-perfused Neuro: alert and oriented x3, no focal findings Psych: appropriate affect Objective Data Active Medications Acetaminophen (Acetaminophen 325 Mg Tablet) 650 mg PO Q6H PRN PRN Reason: Pain, Mild (Pain Scale 1-3) Last Admin: 11/03/24 09:23 Dose: 650 mg Documented By: ESTEBAN Albuterol/Ipratropium (Albuterol/Iprat 2.5/0.5mg 3 Ml Ampul.Neb) 3 ml INHALE RQ4H WHILE AWAKE PRN PRN Reason: Shortness of Breath/Wheezing Last Admin: 10/15/24 22:42 Dose: 3 ml Documented By: RIRI Amlodipine Besylate (Amlodipine Besylate 10 Mg Tablet) 10 mg PO DAILY [facility]; Protocol Last Admin: 11/03/24 09:24 Dose: 10 mg Documented By: ESTEBAN Atorvastatin Calcium (Atorvastatin Calcium 10 Mg Tablet) 10 mg PO BEDTIME [facility] Last Admin: 11/02/24 20:03 Dose: 10 mg Documented By: CHRISTY Clonidine HCl (Clonidine Hcl 0.2 Mg Tablet) 0.2 mg PO TID [facility]; Protocol Last Admin: 11/03/24 09:24 Dose: 0.2 mg Documented By: ESTEBAN Doxycycline Monohydrate (Doxycycline Monohydrate 100 Mg Capsule) 100 mg PO Q12H [facility] Last Admin: 11/03/24 09:23 Dose: 100 mg Documented By: ESTEBAN Enoxaparin Sodium (Enoxaparin Sodium 40 Mg/0.4 Ml Syringe) 40 mg SUBCUT Q24H [facility] Last Admin: 11/02/24 15:16 Dose: 40 mg Documented By: FOSTEKMargoth Gabapentin (Gabapentin 300 Mg Capsule) 300 mg PO BID@0900,1700 [facility] Last Admin: 11/03/24 09:24 Dose: 300 mg Documented By: ESTEBAN Guaifenesin (Guaifenesin La 600 Mg Tab.Er.12h) 1,200 mg PO BID [facility] Last Admin: 11/03/24 09:24 Dose: 1,200 mg Documented By: ESTEBAN Piperacillin Sod/Tazobactam (Sod 4.5 gm/ Sodium Chloride) 100 mls @ 200 mls/hr IV Q6H [facility] Last Infusion: 11/03/24 09:53 Dose: Infused Documented By: ESTEBAN Losartan Potassium (Losartan Potassium 25 Mg Tablet) 25 mg PO DAILY [facility]; Protocol Last Admin: 11/03/24 09:24 Dose: 25 mg Documented By: ESTEBAN Methylprednisolone Sodium Succinate (Methylprednisolone Sod Succ 40 Mg/Ml Vial) 20 mg IVPUSH Q12H [facility] Last Admin: 11/03/24 09:24 Dose: 20 mg Documented By: ESETBAN Omeprazole (Omeprazole 20 Mg Capsule.) 20 mg PO DAILY@0630 [facility] Last Admin: 11/03/24 06:14 Dose: 20 mg Documented By: CHRISTY Ondansetron HCl (Ondansetron Hcl 4 Mg/2 Ml Vial) 4 mg IVPUSH Q6H PRN PRN Reason: Nausea and Vomiting Last Admin: 10/19/24 06:39 Dose: 4 mg Documented By: DAVID Sertraline HCl (Sertraline Hcl 100 Mg Tablet) 100 mg PO DAILY [facility] Last Admin: 11/03/24 09:24 Dose: 100 mg Documented By: ESTEBAN Sodium Chloride (0.9 % Sodium Chloride Flush 3 Ml Syringe) 3 ml IVFLUSH QSHIFT [facility] Last Admin: 11/03/24 09:25 Dose: 3 ml Documented By: ESTEBAN Labs 10/31/24 07:09 10/31/24 07:09 Assessment and Plan (1) Multifocal pneumonia: Status: Acute (2) COPD exacerbation: Status: Acute (3) Acute on chronic respiratory failure with hypoxia and hypercapnia: Status: Acute Plan 79yo F with COPD on 2L O2, HLD, obesity who was at STR at [facility] and was admitted to the ICU for acute hypoxia/hypercapnea refractory to BiPAP support, intubated then extubated the next day and stepped down to C 10/16 acute/chronic hypoxic/hypercarbic resp failure due to COPD exac/LLL PNA/recurrent episodes of aspiration - flu/RSV/COVID negative. PCT 0.02, blood cultures x2 negative CT 10/19 showed: Persistent probable left lower lobe pneumonia with mucoid impaction and new superimposed presumed aspiration. - finished course of cefepime and azithromycin 10/15 - 10/22 , on 10/22 noted to have worsening hypoxia likely due to aspiration pneumonia treated with IV Zosyn 10/22 thru 10/27 for retrocardiac pneumonia; - CARAMEL CANDY MAKER consulted, recommends NDD2 solids + thin liquids, tolerating diet -CTA chest 10/25 showed no PE, improving left lower lobe pneumonia ,, diffuse small AV thickening and bronchiectasis, foci of endobronchial mucus plugging significantly improved in left lower lobe -patient was improving, on 4 L of oxygen finger oximetry > 92% likely aspirated again 12/27 oxygenation dropped to 70s placed on high-flow oxygenation remained low 87 88% therefore Repeat CTA chest 10/29 obtained that showed no PE but again showed multifocal pneumonia, increased consolidation left lower lobe indicating worsening pneumonia, new mild amount of bilateral ground-glass opacity and patchy consolidation in other lobes likely infectious/inflammatory Likely recurrent aspiration /being followed closely by speech therapy on IV Zosyn 10/29, on IV steroids 20 q.12 hours and doxycycline 100 b.i.d. Now weaned down to nasal cannula 5L finger oximetry 90-91 Will DC IV Zosyn, DC IV steroids and DC IV doxy - continue CPT + Aerobika - unable to tolerate BiPAP, - continue to titrate supplemental oxygen. - daily out of bed to chair HTN continue clonidine 0.2 mg t.i.d., amlodipine, and losartan 25 mg daily. Noted to have few high blood pressure readings now stabilized follow BP HLD - statin mood disorder continue sertraline Class 3 obesity recommend low-calorie diet. dispo - to short-term rehab at a.m. waiting for Auth As per PT patient will require extensive rehab upon discharge, In my clinical judgment, the patient requires continued inpatient hospitalization for the following reasons: hypoxia/hypercarbia, and safe disposition Quality Stroke Does the patient have a stroke diagnosis?: No VTE Prior VTE?: No VTE Risk Level:: Medical - moderate - high VTE Device Contraindication: Treatment Not Indicated VTE Drug Contraindication: N/A - Med Ordered
--- NOTE | 2024-11-03 15:51 | P.DS_ITS ---
DS: Providers Provider Date of Service: 11/03/24 Date of admission: 10/15/24 13:38 Date of discharge: 11/03/24 Primary care physician: Anurag Schmid MD Consults: 10/20/24 11:46 Consult to Pulmonology Routine Consulting Provider: [facility] Reason for consultation: mucoid impaction, PNA 10/31/24 07:52 Consult to Pulmonology Routine Consulting Provider: [facility] Reason for consultation: hypoxia on high flow Has provider been notified: No DS: Diagnosis Discharge Diagnosis (1) Multifocal pneumonia: Status: Acute (2) COPD exacerbation: Status: Acute (3) Acute on chronic respiratory failure with hypoxia and hypercapnia: Status: Acute DS: Summary Hospital Course Hospital Course: From the history and physical by the admitting link fabric machine operator, Watson Feliciano MD, 10/15/24: 79-year-old lady with underlying history of COPD supplemental oxygen 2 L dependent, hypotension, hyperlipidemia, obesity sent from rehab secondary to acute hypoxia, on ER evaluation patient with acute hypoxic hypercapnic respiratory failure refractory to BiPAP support requiring intubation and ventilatory support. Admitted to the intensive care unit. 79yo F with COPD on 2L O2, HLD, obesity who was at STR at [facility] and was admitted to the ICU for acute hypoxia/hypercapnea refractory to BiPAP support, intubated then extubated the next day and stepped down to [facility] 10/16. Hospital course by problem: Acute/chronic hypoxic/hypercarbic resp failure due to COPD exac/LLL PNA, flu/RSV/COVID negative. PCT 0.02, blood cultures x2 negative,patient had a prolonged hospital stay she has slowly improved Initially treated with cefepime plus azithro for retrocardiac pneumonia and IV steroids for COPD exacerbation; CT 10/19 showed:persistent probable left lower lobe pneumonia with mucoid impaction and new superimposed presumed aspiration, Patient improved, but likely aspirated 10/22 became hypoxic placed on high-flow oxygen treated with course of IV Zosyn evaluated by speech therapist and placed on modified NDD 2 solids and thin liquids CTA chest showed no PE, and showed improving left lower lobe pneumonia, diffuse small AV thickening and bronchiectasis and foci of endobronchial mucous plugging significantly improved in the left lower lobe, she was transitioned down to 4 L of oxygen with finger oximetry greater than 92%, but unfortunately had likely another episode of aspiration on 12/27, therefore was placed back on high-flow oxygen, was followed closely by pulmonology did not require any invasive procedures repeat CTA chest again showed no PE but however showed multifocal pneumonia with worsening consolidation left lower lobe, patient was followed closely by speech therapy and was treated with another round of IV Zosyn, IV steroids, cough expectorants, chest CPT, Aerobika, subsequently now patient has been stabilized currently on 5 L of oxygen via nasal cannula EF tolerating current diet shortness of breath has resolved has minimal cough, talking in full sentences, therefore being discharged to rehab facility on by mouth Augmentin 875 mg twice daily for 5 days, guaifenesin twice daily does not require further steroid treatment patient declined to use BiPAP and has been doing well. HTN BP stable continue losartan, amlodipine, and clonidine. Mood disorder continue sertraline. Hyperlipidemia continue Lipitor. Physical Exam Vital Signs: Vital Signs: Last Vital Signs Temp 97.1 F 11/03/24 11:27 Pulse 70 11/03/24 11:49 Resp 20 11/03/24 11:27 BP 142/66 H 11/03/24 11:49 Pulse Ox 96 11/03/24 11:49 O2 Del Method Nasal Cannula 11/03/24 11:27 O2 Flow Rate 6 11/03/24 11:27 FiO2 30 10/31/24 15:25 Oxygen Flow Rate 4 10/15/24 11:33 BMI result Body Mass Index 37.5 Const: Other: Gen: No acute distress. HEENT: sclera anicteric, moist mucus membranes Neck: supple Lungs:fine bibasilar rhonchi , no use of accessory muscles, talking in full sentences. Heart: regular rate and rhythm, no murmurs Abd: soft, non-tender, non-distended, bowel sounds audible Ext: no edema Skin: warm/well-perfused Neuro: alert and oriented x3, no focal findings Psych: appropriate affect Discharge Plan Discharge Anticipated Discharge Date/Time: 10/21/24 09:59 Patient Disposition: Xfer SNF Discharge Diagnosis: COPD exacerbation pneumonia acute/chronic hypoxia/hypercarbia Referrals: Aayush Bauman MD [Physician] - 2 Weeks Physician,Adriel J [Physician] - 1 Week Discharge Medications: New ipratropium-albuterol 0.5 mg-3 mg(2.5 mg base)/3 mL Solution For Nebulization 3 ml inhalation RQ4H WHILE AWAKE Qty: 90 0RF omeprazole 20 mg Capsule,Delayed Release(Dr/Ec) 20 mg PO DAILY@0630 Qty: 30 0RF guaifenesin [Mucinex] 600 mg Tablet Extended Release 12hr 1,200 mg PO BID Qty: 20 0RF amoxicillin-pot clavulanate 875-125 mg Tablet 1 tab PO Q12H Qty: 10 0RF Continued losartan 25 mg tablet 25 mg PO DAILY naproxen 500 mg tablet 500 mg PO BIDWM PRN (Reason: Pain) ezetimibe 10 mg tablet 10 mg PO DAILY alendronate 70 mg tablet 70 mg PO MO@0900 sertraline 100 mg tablet 100 mg PO DAILY simvastatin 10 mg tablet 10 mg PO BEDTIME clonidine HCl 0.2 mg tablet 0.2 mg PO TID gabapentin 300 mg capsule 300 mg PO BID@0900,1700 mirabegron [Myrbetriq] 25 mg tablet extended release 24 hr 25 mg PO DAILY multivitamin Tablet 1 tab PO DAILY ipratropium-albuterol 0.5 mg-3 mg(2.5 mg base)/3 mL Solution For Nebulization 3 ml inhalation RQ4H WHILE AWAKE PRN (Reason: Wheezing) Qty: 270 0RF amlodipine 10 mg Tablet 10 mg PO DAILY Qty: 30 0RF Protocol: Hold for SBP< HOLD for SBP < : 90 Discontinued prednisone 10 mg tablet See Rx Instructions .Route .COMPLEX Qty: 45 0RF Rx Instructions: 10 mg orally DAILY x3 days; END DATE: 10/18/24 Diet: Ground mechanical/thin Stand Alone Forms: Patient Portal Discharge page Print Language: Northern Irish Care Plan Goals: lung health Health Concerns: COPD exacerbation Aspiration pneumonia, monitor closely for aspiration 1-1 assistance/supervision during PO intake. BEHAVIORAL THERAPIST discussed recommended diet and strategies: liquid wash between bites to clear pocketed material, small sips, avoid the use of straws, maintain upright positioning. acute/chronic hypoxia/hypercarbia Wean DuoNeb updraft gradually to every 6 hours then as needed Plan of Treatment: transfer to [facility] for short-term rehabilitation take antibiotics as prescribed O2 with goal SaO2 88-92%; follow up with Pulmonology in 2 weeks Assessment: See Discharge Summary.
[2024-11-03] MEDS: Enoxaparin Sodium 40 MG/0.4 ML SYRINGE SUBCUT (15:52)
[2024-11-03] MEDS: Amoxicillin/Potassium Clav 875 MG TABLET PO (15:54)
[2024-11-03] MEDS: Atorvastatin Calcium 10 MG TABLET PO (22:15)
[2024-11-04] VITALS: BP 129/59; PULSE 68; RESP 20; TEMP 36.4; O2SAT 93
[2024-11-04 03:46] VITALS: BP 143/67; PULSE 74; RESP 20; TEMP 36.1; O2SAT 90
[2024-11-04] MEDS: Amoxicillin/Potassium Clav 875 MG TABLET PO ×2 (04:15→16:00)
[2024-11-04] MEDS: Acetaminophen 325 MG TABLET 650 MG PO ×2 (05:34→21:30)
[2024-11-04] MEDS: Omeprazole 20 MG CAPSULE.DR PO (05:34)
[2024-11-04 07:49] VITALS: BP 147/66; PULSE 72; RESP 20; TEMP 36.4; O2SAT 94
[2024-11-04] MEDS: Losartan Potassium 25 MG TABLET PO (09:15)
[2024-11-04] MEDS: amLODIPine Besylate 10 MG TABLET PO (09:15)
[2024-11-04] MEDS: 0.9 % Sodium Chloride Flush 3 ML SYRINGE IVFLUSH ×3 (09:15→16:00)
[2024-11-04] MEDS: guaiFENesin LA 600 MG TAB.ER.12H 1200 MG PO ×2 (09:15→21:30)
[2024-11-04] MEDS: Gabapentin 300 MG CAPSULE PO ×2 (09:15→16:00)
[2024-11-04] MEDS: cloNIDine HCL 0.2 MG TABLET PO ×3 (09:15→21:30)
[2024-11-04] MEDS: Sertraline HCL 100 MG TABLET PO (09:15)
[2024-11-04 12:00] VITALS: BP 138/58; PULSE 65; RESP 16; TEMP 37; O2SAT 93
--- NOTE | 2024-11-04 15:39 | HO.PM.IMPN ---
Subjective Subjective Date of Service: 11/04/24 Interval History: Seen in follow up for acute on chronic hypoxic/hypercarbic respiratory failure due to COPD exacerbation/LLL pneumonia/recurrent aspiration Interval history: No shortness of breath or wheezing. Denies chest pain. Tolerating diet. Reports she does not want to go to short-term rehab but is agreeable to try for several days Review of Systems Review of Systems: Yes all other systems are reviewed and are negative Physical Exam Vital Signs: Vital Signs: Last Vital Signs Temp 98.6 F 11/04/24 12:00 Pulse 65 11/04/24 12:00 Resp 16 11/04/24 12:00 BP 138/58 L 11/04/24 12:00 Pulse Ox 93 11/04/24 12:00 O2 Del Method Nasal Cannula 11/04/24 07:49 O2 Flow Rate 6 11/04/24 12:00 FiO2 30 10/31/24 15:25 Oxygen Flow Rate 4 10/15/24 11:33 BMI result Body Mass Index 37.5 Constitutional - Awake and Alert, No apparent distress Eyes - PERRLA, EOMI Cardiovascular - S1S2, RRR, No edema Respiratory - Normal lung expansion, Normal respiratory effort, No respiratory distress, CTA bilaterally Gastrointestinal - NT / ND; +BS; No rebound or guarding Extremities - no calf tenderness bilaterally, no swelling Skin - Warm/Dry Neurological - Alert & oriented x3 Psychological - Appropriate affect Objective Data Active Medications Acetaminophen (Acetaminophen 325 Mg Tablet) 650 mg PO Q6H PRN PRN Reason: Pain, Mild (Pain Scale 1-3) Last Admin: 11/04/24 05:34 Dose: 650 mg Documented By: TONIE Albuterol/Ipratropium (Albuterol/Iprat 2.5/0.5mg 3 Ml Ampul.Neb) 3 ml INHALE RQ4H WHILE AWAKE PRN PRN Reason: Shortness of Breath/Wheezing Last Admin: 10/15/24 22:42 Dose: 3 ml Documented By: RIRI Amlodipine Besylate (Amlodipine Besylate 10 Mg Tablet) 10 mg PO DAILY [facility]; Protocol Last Admin: 11/04/24 09:15 Dose: 10 mg Documented By: ESTEBAN Amoxicillin/Clavulanate Potassium (Amoxicillin/Potassium Clav 875 Mg Tablet) 875 mg PO Q12H [facility] Last Admin: 11/04/24 04:15 Dose: 875 mg Documented By: TONIE Atorvastatin Calcium (Atorvastatin Calcium 10 Mg Tablet) 10 mg PO BEDTIME [facility] Last Admin: 11/03/24 22:15 Dose: 10 mg Documented By: TONIE Clonidine HCl (Clonidine Hcl 0.2 Mg Tablet) 0.2 mg PO TID [facility]; Protocol Last Admin: 11/04/24 09:15 Dose: 0.2 mg Documented By: ESTEBAN Enoxaparin Sodium (Enoxaparin Sodium 40 Mg/0.4 Ml Syringe) 40 mg SUBCUT Q24H [facility] Last Admin: 11/03/24 15:52 Dose: 40 mg Documented By: ESTEBAN Gabapentin (Gabapentin 300 Mg Capsule) 300 mg PO BID@0900,1700 [facility] Last Admin: 11/04/24 09:15 Dose: 300 mg Documented By: ESTEBAN Guaifenesin (Guaifenesin La 600 Mg Tab.Er.12h) 1,200 mg PO BID [facility] Last Admin: 11/04/24 09:15 Dose: 1,200 mg Documented By: ESTEBAN Losartan Potassium (Losartan Potassium 25 Mg Tablet) 25 mg PO DAILY [facility]; Protocol Last Admin: 11/04/24 09:15 Dose: 25 mg Documented By: ESTEBAN Omeprazole (Omeprazole 20 Mg Capsule.) 20 mg PO DAILY@0630 [facility] Last Admin: 11/04/24 05:34 Dose: 20 mg Documented By: TONIE Ondansetron HCl (Ondansetron Hcl 4 Mg/2 Ml Vial) 4 mg IVPUSH Q6H PRN PRN Reason: Nausea and Vomiting Last Admin: 10/19/24 06:39 Dose: 4 mg Documented By: DAVID Sertraline HCl (Sertraline Hcl 100 Mg Tablet) 100 mg PO DAILY [facility] Last Admin: 11/04/24 09:15 Dose: 100 mg Documented By: ESTEBAN Sodium Chloride (0.9 % Sodium Chloride Flush 3 Ml Syringe) 3 ml IVFLUSH QSHIFT [facility] Last Admin: 11/04/24 09:15 Dose: 3 ml Documented By: ESTEBAN Labs 10/31/24 07:09 10/31/24 07:09 Assessment and Plan (1) Multifocal pneumonia: Status: Acute (2) COPD exacerbation: Status: Acute (3) Acute on chronic respiratory failure with hypoxia and hypercapnia: Status: Acute (4) Weakness: Status: Acute Plan 79yo F with COPD on 2L O2, HLD, obesity who was at STR at [facility] and was admitted to the ICU for acute hypoxia/hypercapnea refractory to BiPAP support, intubated then extubated the next day and stepped down to C 10/16 acute/chronic hypoxic/hypercarbic resp failure due to COPD exac/LLL PNA/recurrent episodes of aspiration - flu/RSV/COVID negative. PCT 0.02, blood cultures x2 negative CT 10/19 showed: Persistent probable left lower lobe pneumonia with mucoid impaction and new superimposed presumed aspiration. - finished course of cefepime and azithromycin 10/15 - 10/22 , on 10/22 noted to have worsening hypoxia likely due to aspiration pneumonia treated with IV Zosyn 10/22 thru 10/27 for retrocardiac pneumonia; - [employer]BEARER consulted, recommends NDD2 solids + thin liquids, tolerating diet -CTA chest 10/25 showed no PE, improving left lower lobe pneumonia ,, diffuse small AV thickening and bronchiectasis, foci of endobronchial mucus plugging significantly improved in left lower lobe -patient was improving, on 4 L of oxygen finger oximetry > 92% likely aspirated again 12/27 oxygenation dropped to 70s placed on high-flow oxygenation remained low 87 88% therefore Repeat CTA chest 10/29 obtained that showed no PE but again showed multifocal pneumonia, increased consolidation left lower lobe indicating worsening pneumonia, new mild amount of bilateral ground-glass opacity and patchy consolidation in other lobes likely infectious/inflammatory Likely recurrent aspiration /being followed closely by speech therapy on IV Zosyn 10/29, on IV steroids 20 q.12 hours and doxycycline 100 b.i.d. Now weaned down to nasal cannula 5L finger oximetry 90-91 Will DC IV Zosyn, DC IV steroids and DC IV doxy - continue CPT + Aerobika - unable to tolerate BiPAP, - continue to titrate supplemental oxygen. - daily out of bed to chair HTN continue clonidine 0.2 mg t.i.d., amlodipine, and losartan 25 mg daily. Noted to have few high blood pressure readings now stabilized follow BP HLD - statin mood disorder continue sertraline Class 3 obesity recommend low-calorie diet. dispo - to short-term rehab at a.m. waiting for Auth As per PT patient will require extensive rehab upon discharge, In my clinical judgment, the patient requires continued inpatient hospitalization for the following reasons: hypoxia/hypercarbia, and safe disposition Quality Stroke Does the patient have a stroke diagnosis?: No VTE Prior VTE?: No VTE Risk Level:: Medical - moderate - high VTE Device Contraindication: Treatment Not Indicated VTE Drug Contraindication: N/A - Med Ordered
[2024-11-04 16:00] VITALS: BP 140/59; PULSE 80; RESP 16; TEMP 36.6; O2SAT 92
[2024-11-04] MEDS: Enoxaparin Sodium 40 MG/0.4 ML SYRINGE SUBCUT (16:00)
[2024-11-04 20:30] VITALS: BP 116/65; PULSE 79; RESP 20; TEMP 36.5; O2SAT 89
[2024-11-04] MEDS: Atorvastatin Calcium 10 MG TABLET PO (21:31)
[2024-11-05] VITALS: BP 103/49; PULSE 73; RESP 20; TEMP 36.8; O2SAT 92
[2024-11-05 04:00] VITALS: BP 150/67; PULSE 69; RESP 20; TEMP 36.2; O2SAT 92
[2024-11-05] MEDS: Omeprazole 20 MG CAPSULE.DR PO (06:00)
[2024-11-05] MEDS: Amoxicillin/Potassium Clav 875 MG TABLET PO ×2 (06:00→16:18)
--- NOTE | 2024-11-05 07:38 | P.PNIM_ITS ---
Subjective Subjective Date of Service: 11/05/24 Interval History: Seen in follow up for acute on chronic hypoxic/hypercarbic respiratory failure due to COPD exacerbation/LLL pneumonia/recurrent aspiration Interval history: No shortness of breath or wheezing. Denies chest pain. Tolerating diet. Review of Systems Review of Systems: Yes all other systems are reviewed and are negative Physical Exam 2 Vital Signs: Vital Signs: Last Vital Signs Temp 97.2 F 11/05/24 04:00 Pulse 69 11/05/24 04:00 Resp 20 11/05/24 04:00 BP 150/67 H 11/05/24 04:00 Pulse Ox 92 11/05/24 04:00 O2 Del Method Nasal Cannula 11/05/24 04:00 O2 Flow Rate 6 11/05/24 04:00 FiO2 30 10/31/24 15:25 Oxygen Flow Rate 4 10/15/24 11:33 BMI result Body Mass Index 37.5 Constitutional - Awake and Alert, No apparent distress Eyes - PERRLA, EOMI Cardiovascular - S1S2, RRR, No edema Respiratory - Normal lung expansion, Normal respiratory effort, No respiratory distress, CTA bilaterally Extremities - no calf tenderness bilaterally, no swelling Skin - Warm/Dry Psychological - Appropriate affect Objective Data Active Medications Acetaminophen (Acetaminophen 325 Mg Tablet) 650 mg PO Q6H PRN PRN Reason: Pain, Mild (Pain Scale 1-3) Last Admin: 11/04/24 21:30 Dose: 650 mg Documented By: TONIE Amlodipine Besylate (Amlodipine Besylate 10 Mg Tablet) 10 mg PO DAILY [facility]; Protocol Last Admin: 11/04/24 09:15 Dose: 10 mg Documented By: ESTEBAN Amoxicillin/Clavulanate Potassium (Amoxicillin/Potassium Clav 875 Mg Tablet) 875 mg PO Q12H [facility] Last Admin: 11/05/24 06:00 Dose: 875 mg Documented By: TONIE Atorvastatin Calcium (Atorvastatin Calcium 10 Mg Tablet) 10 mg PO BEDTIME [facility] Last Admin: 11/04/24 21:31 Dose: 10 mg Documented By: TONIE Clonidine HCl (Clonidine Hcl 0.2 Mg Tablet) 0.2 mg PO TID [facility]; Protocol Last Admin: 11/04/24 21:30 Dose: 0.2 mg Documented By: TONIE Enoxaparin Sodium (Enoxaparin Sodium 40 Mg/0.4 Ml Syringe) 40 mg SUBCUT Q24H [facility] Last Admin: 11/04/24 16:00 Dose: 40 mg Documented By: ESTEBAN Gabapentin (Gabapentin 300 Mg Capsule) 300 mg PO BID@0900,1700 [facility] Last Admin: 11/04/24 16:00 Dose: 300 mg Documented By: ESTEBAN Guaifenesin (Guaifenesin La 600 Mg Tab.Er.12h) 1,200 mg PO BID [facility] Last Admin: 11/04/24 21:30 Dose: 1,200 mg Documented By: TONIE Losartan Potassium (Losartan Potassium 25 Mg Tablet) 25 mg PO DAILY [facility]; Protocol Last Admin: 11/04/24 09:15 Dose: 25 mg Documented By: ESTEBAN Omeprazole (Omeprazole 20 Mg Capsule.Dr) 20 mg PO DAILY@0630 [facility] Last Admin: 11/05/24 06:00 Dose: 20 mg Documented By: TONIE Ondansetron HCl (Ondansetron Hcl 4 Mg/2 Ml Vial) 4 mg IVPUSH Q6H PRN PRN Reason: Nausea and Vomiting Last Admin: 10/19/24 06:39 Dose: 4 mg Documented By: DAVID Sertraline HCl (Sertraline Hcl 100 Mg Tablet) 100 mg PO DAILY [facility] Last Admin: 11/04/24 09:15 Dose: 100 mg Documented By: ESTEBAN Sodium Chloride (0.9 % Sodium Chloride Flush 3 Ml Syringe) 3 ml IVFLUSH QSHIFT [facility] Last Admin: 11/05/24 00:00 Dose: 3 ml Documented By: TONIE Labs 10/31/24 07:09 10/31/24 07:09 Assessment and Plan (1) Multifocal pneumonia: Status: Acute (2) COPD exacerbation: Status: Acute (3) Acute on chronic respiratory failure with hypoxia and hypercapnia: Status: Acute (4) Weakness: Status: Acute Plan 79yo F with COPD on 2L O2, HLD, obesity who was at [facility] at [facility] and was admitted to the ICU for acute hypoxia/hypercapnea refractory to BiPAP support, intubated then extubated the next day and [place] [facility] [place] acute/chronic hypoxic/hypercarbic resp failure due to COPD exac/LLL PNA/recurrent episodes of aspiration - flu/RSV/COVID negative. PCT 0.02, blood cultures x2 negative CT 10/19 showed: Persistent probable left lower lobe pneumonia with mucoid impaction and new superimposed presumed aspiration. - finished course of cefepime and azithromycin 10/15 - 10/22 , on 10/22 noted to have worsening hypoxia likely due to aspiration pneumonia treated with IV Zosyn 10/22 thru 10/27 for retrocardiac pneumonia; - PIPE CLEANER consulted, recommends NDD2 solids + thin liquids, tolerating diet -CTA chest 10/25 showed no PE, improving left lower lobe pneumonia ,, diffuse small AV thickening and bronchiectasis, foci of endobronchial mucus plugging significantly improved in left lower lobe -patient was improving, on 4 L of oxygen finger oximetry > 92% likely aspirated again 12/27 oxygenation dropped to 70s placed on high-flow oxygenation remained low 87 88% therefore Repeat CTA chest 10/29 obtained that showed no PE but again showed multifocal pneumonia, increased consolidation left lower lobe indicating worsening pneumonia, new mild amount of bilateral ground-glass opacity and patchy consolidation in other lobes likely infectious/inflammatory Likely recurrent aspiration /being followed closely by speech therapy on IV Zosyn 10/29, on IV steroids 20 q.12 hours and doxycycline 100 b.i.d. Now weaned down to nasal cannula 5L finger oximetry 90-91 Will DC IV Zosyn, DC IV steroids and DC IV doxy -on augmentin BID x5 days (started 11/03) - continue CPT + Aerobika - unable to tolerate BiPAP, - continue to titrate supplemental oxygen. - daily out of bed to chair HTN continue clonidine 0.2 mg t.i.d., amlodipine, and losartan 25 mg daily. Noted to have few high blood pressure readings now stabilized follow BP HLD - statin mood disorder continue sertraline Class 3 obesity recommend low-calorie diet. dispo - to short-term rehab at a.m. waiting for Auth As per PT patient will require extensive rehab upon discharge, In my clinical judgment, the patient requires continued inpatient hospitalization for the following reasons: hypoxia/hypercarbia, and safe disposition Quality Stroke Does the patient have a stroke diagnosis?: No VTE Prior VTE?: No VTE Risk Level:: Medical - moderate - high VTE Device Contraindication: Treatment Not Indicated VTE Drug Contraindication: N/A - Med Ordered
[2024-11-05 07:41] VITALS: BP 148/68; PULSE 73; RESP 20; TEMP 36.1; O2SAT 88
[2024-11-05] MEDS: Acetaminophen 325 MG TABLET 650 MG PO ×2 (10:04→20:28)
[2024-11-05] MEDS: Sertraline HCL 100 MG TABLET PO (10:05)
[2024-11-05] MEDS: amLODIPine Besylate 10 MG TABLET PO (10:05)
[2024-11-05] MEDS: cloNIDine HCL 0.2 MG TABLET PO ×3 (10:05→20:28)
[2024-11-05] MEDS: Gabapentin 300 MG CAPSULE PO ×2 (10:05→16:17)
[2024-11-05] MEDS: Losartan Potassium 25 MG TABLET PO (10:05)
[2024-11-05] MEDS: 0.9 % Sodium Chloride Flush 3 ML SYRINGE IVFLUSH ×3 (10:06→16:18)
[2024-11-05] MEDS: guaiFENesin LA 600 MG TAB.ER.12H 1200 MG PO ×2 (10:06→20:28)
[2024-11-05 11:03] VITALS: BP 113/58; PULSE 85; RESP 18; TEMP 36.3; O2SAT 90
[2024-11-05 15:23] VITALS: BP 124/56; PULSE 76; RESP 16; TEMP 36.9; O2SAT 90
[2024-11-05] MEDS: Enoxaparin Sodium 40 MG/0.4 ML SYRINGE SUBCUT (16:17)
[2024-11-05 20:00] VITALS: BP 123/58; PULSE 78; RESP 20; TEMP 36.4; O2SAT 89
[2024-11-05] MEDS: Atorvastatin Calcium 10 MG TABLET PO (20:29)
[2024-11-06] VITALS (11 sets, daily range): BP systolic 99–130; BP diastolic 42–61; PULSE 65–100; RESP 16–20; TEMP 36.1–36.6; O2SAT 90–96
[2024-11-06] MEDS: Amoxicillin/Potassium Clav 875 MG TABLET PO ×2 (04:28→17:35)
[2024-11-06] MEDS: Omeprazole 20 MG CAPSULE.DR PO (04:28)
--- NOTE | 2024-11-06 08:28 | PM.DS ---
DS: Providers Provider Date of admission: 10/15/24 13:38 Primary care physician: Anurag Schmid MD Consults: 10/20/24 11:46 Consult to Pulmonology Routine Consulting Provider: [facility] Reason for consultation: mucoid impaction, PNA 10/31/24 07:52 Consult to Pulmonology Routine Consulting Provider: [facility] Reason for consultation: hypoxia on high flow Has provider been notified: No DS: Diagnosis Discharge Diagnosis (1) Multifocal pneumonia: Status: Acute (2) COPD exacerbation: Status: Acute (3) Acute on chronic respiratory failure with hypoxia and hypercapnia: Status: Acute (4) Weakness: Status: Acute DS: Summary Hospital Course Hospital Course: From the history and physical by the admitting contract lead, Watson Feliciano MD, 10/15/24: 79-year-old lady with underlying history of COPD supplemental oxygen 2 L dependent, hypotension, hyperlipidemia, obesity sent from rehab secondary to acute hypoxia, on ER evaluation patient with acute hypoxic hypercapnic respiratory failure refractory to BiPAP support requiring intubation and ventilatory support. Admitted to the intensive care unit. 79yo F with COPD on 2L O2, HLD, obesity who [facility] and was admitted to the ICU for acute hypoxia/hypercapnea refractory to BiPAP support, intubated then extubated the next day and [place] [facility] [place] Hospital course by problem: Acute/chronic hypoxic/hypercarbic resp failure due to COPD exac/LLL PNA, flu/RSV/COVID negative. PCT 0.02, blood cultures x2 negative,patient had a prolonged hospital stay she has slowly improved Initially treated with cefepime plus azithro for retrocardiac pneumonia and IV steroids for COPD exacerbation; CT 10/19 showed:persistent probable left lower lobe pneumonia with mucoid impaction and new superimposed presumed aspiration, Patient improved, but likely aspirated 10/22 became hypoxic placed on high-flow oxygen treated with course of IV Zosyn evaluated by speech therapist and placed on modified NDD 2 solids and thin liquids CTA chest showed no PE, and showed improving left lower lobe pneumonia, diffuse small AV thickening and bronchiectasis and foci of endobronchial mucous plugging significantly improved in the left lower lobe, she was transitioned down to 4 L of oxygen with finger oximetry greater than 92%, but unfortunately had likely another episode of aspiration on 12/27, therefore was placed back on high-flow oxygen, was followed closely by pulmonology did not require any invasive procedures repeat CTA chest again showed no PE but however showed multifocal pneumonia with worsening consolidation left lower lobe, patient was followed closely by speech therapy and was treated with another round of IV Zosyn, IV steroids, cough expectorants, chest CPT, Aerobika, subsequently now patient has been stabilized currently on 5 L of oxygen via nasal cannula EF tolerating current diet shortness of breath has resolved has minimal cough, talking in full sentences, therefore being discharged to rehab facility on by mouth Augmentin 875 mg twice daily for 5 days, guaifenesin twice daily does not require further steroid treatment patient declined to use BiPAP and has been doing well. HTN BP stable continue losartan, amlodipine, and clonidine. Mood disorder continue sertraline. Hyperlipidemia continue Lipitor. Physical Exam Vital Signs: Vital Signs: Last Vital Signs Temp 97.1 F 11/06/24 07:27 Pulse 77 11/06/24 07:27 Resp 20 11/06/24 07:27 BP 130/61 11/06/24 07:27 Pulse Ox 90 L 11/06/24 07:27 O2 Del Method Nasal Cannula, Bi PAP 11/06/24 07:27 O2 Flow Rate 6 11/06/24 07:27 FiO2 30 10/31/24 15:25 Oxygen Flow Rate 4 10/15/24 11:33 BMI result Body Mass Index 37.5 Discharge Plan Discharge Patient Disposition: [facility] Discharge Diagnosis: COPD exacerbation pneumonia acute/chronic hypoxia/hypercarbia Referrals: Aayush Bauman MD [Physician] - 2 Weeks Physician,Unknown J [Physician] - 1 Week Discharge Medications: New ipratropium-albuterol 0.5 mg-3 mg(2.5 mg base)/3 mL Solution For Nebulization 3 ml inhalation RQ4H WHILE AWAKE Qty: 90 0RF omeprazole 20 mg Capsule,Delayed Release(Dr/Ec) 20 mg PO DAILY@0630 Qty: 30 0RF guaifenesin [Mucinex] 600 mg Tablet Extended Release 12hr 1,200 mg PO BID Qty: 20 0RF amoxicillin-pot clavulanate 875-125 mg Tablet 1 tab PO Q12H Qty: 10 0RF Continued losartan 25 mg tablet 25 mg PO DAILY naproxen 500 mg tablet 500 mg PO BIDWM PRN (Reason: Pain) ezetimibe 10 mg tablet 10 mg PO DAILY alendronate 70 mg tablet 70 mg PO MO@0900 sertraline 100 mg tablet 100 mg PO DAILY simvastatin 10 mg tablet 10 mg PO BEDTIME clonidine HCl 0.2 mg tablet 0.2 mg PO TID gabapentin 300 mg capsule 300 mg PO BID@0900,1700 mirabegron [Myrbetriq] 25 mg tablet extended release 24 hr 25 mg PO DAILY multivitamin Tablet 1 tab PO DAILY ipratropium-albuterol 0.5 mg-3 mg(2.5 mg base)/3 mL Solution For Nebulization 3 ml inhalation RQ4H WHILE AWAKE PRN (Reason: Wheezing) Qty: 270 0RF amlodipine 10 mg Tablet 10 mg PO DAILY Qty: 30 0RF Protocol: Hold for SBP< HOLD for SBP < : 90 Discontinued prednisone 10 mg tablet See Rx Instructions .Route .COMPLEX Qty: 45 0RF Rx Instructions: 10 mg orally DAILY x3 days; END DATE: 10/18/24 Diet: Ground mechanical/thin Stand Alone Forms: Patient Portal Discharge page Print Language: Serbian Care Plan Goals: lung health Health Concerns: COPD exacerbation Aspiration pneumonia, monitor closely for aspiration 1-1 assistance/supervision during PO intake. SAP DATA ARCHITECT discussed recommended diet and strategies: liquid wash between bites to clear pocketed material, small sips, avoid the use of straws, maintain upright positioning. acute/chronic hypoxia/hypercarbia Wean DuoNeb updraft gradually to every 6 hours then as needed Plan of Treatment: transfer to [facility] for short-term rehabilitation take antibiotics as prescribed O2 with goal SaO2 88-92%; follow up with Pulmonology in 2 weeks Assessment: See Discharge Summary.
[2024-11-06] MEDS: cloNIDine HCL 0.2 MG TABLET PO ×3 (08:41→21:48)
[2024-11-06] MEDS: Sertraline HCL 100 MG TABLET PO (08:42)
[2024-11-06] MEDS: guaiFENesin LA 600 MG TAB.ER.12H 1200 MG PO ×2 (08:42→21:48)
[2024-11-06] MEDS: Losartan Potassium 25 MG TABLET PO (08:43)
[2024-11-06] MEDS: amLODIPine Besylate 10 MG TABLET PO (08:44)
[2024-11-06] MEDS: Gabapentin 300 MG CAPSULE PO ×2 (08:44→17:35)
--- NOTE | 2024-11-06 12:12 | MHC.CM.PN ---
Patient remains medically cleared for dc to [facility] today; CM continue to wait for [employer] auth [facility] last Wednesday (11/03/2024)morning. CM will follow.
--- NOTE | 2024-11-06 14:53 | MHC.SL.SWA ---
Speech Pathologist Impression: Risk of Aspiration Due to: Medically Fragile Hx of Recent Extubation Dysphasia Diet Status: Recommend continue on current diet of Ground/Mechanical (NDD2) with thin liquids, pills whole in puree at next level of care. Patient will need supervision at meals to assure patient is not accessing inappropriate foods and progressing with her meal. Liquid Consistency and Strategies for Safe Swallow: Liquid Intake Recommendation: Thin Liquid Intake Strategies: Small Sips No Straws Double Swallow Solid Food Consistency: Dietary Recommendations: Grnd/Mech Altered (NDD2) Additional Modifications to Solid Foods: Patient with 1-1 assistance/supervision during PO intake. KOSHER BUTCHER discussed recommended diet and strategies: liquid wash between bites to clear pocketed material, small sips, avoid the use of straws, maintain upright positioning. Oral Medication Intake: Whole with Puree Please contact the pharmacy regarding appropriate crushable or liquid drug formulations that are available whenever modified delivery is recommended. Compensatory Strategies and Precautions to be Taken for Safe Swallow: Sitting Upright (90 deg) Double Swallow Liquids from Cup Small Bites and Sips Alternate Liquids/Solids Rate of Ingestion Change Avoid Specific Foods Supervision While Eating and Drinking for Safe Swallow: Total Assistance (1:1) Foods to Avoid: Hard, dry, or sticky foods. Mixed consistencies. Swallowing Recommended Treatments: Compens. Strategy Educat. Recommendation for Speech: Inpatient Speech Therapy Speech Therapy through Rehab Facility Comment: Patient continues to require KOSHER BUTCHER intervention for education and review of safety recc for diet modifications and techniques to reduce risk for aspiration. Frequency/Duration: Date Range for Service Req: Timeline to reassess: Qa Specialist Clinican/Clinical Fellow: No Supervisory Statement: I have reviewed and agree with the student/clinical fellow's documentation: N/A Speech Language Pathologist: Andreina Dowling M.S., [facility]KOSHER BUTCHER
--- NOTE | 2024-11-06 17:15 | P.PNIM_ITS ---
Subjective Subjective Date of Service: 11/06/24 Interval History: Seen in follow up for acute on chronic hypoxic/hypercarbic respiratory failure due to COPD exacerbation/LLL pneumonia/recurrent aspiration Interval history: No shortness of breath or wheezing. Denies chest pain. Tolerating diet. Refusing to get out of bed for ambulatory O2 as SNF will not accept her if she requires >6L with exertion Review of Systems Review of Systems: Yes all other systems are reviewed and are negative Physical Exam 2 Vital Signs: Vital Signs: Last Vital Signs Temp 97.2 F 11/06/24 14:57 Pulse 84 11/06/24 14:57 Resp 20 11/06/24 14:57 BP 109/55 L 11/06/24 14:57 Pulse Ox 90 L 11/06/24 14:57 O2 Del Method Nasal Cannula 11/06/24 14:57 O2 Flow Rate 6 11/06/24 14:57 FiO2 30 10/31/24 15:25 Oxygen Flow Rate 4 10/15/24 11:33 BMI result Body Mass Index 37.5 Constitutional - Awake and Alert, No apparent distress Eyes - PERRLA, EOMI Cardiovascular - S1S2, RRR, No edema Respiratory - Normal lung expansion, Normal respiratory effort, No respiratory distress, CTA bilaterally Extremities - no calf tenderness bilaterally, no swelling Skin - Warm/Dry Psychological - Appropriate affect Objective Data Active Medications Acetaminophen (Acetaminophen 325 Mg Tablet) 650 mg PO Q6H PRN PRN Reason: Pain, Mild (Pain Scale 1-3) Last Admin: 11/05/24 20:28 Dose: 650 mg Documented By: RADHA Amlodipine Besylate (Amlodipine Besylate 10 Mg Tablet) 10 mg PO DAILY [facility]; Protocol Last Admin: 11/06/24 08:44 Dose: 10 mg Documented By: JACQUELYN Amoxicillin/Clavulanate Potassium (Amoxicillin/Potassium Clav 875 Mg Tablet) 875 mg PO Q12H [facility] Last Admin: 11/06/24 04:28 Dose: 875 mg Documented By: RADHA Atorvastatin Calcium (Atorvastatin Calcium 10 Mg Tablet) 10 mg PO BEDTIME [facility] Last Admin: 11/05/24 20:29 Dose: 10 mg Documented By: RADHA Clonidine HCl (Clonidine Hcl 0.2 Mg Tablet) 0.2 mg PO TID [facility]; Protocol Last Admin: 11/06/24 08:41 Dose: 0.2 mg Documented By: JACQUELYN Enoxaparin Sodium (Enoxaparin Sodium 40 Mg/0.4 Ml Syringe) 40 mg SUBCUT Q24H [facility] Last Admin: 11/05/24 16:17 Dose: 40 mg Documented By: ESTEBAN Gabapentin (Gabapentin 300 Mg Capsule) 300 mg PO BID@0900,1700 [facility] Last Admin: 11/06/24 08:44 Dose: 300 mg Documented By: JACQUELYN Guaifenesin (Guaifenesin La 600 Mg Tab.Er.12h) 1,200 mg PO BID [facility] Last Admin: 11/06/24 08:42 Dose: 1,200 mg Documented By: JACQUELYN Losartan Potassium (Losartan Potassium 25 Mg Tablet) 25 mg PO DAILY [facility]; Protocol Last Admin: 11/06/24 08:43 Dose: 25 mg Documented By: JACQUELYN Omeprazole (Omeprazole 20 Mg Capsule.Dr) 20 mg PO DAILY@0630 [facility] Last Admin: 11/06/24 04:28 Dose: 20 mg Documented By: RADHA Ondansetron HCl (Ondansetron Hcl 4 Mg/2 Ml Vial) 4 mg IVPUSH Q6H PRN PRN Reason: Nausea and Vomiting Last Admin: 10/19/24 06:39 Dose: 4 mg Documented By: DVAID Sertraline HCl (Sertraline Hcl 100 Mg Tablet) 100 mg PO DAILY [facility] Last Admin: 11/06/24 08:42 Dose: 100 mg Documented By: JACQUELYN Sodium Chloride (0.9 % Sodium Chloride Flush 3 Ml Syringe) 3 ml IVFLUSH QSHIFT [facility] Last Admin: 11/06/24 01:13 Dose: Not Given Documented By: RADHA Non-Admin Reason: Previously Administered Labs 10/31/24 07:09 10/31/24 07:09 Assessment and Plan (1) Multifocal pneumonia: Status: Acute (2) COPD exacerbation: Status: Acute (3) Acute on chronic respiratory failure with hypoxia and hypercapnia: Status: Acute (4) Weakness: Status: Acute Plan 79yo F with COPD on 2L O2, HLD, obesity who was at [facility] and was admitted to the ICU for acute hypoxia/hypercapnea refractory to BiPAP support, intubated then extubated the next day and stepped down to [facility] 10/16 acute/chronic hypoxic/hypercarbic resp failure due to COPD exac/LLL PNA/recurrent episodes of aspiration - flu/RSV/COVID negative. PCT 0.02, blood cultures x2 negative CT 10/19 showed: Persistent probable left lower lobe pneumonia with mucoid impaction and new superimposed presumed aspiration. - finished course of cefepime and azithromycin 10/15 - 10/22 , on 10/22 noted to have worsening hypoxia likely due to aspiration pneumonia treated with IV Zosyn 10/22 thru 10/27 for retrocardiac pneumonia; - MANAGER CARGO consulted, recommends NDD2 solids + thin liquids, tolerating diet -CTA chest 10/25 showed no PE, improving left lower lobe pneumonia ,, diffuse small AV thickening and bronchiectasis, foci of endobronchial mucus plugging significantly improved in left lower lobe -patient was improving, on 4 L of oxygen finger oximetry > 92% likely aspirated again 12/27 oxygenation dropped to 70s placed on high-flow oxygenation remained low 87 88% therefore Repeat CTA chest 10/29 obtained that showed no PE but again showed multifocal pneumonia, increased consolidation left lower lobe indicating worsening pneumonia, new mild amount of bilateral ground-glass opacity and patchy consolidation in other lobes likely infectious/inflammatory Likely recurrent aspiration /being followed closely by speech therapy on IV Zosyn 10/29, on IV steroids 20 q.12 hours and doxycycline 100 b.i.d. Have been unable to titrate O2 below 6L, maintains oximetry 88-92% Will DC IV Zosyn, DC IV steroids and DC IV doxy -on augmentin BID x5 days (started 11/03) - continue CPT + Aerobika - unable to tolerate BiPAP, - continue to titrate supplemental oxygen. - daily out of bed to chair HTN continue clonidine 0.2 mg t.i.d., amlodipine, and losartan 25 mg daily. Noted to have few high blood pressure readings now stabilized follow BP HLD - statin mood disorder continue sertraline Class 3 obesity recommend low-calorie diet. dispo - to short-term rehab at a.m. waiting for Auth As per PT patient will require extensive rehab upon discharge, In my clinical judgment, the patient requires continued inpatient hospitalization for the following reasons: hypoxia/hypercarbia, and safe disposition. Per SNF, will not accept patient if requires >6L with ambulation. Patient currently refusing to walk. May need to consider pulm rehab Quality Stroke Does the patient have a stroke diagnosis?: No VTE Prior VTE?: No VTE Risk Level:: Medical - moderate - high VTE Device Contraindication: Treatment Not Indicated VTE Drug Contraindication: N/A - Med Ordered
[2024-11-06] MEDS: Enoxaparin Sodium 40 MG/0.4 ML SYRINGE SUBCUT (17:35)
[2024-11-06] MEDS: 0.9 % Sodium Chloride Flush 3 ML SYRINGE IVFLUSH ×3 (17:35→21:48)
[2024-11-06] MEDS: Acetaminophen 325 MG TABLET 650 MG PO (21:48)
[2024-11-06] MEDS: Atorvastatin Calcium 10 MG TABLET PO (21:48)
[2024-11-07 03:07] VITALS: BP 107/53; PULSE 62; RESP 18; TEMP 36.1; O2SAT 95
[2024-11-07] MEDS: Amoxicillin/Potassium Clav 875 MG TABLET PO ×2 (05:30→16:35)
[2024-11-07] MEDS: Omeprazole 20 MG CAPSULE.DR PO (05:30)
[2024-11-07 07:17] VITALS: BP 105/51; PULSE 67; RESP 16; TEMP 36.2; O2SAT 94
--- NOTE | 2024-11-07 08:50 | P.DS_ITS ---
DS: Providers Provider Date of admission: 10/15/24 13:38 Primary care physician: Anurag Schmid MD Consults: 10/20/24 11:46 Consult to Pulmonology Routine Consulting [place] [facility] [place] [facility] Reason for consultation: mucoid impaction, PNA 10/31/24 07:52 Consult to Pulmonology Routine Consulting Provider[place] [facility] [place] [facility] Reason for consultation: hypoxia on high flow Has provider been notified: No DS: Diagnosis Discharge Diagnosis (1) Multifocal pneumonia: Status: Acute (2) COPD exacerbation: Status: Acute (3) Acute on chronic respiratory failure with hypoxia and hypercapnia: Status: Acute (4) Weakness: Status: Acute DS: Summary Hospital Course Hospital Course: From the history and physical by the admitting boring machine operator horizontal, Watson Feliciano MD, 10/15/24: 79-year-old lady with underlying history of COPD supplemental oxygen 2 L dependent, hypotension, hyperlipidemia, obesity sent from rehab secondary to acute hypoxia, on ER evaluation patient with acute hypoxic hypercapnic respiratory failure refractory to BiPAP support requiring intubation and ventilatory support. Admitted to the intensive care unit. 79yo F with COPD on 2L O2, HLD, obesity who was at [facility] and was admitted to the ICU for acute hypoxia/hypercapnea refractory to BiPAP support, intubated then extubated the next day and stepped down to [facility] [place] 10/16. Hospital course by problem: Acute/chronic hypoxic/hypercarbic resp failure due to COPD exac/LLL PNA, flu/RSV/COVID negative. PCT 0.02, blood cultures x2 negative,patient had a prolonged hospital stay she has slowly improved Initially treated with cefepime plus azithro for retrocardiac pneumonia and IV steroids for COPD exacerbation; CT 10/19 showed:persistent probable left lower lobe pneumonia with mucoid impaction and new superimposed presumed aspiration, Patient improved, but likely aspirated 10/22 became hypoxic placed on high-flow oxygen treated with course of IV Zosyn evaluated by speech therapist and placed on modified NDD 2 solids and thin liquids CTA chest showed no PE, and showed improving left lower lobe pneumonia, diffuse small AV thickening and bronchiectasis and foci of endobronchial mucous plugging significantly improved in the left lower lobe, she was transitioned down to 4 L of oxygen with finger oximetry greater than 92%, but unfortunately had likely another episode of aspiration on 12/27, therefore was placed back on high-flow oxygen, was followed closely by pulmonology did not require any invasive procedures repeat CTA chest again showed no PE but however showed multifocal pneumonia with worsening consolidation left lower lobe, patient was followed closely by speech therapy and was treated with another round of IV Zosyn, IV steroids, cough expectorants, chest CPT, Aerobika, subsequently now patient has been stabilized currently on 5 L of oxygen via nasal cannula EF tolerating current diet shortness of breath has resolved has minimal cough, talking in full sentences, therefore being discharged to rehab facility on by mouth Augmentin 875 mg twice daily for 5 days, guaifenesin twice daily does not require further steroid treatment patient declined to use BiPAP and has been doing well. HTN BP stable continue losartan, amlodipine, and clonidine. Mood disorder continue sertraline. Hyperlipidemia continue Lipitor. Physical Exam Vital Signs: Vital Signs: Last Vital Signs Temp 97.2 F 11/07/24 07:17 Pulse 67 11/07/24 07:17 Resp 16 11/07/24 07:17 BP 105/51 L 11/07/24 07:17 Pulse Ox 94 11/07/24 07:17 O2 Del Method Nasal Cannula 11/07/24 07:17 O2 Flow Rate 6 11/07/24 07:17 FiO2 30 10/31/24 15:25 Oxygen Flow Rate 4 10/15/24 11:33 BMI result Body Mass Index 37.5 Discharge Plan [facility] Diagnosis: COPD exacerbation pneumonia acute/chronic hypoxia/hypercarbia Referrals: [facility] [Outside] - 1 Week Aayush Bauman MD [Physician] - 2 Weeks Physician,Unknown J [Physician] - 1 Week Discharge Medications: New ipratropium-albuterol 0.5 mg-3 mg(2.5 mg base)/3 mL Solution For Nebulization 3 ml inhalation RQ4H WHILE AWAKE Qty: 90 0RF omeprazole 20 mg Capsule,Delayed Release(Dr/Ec) 20 mg PO DAILY@0630 Qty: 30 0RF guaifenesin [Mucinex] 600 mg Tablet Extended Release 12hr 1,200 mg PO BID Qty: 20 0RF amoxicillin-pot clavulanate 875-125 mg Tablet 1 tab PO Q12H Qty: 10 0RF Continued losartan 25 mg tablet 25 mg PO DAILY naproxen 500 mg tablet 500 mg PO BIDWM PRN (Reason: Pain) ezetimibe 10 mg tablet 10 mg PO DAILY alendronate 70 mg tablet 70 mg PO MO@0900 sertraline 100 mg tablet 100 mg PO DAILY simvastatin 10 mg tablet 10 mg PO BEDTIME clonidine HCl 0.2 mg tablet 0.2 mg PO TID gabapentin 300 mg capsule 300 mg PO BID@0900,1700 mirabegron [Myrbetriq] 25 mg tablet extended release 24 hr 25 mg PO DAILY multivitamin Tablet 1 tab PO DAILY ipratropium-albuterol 0.5 mg-3 mg(2.5 mg base)/3 mL Solution For Nebulization 3 ml inhalation RQ4H WHILE AWAKE PRN (Reason: Wheezing) Qty: 270 0RF amlodipine 10 mg Tablet 10 mg PO DAILY Qty: 30 0RF Protocol: Hold for SBP< HOLD for SBP < : 90 Discontinued prednisone 10 mg tablet See Rx Instructions .Route .COMPLEX Qty: 45 0RF Rx Instructions: 10 mg orally DAILY x3 days; END DATE: 10/18/24 Diet: Ground mechanical/thin Stand Alone Forms: Patient Portal Discharge page Print Language: Bengali Care Plan Goals: lung health Health Concerns: COPD exacerbation Aspiration pneumonia, monitor closely for aspiration 1-1 assistance/supervision during PO intake. FIRE EXTINGUISHER TECHNICIAN discussed recommended diet and strategies: liquid wash between bites to clear pocketed material, small sips, avoid the use of straws, maintain upright positioning. acute/chronic hypoxia/hypercarbia Wean DuoNeb updraft gradually to every 6 hours then as needed Plan of Treatment: transfer to [facility] for [facility] take antibiotics as prescribed O2 with goal SaO2 88-92%; follow up with Pulmonology in 2 weeks Assessment: See Discharge Summary.
[2024-11-07] MEDS: cloNIDine HCL 0.2 MG TABLET PO ×2 (10:18→16:37)
[2024-11-07] MEDS: Losartan Potassium 25 MG TABLET PO (10:18)
[2024-11-07] MEDS: guaiFENesin LA 600 MG TAB.ER.12H 1200 MG PO (10:18)
[2024-11-07] MEDS: 0.9 % Sodium Chloride Flush 3 ML SYRINGE IVFLUSH ×2 (10:19→16:44)
[2024-11-07] MEDS: Sertraline HCL 100 MG TABLET PO (10:19)
[2024-11-07] MEDS: Gabapentin 300 MG CAPSULE PO ×2 (10:19→16:35)
[2024-11-07] MEDS: amLODIPine Besylate 10 MG TABLET PO (10:19)
[2024-11-07 11:11] VITALS: BP 118/58; PULSE 92; RESP 18; TEMP 36.2; O2SAT 90
--- NOTE | 2024-11-07 12:13 | MHC.SL.SWA ---
Speech Pathologist Impression:Risk of Aspiration, Oropharyngeal Dysphagia Risk of Aspiration Due to: Medically Fragile Hx of Recent Extubation Dysphasia Diet Status: No Change Liquid Consistency and Strategies for Safe Swallow: Liquid Intake Recommendation: Thin Liquid Intake Strategies: Small Sips No Straws Solid Food Consistency: Dietary Recommendations: Grnd/Mech Altered (NDD2) Additional Modifications to Solid Foods: Patient with 1-1 supervision during PO intake. VOICE NETWORK ENGINEER discussed recommended diet and strategies: liquid wash between bites to clear pocketed material, small sips, avoid the use of straws, maintain upright positioning. Oral Medication Intake: Whole with Puree Please contact the pharmacy regarding appropriate crushable or liquid drug formulations that are available whenever modified delivery is recommended. Compensatory Strategies and Precautions to be Taken for Safe Swallow: Sitting Upright (90 deg) Double Swallow No Straw Small Bites and Sips Alternate Liquids/Solids Rate of Ingestion Change Avoid Specific Foods Supervision While Eating and Drinking for Safe Swallow: Total Supervision (1:1) Foods to Avoid: Hard, dry, or sticky foods. Mixed consistencies. Swallowing Recommended Treatments: Compens. Strategy Educat. Recommendation for Speech: Inpatient Speech Therapy Speech Therapy through Rehab Facility Cook Supervisor Clinican/Clinical Fellow: No Supervisory Statement: I have reviewed and agree with the student/clinical fellow's documentation: N/A Speech Language Pathologist: Mehnaz Espinoza M.A., [facility]-VOICE NETWORK ENGINEER
--- NOTE | 2024-11-07 13:32 | MHC.CM.PN ---
[facility] obtained [employer] auth but Patient is now requiring 6-7 L O2 and their max is 6 L; they are not able to accommodate Patient. SNF search has been expanded and CM will continue to follow.
[2024-11-07 15:52] VITALS: BP 122/70; PULSE 97; RESP 18; TEMP 36.4; O2SAT 94
[2024-11-07] MEDS: Enoxaparin Sodium 40 MG/0.4 ML SYRINGE SUBCUT (16:36)
--- NOTE | 2024-11-07 16:36 | P.PNIM_ITS ---
Subjective Subjective Date of Service: 11/07/24 Interval History: Seen in follow up for acute on chronic hypoxic/hypercarbic respiratory failure due to COPD exacerbation/LLL pneumonia/recurrent aspiration Interval history: No shortness of breath or wheezing. Denies chest pain. Tolerating diet. Refusing to walk for ambulatory O2 but marched in place. O2 92% upon getting back in bed Review of Systems Review of Systems: Yes all other systems are reviewed and are negative Physical Exam 2 Vital Signs: Vital Signs: Last Vital Signs Temp 97.6 F 11/07/24 15:52 Pulse 97 11/07/24 15:52 Resp 18 11/07/24 15:52 BP 122/70 11/07/24 15:52 Pulse Ox 94 11/07/24 15:52 O2 Del Method Nasal Cannula 11/07/24 15:52 O2 Flow Rate 6 11/07/24 15:52 FiO2 30 10/31/24 15:25 Oxygen Flow Rate 4 10/15/24 11:33 BMI result Body Mass Index 37.5 Constitutional - Awake and Alert, No apparent distress Eyes - PERRLA, EOMI Cardiovascular - S1S2, RRR, No edema Respiratory - Normal lung expansion, Normal respiratory effort, No respiratory distress, CTA bilaterally Extremities - no calf tenderness bilaterally, no swelling Skin - Warm/Dry Psychological - Appropriate affect Objective Data Active Medications Acetaminophen (Acetaminophen 325 Mg Tablet) 650 mg PO Q6H PRN PRN Reason: Pain, Mild (Pain Scale 1-3) Last Admin: 11/06/24 21:48 Dose: 650 mg Documented By: CHRISTY Amlodipine Besylate (Amlodipine Besylate 10 Mg Tablet) 10 mg PO DAILY [facility]; Protocol Last Admin: 11/07/24 10:19 Dose: 10 mg Documented By: MANI Amoxicillin/Clavulanate Potassium (Amoxicillin/Potassium Clav 875 Mg Tablet) 875 mg PO Q12H [facility] Last Admin: 11/07/24 05:30 Dose: 875 mg Documented By: CHRISTY Atorvastatin Calcium (Atorvastatin Calcium 10 Mg Tablet) 10 mg PO BEDTIME [facility] Last Admin: 11/06/24 21:48 Dose: 10 mg Documented By: CHRISTY Clonidine HCl (Clonidine Hcl 0.2 Mg Tablet) 0.2 mg PO TID [facility]; Protocol Last Admin: 11/07/24 10:18 Dose: 0.2 mg Documented By: MANI Enoxaparin Sodium (Enoxaparin Sodium 40 Mg/0.4 Ml Syringe) 40 mg SUBCUT Q24H [facility] Last Admin: 11/06/24 17:35 Dose: 40 mg Documented By: MANI Gabapentin (Gabapentin 300 Mg Capsule) 300 mg PO BID@0900,1700 [facility] Last Admin: 11/07/24 10:19 Dose: 300 mg Documented By: MANI Guaifenesin (Guaifenesin La 600 Mg Tab.Er.12h) 1,200 mg PO BID [facility] Last Admin: 11/07/24 10:18 Dose: 1,200 mg Documented By: MANI Losartan Potassium (Losartan Potassium 25 Mg Tablet) 25 mg PO DAILY [facility]; Protocol Last Admin: 11/07/24 10:18 Dose: 25 mg Documented By: MANI Omeprazole (Omeprazole 20 Mg Capsule.Dr) 20 mg PO DAILY@0630 [facility] Last Admin: 11/07/24 05:30 Dose: 20 mg Documented By: CHRISTY Ondansetron HCl (Ondansetron Hcl 4 Mg/2 Ml Vial) 4 mg IVPUSH Q6H PRN PRN Reason: Nausea and Vomiting Last Admin: 10/19/24 06:39 Dose: 4 mg Documented By: DAVID Sertraline HCl (Sertraline Hcl 100 Mg Tablet) 100 mg PO DAILY [facility] Last Admin: 11/07/24 10:19 Dose: 100 mg Documented By: MANI Sodium Chloride (0.9 % Sodium Chloride Flush 3 Ml Syringe) 3 ml IVFLUSH QSHIFT [facility] Last Admin: 11/07/24 10:19 Dose: 3 ml Documented By: MANI Labs 10/31/24 07:09 10/31/24 07:09 Assessment and Plan (1) Multifocal pneumonia: Status: Acute (2) COPD exacerbation: Status: Acute (3) Acute on chronic respiratory failure with hypoxia and hypercapnia: Status: Acute (4) Weakness: Status: Acute Plan 79yo F with COPD on 2L O2, HLD, obesity who was at [facility] and was admitted to the ICU for acute hypoxia/hypercapnea refractory to BiPAP support, intubated then extubated the next day and stepped down to [facility] [place] acute/chronic hypoxic/hypercarbic resp failure due to COPD exac/LLL PNA/recurrent episodes of aspiration - flu/RSV/COVID negative. PCT 0.02, blood cultures x2 negative CT 10/19 showed: Persistent probable left lower lobe pneumonia with mucoid impaction and new superimposed presumed aspiration. - finished course of cefepime and azithromycin 10/15 - 10/22 , on 10/22 noted to have worsening hypoxia likely due to aspiration pneumonia treated with IV Zosyn 10/22 thru 10/27 for retrocardiac pneumonia; - PERSONAL LINES ACCOUNT EXECUTIVE consulted, recommends NDD2 solids + thin liquids, tolerating diet -CTA chest 10/25 showed no PE, improving left lower lobe pneumonia ,, diffuse small AV thickening and bronchiectasis, foci of endobronchial mucus plugging significantly improved in left lower lobe -patient was improving, on 4 L of oxygen finger oximetry > 92% likely aspirated again 12/27 oxygenation dropped to 70s placed on high-flow oxygenation remained low 87 88% therefore Repeat CTA chest 10/29 obtained that showed no PE but again showed multifocal pneumonia, increased consolidation left lower lobe indicating worsening pneumonia, new mild amount of bilateral ground-glass opacity and patchy consolidation in other lobes likely infectious/inflammatory Likely recurrent aspiration /being followed closely by speech therapy on IV Zosyn 10/29, on IV steroids 20 q.12 hours and doxycycline 100 b.i.d. Have been unable to titrate O2 below 6L, maintains oximetry 88-92% Will DC IV Zosyn, DC IV steroids and DC IV doxy -on augmentin BID x5 days (started 11/03) - continue CPT + Aerobika - unable to tolerate BiPAP, - continue to titrate supplemental oxygen. - daily out of bed to chair HTN continue clonidine 0.2 mg t.i.d., amlodipine, and losartan 25 mg daily. Noted to have few high blood pressure readings now stabilized follow BP HLD - statin mood disorder continue sertraline Class 3 obesity recommend low-calorie diet. dispo - to short-term reha- waiting for Auth As per PT patient will require extensive rehab upon discharge. In my clinical judgment, the patient requires continued inpatient hospitalization for the following reasons: hypoxia/hypercarbia, and safe disposition. Per SNF, will not accept patient if requires >6L with ambulation. Patient currently refusing to walk. May need to consider pulm rehab Quality Stroke Does the patient have a stroke diagnosis?: No VTE Prior VTE?: No VTE Risk Level:: Medical - moderate - high VTE Device Contraindication: Treatment Not Indicated VTE Drug Contraindication: N/A - Med Ordered
[2024-11-07 19:36] VITALS: BP 101/50; PULSE 72; RESP 18; TEMP 36.9; O2SAT 93
[2024-11-07 23:51] VITALS: BP 117/56; PULSE 64; RESP 16; TEMP 36.3; O2SAT 94
[2024-11-08] VITALS (7 sets, daily range): BP systolic 97–142; BP diastolic 47–57; PULSE 70–83; RESP 18–20; TEMP 36.4–37.3; O2SAT 90–92
[2024-11-08] MEDS: Omeprazole 20 MG CAPSULE.DR PO (05:09)
[2024-11-08] MEDS: Amoxicillin/Potassium Clav 875 MG TABLET PO ×2 (05:09→16:55)
--- NOTE | 2024-11-08 08:24 | P.PNIM_ITS ---
Subjective Subjective Date of Service: 11/08/24 Interval History: Seen in follow up for acute on chronic hypoxic/hypercarbic respiratory failure due to COPD exacerbation/LLL pneumonia/recurrent aspiration Interval history: Increasing O2 requirement overnight. Patient denies any shortness of breath, cough, chest pain. Tolerating diet Review of Systems Review of Systems: Yes all other systems are reviewed and are negative Physical Exam 2 Vital Signs: Vital Signs: Last Vital Signs Temp 98.0 F 11/08/24 07:43 Pulse 78 11/08/24 07:43 Resp 20 11/08/24 07:43 BP 142/57 H 11/08/24 07:43 Pulse Ox 90 L 11/08/24 07:43 O2 Del Method Nasal Cannula 11/08/24 07:43 O2 Flow Rate 6 11/08/24 07:43 FiO2 30 10/31/24 15:25 Oxygen Flow Rate 4 10/15/24 11:33 BMI result Body Mass Index 37.5 Constitutional - Awake and Alert, No apparent distress Eyes - PERRLA, EOMI Cardiovascular - S1S2, RRR, No edema Respiratory - Normal lung expansion, Normal respiratory effort, No respiratory distress, scattered crackles bilaterlly Extremities - no calf tenderness bilaterally, no swelling Skin - Warm/Dry Psychological - Appropriate affect Objective Data Active Medications Acetaminophen (Acetaminophen 325 Mg Tablet) 650 mg PO Q6H PRN PRN Reason: Pain, Mild (Pain Scale 1-3) Last Admin: 11/06/24 21:48 Dose: 650 mg Documented By: CHRISTY Amlodipine Besylate (Amlodipine Besylate 10 Mg Tablet) 10 mg PO DAILY [facility]; Protocol Last Admin: 11/07/24 10:19 Dose: 10 mg Documented By: MANI Amoxicillin/Clavulanate Potassium (Amoxicillin/Potassium Clav 875 Mg Tablet) 875 mg PO Q12H [facility] Last Admin: 11/08/24 05:09 Dose: 875 mg Documented By: CHRISTY Atorvastatin Calcium (Atorvastatin Calcium 10 Mg Tablet) 10 mg PO BEDTIME [facility] Last Admin: 11/07/24 23:57 Dose: Not Given Documented By: CHRISTY Non-Admin Reason: Patient Refused Clonidine HCl (Clonidine Hcl 0.2 Mg Tablet) 0.2 mg PO TID [facility]; Protocol Last Admin: 11/07/24 23:57 Dose: Not Given Documented By: CHRISTY Non-Admin Reason: Patient Refused Enoxaparin Sodium (Enoxaparin Sodium 40 Mg/0.4 Ml Syringe) 40 mg SUBCUT Q24H [facility] Last Admin: 11/07/24 16:36 Dose: 40 mg Documented By: MANI Gabapentin (Gabapentin 300 Mg Capsule) 300 mg PO BID@0900,1700 [facility] Last Admin: 11/07/24 16:35 Dose: 300 mg Documented By: MANI Guaifenesin (Guaifenesin La 600 Mg Tab.Er.12h) 1,200 mg PO BID [facility] Last Admin: 11/08/24 00:30 Dose: Not Given Documented By: CHRISTY Non-Admin Reason: Patient Refused Losartan Potassium (Losartan Potassium 25 Mg Tablet) 25 mg PO DAILY [facility]; Protocol Last Admin: 11/07/24 10:18 Dose: 25 mg Documented By: MANI Omeprazole (Omeprazole 20 Mg Capsule.Dr) 20 mg PO DAILY@0630 [facility] Last Admin: 11/08/24 05:09 Dose: 20 mg Documented By: CHRISTY Ondansetron HCl (Ondansetron Hcl 4 Mg/2 Ml Vial) 4 mg IVPUSH Q6H PRN PRN Reason: Nausea and Vomiting Last Admin: 10/19/24 06:39 Dose: 4 mg Documented By: DAVID Sertraline HCl (Sertraline Hcl 100 Mg Tablet) 100 mg PO DAILY [facility] Last Admin: 11/07/24 10:19 Dose: 100 mg Documented By: MANI Sodium Chloride (0.9 % Sodium Chloride Flush 3 Ml Syringe) 3 ml IVFLUSH QSHIFT [facility] Last Admin: 11/08/24 02:09 Dose: Not Given Documented By: CHRISTY Non-Admin Reason: Patient Asleep Labs 10/31/24 07:09 10/31/24 07:09 Assessment and Plan (1) Multifocal pneumonia: Status: Acute (2) COPD exacerbation: Status: Acute (3) Acute on chronic respiratory failure with hypoxia and hypercapnia: Status: Acute (4) Weakness: Status: Acute Plan 79yo F with COPD on 2L O2, HLD, obesity who was at [facility] at [facility] and was admitted to the ICU for acute hypoxia/hypercapnea refractory to BiPAP support, intubated then extubated the next day and stepped down to [facility] 10/16 acute/chronic hypoxic/hypercarbic resp failure due to COPD exac/LLL PNA/recurrent episodes of aspiration and obesity hypoventilation syndrome - flu/RSV/COVID negative. PCT 0.02, blood cultures x2 negative CT 10/19 showed: Persistent probable left lower lobe pneumonia with mucoid impaction and new superimposed presumed aspiration. - finished course of cefepime and azithromycin 10/15 - 10/22 , on 10/22 noted to have worsening hypoxia likely due to aspiration pneumonia treated with IV Zosyn 10/22 thru 10/27 for retrocardiac pneumonia; - SUPERVISOR DETASSELING CREW consulted, recommends NDD2 solids + thin liquids, tolerating diet -CTA chest 10/25 showed no PE, improving left lower lobe pneumonia ,, diffuse small AV thickening and bronchiectasis, foci of endobronchial mucus plugging significantly improved in left lower lobe -patient was improving, on 4 L of oxygen finger oximetry > 92% likely aspirated again 12/27 oxygenation dropped to 70s placed on high-flow oxygenation remained low 87 88% therefore Repeat CTA chest 10/29 obtained that showed no PE but again showed multifocal pneumonia, increased consolidation left lower lobe indicating worsening pneumonia, new mild amount of bilateral ground-glass opacity and patchy consolidation in other lobes likely infectious/inflammatory Likely recurrent aspiration /being followed closely by speech therapy on IV Zosyn 10/29, on IV steroids 20 q.12 hours and doxycycline 100 b.i.d. Have been unable to titrate O2 below 6L, maintains oximetry 88-92% Will DC IV Zosyn, DC IV steroids and DC IV doxy -on augmentin BID x5 days (started 11/03) - continue CPT + Aerobika - unable to tolerate BiPAP, - continue to titrate supplemental oxygen. - daily out of bed to chair -3/5 pt with increased O2 requirement. She has no complaints. CXR ordered along with cbc, bmp HTN continue clonidine 0.2 mg t.i.d., amlodipine, and losartan 25 mg daily. Noted to have few high blood pressure readings now stabilized follow BP HLD - statin mood disorder continue sertraline Class 3 obesity recommend low-calorie diet. dispo - to short-term reha- waiting for Auth As per PT patient will require extensive rehab upon discharge. In my clinical judgment, the patient requires continued inpatient hospitalization for the following reasons: hypoxia/hypercarbia, and safe disposition. Per SNF, will not accept patient if requires >6L with ambulation. Patient currently refusing to walk. May need to consider pulm rehab/LTC Quality Stroke Does the patient have a stroke diagnosis?: No VTE Prior VTE?: No VTE Risk Level:: Medical - moderate - high VTE Device Contraindication: Treatment Not Indicated VTE Drug Contraindication: N/A - Med Ordered
[2024-11-08] MEDS: Losartan Potassium 25 MG TABLET PO (08:34)
[2024-11-08] MEDS: Gabapentin 300 MG CAPSULE PO ×2 (08:34→16:55)
[2024-11-08] MEDS: cloNIDine HCL 0.2 MG TABLET PO ×3 (08:34→19:39)
[2024-11-08] MEDS: amLODIPine Besylate 10 MG TABLET PO (08:34)
[2024-11-08] MEDS: guaiFENesin LA 600 MG TAB.ER.12H 1200 MG PO ×2 (08:34→19:38)
[2024-11-08] MEDS: Sertraline HCL 100 MG TABLET PO (08:34)
[2024-11-08] MEDS: 0.9 % Sodium Chloride Flush 3 ML SYRINGE IVFLUSH ×2 (08:35→15:21)
--- NOTE | 2024-11-08 13:31 | MHC.SL.SWA ---
Speech Pathologist Impression: Mild oropharygneal dysphagia, respiratory status remains inconsistent, pt is on O2 via NC, adjusted by RN as needed Risk of Aspiration Due to: Medically Fragile Hx of intubation Hx of respiratory compromise Dysphasia Diet Status: Recommend advance to NDD3 with thin liquids, pills whole in puree at next level of care, intermittent supervision with PO. Liquid Consistency and Strategies for Safe Swallow: Liquid Intake Recommendation: Thin Liquid Intake Strategies: Small Sips No Straws Solid Food Consistency: Dietary Recommendations: Chopped/Advanced (NDD3) Additional Modifications to Solid Foods: Patient appropriate for intermittent supervision during PO intake. BLACK TOP PAVER OPERATOR discussed recommended diet and strategies: liquid wash between bites to clear pocketed material, small sips, avoid the use of straws, maintain upright positioning. Pt showing improved understanding and use of targeted strategies. BLACK TOP PAVER OPERATOR continues to follow. Oral Medication Intake: Whole with Puree Please contact the pharmacy regarding appropriate crushable or liquid drug formulations that are available whenever modified delivery is recommended. Compensatory Strategies and Precautions to be Taken for Safe Swallow: Sitting Upright (90 deg) Double Swallow No Straw Small Bites and Sips Alternate Liquids/Solids Rate of Ingestion Change Avoid Specific Foods Supervision While Eating and Drinking for Safe Swallow: Intermittent Supervision Foods to Avoid: Flaky or dry foods Swallowing Recommended Treatments: Compens. Strategy Educat. Recommendation for Speech: Inpatient Speech Therapy Speech Therapy through Rehab Facility Comment: Pt benefits from review of information relative to dysphagia and concern for respiratory compromise. BLACK TOP PAVER OPERATOR reiterated recc safety precautions and diet modifications, pt in agreement with slight diet advancement to NDD3 with thin liquids. RN and MD consulted. BLACK TOP PAVER OPERATOR will continue to follow inpatient, pt will need BLACK TOP PAVER OPERATOR tx upon d/c for dysphagia/pharyngeal strengthening. Intermittent supervision during PO appropriate at this time. Frequency/Duration: Date Range for Service Req: Timeline to reassess: Pharmacy Account Director Clinican/Clinical Fellow: No Supervisory Statement: I have reviewed and agree with the student/clinical fellow's documentation: N/A Speech Language Pathologist: Andreina Dowling M.S., [facility]-BLACK TOP PAVER OPERATOR
--- NOTE | 2024-11-08 14:31 | MHC.CM.PN ---
Second IMM given 11/08. Bed offer received from [facility]. This CM met with pt to discuss and she is not in favor of going to rehab in [place], this CM explained that it is the only current rehab option, and that unfortunately local [facility] are unable to accommodate her. Pt requested that this CM speak with her daughter/HCP Charissa to discuss this. This CM called and spoke with pts daughter Charissa who is in agreement with her mom going to [facility], she also spoke with the liaison Layla from the facility and they agreed to submit for insurance auth.
[2024-11-08 15:03] LABS: Basophils Percent Auto 0.1 % (0-2); Eosinophils Percent Auto 0.4 % (0-4); Hematocrit 36.3 % (37.0-47.0); Hemoglobin 10.9 g/dl (12.0-16.0); Imm Gran Abs Auto 0.05 X10*3/uL (0.00-0.03); Imm Gran Pct Auto 0.7 % (0.0-0.4); Lymphocytes Absolute Auto 1.1 X10*3/uL (1.2-4.9); Lymphocytes Percent Auto 15.4 % (20-40); Mean Corpuscular Hemoglobin 27.5 pg (27.0-33.0); Mean Corpuscular Volume 91.4 fL (80.0-98.0); Mean Platelet Volume 10.1 fL (9.4-12.3); Monocytes Absolute Auto 0.7 X10*3/uL (0.1-1.2); Monocytes Percent Auto 10.3 % (2-11); Neutrophils Percent Auto 73.1 % (45-73); Red Blood Count 3.97 X10*6/uL (4.20-5.50); Red Cell Distribution Width 14.7 % (11.0-16.0); White Blood Count 6.8 X10*3/uL (4.8-10.8)
[2024-11-08 15:08] LABS: MANUAL DIFF FLAG SCAN
[2024-11-08] MEDS: Enoxaparin Sodium 40 MG/0.4 ML SYRINGE SUBCUT (15:18)
[2024-11-08 15:42] LABS: Anion Gap 9 (12-20); Blood Urea Nitrogen 15 mg/dL (9-16); Calcium 8.9 mg/dL (8.4-10.2); Carbon Dioxide 41 mmol/L (22-29); Chloride 98 mmol/L (96-108); Creatinine Clr Calc Pharmacy 80.7; Estimated Glomerular Filt Rate > 60; Glucose Random 202 mg/dL (60-115); Potassium 3.2 mmol/L (3.3-5.1); Sodium 145 mmol/L (135-145)
[2024-11-08 15:59] LABS: Platelet Count 99 X10*3/uL (160-400); SLIDE REVIEW VERIFIED
[2024-11-08 16:45] LABS: VBG HCO3 59 mmol/L (22-26); VBG pCO2 43 mmHg; VBG pO2 136 mmHg
[2024-11-08 16:47] LABS: VBG pH 7.74 (7.32-7.43)
[2024-11-08 16:47] LABS: Venous Blood Gas Refer to POC result
[2024-11-08] MEDS: Potassium Chloride ER 20 MEQ TAB.ER.PRT PO (16:55)
[2024-11-08 17:33] LABS: B Type Natriuretic Peptide 83 pg/mL (<100)
[2024-11-08 17:42] LABS: VBG Base Excess 25.6 mmol/L; VBG HCO3 50 mmol/L (22-26); VBG pCO2 52 mmHg; VBG pH 7.59 (7.32-7.43); VBG pO2 110 mmHg
[2024-11-08 17:54] LABS: Venous Blood Gas Refer to POC result
[2024-11-08] MEDS: Ampicillin Sodium/Sulbactam Na 3 GM in 0.9 % Sodium Chloride 100 ML IV (18:29)
[2024-11-08] MEDS: Furosemide 40 MG/4 ML VIAL IVPUSH (18:29)
[2024-11-08] MEDS: Acetaminophen 325 MG TABLET 650 MG PO (19:38)
[2024-11-08] MEDS: Atorvastatin Calcium 10 MG TABLET PO (19:39)
[2024-11-09] VITALS (7 sets, daily range): BP systolic 94–142; BP diastolic 50–65; PULSE 60–67; RESP 16–20; TEMP 36.1–36.6; O2SAT 91–97
[2024-11-09] MEDS: 0.9 % Sodium Chloride Flush 3 ML SYRINGE IVFLUSH ×4 (00:03→22:05)
[2024-11-09] MEDS: Ampicillin Sodium/Sulbactam Na 3 GM in 0.9 % Sodium Chloride 100 ML IV ×2 (00:03→05:11)
[2024-11-09] MEDS: Omeprazole 20 MG CAPSULE.DR PO (05:11)
[2024-11-09 07:05] LABS: Blood Urea Nitrogen 17 mg/dL (9-16); Calcium 8.8 mg/dL (8.4-10.2); Creatinine Clr Calc Pharmacy 80.7; Estimated Glomerular Filt Rate > 60; Glucose Random 121 mg/dL (60-115)
[2024-11-09 07:12] LABS: Anion Gap 13 (12-20); Carbon Dioxide 39 mmol/L (22-29); Chloride 97 mmol/L (96-108); Sodium 146 mmol/L (135-145)
[2024-11-09] MEDS: acetaZOLAMIDE 250 MG TABLET PO ×2 (08:41→22:04)
[2024-11-09] MEDS: cloNIDine HCL 0.2 MG TABLET PO ×2 (08:41→22:05)
[2024-11-09] MEDS: Sertraline HCL 100 MG TABLET PO (08:42)
[2024-11-09] MEDS: Potassium Chloride ER 20 MEQ TAB.ER.PRT 40 MEQ PO (08:42)
[2024-11-09] MEDS: guaiFENesin LA 600 MG TAB.ER.12H 1200 MG PO ×2 (08:42→22:04)
[2024-11-09] MEDS: Gabapentin 300 MG CAPSULE PO ×2 (08:42→17:54)
[2024-11-09] MEDS: Losartan Potassium 25 MG TABLET PO (08:42)
[2024-11-09] MEDS: amLODIPine Besylate 10 MG TABLET PO (08:43)
[2024-11-09] MEDS: Carbamide Peroxide 6.5% Otic 15 ML DRPBTL 5 DROP EAR-LEFT ×2 (10:24→22:11)
--- NOTE | 2024-11-09 10:34 | MHC.CM.PN ---
Patient has accepted the bed offer from [facility]; [employer] auth is pending and CM will follow.
--- NOTE | 2024-11-09 12:41 | MHC.SLORD ---
Speech Language Pathology Order Status: Attempted to see patient at Breakfast, patient refused meal, appeared fatigued. Patient is pending dc to STR with insurance approval. Recommend continue on dite of Ground/Mechanical (NDD2) with thin liquids, as patient has been stable on this diet for prolonged period. Recommend WARRANT CLERK tx at next level of care.
--- NOTE | 2024-11-09 13:01 | P.PNIM_ITS ---
Subjective Subjective Date of Service: 11/09/24 Interval History: Feels better, slept good, denies shortness of breath, occasional nonproductive cough, no fevers, no chills tolerating diet denies coughing with food, no acute events overnight. Review of Systems All other system reviewed and are negative Physical Exam 2 Vital Signs: Vital Signs: Last Vital Signs Temp 97.8 F 11/09/24 11:14 Pulse 63 11/09/24 11:14 Resp 20 11/09/24 11:14 BP 101/52 L 11/09/24 11:14 Pulse Ox 97 11/09/24 11:14 O2 Del Method Nasal Cannula 11/09/24 11:14 O2 Flow Rate 8 11/09/24 11:14 FiO2 30 10/31/24 15:25 Oxygen Flow Rate 4 10/15/24 11:33 BMI result Body Mass Index 37.5 Const: Other: Gen: No acute distress. HEENT: sclera anicteric, moist mucus membranes Neck: supple Lungs:bibasilar rhonchi , no use of accessory muscles, talking in full sentences. Heart: regular rate and rhythm, no murmurs Abd: soft, non-tender, non-distended, bowel sounds audible Ext: no edema Skin: warm/well-perfused Neuro: alert and oriented x3, no focal findings Psych: appropriate affect Objective Data Active Medications Acetaminophen (Acetaminophen 325 Mg Tablet) 650 mg PO Q6H PRN PRN Reason: Pain, Mild (Pain Scale 1-3) Last Admin: 11/08/24 19:38 Dose: 650 mg Documented By: HAMLET Acetazolamide (Acetazolamide 250 Mg Tablet) 250 mg PO BID [facility] Stop: 11/10/24 21:01 Last Admin: 11/09/24 08:41 Dose: 250 mg Documented By: DAYANA Amlodipine Besylate (Amlodipine Besylate 10 Mg Tablet) 10 mg PO DAILY [facility]; Protocol Last Admin: 11/09/24 08:43 Dose: 10 mg Documented By: DAYANA Atorvastatin Calcium (Atorvastatin Calcium 10 Mg Tablet) 10 mg PO BEDTIME [facility] Last Admin: 11/08/24 19:39 Dose: 10 mg Documented By: HAMLET Carbamide Peroxide (Carbamide Peroxide 6.5% Otic 15 Ml Drpbtl) 5 drop EAR-LEFT BID [facility] Stop: 11/12/24 17:37 Last Admin: 11/09/24 10:24 Dose: 5 drop Documented By: STORMY Clonidine HCl (Clonidine Hcl 0.2 Mg Tablet) 0.2 mg PO TID [facility]; Protocol Last Admin: 11/09/24 08:41 Dose: 0.2 mg Documented By: DAYANA Enoxaparin Sodium (Enoxaparin Sodium 40 Mg/0.4 Ml Syringe) 40 mg SUBCUT Q24H [facility] Last Admin: 11/08/24 15:18 Dose: 40 mg Documented By: FREDY Gabapentin (Gabapentin 300 Mg Capsule) 300 mg PO BID@0900,1700 [facility] Last Admin: 11/09/24 08:42 Dose: 300 mg Documented By: DAYANA Guaifenesin (Guaifenesin La 600 Mg Tab.Er.12h) 1,200 mg PO BID [facility] Last Admin: 11/09/24 08:42 Dose: 1,200 mg Documented By: DAYANA Losartan Potassium (Losartan Potassium 25 Mg Tablet) 25 mg PO DAILY [facility]; Protocol Last Admin: 11/09/24 08:42 Dose: 25 mg Documented By: DAYANA Omeprazole (Omeprazole 20 Mg Capsule.Dr) 20 mg PO DAILY@0630 [facility] Last Admin: 11/09/24 05:11 Dose: 20 mg Documented By: BENNETT Ondansetron HCl (Ondansetron Hcl 4 Mg/2 Ml Vial) 4 mg IVPUSH Q6H PRN PRN Reason: Nausea and Vomiting Last Admin: 10/19/24 06:39 Dose: 4 mg Documented By: DAVID Sertraline HCl (Sertraline Hcl 100 Mg Tablet) 100 mg PO DAILY [facility] Last Admin: 11/09/24 08:42 Dose: 100 mg Documented By: DAYANA Sodium Chloride (0.9 % Sodium Chloride Flush 3 Ml Syringe) 3 ml IVFLUSH QSHIFT [facility] Last Admin: 11/09/24 08:41 Dose: 3 ml Documented By: DAYANA Labs 11/08/24 14:37 11/09/24 06:11 Labs: Laboratory Results - last 24 hr 11/08/24 11/08/24 11/08/24 14:37 16:21 16:26 MCV 91.4 MCH 27.5 MCHC 30.0 L RDW 14.7 Plt Count 99 L D MPV 10.1 Immature Gran % (Auto) 0.7 H Neut % (Auto) 73.1 H Lymph % (Auto) 15.4 L [place] % (Auto) 10.3 Eos % (Auto) 0.4 Baso % (Auto) 0.1 Lymph # (Auto) 1.1 L [place] # (Auto) 0.7 Eos # (Auto) 0.0 Baso # (Auto) 0.0 Abs Immat Gran (auto) 0.05 H Absolute Neuts (auto) 5.0 Absolute Nucleated RBC 0.000 Nucleated RBC % (auto) 0.0 Smear Tech's Comments VERIFIED VBG pH 7.74 H* VBG pCO2 43 VBG pO2 136 VBG HCO3 59 H VBG O2 Saturation 99.0 VBG Base Excess 36.0 Anion Gap 9 L Estim Creat Clear Calc 80.7 Estimated GFR > 60 Random Glucose 202 H Calcium 8.9 D B-Natriuretic Peptide 83 Hold Yellow Top See Note 11/08/24 11/09/24 17:30 06:11 MCV MCH MCHC RDW Plt Count MPV Immature Gran % (Auto) Neut % (Auto) Lymph % (Auto) [place] % (Auto) Eos % (Auto) Baso % (Auto) Lymph # (Auto) [place] # (Auto) Eos # (Auto) Baso # (Auto) Abs Immat Gran (auto) Absolute Neuts (auto) Absolute Nucleated RBC Nucleated RBC % (auto) Smear Tech's Comments VBG pH 7.59 H VBG pCO2 52 VBG pO2 110 VBG HCO3 50 H VBG O2 Saturation 100.0 VBG Base Excess 25.6 Anion Gap 13 Estim Creat Clear Calc 80.7 Estimated GFR > 60 Random Glucose 121 H Calcium 8.8 B-Natriuretic Peptide Hold Yellow Top Assessment and Plan (1) Multifocal pneumonia: Status: Acute (2) COPD exacerbation: Status: Acute (3) Acute on chronic respiratory failure with hypoxia and hypercapnia: Status: Acute Plan 79yo F with COPD on 2L O2, HLD, obesity who was at STR at [facility] and was admitted to the ICU for acute hypoxia/hypercapnea refractory to BiPAP support, intubated then extubated the next day and stepped down to [facility] 10/16 acute/chronic hypoxic/hypercarbic resp failure due to COPD exac/LLL PNA/recurrent episodes of aspiration and obesity hypoventilation syndrome - flu/RSV/COVID negative. PCT 0.02, blood cultures x2 negative CT 10/19 showed: Persistent probable left lower lobe pneumonia with mucoid impaction and new superimposed presumed aspiration. - finished course of cefepime and azithromycin 10/15 - 10/22 , on 10/22 noted to have worsening hypoxia likely due to aspiration pneumonia treated with IV Zosyn 10/22 thru 10/27 for retrocardiac pneumonia; - CLOTH SHRINKING SUPERVISOR consulted, recommends NDD2 solids + thin liquids, tolerating diet -CTA chest 10/25 showed no PE, improving left lower lobe pneumonia ,, diffuse small AV thickening and bronchiectasis, foci of endobronchial mucus plugging significantly improved in left lower lobe -patient was improving, on 4 L of oxygen finger oximetry > 92% likely aspirated again 10/29 oxygenation dropped to 70s placed on high-flow oxygenation remained low 87 88% therefore Repeat CTA chest 10/29 obtained that showed no PE but again showed multifocal pneumonia, increased consolidation left lower lobe indicating worsening pneumonia, new mild amount of bilateral ground-glass opacity and patchy consolidation in other lobes likely infectious/inflammatory Likely recurrent aspiration /being followed closely by speech therapy Will wean oxygen to maintains oximetry 88-92% Finished course of IV Zosyn and IV doxycycline and by mouth Augmentin - continue CPT + Aerobika - unable to tolerate BiPAP, - continue to titrate supplemental oxygen. -3/5 pt with increased O2 requirement, chest x-ray showed mild interstitial lung edema and left-sided pleural effusion [id number] volume and masslike opacity right hemithorax correlate to a fat density on CT chest dated October 29, patient received 1 dose of IV Lasix, BNP 83, no evidence of CHF will hold further diuretics Will DC IV Unasyn Strongly recommend out of bed to chair. Acute hypokalemia likely due to diuretics will replete and follow labs HTN on clonidine 0.2 mg t.i.d., amlodipine, and losartan 25 mg daily. Noted to have soft blood pressure will DC losartan. HLD - statin mood disorder continue sertraline Class 3 obesity recommend low-calorie diet. dispo - to short-term reha- waiting for Auth As per PT patient will require extensive rehab upon discharge. In my clinical judgment, the patient requires continued inpatient hospitalization for the following reasons: hypoxia/hypercarbia, and safe disposition. Per SNF, will not accept patient if requires >6L with ambulation. Patient currently refusing to walk. May need to consider pulm rehab/LTC Quality Stroke Does the patient have a stroke diagnosis?: No VTE Prior VTE?: No VTE Risk Level:: Medical - moderate - high VTE Device Contraindication: Treatment Not Indicated VTE Drug Contraindication: N/A - Med Ordered
[2024-11-09] MEDS: Enoxaparin Sodium 40 MG/0.4 ML SYRINGE SUBCUT (15:26)
[2024-11-09 19:24] LABS: VBG Base Excess 18.6 mmol/L; VBG HCO3 48 mmol/L (22-26); VBG pCO2 85 mmHg; VBG pH 7.36 (7.32-7.43); VBG pO2 31 mmHg
[2024-11-09 19:26] LABS: Venous Blood Gas Refer to POC result
[2024-11-09] MEDS: Acetaminophen 325 MG TABLET 650 MG PO (22:04)
[2024-11-09] MEDS: Atorvastatin Calcium 10 MG TABLET PO (22:05)
[2024-11-10] VITALS (12 sets, daily range): BP systolic 95–131; BP diastolic 45–63; PULSE 59–84; RESP 18–28; TEMP 36.2–37.6; O2SAT 89–98
[2024-11-10] MEDS: Omeprazole 20 MG CAPSULE.DR PO (05:56)
[2024-11-10 07:49] LABS: Hematocrit 39.9 % (37.0-47.0); Hemoglobin 11.4 g/dl (12.0-16.0); Mean Corpuscular HGB Conc 28.6 g/dl (31.0-35.0); Mean Corpuscular Hemoglobin 27.3 pg (27.0-33.0); Mean Corpuscular Volume 95.5 fL (80.0-98.0); Platelet Count 105 X10*3/uL (160-400); Red Blood Count 4.18 X10*6/uL (4.20-5.50); Red Cell Distribution Width 14.7 % (11.0-16.0); White Blood Count 6.1 X10*3/uL (4.8-10.8)
[2024-11-10 08:07] LABS: Blood Urea Nitrogen 16 mg/dL (9-16); Calcium 9.1 mg/dL (8.4-10.2); Creatinine Clr Calc Pharmacy 88.1; Estimated Glomerular Filt Rate > 60; Glucose Random 113 mg/dL (60-115)
[2024-11-10 08:14] LABS: Anion Gap 14 (12-20); Carbon Dioxide 28 mmol/L (22-29); Chloride 104 mmol/L (96-108); Potassium 4.1 mmol/L (3.3-5.1); Sodium 142 mmol/L (135-145)
[2024-11-10] MEDS: Gabapentin 300 MG CAPSULE PO (08:41)
[2024-11-10] MEDS: guaiFENesin LA 600 MG TAB.ER.12H 1200 MG PO ×2 (08:42→22:13)
[2024-11-10] MEDS: cloNIDine HCL 0.2 MG TABLET PO (08:42)
[2024-11-10] MEDS: Carbamide Peroxide 6.5% Otic 15 ML DRPBTL 5 DROP EAR-LEFT ×2 (08:42→22:15)
[2024-11-10] MEDS: Sertraline HCL 100 MG TABLET PO (08:42)
[2024-11-10] MEDS: acetaZOLAMIDE 250 MG TABLET PO (08:42)
[2024-11-10] MEDS: amLODIPine Besylate 10 MG TABLET PO (08:42)
[2024-11-10] MEDS: 0.9 % Sodium Chloride Flush 3 ML SYRINGE IVFLUSH ×3 (08:45→22:14)
--- NOTE | 2024-11-10 09:47 | P.PNPL_ITS ---
Subjective Subjective Date of Service: 11/10/24 Interval history: The patient was seen on exam. Overall the patient has episodes of improvement and then worsening. Last night her oxygen requirements had to be increased. Unfortunately the patient does have hypoventilation syndrome and does benefit from noninvasive ventilation but she has been refusing. She did have a venous blood gas which I reviewed demonstrating significant worsening of her pCO2. Chest x-ray still with bilateral bibasilar airspace disease. She did complete prolonged course of antibiotics already. Objective Data Labs 11/10/24 07:11 11/10/24 07:11 Labs: Laboratory Results - last 24 hr 11/09/24 11/09/24 11/10/24 19:13 19:19 07:11 WBC 6.1 RBC 4.18 L Hgb 11.4 L Hct 39.9 MCV 95.5 MCH 27.3 MCHC 28.6 L RDW 14.7 Plt Count 105 L MPV 10.0 Absolute Nucleated RBC 0.000 Nucleated RBC % (auto) 0.0 Hold Purple Top SEE NOTE VBG pH 7.36 VBG pCO2 85 VBG pO2 31 VBG HCO3 48 H VBG O2 Saturation 34.0 VBG Base Excess 18.6 Sodium 142 Potassium 4.1 D Chloride 104 Carbon Dioxide 28 Anion Gap 14 BUN 16 Creatinine 0.54 Estim Creat Clear Calc 88.1 Estimated GFR > 60 Random Glucose 113 Calcium 9.1 Microbiology Microbiology Results: Microbiology 10/20/24 00:32 Blood - Venous Blood Culture - Final No growth after 5 days. 10/20/24 00:32 Blood - Venous Blood Culture - Final No growth after 5 days. 10/15/24 11:57 Blood - Venous Blood Culture - Final No growth after 5 days. 10/15/24 11:54 Blood - Venous Blood Culture - Final No growth after 5 days. Review of Systems Review of Systems Yes Unobtainable due to mental status Physical Exam 2 Vital Signs: Vital Signs: Last Vital Signs Temp 97.9 F 11/10/24 07:35 Pulse 69 11/10/24 07:35 Resp 20 11/10/24 07:35 BP 131/63 11/10/24 07:35 Pulse Ox 96 11/10/24 07:35 O2 Del Method Nasal Cannula 11/10/24 07:35 O2 Flow Rate 12 11/10/24 07:35 FiO2 30 02/25/25 15:25 Oxygen Flow Rate 4 10/15/24 11:33 BMI result Body Mass Index 37.5 Const: Other: Gen: No acute distress. HEENT: sclera anicteric, moist mucus membranes Neck: supple Lungs:bibasilar rhonchi , no use of accessory muscles, talking in full sentences. Heart: regular rate and rhythm, no murmurs Abd: soft, non-tender, non-distended, bowel sounds audible Ext: no edema Skin: warm/well-perfused Neuro: alert and oriented x3, no focal findings Psych: appropriate affect Procedures Date of Service Date of Service: 11/10/24 Assessment and Plan Assessment and plan (1) Multifocal pneumonia: Status: Acute (2) Acute on chronic respiratory failure with hypoxia and hypercapnia: Status: Acute (3) COPD (chronic obstructive pulmonary disease): Status: Acute (4) Encephalopathy: Status: Acute Plan start Chlorhexadine MW ro minimize aspiration pneumonia risk Start Augmentin PO X 14 days would avoid Diamox if she is not using her BIPAP Trial BIPAP with nasal mask oxygen supplementation to keep pox>86% OOB to recliner monitor blood gas Time Spent With Patient Time: Total time managing care of this patient today ____ minutes. Progress Note: Quality Stroke Does the patient have a stroke diagnosis?: No
--- NOTE | 2024-11-10 10:18 | MHC.SLORD ---
Speech Language Pathology Order Status: Patient refused to participate in dysphagia treatment this morning, stating that she wants to sleep and does not want to eat right now. Patient has been stable on ground/mech altered (NDD2) diet with thin liquids. Recommend 1:1 supervision and aspiration precautions. Per EMR, patient accepted bed offer from [facility], pending [employer] authorization.
--- NOTE | 2024-11-10 10:35 | MHC.CM.PN ---
Addendum entered by Jes Ferrer 11/10/24 13:31: Per RT, Patient placed on Bipap r/t desatting; [facility] has been notified and CM will follow. Original Note: Per MD in ROUNDS, Patient required 10-11 L of O2 overnight and this morning. [facility], who has initiated auth with [employer], has been notified of Patient's O2 requirements. CM will follow.
[2024-11-10] MEDS: Amoxicillin/Potassium Clav 875 MG TABLET PO ×2 (10:57→22:14)
[2024-11-10] MEDS: Chlorhexidine Gluc Oral Rinse 15 ML MOUTHWASH BUCCAL ×2 (10:58→22:14)
--- NOTE | 2024-11-10 12:30 | PC.NURSE ---
Addendum entered by Yoko Hammer RN 11/10/24 18:06: pt on high flow 50L 90% at this time Addendum entered by Yoko Hammer RN 11/10/24 18:01: pt removed bipap, sats in 50s, had 1 bite of dinner. placed pt back in [place] 15L with sats in low 80s, pursed lip breathing, tachypneic . RT called, Dr. Salvador notified. pt placed in high flow by RT. Addendum entered by Yoko Hammer RN 11/10/24 14:13: 1400 pt placed on bipap by RT. tolerating at this time. Addendum entered by Yoko Hammer RN 11/10/24 13:38: 1320 pt unable to be placed on bipap at this time d/t aspiration risk from eating lunch. per RT place on non rebreather at this time until pt can be transitioned to bipap. pt was on 15L r[place]etts with sats of low 80s. pt now on non-rebreather 15L sats 88-90% Original Note: pts o2 on monitor low 80s on 11L r[place] with good pleth. RT and Dr. hickey notified and came to bedside. VBG ordered. pt agreeable at this time to be transitioned to bipap
[2024-11-10 13:03] LABS: Venous Blood Gas Refer to POC result
[2024-11-10 13:06] LABS: VBG Base Excess 27.1 mmol/L; VBG HCO3 55 mmol/L (22-26); VBG pCO2 76 mmHg; VBG pH 7.46 (7.32-7.43); VBG pO2 50 mmHg
--- NOTE | 2024-11-10 14:46 | HO.PM.IMPN ---
Subjective Subjective Date of Service: 11/10/24 Interval History: This morning patient appears less alert, slow to respond, offers no acute complaints of shortness of breath, no headache, no dizziness, no fever or chills, had VBG check last evening and noted to have pCO2 of 85, also was hypoxic overnight therefore place on 11 L of oxygen at present finger oximetry 96% decreased oxygen to 5 L, finger oximetry dropped down to 80s. Review of Systems All other symptoms reviewed and are negative Physical Exam Vital Signs: Vital Signs: Last Vital Signs Temp 98.3 F 11/10/24 11:45 Pulse 66 11/10/24 11:45 Resp 23 H 11/10/24 13:59 BP 115/55 L 11/10/24 11:45 Pulse Ox 92 11/10/24 11:45 O2 Del Method Nasal Cannula 11/10/24 11:45 O2 Flow Rate 10 11/10/24 11:45 FiO2 30 10/31/24 15:25 Oxygen Flow Rate 4 10/15/24 11:33 BMI result Body Mass Index 37.5 Const: Other: Gen: No acute distress, not somnolent, but not at baseline HEENT: sclera anicteric, moist mucus membranes Neck: supple Lungs:bibasilar rhonchi , no use of accessory muscles, talking in full sentences. Heart: regular rate and rhythm, no murmurs Abd: soft, non-tender, non-distended, bowel sounds audible Ext: no edema Skin: warm/well-perfused Neuro: alert and oriented slow to respond, no focal findings Psych: appropriate affect Objective Data Active Medications Acetaminophen (Acetaminophen 325 Mg Tablet) 650 mg PO Q6H PRN PRN Reason: Pain, Mild (Pain Scale 1-3) Last Admin: 11/09/24 22:04 Dose: 650 mg Documented By: GOPI Amlodipine Besylate (Amlodipine Besylate 5 Mg Tablet) 5 mg PO DAILY [facility]; Protocol Amoxicillin/Clavulanate Potassium (Amoxicillin/Potassium Clav 875 Mg Tablet) 875 mg PO Q12H [facility] Last Admin: 11/10/24 10:57 Dose: 875 mg Documented By: STORMY Atorvastatin Calcium (Atorvastatin Calcium 10 Mg Tablet) 10 mg PO BEDTIME [facility] Last Admin: 11/09/24 22:05 Dose: 10 mg Documented By: GOPI Carbamide Peroxide (Carbamide Peroxide 6.5% Otic 15 Ml Drpbtl) 5 drop EAR-LEFT BID [facility] Stop: 11/12/24 17:37 Last Admin: 11/10/24 08:42 Dose: 5 drop Documented By: DAYANA Chlorhexidine Gluconate (Chlorhexidine Gluc Oral Rinse 15 Ml Mouthwash) 15 ml BUCCAL BID [facility] Last Admin: 11/10/24 10:58 Dose: 15 ml Documented By: STORMY Clonidine HCl (Clonidine Hcl 0.2 Mg Tablet) 0.2 mg PO TID [facility]; Protocol Last Admin: 11/10/24 08:42 Dose: 0.2 mg Documented By: ADYANA Enoxaparin Sodium (Enoxaparin Sodium 40 Mg/0.4 Ml Syringe) 40 mg SUBCUT Q24H [facility] Last Admin: 11/09/24 15:26 Dose: 40 mg Documented By: DAYANA Gabapentin (Gabapentin 300 Mg Capsule) 300 mg PO BID@0900,1700 [facility] Last Admin: 11/10/24 08:41 Dose: 300 mg Documented By: DAYANA Guaifenesin (Guaifenesin La 600 Mg Tab.Er.12h) 1,200 mg PO BID [facility] Last Admin: 11/10/24 08:42 Dose: 1,200 mg Documented By: DAYANA Omeprazole (Omeprazole 20 Mg Capsule.Dr) 20 mg PO DAILY@0630 [facility] Last Admin: 11/10/24 05:56 Dose: 20 mg Documented By: GOPI Ondansetron HCl (Ondansetron Hcl 4 Mg/2 Ml Vial) 4 mg IVPUSH Q6H PRN PRN Reason: Nausea and Vomiting Last Admin: 10/19/24 06:39 Dose: 4 mg Documented By: DAVID Sertraline HCl (Sertraline Hcl 100 Mg Tablet) 100 mg PO DAILY [facility] Last Admin: 11/10/24 08:42 Dose: 100 mg Documented By: DAYANA Sodium Chloride (0.9 % Sodium Chloride Flush 3 Ml Syringe) 3 ml IVFLUSH QSHIFT [facility] Last Admin: 11/10/24 08:45 Dose: 3 ml Documented By: DAYANA Labs 11/10/24 07:11 11/10/24 07:11 Labs: Laboratory Results - last 24 hr 11/09/24 11/09/24 11/10/24 19:13 19:19 07:11 MCV 95.5 MCH 27.3 MCHC 28.6 L RDW 14.7 Plt Count 105 L MPV 10.0 Absolute Nucleated RBC 0.000 Nucleated RBC % (auto) 0.0 Hold Purple Top SEE NOTE VBG pH 7.36 VBG pCO2 85 VBG pO2 31 VBG HCO3 48 H VBG O2 Saturation 34.0 VBG Base Excess 18.6 Anion Gap 14 Estim Creat Clear Calc 88.1 Estimated GFR > 60 Random Glucose 113 Calcium 9.1 11/10/24 13:03 MCV MCH MCHC RDW Plt Count MPV Absolute Nucleated RBC Nucleated RBC % (auto) Hold Purple Top VBG pH 7.46 H VBG pCO2 76 VBG pO2 50 VBG HCO3 55 H VBG O2 Saturation 85.0 VBG Base Excess 27.1 Anion Gap Estim Creat Clear Calc Estimated GFR Random Glucose Calcium Assessment and Plan (1) Encephalopathy: Status: Acute (2) Multifocal pneumonia: Status: Acute (3) COPD exacerbation: Status: Acute (4) Acute on chronic respiratory failure with hypoxia and hypercapnia: Status: Acute Plan 79yo F with COPD on 2L O2, HLD, obesity who was at STR at [facility] and was admitted to the ICU for acute hypoxia/hypercapnea refractory to BiPAP support, intubated then extubated the next day and stepped [facility] 10/16 acute/chronic hypoxic/hypercarbic resp failure due to COPD exac/LLL PNA/recurrent episodes of aspiration and obesity hypoventilation syndrome - flu/RSV/COVID negative. PCT 0.02, blood cultures x2 negative CT 10/19 showed: Persistent probable left lower lobe pneumonia with mucoid impaction and new superimposed presumed aspiration. - finished course of cefepime and azithromycin 10/15 - 10/22 , on 10/22 noted to have worsening hypoxia likely due to aspiration pneumonia treated with IV Zosyn 10/22 thru 10/27 for retrocardiac pneumonia; - TYPECASTING MACHINE OPERATOR consulted, recommends NDD2 solids + thin liquids, tolerating diet -CTA chest 10/25 showed no PE, improving left lower lobe pneumonia ,, diffuse small AV thickening and bronchiectasis, foci of endobronchial mucus plugging significantly improved in left lower lobe -patient was improving, on 4 L of oxygen finger oximetry > 92% likely aspirated again 10/29 oxygenation dropped to 70s placed on high-flow oxygenation remained low 87 88% therefore Repeat CTA chest 10/29 obtained that showed no PE but again showed multifocal pneumonia, increased consolidation left lower lobe indicating worsening pneumonia, new mild amount of bilateral ground-glass opacity and patchy consolidation in other lobes likely infectious/inflammatory Likely recurrent aspiration /being followed closely by speech therapy Finished course of IV Zosyn and IV doxycycline and by mouth Augmentin -3/ pt with increased O2 requirement, chest x-ray showed mild interstitial lung edema and left-sided pleural effusion [id number] volume and masslike opacity right hemithorax correlate to a fat density on CT chest dated October 29, patient received 1 dose of IV Lasix, BNP 83, no evidence of CHF -11/09 Patient was maintained on 3-4 L of oxygen with finger oximetry around 88%, DC IV Unasyn, later in the evening patient became hypoxic required 10-11 L of oxygen to maintain finger oximetry above 90 Last night VBGs showed elevated pCO2 85 -11/10 this morning patient slow to respond not a usual self, repeat VBG showed pCO2 76, pH 7.46 finger oximetry 85% on 10 L case discussed with Dr. Bauman from pulmonology he recommend to resume antibiotics Patient agreed to use BiPAP therefore will place patient on BiPAP nasal mask Gradually wean oxygen to keep finger ox > 86% Strongly recommend out of bed to chair/chest PT/ aero bika Acute metabolic encephalopathy due to hypercarbia treat with BiPAP at night and during naps, follow VBG. Acute hypokalemia repleted HTN noted to have soft blood pressure, continue clonidine 0.2 mg t.i.d., decrease dose of amlodipine to 5 mg, and DC losartan 25 mg daily follow BP HLD - statin mood disorder continue sertraline Class 3 obesity recommend low-calorie diet. dispo - to short-term reha- waiting for Auth As per PT patient will require extensive rehab upon discharge. In my clinical judgment, the patient requires continued inpatient hospitalization for the following reasons: hypoxia/hypercarbia, and safe disposition. Requiring BiPAP. Quality Stroke Does the patient have a stroke diagnosis?: No VTE Prior VTE?: No VTE Risk Level:: Medical - moderate - high VTE Device Contraindication: Treatment Not Indicated VTE Drug Contraindication: N/A - Med Ordered
[2024-11-10] MEDS: Enoxaparin Sodium 40 MG/0.4 ML SYRINGE SUBCUT (16:06)
[2024-11-10 18:27] LABS: VBG Base Excess 10.3 mmol/L; VBG HCO3 34 mmol/L (22-26); VBG pCO2 43 mmHg; VBG pO2 174 mmHg
[2024-11-10 18:29] LABS: Venous Blood Gas Refer to POC result
[2024-11-10 19:47] LABS: VBG Base Excess 7.4 mmol/L; VBG HCO3 35 mmol/L (22-26); VBG pCO2 68 mmHg; VBG pH 7.32 (7.32-7.43); VBG pO2 45 mmHg
[2024-11-10 19:54] LABS: Venous Blood Gas Refer to POC result
[2024-11-10] MEDS: Atorvastatin Calcium 10 MG TABLET PO (22:13)
[2024-11-10] MEDS: cloNIDine HCL 0.1 MG TABLET PO (22:19)
[2024-11-10] MEDS: Dextrose 5 % and 0.45 % NaCl 1,000 ML 100 ML IVCONT (23:24)
[2024-11-11] VITALS (15 sets, daily range): BP systolic 90–116; BP diastolic 51–58; PULSE 72–103; RESP 15–24; TEMP 36.8–37.7; O2SAT 91–96
[2024-11-11] MEDS: Chlorhexidine Gluc Oral Rinse 15 ML MOUTHWASH BUCCAL ×2 (08:14→22:05)
[2024-11-11] MEDS: 0.9 % Sodium Chloride Flush 3 ML SYRINGE IVFLUSH ×3 (08:14→22:06)
[2024-11-11] MEDS: Carbamide Peroxide 6.5% Otic 15 ML DRPBTL 5 DROP EAR-LEFT ×2 (08:14→22:06)
[2024-11-11] MEDS: Gabapentin 300 MG CAPSULE PO (09:45)
[2024-11-11] MEDS: Sertraline HCL 100 MG TABLET PO (09:45)
[2024-11-11] MEDS: Amoxicillin/Potassium Clav 875 MG TABLET PO ×2 (09:45→22:05)
--- NOTE | 2024-11-11 10:49 | MHC.SL.SWA ---
Speech Pathologist Impression: Risk of Aspiration, Oropharyngeal Dysphagia Risk of Aspiration Due to: Medically Fragile Hx of Recent Extubation Dysphasia Diet Status: Upgrade from NPO to NDD2/NTL (Patient was previously on NDD1/thin) Liquid Consistency and Strategies for Safe Swallow: Liquid Intake Recommendation: [place] Thick Liquid Intake Strategies: Small Sips No Straws Solid Food Consistency: Dietary Recommendations: Grnd/Mech Altered (NDD2) Additional Modifications to Solid Foods: PATIENT TO BE DIRECTLY SUPERVISED WITH ALL PO INTAKE. Cue patient as needed for safe feeding strategies: slow pacing, liquid wash between bites to clear pocketed material, small sips, avoid the use of straws, maintain upright positioning during PO intake and for at least 30 minutes afterwards. Discontinue feeding if patient exhibits any overt s/s of aspiration or change to respiration. Recommendations written on whiteboard in patient's room. Oral Medication Intake: Crushed with Puree Please contact the pharmacy regarding appropriate crushable or liquid drug formulations that are available whenever modified delivery is recommended. Compensatory Strategies and Precautions to be Taken for Safe Swallow: Sitting Upright (90 deg) Double Swallow No Straw Small Bites and Sips Alternate Liquids/Solids Rate of Ingestion Change Avoid Specific Foods Supervision While Eating and Drinking for Safe Swallow: Total Supervision (1:1) Foods to Avoid: Flaky or dry foods Swallowing Recommended Treatments: Compens. Strategy Educat. Recommendation for Speech: Inpatient Speech Therapy Speech Therapy through Rehab Facility Comment: Pt benefits from review of information relative to dysphagia and concern for respiratory compromise, pt will need STUDENT ACTIVITIES DIRECTOR tx upon d/c for dysphagia/pharyngeal strengthening. Frequency/Duration: Date Range for Service Req: Timeline to reassess: Chief Legal Officer Clinican/Clinical Fellow: No Supervisory Statement: I have reviewed and agree with the student/clinical fellow's documentation: N/A Speech Language Pathologist: Mehnaz Espinoza M.A., CCC-STUDENT ACTIVITIES DIRECTOR
--- NOTE | 2024-11-11 12:31 | P.PNPL_ITS ---
Subjective Subjective Date of Service: 11/11/24 Interval history: The patient was seen on exam. She tolerated the BiPAP okay and actually her blood gas did significantly improve. However, apparently she had a witnessed aspiration and ultimately developed respiratory failure now on high levels of high-flow. Objective Data Labs 11/10/24 07:11 11/10/24 07:11 Labs: Laboratory Results - last 24 hr 11/10/24 11/10/24 11/10/24 13:03 18:21 19:30 VBG pH 7.46 H 7.50 H 7.32 VBG pCO2 76 43 68 VBG pO2 50 174 45 VBG HCO3 55 H 34 H 35 H VBG O2 Saturation 85.0 100.0 79.0 VBG Base Excess 27.1 10.3 7.4 Microbiology Microbiology Results: Microbiology 10/20/24 00:32 Blood - Venous Blood Culture - Final No growth after 5 days. 10/20/24 00:32 Blood - Venous Blood Culture - Final No growth after 5 days. 10/15/24 11:57 Blood - Venous Blood Culture - Final No growth after 5 days. 10/15/24 11:54 Blood - Venous Blood Culture - Final No growth after 5 days. Review of Systems Review of Systems Yes Unobtainable due to mental status Physical Exam 2 Vital Signs: Vital Signs: Last Vital Signs Temp 99.2 F 11/11/24 10:52 Pulse 79 11/11/24 10:52 Resp 17 11/11/24 11:55 BP 112/55 L 11/11/24 10:52 Pulse Ox 93 11/11/24 10:52 O2 Del Method Aerosol Mask, Hig h Flow Nasal Cannu la 11/11/24 10:52 O2 Flow Rate 50 11/11/24 10:52 FiO2 80 11/11/24 10:52 Oxygen Flow Rate 4 10/15/24 11:33 BMI result Body Mass Index 37.5 Const: Other: Gen: somnolent HEENT: sclera anicteric, moist mucus membranes Neck: supple Lungs:bibasilar rhonchi , no use of accessory muscles, talking in full sentences. Heart: regular rate and rhythm, no murmurs Abd: soft, non-tender, non-distended, bowel sounds audible Ext: no edema Skin: warm/well-perfused Neuro: alert and oriented slow to respond, no focal findings Psych: appropriate affect Procedures Date of Service Date of Service: 11/11/24 Assessment and Plan Assessment and plan (1) Multifocal pneumonia: Status: Acute (2) Acute on chronic respiratory failure with hypoxia and hypercapnia: Status: Acute (3) COPD (chronic obstructive pulmonary disease): Status: Acute (4) Encephalopathy: Status: Acute Plan Chlorhexadine MW ro minimize aspiration pneumonia risk CXR Solumedrol for aspiration pneumonitis Augmentin continue HF oxygen supplementation to keep pox>86% monitor blood gas poor prognosis, guarded condition, goals of care Time Spent With Patient Time: Total time managing care of this patient today ____ minutes. Progress Note: Quality Stroke Does the patient have a stroke diagnosis?: No
--- NOTE | 2024-11-11 13:25 | P.PNIM_ITS ---
Subjective Subjective Date of Service: 11/11/24 Interval History: Awake alert on high-flow oxygen, due to hypoxia after an episode of aspiration, subsequently made NPO. This a.m. awake alert, requesting for food seen by speech therapy they recommend modified NDD 2 diet and nectar thick liquids with strict aspiration precautions. Denies fever, no chills. Review of Systems All other system reviewed and are negative Physical Exam 2 Vital Signs: Vital Signs: Last Vital Signs Temp 99.2 F 11/11/24 10:52 Pulse 79 11/11/24 10:52 Resp 17 11/11/24 11:55 BP 112/55 L 11/11/24 10:52 Pulse Ox 93 11/11/24 10:52 O2 Del Method Aerosol Mask, Hig h Flow Nasal Cannu la 11/11/24 10:52 O2 Flow Rate 50 11/11/24 10:52 FiO2 80 11/11/24 10:52 Oxygen Flow Rate 4 10/15/24 11:33 BMI result Body Mass Index 37.5 Const: Other: Gen: No acute distress, awake alert at baseline. HEENT: sclera anicteric, moist mucus membranes. Neck: supple Lungs:bibasilar rhonchi , no use of accessory muscles, talking in full sentences. Heart: regular rate and rhythm, no murmurs Abd: soft, non-tender, non-distended, bowel sounds audible Ext: no edema Skin: warm/well-perfused Neuro: alert and oriented , no focal findings Psych: appropriate affect Objective Data Active Medications Acetaminophen (Acetaminophen 325 Mg Tablet) 650 mg PO Q6H PRN PRN Reason: Pain, Mild (Pain Scale 1-3) Last Admin: 11/09/24 22:04 Dose: 650 mg Documented By: GOPI Amlodipine Besylate (Amlodipine Besylate 5 Mg Tablet) 5 mg PO DAILY [facility]; Protocol Last Admin: 11/11/24 10:03 Dose: Not Given Documented By: DANIELLE Non-Admin Reason: Decreased Blood Pressure Amoxicillin/Clavulanate Potassium (Amoxicillin/Potassium Clav 875 Mg Tablet) 875 mg PO Q12H [facility] Last Admin: 11/11/24 09:45 Dose: 875 mg Documented By: DANIELLE Atorvastatin Calcium (Atorvastatin Calcium 10 Mg Tablet) 10 mg PO BEDTIME [facility] Last Admin: 11/10/24 22:13 Dose: 10 mg Documented By: YAKELIN Carbamide Peroxide (Carbamide Peroxide 6.5% Otic 15 Ml Drpbtl) 5 drop EAR-LEFT BID [facility] Stop: 11/12/24 17:37 Last Admin: 11/11/24 08:14 Dose: 5 drop Documented By: DANIELLE Chlorhexidine Gluconate (Chlorhexidine Gluc Oral Rinse 15 Ml Mouthwash) 15 ml BUCCAL BID [facility] Last Admin: 11/11/24 08:14 Dose: 15 ml Documented By: DANIELLE Clonidine HCl (Clonidine Hcl 0.1 Mg Tablet) 0.1 mg PO TID [facility]; Protocol Last Admin: 11/11/24 10:02 Dose: Not Given Documented By: DANIELLE Non-Admin Reason: Decreased Blood Pressure Enoxaparin Sodium (Enoxaparin Sodium 40 Mg/0.4 Ml Syringe) 40 mg SUBCUT Q24H [facility] Last Admin: 11/10/24 16:06 Dose: 40 mg Documented By: DAYANA Gabapentin (Gabapentin 300 Mg Capsule) 300 mg PO BID@0900,1700 [facility] Last Admin: 11/11/24 09:45 Dose: 300 mg Documented By: DANIELLE Guaifenesin (Guaifenesin La 600 Mg Tab.Er.12h) 1,200 mg PO BID [facility] Last Admin: 11/11/24 10:01 Dose: Not Given Documented By: DANIELLE Non-Admin Reason: Patient Refused Methylprednisolone Sodium Succinate (Methylprednisolone Sod Succ 40 Mg/Ml Vial) 40 mg IVPUSH Q8H [facility] Omeprazole (Omeprazole 20 Mg Capsule.Dr) 20 mg PO DAILY@0630 [facility] Last Admin: 11/11/24 05:08 Dose: Not Given Documented By: YKAELIN Non-Admin Reason: NPO Ondansetron HCl (Ondansetron Hcl 4 Mg/2 Ml Vial) 4 mg IVPUSH Q6H PRN PRN Reason: Nausea and Vomiting Last Admin: 10/19/24 06:39 Dose: 4 mg Documented By: DAVID Sertraline HCl (Sertraline Hcl 100 Mg Tablet) 100 mg PO DAILY [facility] Last Admin: 11/11/24 09:45 Dose: 100 mg Documented By: DANIELLE Sodium Chloride (0.9 % Sodium Chloride Flush 3 Ml Syringe) 3 ml IVFLUSH QSHIFT [facility] Last Admin: 11/11/24 08:14 Dose: 3 ml Documented By: DANIELLE Labs 11/10/24 07:11 11/10/24 07:11 Labs: Laboratory Results - last 24 hr 11/10/24 11/10/24 18:21 19:30 VBG pH 7.50 H 7.32 VBG pCO2 43 68 VBG pO2 174 45 VBG HCO3 34 H 35 H VBG O2 Saturation 100.0 79.0 VBG Base Excess 10.3 7.4 Assessment and Plan (1) Encephalopathy: Status: Acute (2) Multifocal pneumonia: Status: Acute (3) COPD exacerbation: Status: Acute (4) Acute on chronic respiratory failure with hypoxia and hypercapnia: Status: Acute (5) COPD (chronic obstructive pulmonary disease): Status: Acute Plan 79yo F with COPD on 2L O2, HLD, obesity who was at [facility] at [facility] and was admitted to the ICU for acute hypoxia/hypercapnea refractory to BiPAP support, intubated then extubated the next day and stepped down to [facility] [place] acute/chronic hypoxic/hypercarbic resp failure due to COPD exac/LLL PNA/recurrent episodes of aspiration and obesity hypoventilation syndrome -flu/RSV/COVID negative. PCT 0.02, blood cultures x2 negative CT 10/19 showed: Persistent probable left lower lobe pneumonia with mucoid impaction and new superimposed presumed aspiration. -finished course of cefepime and azithromycin 10/15 - 10/22 , on 10/22 noted to have worsening hypoxia likely due to aspiration pneumonia treated with IV Zosyn 10/22 thru 10/27 for retrocardiac pneumonia; -EXTERMINATOR consulted, recommends NDD2 solids + thin liquids, tolerating diet -CTA chest 10/25 showed no PE, improving left lower lobe pneumonia ,, diffuse small AV thickening and bronchiectasis, foci of endobronchial mucus plugging significantly improved in left lower lobe -patient was improving, on 4 L of oxygen finger oximetry > 92% likely aspirated again 10/29 oxygenation dropped to 70s placed on high-flow oxygenation remained low 87 88% therefore Repeat CTA chest 10/29 obtained that showed no PE but again showed multifocal pneumonia, increased consolidation left lower lobe indicating worsening pneumonia, new mild amount of bilateral ground-glass opacity and patchy consolidation in other lobes likely infectious/inflammatory Likely recurrent aspiration /being followed closely by speech therapy Finished course of IV Zosyn and IV doxycycline and by mouth Augmentin -11/08 pt with increased O2 requirement, chest x-ray showed mild interstitial lung edema and left-sided pleural effusion [id number] volume and masslike opacity right hemithorax correlate to a fat density on CT chest dated October 29, patient received 1 dose of IV Lasix, BNP 83, clinically did not appear volume overload further Lasix discontinued -11/09 Patient was maintained on 3-4 L of oxygen with finger oximetry around 88%, later in the evening patient became hypoxic required 10-11 L of oxygen to maintain finger oximetry above 90 -11/10 slow to respond not her usual self, VBG 11/09 at night showed pCO2 85, repeat VBG showed pCO2 76, pH 7.46 finger oximetry 85% on 10 L case discussed with Dr. Bauman from pulmonology he recommend to resume antibiotics Augmentin b.i.d. Patient agreed to use BiPAP therefore placed on BiPAP nasal mask, out of bed to chair/chest PT/ aero tysonka -11/11 patient tolerated BiPAP well, pCO2 improved, however she apparently had a witnessed aspiration last evening, became hypoxic and placed on high-flow oxygen, made NPO, however this morning again evaluated by speech therapy they recommend modified NDD 2 diet and nectar thick liquid with strict aspiration precautions, diet place, continue to wean high-flow oxygen as tolerated and wean to keep finger oximetry greater than 86, Continue Augmentin twice daily, started on Solu Medrol for aspiration pneumonitis, continue chlorhexidine, encourage aerobica/OOb to chair Goal of care discussed with patient ,she wishes to remain full code, she admits that she tolerated recent intubation, so would like to try it again if needed. Acute metabolic encephalopathy due to hypercarbia resolved status post bicarb Acute hypokalemia repleted HTN noted to have soft blood pressure, continue clonidine dose reduced to 0.1 mg t.i.d., amlodipine dose reduced to 5 mg, and losartan discontinued HLD - statin mood disorder continue sertraline Class 3 obesity recommend low-calorie diet. dispo - to short-term rehab once medically stable- In my clinical judgment, the patient requires continued inpatient hospitalization for the following reasons: hypoxia/hypercarbia, and safe disposition. Requiring high-flow oxygen. Quality Stroke Does the patient have a stroke diagnosis?: No VTE Prior VTE?: No VTE Risk Level:: Medical - moderate - high VTE Device Contraindication: Treatment Not Indicated VTE Drug Contraindication: N/A - Med Ordered
[2024-11-11] MEDS: cloNIDine HCL 0.1 MG TABLET PO ×2 (14:46→22:08)
[2024-11-11] MEDS: methylPREDNISolone Sod Succ 40 MG/ML VIAL IVPUSH ×2 (14:46→22:06)
[2024-11-11] MEDS: Enoxaparin Sodium 40 MG/0.4 ML SYRINGE SUBCUT (14:46)
[2024-11-11] MEDS: Gabapentin 100 MG CAPSULE 200 MG PO (16:22)
[2024-11-11 17:21] LABS: VBG Base Excess 19.1 mmol/L; VBG HCO3 42 mmol/L (22-26); VBG pCO2 42 mmHg; VBG pH 7.61 (7.32-7.43); VBG pO2 200 mmHg
[2024-11-11 17:22] LABS: Venous Blood Gas Refer to POC result
[2024-11-11 19:33] LABS: Venous Blood Gas Refer to POC result
[2024-11-11 19:33] LABS: VBG Base Excess 9.2 mmol/L; VBG HCO3 36 mmol/L (22-26); VBG pCO2 60 mmHg; VBG pH 7.38 (7.32-7.43); VBG pO2 79 mmHg
[2024-11-11] MEDS: guaiFENesin LA 600 MG TAB.ER.12H PO (22:05)
[2024-11-11] MEDS: Atorvastatin Calcium 10 MG TABLET PO (22:05)
[2024-11-12] VITALS (11 sets, daily range): BP systolic 112–143; BP diastolic 56–65; PULSE 69–100; RESP 18–20; TEMP 36.3–37.1; O2SAT 88–99
[2024-11-12] MEDS: methylPREDNISolone Sod Succ 40 MG/ML VIAL IVPUSH ×3 (05:51→21:25)
[2024-11-12] MEDS: 0.9 % Sodium Chloride Flush 3 ML SYRINGE IVFLUSH ×2 (09:43→15:52)
[2024-11-12] MEDS: Sertraline HCL 100 MG TABLET PO (09:44)
[2024-11-12] MEDS: Gabapentin 100 MG CAPSULE 200 MG PO ×2 (09:44→15:52)
[2024-11-12] MEDS: Amoxicillin/Potassium Clav 875 MG TABLET PO ×2 (09:44→21:25)
[2024-11-12] MEDS: amLODIPine Besylate 5 MG TABLET PO (09:44)
[2024-11-12] MEDS: cloNIDine HCL 0.1 MG TABLET PO ×3 (09:44→21:25)
[2024-11-12] MEDS: Carbamide Peroxide 6.5% Otic 15 ML DRPBTL 5 DROP EAR-LEFT (09:57)
[2024-11-12] MEDS: Enoxaparin Sodium 40 MG/0.4 ML SYRINGE SUBCUT (15:52)
[2024-11-12] MEDS: Acetaminophen 325 MG TABLET 650 MG PO ×2 (15:52→21:25)
--- NOTE | 2024-11-12 16:38 | P.PNIM_ITS ---
Subjective Subjective Date of Service: 11/12/24 Interval History: Being followed for acute hypercapnic and hypoxic respiratory failure. Denies worsening shortness of breath, complaining of persistent congested cough, no fevers, no chills, on 10 L of OxyMask finger oximetry greater than 95 Review of Systems All other system reviewed and are negative. Physical Exam 2 Vital Signs: Vital Signs: Last Vital Signs Temp 98.7 F 11/12/24 15:44 Pulse 98 11/12/24 15:44 Resp 18 11/12/24 15:44 BP 139/65 11/12/24 15:44 Pulse Ox 92 11/12/24 15:44 O2 Del Method Oxymask 11/12/24 15:44 O2 Flow Rate 11 11/12/24 15:44 FiO2 60 11/12/24 10:55 Oxygen Flow Rate 4 10/15/24 11:33 BMI result Body Mass Index 37.5 Const: Other: Gen: No acute distress, awake alert at baseline. HEENT: sclera anicteric, moist mucus membranes. Neck: supple Lungs:bibasilar rhonchi , no use of accessory muscles, talking in full sentences. Heart: regular rate and rhythm, no murmurs Abd: soft, non-tender, non-distended, bowel sounds audible Ext: no edema Skin: warm/well-perfused Neuro: alert and oriented , no focal findings Psych: appropriate affect Objective Data Active Medications Acetaminophen (Acetaminophen 325 Mg Tablet) 650 mg PO Q6H PRN PRN Reason: Pain, Mild (Pain Scale 1-3) Last Admin: 11/12/24 15:52 Dose: 650 mg Documented By: HANDY Amlodipine Besylate (Amlodipine Besylate 5 Mg Tablet) 5 mg PO DAILY [facility]; Protocol Last Admin: 11/12/24 09:44 Dose: 5 mg Documented By: HANDY Amoxicillin/Clavulanate Potassium (Amoxicillin/Potassium Clav 875 Mg Tablet) 875 mg PO Q12H [facility] Last Admin: 11/12/24 09:44 Dose: 875 mg Documented By: HANDY Atorvastatin Calcium (Atorvastatin Calcium 10 Mg Tablet) 10 mg PO BEDTIME [facility] Last Admin: 11/11/24 22:05 Dose: 10 mg Documented By: YAKELIN Carbamide Peroxide (Carbamide Peroxide 6.5% Otic 15 Ml Drpbtl) 5 drop EAR-LEFT BID [facility] Stop: 11/12/24 17:37 Last Admin: 11/12/24 09:57 Dose: 5 drop Documented By: HANDY Chlorhexidine Gluconate (Chlorhexidine Gluc Oral Rinse 15 Ml Mouthwash) 15 ml BUCCAL BID [facility] Last Admin: 11/12/24 09:58 Dose: Not Given Documented By: HANDY Non-Admin Reason: Patient Refused Clonidine HCl (Clonidine Hcl 0.1 Mg Tablet) 0.1 mg PO TID [facility]; Protocol Last Admin: 11/12/24 15:52 Dose: 0.1 mg Documented By: HANDY Enoxaparin Sodium (Enoxaparin Sodium 40 Mg/0.4 Ml Syringe) 40 mg SUBCUT Q24H [facility] Last Admin: 11/12/24 15:52 Dose: 40 mg Documented By: HANDY Gabapentin (Gabapentin 100 Mg Capsule) 200 mg PO BID@0900,1700 [facility] Last Admin: 11/12/24 15:52 Dose: 200 mg Documented By: HANDY Guaifenesin (Guaifenesin La 600 Mg Tab.Er.12h) 600 mg PO BID [facility] Last Admin: 11/12/24 09:53 Dose: Not Given Documented By: HANDY Non-Admin Reason: Cant crush Methylprednisolone Sodium Succinate (Methylprednisolone Sod Succ 40 Mg/Ml Vial) 40 mg IVPUSH Q8H [facility] Last Admin: 11/12/24 12:11 Dose: 40 mg Documented By: HANDY Omeprazole (Omeprazole 20 Mg Capsule.Dr) 20 mg PO DAILY@0630 [facility] Last Admin: 11/12/24 06:47 Dose: Not Given Documented By: YAKELIN Non-Admin Reason: Patient Refused Ondansetron HCl (Ondansetron Hcl 4 Mg/2 Ml Vial) 4 mg IVPUSH Q6H PRN PRN Reason: Nausea and Vomiting Last Admin: 10/19/24 06:39 Dose: 4 mg Documented By: DAVID Sertraline HCl (Sertraline Hcl 100 Mg Tablet) 100 mg PO DAILY [facility] Last Admin: 11/12/24 09:44 Dose: 100 mg Documented By: HANDY Sodium Chloride (0.9 % Sodium Chloride Flush 3 Ml Syringe) 3 ml IVFLUSH QSHIFT [facility] Last Admin: 11/12/24 15:52 Dose: 3 ml Documented By: HANDY Labs 11/10/24 07:11 11/10/24 07:11 Labs: Laboratory Results - last 24 hr 11/11/24 11/11/24 17:04 19:27 VBG pH 7.61 H* 7.38 VBG pCO2 42 60 VBG pO2 200 79 VBG HCO3 42 H 36 H VBG O2 Saturation 100.0 99.0 VBG Base Excess 19.1 9.2 Assessment and Plan (1) Multifocal pneumonia: Status: Acute (2) COPD exacerbation: Status: Acute (3) Acute on chronic respiratory failure with hypoxia and hypercapnia: Status: Acute (4) COPD (chronic obstructive pulmonary disease): Status: Acute Plan 79yo F with COPD on 2L O2, HLD, obesity who was at [facility] and was admitted to the ICU for acute hypoxia/hypercapnea refractory to BiPAP support, intubated then extubated the next day and stepped down to [facility] 10/16 acute/chronic hypoxic/hypercarbic resp failure due to COPD exac/LLL PNA/recurrent episodes of aspiration and obesity hypoventilation syndrome -flu/RSV/COVID negative. PCT 0.02, blood cultures x2 negative CT 10/19 showed: Persistent probable left lower lobe pneumonia with mucoid impaction and new superimposed presumed aspiration. -finished course of cefepime and azithromycin 10/15 - 10/22 , on 10/22 noted to have worsening hypoxia likely due to aspiration pneumonia treated with IV Zosyn 10/22 thru 10/27 for retrocardiac pneumonia; -BLADE FILER consulted, recommends NDD2 solids + thin liquids, tolerating diet -CTA chest 10/25 showed no PE, improving left lower lobe pneumonia ,, diffuse small AV thickening and bronchiectasis, foci of endobronchial mucus plugging significantly improved in left lower lobe -patient was improving, on 4 L of oxygen finger oximetry > 92% likely aspirated again 10/29 oxygenation dropped to 70s placed on high-flow oxygenation remained low 87 88% therefore Repeat CTA chest 10/29 obtained that showed no PE but again showed multifocal pneumonia, increased consolidation left lower lobe indicating worsening pneumonia, new mild amount of bilateral ground-glass opacity and patchy consolidation in other lobes likely infectious/inflammatory Likely recurrent aspiration /being followed closely by speech therapy Finished course of IV Zosyn and IV doxycycline and by mouth Augmentin -11/08 pt with increased O2 requirement, chest x-ray showed mild interstitial lung edema and left-sided pleural effusion [id number] volume and masslike opacity right hemithorax correlate to a fat density on CT chest dated October 29, patient received 1 dose of IV Lasix, BNP 83, clinically did not appear volume overload further Lasix discontinued -11/09 Patient was maintained on 3-4 L of oxygen with finger oximetry around 88%, later in the evening patient became hypoxic required 10-11 L of oxygen to maintain finger oximetry above 90 -11/10 slow to respond not her usual self, VBG 11/09 at night showed pCO2 85, repeat VBG showed pCO2 76, pH 7.46 finger oximetry 85% on 10 L case discussed with Dr. Bauman from pulmonology he recommend to resume antibiotics Augmentin b.i.d. Patient agreed to use BiPAP therefore placed on BiPAP nasal mask, out of bed to chair/chest PT/ aero bika -11/11 patient tolerated BiPAP well, pCO2 improved, however she apparently had a witnessed aspiration last evening, became hypoxic and placed on high-flow oxygen, made NPO, however this morning again evaluated by speech therapy they recommend modified NDD 2 diet and nectar thick liquid with strict aspiration precautions, diet place, continue to wean high-flow oxygen as tolerated and wean to keep finger oximetry greater than 86, Continue Augmentin twice daily, started on Solu Medrol for aspiration pneumonitis, continue chlorhexidine, encourage aerobica/OOb to chair ABG showed pH 7.61, pCO2 42, O2 sat 100%, will wean high-flow and repeat vbg -11/12 patient this a.m. clinically stable weaned of high-flow placed on OxyMask , declined breakfast tolerated 50% of lunch, will continue to gradually wean oxygen, patient does not require BiPAP since noted to have respiratory alkalosis ph 7.61 with drop in pCO2 42 , continue Augmentin b.i.d., IV Solu Medrol and updrafts. Goal of care discussed with patient ,she wishes to remain full code. Acute metabolic encephalopathy due to hypercarbia resolved Acute hypokalemia repleted HTN noted to have soft blood pressure, continue clonidine dose reduced to 0.1 mg t.i.d., from 0.2 mg t.i.d. amlodipine dose reduced to 5 mg from 10 mg, and losartan discontinued HLD - statin mood disorder continue sertraline Class 3 obesity recommend low-calorie diet. dispo - to short-term rehab once medically stable- In my clinical judgment, the patient requires continued inpatient hospitalization for the following reasons: hypoxia/hypercarbia, and safe disposition. Requiring high-flow oxygen. Quality Stroke Does the patient have a stroke diagnosis?: No VTE Prior VTE?: No VTE Risk Level:: Medical - moderate - high VTE Device Contraindication: Treatment Not Indicated VTE Drug Contraindication: N/A - Med Ordered
[2024-11-12] MEDS: Chlorhexidine Gluc Oral Rinse 15 ML MOUTHWASH BUCCAL (21:25)
[2024-11-12] MEDS: Atorvastatin Calcium 10 MG TABLET PO (21:25)
[2024-11-13] VITALS (9 sets, daily range): BP systolic 123–144; BP diastolic 60–77; PULSE 72–108; RESP 16–24; TEMP 36.1–36.4; O2SAT 92–98
[2024-11-13] MEDS: Omeprazole 20 MG CAPSULE.DR PO (05:09)
[2024-11-13] MEDS: methylPREDNISolone Sod Succ 40 MG/ML VIAL IVPUSH ×2 (05:09→14:17)
[2024-11-13] MEDS: Gabapentin 100 MG CAPSULE 200 MG PO ×2 (08:07→16:28)
[2024-11-13] MEDS: Sertraline HCL 100 MG TABLET PO (08:08)
[2024-11-13] MEDS: cloNIDine HCL 0.1 MG TABLET PO ×3 (08:08→19:44)
[2024-11-13] MEDS: amLODIPine Besylate 5 MG TABLET PO (08:08)
[2024-11-13] MEDS: Amoxicillin/Potassium Clav 875 MG TABLET PO ×2 (08:08→22:20)
[2024-11-13] MEDS: 0.9 % Sodium Chloride Flush 3 ML SYRINGE IVFLUSH ×2 (08:10→16:28)
[2024-11-13] MEDS: guaiFENesin 200 MG/10 ML 10 ML LIQUID PO ×2 (08:21→19:43)
--- NOTE | 2024-11-13 10:40 | MHC.CM.PN ---
Addendum entered by Jes Ferrer 11/13/24 12:30: Today's PT PN has been sent to [facility] in order to obtain [employer] auth. CM will follow. Original Note: Per ROUNDS discussion, Patient is now requiring 5-6 L O2. CM has asked PT for an updated PT PN (will be needed for [employer] auth); CM will send PT PN as soon as it is available. CM will follow.
--- NOTE | 2024-11-13 14:01 | MHC.SLORD ---
Speech Language Pathology Order Status: Pt seen for dysphagia treatment, pt expressed her understanding of diet modifications but did not want PO this visit. Pt affect flat, she stated she was planning to take a nap. Safety strategies reviewed. [facility]AD[facility] DIRECTOR continues to treat/assess for PO tolerance, education and safety.
[2024-11-13] MEDS: Enoxaparin Sodium 40 MG/0.4 ML SYRINGE SUBCUT (14:16)
--- NOTE | 2024-11-13 14:50 | P.PNIM_ITS ---
Subjective Subjective Date of Service: 11/13/24 Interval History: Resting comfortably, now on 6 L Oxymizer finger oximetry 96%, no acute events overnight, tolerating diet, no fevers no chills. Declines out of bed to chair and any activity. Review of Systems All other system reviewed are negative Physical Exam 2 Vital Signs: Vital Signs: Last Vital Signs Temp 97.4 F 11/13/24 11:06 Pulse 75 11/13/24 11:06 Resp 18 11/13/24 11:06 BP 123/60 11/13/24 14:17 Pulse Ox 94 11/13/24 11:06 O2 Del Method Nasal Cannula 11/13/24 11:06 O2 Flow Rate 5 11/13/24 11:06 FiO2 60 11/12/24 10:55 Oxygen Flow Rate 4 10/15/24 11:33 BMI result Body Mass Index 37.5 Const: Other: Gen: No acute distress, awake alert at baseline, intermittent congested cough. HEENT: sclera anicteric, moist mucus membranes. Neck: supple Lungs:bibasilar rhonchi , no use of accessory muscles, talking in full sentences. Heart: regular rate and rhythm, no murmurs Abd: soft, non-tender, non-distended, bowel sounds audible Ext: no edema Skin: warm/well-perfused Neuro: alert and oriented , no focal findings Psych: appropriate affect Objective Data Active Medications Acetaminophen (Acetaminophen 325 Mg Tablet) 650 mg PO Q6H PRN PRN Reason: Pain, Mild (Pain Scale 1-3) Last Admin: 11/12/24 21:25 Dose: 650 mg Documented By: YAKELIN Amlodipine Besylate (Amlodipine Besylate 5 Mg Tablet) 5 mg PO DAILY [facility]; Protocol Last Admin: 11/13/24 08:08 Dose: 5 mg Documented By: ZENAIDA Amoxicillin/Clavulanate Potassium (Amoxicillin/Potassium Clav 875 Mg Tablet) 875 mg PO Q12H [facility] Last Admin: 11/13/24 08:08 Dose: 875 mg Documented By: ZENAIDA Atorvastatin Calcium (Atorvastatin Calcium 10 Mg Tablet) 10 mg PO BEDTIME [facility] Last Admin: 11/12/24 21:25 Dose: 10 mg Documented By: YAKELIN Chlorhexidine Gluconate (Chlorhexidine Gluc Oral Rinse 15 Ml Mouthwash) 15 ml BUCCAL BID [facility] Last Admin: 11/13/24 08:16 Dose: Not Given Documented By: ZENAIDA Non-Admin Reason: Patient Refused Clonidine HCl (Clonidine Hcl 0.1 Mg Tablet) 0.1 mg PO TID [facility]; Protocol Last Admin: 11/13/24 14:17 Dose: 0.1 mg Documented By: ZENAIDA Enoxaparin Sodium (Enoxaparin Sodium 40 Mg/0.4 Ml Syringe) 40 mg SUBCUT Q24H [facility] Last Admin: 11/13/24 14:16 Dose: 40 mg Documented By: ZENAIDA Gabapentin (Gabapentin 100 Mg Capsule) 200 mg PO BID@0900,1700 [facility] Last Admin: 11/13/24 08:07 Dose: 200 mg Documented By: ZENAIDA Guaifenesin (Guaifenesin 200 Mg/10 Ml 10 Ml Liquid) 10 ml PO BID [facility] Last Admin: 11/13/24 08:21 Dose: 10 ml Documented By: ZENAIDA Guaifenesin/Dextromethorphan (Guaifenesin Dm 200/20/10 Ml 10 Ml Syrup) 10 ml PO Q4H PRN PRN Reason: Cough Methylprednisolone Sodium Succinate (Methylprednisolone Sod Succ 40 Mg/Ml Vial) 40 mg IVPUSH Q8H [facility] Last Admin: 11/13/24 14:17 Dose: 40 mg Documented By: ZENAIDA Omeprazole (Omeprazole 20 Mg Capsule.Dr) 20 mg PO DAILY@0630 [facility] Last Admin: 11/13/24 05:09 Dose: 20 mg Documented By: YAKELIN Ondansetron HCl (Ondansetron Hcl 4 Mg/2 Ml Vial) 4 mg IVPUSH Q6H PRN PRN Reason: Nausea and Vomiting Last Admin: 10/19/24 06:39 Dose: 4 mg Documented By: DAVID Sertraline HCl (Sertraline Hcl 100 Mg Tablet) 100 mg PO DAILY [facility] Last Admin: 11/13/24 08:08 Dose: 100 mg Documented By: ZENAIDA Sodium Chloride (0.9 % Sodium Chloride Flush 3 Ml Syringe) 3 ml IVFLUSH QSHIFT [facility] Last Admin: 11/13/24 08:10 Dose: 3 ml Documented By: ZENAIDA Labs 11/10/24 07:11 11/10/24 07:11 Assessment and Plan (1) Multifocal pneumonia: Status: Acute (2) Encephalopathy: Status: Acute (3) COPD exacerbation: Status: Acute Plan 79yo F with COPD on 2L O2, HLD, obesity who was at STR at [facility] and was admitted to the ICU for acute hypoxia/hypercapnea refractory to BiPAP support, intubated then extubated the next day and stepped down to C 10/16 acute/chronic hypoxic/hypercarbic resp failure due to COPD exac/LLL PNA/recurrent episodes of aspiration and obesity hypoventilation syndrome -flu/RSV/COVID negative. PCT 0.02, blood cultures x2 negative CT 10/19 showed: Persistent probable left lower lobe pneumonia with mucoid impaction and new superimposed presumed aspiration. -finished course of cefepime and azithromycin 10/15 - 10/22 , on 10/22 noted to have worsening hypoxia likely due to aspiration pneumonia treated with IV Zosyn 10/22 thru 10/27 for retrocardiac pneumonia; -IMPORT COORDINATOR consulted, recommends NDD2 solids + thin liquids, tolerating diet -CTA chest 10/25 showed no PE, improving left lower lobe pneumonia ,, diffuse small AV thickening and bronchiectasis, foci of endobronchial mucus plugging significantly improved in left lower lobe -patient was improving, on 4 L of oxygen finger oximetry > 92% likely aspirated again 10/29 oxygenation dropped to 70s placed on high-flow oxygenation remained low 87 88% therefore Repeat CTA chest 10/29 obtained that showed no PE but again showed multifocal pneumonia, increased consolidation left lower lobe indicating worsening pneumonia, new mild amount of bilateral ground-glass opacity and patchy consolidation in other lobes likely infectious/inflammatory Likely recurrent aspiration /being followed closely by speech therapy Finished course of IV Zosyn and IV doxycycline and by mouth Augmentin -11/08 pt with increased O2 requirement, chest x-ray showed mild interstitial lung edema and left-sided pleural effusion [id number] volume and masslike opacity right hemithorax correlate to a fat density on CT chest dated October 29, patient received 1 dose of IV Lasix, BNP 83, clinically did not appear volume overload further Lasix discontinued -11/09 Patient was maintained on 3-4 L of oxygen with finger oximetry around 88%, later in the evening patient became hypoxic required 10-11 L of oxygen to maintain finger oximetry above 90 -11/10 slow to respond not her usual self, VBG 11/09 at night showed pCO2 85, repeat VBG showed pCO2 76, pH 7.46 finger oximetry 85% on 10 L case discussed with Dr. Bauman from pulmonology he recommend to resume antibiotics Augmentin b.i.d. Patient agreed to use BiPAP therefore placed on BiPAP nasal mask, out of bed to chair/chest PT/ aero bika -11/11 patient tolerated BiPAP well, pCO2 improved, however she apparently had a witnessed aspiration last evening, became hypoxic and placed on high-flow oxygen, made NPO, however this morning again evaluated by speech therapy they recommend modified NDD 2 diet and nectar thick liquid with strict aspiration precautions, diet place, continue to wean high-flow oxygen as tolerated and wean to keep finger oximetry greater than 86, Continue Augmentin twice daily, started on Solu Medrol for aspiration pneumonitis, continue chlorhexidine, encourage aerobica/OOb to chair ABG showed pH 7.61, pCO2 42, O2 sat 100%, will wean high-flow and repeat vbg -11/12 patient this a.m. clinically stable weaned of high-flow placed on OxyMask , declined breakfast tolerated 50% of lunch, will continue to gradually wean oxygen, patient does not require BiPAP since noted to have respiratory alkalosis ph 7.61 with drop in pCO2 42 , continue Augmentin b.i.d., IV Solu Medrol and updrafts. -11/13 patient is doing well on 6 L Oxymizer, wean down to 5 L remained stable tolerating current modified ground/mechanical diet and nectar thick liquids on Augmentin 875 b.i.d. started on November 10, will continue for 10 days On IV Solu Medrol 40 mg q.8 hours will transition to q.12 hours today, and transitioned to by mouth prednisone 40 mg slow taper, will discharge on CPAP 10 at bedtime and during naps and 5 L Oxymizer. Waiting for auth Goal of care discussed with patient on several locations,she wishes to remain full code. Acute metabolic encephalopathy due to hypercarbia resolved Acute hypokalemia repleted HTN noted to have soft blood pressure, continue clonidine dose reduced to 0.1 mg t.i.d., from 0.2 mg t.i.d. amlodipine dose reduced to 5 mg from 10 mg, and losartan discontinued HLD - statin mood disorder continue sertraline Class 3 obesity recommend low-calorie diet. dispo - to short-term rehab once all the available inpatient remains hemodynamically stable In my clinical judgment, the patient requires continued inpatient hospitalization for the following reasons: hypoxia/hypercarbia, and safe disposition. Quality Stroke Does the patient have a stroke diagnosis?: No VTE Prior VTE?: No VTE Risk Level:: Medical - moderate - high VTE Device Contraindication: Treatment Not Indicated VTE Drug Contraindication: N/A - Med Ordered
--- NOTE | 2024-11-13 16:25 | HO.WOUND ---
Wound Consult: Initial 79yr old?female admitted to [facility] on 10/15/24 - See progress notes and H&P for detailed history.? Wound consult placed for Perianal MASD.? Patient agreeable to assessment and photo documentation.? Area assessed and detailed below. Buttock / perianal Etiology: ??MASD with Fungal dermatitis Wound Bed: red pink moist tissue remains blanchable - moist desquamation noted with advancing boarders Drainage / Odor: none noted Edges: ? mirrored and advancing Sugey wound:intact ? No Induration, Fluctuance or Warmth noted Pain: tenderness and burning noted Goals of Treatment: ? Antifungal treatment and barrier cream Recommendations: 1. Turn and Reposition every 2 hours and as needed for patient comfort.? Use pillows or wedges to support off loading positions. 2. Off Load all bony prominences with use of pillows and heel boots if needed.? Apply Preventative foams where needed. ? 3. Monitor for incontinence and moisture control, use barrier creams when needed for prevention and treatment. 4. Provide adequate and supplemental nutrition.? 5. Continue low air loss mattress. 6. When applicable maintain blood glucose levels per Providers order. 7. Buttock and Perianal - Q2hr turns with pillows - Cleanse with PH balance wipes, pat dry with soft cloth.? Apply antifungal power to assist with moisture management.? Be sure to dust of excess powder to prevent caking on skin and in folds. Apply per provider orders. Follow with barrier cream. Re-consult wound care Nurse for wound deterioration or wound changes.
[2024-11-13] MEDS: Atorvastatin Calcium 10 MG TABLET PO (19:44)
[2024-11-13] MEDS: Chlorhexidine Gluc Oral Rinse 15 ML MOUTHWASH BUCCAL (19:52)
[2024-11-13] MEDS: Acetaminophen 325 MG TABLET 650 MG PO (22:19)
[2024-11-14] VITALS (8 sets, daily range): BP systolic 146–176; BP diastolic 67–81; PULSE 70–85; RESP 14–20; TEMP 36.1–37.2; O2SAT 91–97
[2024-11-14] MEDS: methylPREDNISolone Sod Succ 40 MG/ML VIAL IVPUSH (03:22)
[2024-11-14] MEDS: Omeprazole 20 MG CAPSULE.DR PO (05:36)
[2024-11-14] MEDS: 0.9 % Sodium Chloride Flush 3 ML SYRINGE IVFLUSH (07:23)
[2024-11-14] MEDS: Sertraline HCL 100 MG TABLET PO (07:24)
[2024-11-14] MEDS: Gabapentin 100 MG CAPSULE 200 MG PO (07:24)
[2024-11-14] MEDS: cloNIDine HCL 0.1 MG TABLET PO (07:24)
[2024-11-14] MEDS: guaiFENesin 200 MG/10 ML 10 ML LIQUID PO (07:24)
[2024-11-14] MEDS: amLODIPine Besylate 5 MG TABLET PO (07:24)
--- NOTE | 2024-11-14 08:49 | MHC.CM.PN ---
Patient is medically cleared for dc to SNF/STR today. Patient will dc to [facility] today at 12:30 PM, via [facility]. CM met with Patient at bedside and addressed IMM with her, providing Patient with the original and a copy has been placed on the chart. CM also spoke with Daughter/HCP/Yenifer @ [phone](with Patient's permission) and Patient and Daughter are aware of and in agreement with the dc plan.
[2024-11-14] MEDS: Amoxicillin/Potassium Clav 875 MG TABLET PO (09:08)
--- NOTE | 2024-11-14 10:16 | P.DS_ITS ---
DS: Providers Provider Date of Service: 11/14/24 Date of admission: 10/15/24 13:38 Date of discharge: 11/14/24 Primary care physician: Anurag Schmid MD Consults: 10/20/24 11:46 Consult to Pulmonology Routine Consulting Provider: [facility] Reason for consultation: mucoid impaction, PNA 10/31/24 07:52 Consult to Pulmonology Routine Consulting Provider: [facility] Reason for consultation: hypoxia on high flow Has provider been notified: No 11/12/24 03:10 Consult to Wound Care Routine Reason for consultation: MASD perianal DS: Diagnosis Discharge Diagnosis (1) Multifocal pneumonia: Status: Acute (2) Encephalopathy: Status: Acute (3) COPD exacerbation: Status: Acute DS: Summary Hospital Course Hospital Course: HPI: 79-year-old lady with underlying history of COPD supplemental oxygen 2 L dependent, hypotension, hyperlipidemia, obesity sent from rehab secondary to acute hypoxia, on ER evaluation patient with acute hypoxic hypercapnic respiratory failure refractory to BiPAP support requiring intubation and ventilatory support. Admitted to the intensive care unit. Hospital course: Acute/chronic hypoxic/hypercarbic resp failure due to COPD exac/LLL PNA/recurrent episodes of aspiration and obesity hypoventilation syndrome -flu/RSV/COVID negative. PCT 0.02, blood cultures x2 negative CT 10/19 showed: Persistent probable left lower lobe pneumonia with mucoid impaction and new superimposed presumed aspiration. -finished course of cefepime and azithromycin 10/15 - 10/22 , on 10/22 noted to have worsening hypoxia likely due to aspiration pneumonia treated with IV Zosyn 10/22 thru 10/27 for retrocardiac pneumonia; -RIBBON CLEANER consulted, recommends NDD2 solids + thin liquids, tolerating diet -CTA chest 10/25 showed no PE, improving left lower lobe pneumonia ,, diffuse small AV thickening and bronchiectasis, foci of endobronchial mucus plugging significantly improved in left lower lobe -patient was improving, on 4 L of oxygen finger oximetry > 92% likely aspirated again 10/29 oxygenation dropped to 70s placed on high-flow oxygenation remained low 87 88% therefore Repeat CTA chest 10/29 obtained that showed no PE but again showed multifocal pneumonia, increased consolidation left lower lobe indicating worsening pneumonia, new mild amount of bilateral ground-glass opacity and patchy consolidation in other lobes likely infectious/inflammatory Likely recurrent aspiration /being followed closely by speech therapy Finished course of IV Zosyn and IV doxycycline and by mouth Augmentin -11/08 pt with increased O2 requirement, chest x-ray showed mild interstitial lung edema and left-sided pleural effusion [id number] volume and masslike opacity right hemithorax correlate to a fat density on CT chest dated October 29, patient received 1 dose of IV Lasix, BNP 83, clinically did not appear volume overload further Lasix discontinued -11/09 Patient was maintained on 3-4 L of oxygen with finger oximetry around 88%, later in the evening patient became hypoxic required 10-11 L of oxygen to maintain finger oximetry above 90 -11/10 slow to respond not her usual self, VBG 11/09 at night showed pCO2 85, repeat VBG showed pCO2 76, pH 7.46 finger oximetry 85% on 10 L case discussed with Dr. Bauman from pulmonology he recommend to resume antibiotics Augmentin b.i.d. Patient agreed to use BiPAP therefore placed on BiPAP nasal mask, out of bed to chair/chest PT/ aero bika -11/11 patient tolerated BiPAP well, pCO2 improved, however she apparently had a witnessed aspiration last evening, became hypoxic and placed on high-flow oxygen, made NPO, however this morning again evaluated by speech therapy they recommend modified NDD 2 diet and nectar thick liquid with strict aspiration precautions, diet place, continue to wean high-flow oxygen as tolerated and wean to keep finger oximetry greater than 86, Continue Augmentin twice daily, started on Solu Medrol for aspiration pneumonitis, continue chlorhexidine, encourage aerobica/OOb to chair ABG showed pH 7.61, pCO2 42, O2 sat 100%, will wean high-flow and repeat vbg -11/12 patient this a.m. clinically stable weaned of high-flow placed on OxyMask , declined breakfast tolerated 50% of lunch, will continue to gradually wean oxygen, patient does not require BiPAP since noted to have respiratory alkalosis ph 7.61 with drop in pCO2 42 , continue Augmentin b.i.d., IV Solu Medrol and updrafts. -11/13 patient is doing well on 6 L Oxymizer, wean down to 5 L remained stable tolerating current modified ground/mechanical diet and nectar thick liquids on Augmentin 875 b.i.d. started on November 10, will continue for 10 days On IV Solu Medrol 40 mg q.8 hours will transition to q.12 hours today, and transitioned to by mouth prednisone 40 mg slow taper, will discharge on CPAP 10 at bedtime and during naps and 5 L Oxymizer. Goal of care discussed with patient on several locations,she wishes to remain full code. Acute metabolic encephalopathy due to hypercarbia resolved Acute hypokalemia repleted HTN noted to have soft blood pressure, continue clonidine dose reduced to 0.1 mg t.i.d., from 0.2 mg t.i.d. amlodipine dose reduced to 5 mg from 10 mg, and losartan discontinued HLD - statin mood disorder continue sertraline Class 3 obesity recommend low-calorie diet. Hemodynamically stable to be discharged to short-term rehab Status at Discharge Overall status at discharge: patient is progressing back to baseline Time Attestation Discharge Coordination Time (in mins): 45mins Quality: Safe Use of Opioids Does Pt have an Active Cancer Diagnosis on the Problem List?: No Quality: Stroke Does the patient have a stroke diagnosis?: No Physical Exam Vital Signs: Vital Signs: Last Vital Signs Temp 97.9 F 11/14/24 07:05 Pulse 82 11/14/24 07:05 Resp 18 11/14/24 07:05 BP 176/75 H 11/14/24 07:24 Pulse Ox 94 11/14/24 07:05 O2 Del Method Nasal Cannula 11/14/24 07:05 O2 Flow Rate 5 11/14/24 07:05 FiO2 60 11/12/24 10:55 Oxygen Flow Rate 4 10/15/24 11:33 BMI result Body Mass Index 37.5 Const: Other: Gen: No acute distress, awake alert at baseline, intermittent congested cough. HEENT: sclera anicteric, moist mucus membranes. Neck: supple Lungs:bibasilar rhonchi , no use of accessory muscles, talking in full sentences. Heart: regular rate and rhythm, no murmurs Abd: soft, non-tender, non-distended, bowel sounds audible Ext: no edema Skin: warm/well-perfused Neuro: alert and oriented , no focal findings Psych: appropriate affect DS: Data Imaging Chest x-ray: Radiologist's impression: ITS Impressions Chest CTA 10/25/24 12:01 IMPRESSION: 1. No evidence of or embolism or acute aortic syndrome. Normal caliber main pulmonary artery. 2. Mild cardiac enlargement. 3. Improving but persistent segmental opacities in the left base, reflecting improving pneumonia. 4. There is resolved right base pneumonic abnormality. 5. Similar diffuse small airway thickening and bronchiectasis. Foci of endobronchial mucous plugging have significantly improved in the left lower lobe. 6. There are no pleural effusions or pneumothoraces. 7. Additional stable ancillary findings as discussed. Electronically signed by: Jimmy Márquez MD 10/25/2024 12:31 PM EST RP Chest X-Ray 11/08/24 14:20 IMPRESSION: Consider mild interstitial lung edema and left-sided pleural effusion, small to moderate volume. Masslike opacity peripheral right hemithorax which correlates to a fat density and the CT chest dated October 29, 2024. Electronically signed by: Ar Wilhelm MD 11/08/2024 02:40 PM EST RP Discharge Plan Discharge Anticipated Discharge Date/Time: 11/14/24 10:17 Patient Disposition: Xfer SNF Discharge Diagnosis: COPD exacerbation pneumonia acute/chronic hypoxia/hypercarbia Referrals: [facility] [Other] - 1 Week Aayush Bauman MD [Physician] - 2 Weeks Physician,Adriel Lazcano [Physician] - 1 Week Discharge Medications: New ipratropium-albuterol 0.5 mg-3 mg(2.5 mg base)/3 mL Solution For Nebulization 3 ml inhalation RQ4H WHILE AWAKE Qty: 90 0RF omeprazole 20 mg Capsule,Delayed Release(Dr/Ec) 20 mg PO DAILY@0630 Qty: 30 0RF amoxicillin-pot clavulanate 875-125 mg Tablet 1 tab PO Q12H Qty: 10 0RF guaifenesin [Mucinex] 600 mg Tablet Extended Release 12hr 1,200 mg PO BID Qty: 20 0RF clonidine HCl 0.1 mg Tablet 0.1 mg PO TID Qty: 30 0RF Protocol: Hold for SBP< HOLD for SBP < : 90 amlodipine 5 mg Tablet 5 mg PO DAILY Qty: 30 0RF Protocol: Hold for SBP< HOLD for SBP < : 90 gabapentin 100 mg Capsule 200 mg PO BID@0900,1700 Qty: 30 0RF prednisone 10 mg tablet 10 mg PO DIRECTED Qty: 60 0RF Rx Instructions: see taper instructions 40mg daily x 7 days followed by 20mg daily x 7 days followed by 10 daily x 7 days followed by 5 daily x 7 days Continued ezetimibe 10 mg tablet 10 mg PO DAILY alendronate 70 mg tablet 70 mg PO MO@0900 sertraline 100 mg tablet 100 mg PO DAILY simvastatin 10 mg tablet 10 mg PO BEDTIME mirabegron [Myrbetriq] 25 mg tablet extended release 24 hr 25 mg PO DAILY multivitamin Tablet 1 tab PO DAILY ipratropium-albuterol 0.5 mg-3 mg(2.5 mg base)/3 mL Solution For Nebulization 3 ml inhalation RQ4H WHILE AWAKE PRN (Reason: Wheezing) Qty: 270 0RF Discontinued losartan 25 mg tablet 25 mg PO DAILY naproxen 500 mg tablet 500 mg PO BIDWM PRN (Reason: Pain) clonidine HCl 0.2 mg tablet 0.2 mg PO TID gabapentin 300 mg capsule 300 mg PO BID@0900,1700 amlodipine 10 mg Tablet 10 mg PO DAILY Qty: 30 0RF Protocol: Hold for SBP< HOLD for SBP < : 90 prednisone 10 mg tablet See Rx Instructions .Route .COMPLEX Qty: 45 0RF Rx Instructions: 10 mg orally DAILY x3 days; END DATE: 10/18/24 Discharge Orders: Discharge Order (Routine); Ordered 11/14/24 Ordered By: Ivana Tirado Diet: Ground mechanical/thin Activity on Discharge: As tolerated Stand Alone Forms: Patient Portal Discharge page Print Language: Ecuadorean Care Plan Goals: lung health Health Concerns: COPD exacerbation Aspiration pneumonia, monitor closely for aspiration 1-1 assistance/supervision during PO intake. RIBBON CLEANER discussed recommended diet and strategies: liquid wash between bites to clear pocketed material, small sips, avoid the use of straws, maintain upright positioning. acute/chronic hypoxia/hypercarbia Wean DuoNeb updraft gradually to every 6 hours then as needed Plan of Treatment: transfer to [facility] for short-term rehabilitation CPAP 10cm h20 at night and during naps in the day, 6L Oxymizer in day (wean as tolerated) take antibiotics as prescribed steroid taper as prescribed O2 with goal SaO2 88-92%; follow up with Pulmonology in 2 weeks Assessment: See Discharge Summary.
== END 2024-11-14 13:15 | disposition skilled nursing facility (03) | DRG 208 ==
LOC: HO.ED 13:32 → HO.EDOVER 13:44 → HO.ICU 14:15 → HO.IMC 10-16 17:56
PROVIDERS: Family Medicine; Hospitalist; Internal Medicine; Internal Medicine Critical Care Medicine; Nurse Practitioner Family; Physician Assistant; Student in an Organized Health Care Education/Training Program; Admitting Provider Internal Medicine Pulmonary Disease; Emergency Provider Emergency Medicine; PCP Internal Medicine; Visit Provider Student in an Organized Health Care Education/Training Program
DX: J44.0 Chronic obstructive pulmonary disease with (acute) lower respiratory infection (principal); G93.41 Metabolic encephalopathy; J18.9 Pneumonia, unspecified organism; J96.21 Acute and chronic respiratory failure with hypoxia; J96.22 Acute and chronic respiratory failure with hypercapnia; R57.0 Cardiogenic shock; J69.0 Pneumonitis due to inhalation of food and vomit; J91.8 Pleural effusion in other conditions classified elsewhere; E66.2 Morbid (severe) obesity with alveolar hypoventilation; J44.1 Chronic obstructive pulmonary disease with (acute) exacerbation; I10 Essential (primary) hypertension; E78.5 Hyperlipidemia, unspecified; E87.6 Hypokalemia; F39 Unspecified mood [affective] disorder; Z20.822 Contact with and (suspected) exposure to COVID-19; Z99.81 Dependence on supplemental oxygen; Z68.37 Body mass index [BMI] 37.0-37.9, adult; Z87.01 Personal history of pneumonia (recurrent); Z87.891 Personal history of nicotine dependence; Z79.899 Other long term (current) drug therapy
CPT/HCPCS: 0241U; 36415; 71045; 71250; 71275; 80048; 80053; 80202; 82040; 82565; 82803; 82947; 83605; 83735; 83880; 84100; 84145; 84484; 85025; 85027; 85610; 87040; 87640; 87641; 92507; 92526; 92610; 93005; 94002; 94003; 94640; 94660; 97162; 97530; 99285; C1758; J0131; J0295; J0456; J0692; J1644; J1650; J1940; J2405; J2543; J2704; J2919; J3010; J3370; J7120; P9047; Q9967

== ENCOUNTER → 2024-10-15 11:27 | Outpatient (BNV) | payer MEDICARE, SELFPAY | PROVIDERS: Admitting Provider Internal Medicine Pulmonary Disease; Emergency Provider Emergency Medicine; Visit Provider Internal Medicine Cardiovascular Disease | DX: R00.0 Tachycardia, unspecified (principal) | CPT/HCPCS: 93010 ==

== ENCOUNTER → 2024-10-15 11:28 | Outpatient (BNV) | payer MEDICARE, SELFPAY | PROVIDERS: Admitting Provider Internal Medicine Pulmonary Disease; Emergency Provider Emergency Medicine; Visit Provider Radiology Diagnostic Radiology | DX: R05.9 Cough, unspecified (principal); Z95.9 Presence of cardiac and vascular implant and graft, unspecified; Z46.82 Encounter for fitting and adjustment of non-vascular catheter | CPT/HCPCS: 71045 ==

== ENCOUNTER 2024-10-15 13:38 | Outpatient (BNV) | payer MEDICARE, SELFPAY | END 2024-10-24 11:17 | PROVIDERS: Admitting Provider Internal Medicine Pulmonary Disease; Emergency Provider Emergency Medicine; Visit Provider Radiology Diagnostic Radiology | DX: J18.9 Pneumonia, unspecified organism (principal) | CPT/HCPCS: 71045 ==

== ENCOUNTER 2024-10-15 13:38 | Outpatient (BNV) | payer MEDICARE, SELFPAY | END 2024-10-19 19:21 | PROVIDERS: Admitting Provider Internal Medicine Pulmonary Disease; Emergency Provider Emergency Medicine; Visit Provider Radiology Diagnostic Radiology | DX: J96.01 Acute respiratory failure with hypoxia (principal) | CPT/HCPCS: 71250 ==

== ENCOUNTER 2024-10-15 13:38 | Outpatient (BNV) | payer MEDICARE, SELFPAY | END 2024-11-11 12:35 | PROVIDERS: Admitting Provider Internal Medicine Pulmonary Disease; Emergency Provider Emergency Medicine; PCP Internal Medicine; Visit Provider Radiology Diagnostic Radiology | DX: J96.01 Acute respiratory failure with hypoxia (principal) | CPT/HCPCS: 71045 ==

== ENCOUNTER 2024-10-15 13:38 | Outpatient (BNV) | payer MEDICARE, SELFPAY | END 2024-11-08 14:20 | PROVIDERS: Admitting Provider Internal Medicine Pulmonary Disease; Emergency Provider Emergency Medicine; PCP Internal Medicine; Visit Provider Radiology Diagnostic Radiology | DX: J96.01 Acute respiratory failure with hypoxia (principal) | CPT/HCPCS: 71045 ==

== ENCOUNTER 2024-10-15 13:38 | Outpatient (BNV) | payer MEDICARE, SELFPAY | END 2024-10-29 19:03 | PROVIDERS: Admitting Provider Internal Medicine Pulmonary Disease; Emergency Provider Emergency Medicine; PCP Internal Medicine; Visit Provider Radiology Diagnostic Radiology | DX: J96.01 Acute respiratory failure with hypoxia (principal) | CPT/HCPCS: 71275 ==

== ENCOUNTER 2024-10-15 13:38 | Outpatient (BNV) | payer MEDICARE, SELFPAY | END 2024-10-25 12:01 | PROVIDERS: Admitting Provider Internal Medicine Pulmonary Disease; Emergency Provider Emergency Medicine; PCP Internal Medicine; Visit Provider Radiology Diagnostic Radiology | DX: J96.01 Acute respiratory failure with hypoxia (principal) | CPT/HCPCS: 71275 ==

== ENCOUNTER → 2024-10-15 13:38 | Outpatient (BNV) | payer MEDICARE, SELFPAY | PROVIDERS: Admitting Provider Internal Medicine Pulmonary Disease; Emergency Provider Emergency Medicine; Visit Provider Internal Medicine Critical Care Medicine | DX: J44.1 Chronic obstructive pulmonary disease with (acute) exacerbation (principal); J96.01 Acute respiratory failure with hypoxia; J96.02 Acute respiratory failure with hypercapnia; F32.A Depression, unspecified; R53.1 Weakness | CPT/HCPCS: 99291 ==

== ENCOUNTER → 2024-10-15 13:38 | Outpatient (BNV) | payer MEDICARE, SELFPAY | PROVIDERS: Admitting Provider Internal Medicine Pulmonary Disease; Emergency Provider Emergency Medicine; Visit Provider Hospitalist | DX: J44.1 Chronic obstructive pulmonary disease with (acute) exacerbation (principal); J96.21 Acute and chronic respiratory failure with hypoxia; J96.22 Acute and chronic respiratory failure with hypercapnia; J44.9 Chronic obstructive pulmonary disease, unspecified; J96.01 Acute respiratory failure with hypoxia; J96.02 Acute respiratory failure with hypercapnia | CPT/HCPCS: 99232; 99233; 99499 ==

== ENCOUNTER → 2024-10-15 13:38 | Outpatient (BNV) | payer MEDICARE, SELFPAY | PROVIDERS: Admitting Provider Internal Medicine Pulmonary Disease; Emergency Provider Emergency Medicine; Visit Provider Internal Medicine Pulmonary Disease | DX: J96.01 Acute respiratory failure with hypoxia (principal); J96.02 Acute respiratory failure with hypercapnia; J44.9 Chronic obstructive pulmonary disease, unspecified | CPT/HCPCS: 99223; 99291 ==